=== PATIENT | female | born 1955 | race Caucasian/White ===

== ENCOUNTER 2019-07-05 13:59 | Emergency (ER) | payer MEDICARE, SELFPAY ==
[2019-07-05 14:00] VITALS: BP 140/70; PULSE 70; RESP 18; TEMP 36.6; O2SAT 99; BMI 29.2
[2019-07-05 14:38] VITALS: BMI 29.2
--- NOTE | 2019-07-05 14:46 | EKG12_ITS ---
Test Reason : Blood Pressure : / mmHG Vent. Rate : 057 BPM Atrial Rate : 057 BPM P-R Int : 134 ms QRS Dur : 078 ms QT Int : 444 ms P-R-T Axes : 043 008 035 degrees QTc Int : 432 ms Sinus bradycardia Otherwise normal ECG Confirmed by YUSUF PERALTA ([id number]), associate entertainment editor RODGER MCALLISTER ([id number]) on 07/09/2019 11:17:02 AM Referred By: Confirmed By:YUSUF PERALTA
--- NOTE | 2019-07-05 14:46 | CT_ITS ---
STUDY: CTA HEAD AND NECK WITH CONTRAST REASON FOR EXAM: Female, 63 years old. Blurred vision. RADIATION DOSAGE (If Supplied By Facility): CTDIvol = ( 29.78 ) mGy, DLP = ( 1275.93 ) mGycm TECHNIQUE: CT angiography was performed with a multi-detector CT scanner. Data acquisition was obtained from the skull base through the vertex following intravenous administration of 100 CC ISOVUE 370. MIP images were reconstructed from the axial data set. Post-processing of the angiographic images was performed, with multiplanar reformation and 3D reconstruction. Individualized dose optimization techniques were used for this CT. COMPARISON: No relevant priors. FINDINGS: Normal bilateral petrous carotid arteries. There is calcified plaque formation of the right cavernous carotid artery, without a cross-sectional luminal stenosis. There is calcified plaque formation of the left cavernous carotid artery, without a cross-sectional luminal stenosis. Normal right A1 segments of the anterior cerebral artery. There is hypoplastic development of the left A1 segment of the anterior cerebral arteries with an atretic but intact artery. Normal intact anterior communicating artery (ACOM). Normal bilateral A2 segments of the anterior cerebral arteries. Normal right M1 and M2 segments of the middle cerebral arteries, with a normal M1 bifurcation. Normal left M1 and M2 segments of the middle cerebral arteries, with a normal M1 bifurcation. Normal right posterior communicating artery (PCOM). Normal left posterior communicating artery (PCOM). There is a small atretic left vertebral artery with a dominant right vertebral artery. Normal basilar artery with a normal basilar bifurcation. The visualized bilateral superior cerebellar (SCA) arteries are normal. Normal bilateral P1, P2 and visualized P3 segments of the posterior cerebral arteries. There is no demonstrated aneurysm of the [place]. There is no demonstrated abnormality of the visualized brain. AORTIC ARCH: Normal visualized aortic arch. Normal origins of the brachiocephalic, left common carotid, and left subclavian arteries. RIGHT CAROTID ARTERIES: Normal right common carotid artery (CCA). There is atherosclerotic change of the distal common carotid artery at the bifurcation. There is a less than 50% stenosis. Normal carotid bulb. Small focus of calcification at the origin of the right internal carotid (ICA) artery without a hemodynamically significant stenosis. Tortuosity of the visualized cervical portion of the right internal carotid artery. Normal origin of the right external carotid artery (ECA). LEFT CAROTID ARTERIES: Normal left common carotid artery (CCA). Normal left common carotid bulb. Normal origin of the left internal carotid (ICA) artery without a hemodynamically significant stenosis. Tortuosity visualized cervical portion of the left internal carotid artery. Normal origin of the left external carotid artery (ECA). VERTEBRAL ARTERIES: There is enhancement within the bilateral vertebral arteries with a small left vertebral artery, and a dominant right vertebral artery. CT/CTA Head AND Neck W/ Contrast IMPRESSION: 1. 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 Otherwise normal [place]. 2. Hemodynamically insignificant right carotid plaque right asset criteria. 3. No evidence of acute intracranial or calvarial abnormality. Electronically Signed: Shahriar Stratton DO at 16:32 EDT Tel [phone], Service support ,
[2019-07-05 15:13] LABS: Absolute Lymphocyte Count 3.18 X10^3/uL (0.83-4.51); Absolute Neutrophil Count 3.9 X10^3/uL (2.0-7.7); Basophil# 0.05 X10^3/uL; Basophil% 0.6 % (0-1); Eosinophil# 0.15 X10^3/uL; Eosinophils% 1.9 % (0-5); Hematocrit 40.1 % (37-47); Hemoglobin 13.2 g/dL (12.0-15.0); Lymphocyte # 3.18 X10^3/ul (4.0); Lymphocyte % 40.2 % (19-41); Mean Corp Hgb Conc 32.9 g/dL (32-36); Mean Corpuscular Hgb 30.8 pg (27.0-32.0); Mean Corpuscular Volume 93.5 fL (81-99); Monocyte# 0.62 X10^3/uL; Monocyte% 7.8 % (0-10); NRBC Flagged by Analyzer 0 % (0-5); Neutrophil # 3.89 X10^3/uL (2.7-7.7); Neutrophil % 49.2 % (47-70); Platelet Count 278 K/mm3 (150-450); RBC Distribution Width CV 13.3 % (11.6-14.6); RBC Distribution Width SD 45.6 fl (35.1-43.9); Red Blood Count 4.29 M/mm3 (4.2-5.4); White Blood Count 7.9 K/mm3 (4.4-11.0)
[2019-07-05 15:20] LABS: International Normalized Ratio 0.9; Prothrombin Time (Protime)PT. 12.1 SECONDS (11.7-14.9)
[2019-07-05 15:21] LABS: Partial Thromboplast Time 31.4 Seconds (24.1-36.2)
--- NOTE | 2019-07-05 15:26 | ED.DCSUM_ITS ---
- ER Visit Summary Date of Service: 07/05/19 Chief Complaint: Change in vision History of Present Illness: The patient is a 63 F presenting after changes in her vision. Patient states she was mowing the lawn on Tuesday. She states she had an episode lasting approximately 5 minutes where she had blurry vision and felt her eyes were crossing. She denies other symptoms with this. She was able to continue mowing the lawn. It lasted approximately 5 minutes. She has felt normal since that time. She called her primary care physician today for follow- up and was advised to come to the emergency department. Physical Examination: Vitals are stable. Patient is afebrile. Alert no acute distress. HEENT exam is unremarkable. Neck is supple. Lungs are clear and equal bilaterally. Heart is regular rate and rhythm. Abdomen is soft nontender nondistended. Extremities are unremarkable. Skin is warm and dry. No focal neurologic deficit. NIH 0 Remainder of exam is unremarkable. Emergency Department Course and Treatment: EKG is sinus rhythm rate of 57 with no acute ischemic changes. CBC, chemistries unremarkable. INR 0.9. Troponin is negative. CTA head and neck shows hypoplastic A1 segment of the left anterior cerebral artery. Otherwise normal [place]. Hemodynamically insignificant right carotid plaque right asset criteria. No evidence of acute intracranial or calvarial abnormality. Patient remains asymptomatic in the ED. She is advised to take aspirin 81 mg daily. She is advised to follow-up with her primary care physician. Advised signs and symptoms for which to return to the ED. Impression: Vision changes, resolved This note was generated with [employer] dictation software. It may contain incorrect words, spelling, and punctuation that were not noted in review of the chart prior to signing ED Disposition - Plan for ED Patient: Referrals: Juan Jose Schmidt MD [STAFF PHYSICIAN] -
[2019-07-05 15:49] LABS: Anion Gap 6 (5-15); BUN 16 mg/dL (7-18); Calcium,Total 9.1 mg/dL (8.5-10.1); Chloride 110 mmol/L (98-107); Creatinine, Serum 0.84 mg/dL (0.55-1.02); EST Glomerular Filtration Rate 72 mL/min (>60); Est Glom Filt Rate - Afr Amer 87 mL/min (>60); Estimated Creatinine Clearance 55.23 ml/min; Glucose 90 mg/dL (74-106); Potassium 4.4 mmol/L (3.5-5.1); Sodium Level 142 mmol/L (136-145)
--- NOTE | 2019-07-05 16:58 | ED.DEP ---
ED Disposition - Plan for ED Patient: Instructions: ED TRANSIENT ISCHEMIC ATTACK Prescriptions: Aspirin 81 mg PO DAILY #30 tab.chew Referrals: Mario Roberto DO [Primary Care Provider] -
[2019-07-05 17:31] VITALS: BP 140/78; PULSE 74; RESP 18; O2SAT 98
== END 2019-07-05 17:36 | disposition home or self-care (01) ==
LOC: ED 16:03
PROVIDERS: Emergency Provider Emergency Medicine; PCP Student in an Organized Health Care Education/Training Program
DX: H53.8 Other visual disturbances (principal); Q28.3 Other malformations of cerebral vessels; F32.9 Major depressive disorder, single episode, unspecified; Z72.0 Tobacco use; Z79.899 Other long term (current) drug therapy
CPT/HCPCS: 70496; 70498; 80048; 84484; 85025; 85610; 85730; 93005; 99283; Q9967; A4216

== ENCOUNTER 2019-08-24 09:40 | Emergency (ER) | payer MEDICARE, SELFPAY ==
[2019-08-24 09:42] VITALS: BP 142/79; PULSE 73; RESP 16; TEMP 36.9; O2SAT 96; BMI 30.4
--- NOTE | 2019-08-24 09:50 | ED.VISSUMM ---
- ER Visit Summary Date of Service: 08/24/19 Chief Complaint: Chest pain History of Present Illness: The patient is a [address] Roberto. She reports that yesterday while undergoing light activity she had the onset of left-sided chest pain that she describes a stabbing pain that lasts seconds. It is intermittent pain that is recurring repeatedly. It is 4-10 at worst and she is pain-free currently. Is worsened by pushing on that side. She denies any change with exertion or breathing. Is also unchanged by movement of her arm or torso. This is also relieved by nothing. She denies any associated nausea, vomiting, diaphoresis, shortness of breath. She denies palpitations. Physical Examination: Vitals: Stable. Afebrile. General: Well-nourished and well-developed. Head: Normocephalic atraumatic. Neck: Supple, no lymphadenopathy. No JVD. Nontender. Cardiovascular: Regular rate and rhythm. No murmurs. Respiratory: No respiratory distress. Clear to auscultation bilaterally. Abdominal: Soft, nontender, nondistended, normal bowel sounds. No guarding, rebound, or peritoneal signs. Back: Nontender. Extremities: Nontender, no edema. Skin: Normal color, no rash. Neurologic: Alert and oriented ?3. Cranial nerves II through XII are intact. Normal strength and sensation. Psych: Normal affect. Test Results: EKG is sinus at 62. Is unchanged from July 05, 2019. CBC is normal. Chem-7 shows a chloride of 112 and glucose 110. Troponin is negative. Chest x-ray shows chronic changes. Emergency Department Course and Treatment: Patient had an IV placed. She was given aspirin. She is resting comfortably. Treatment Plan: Patient has very atypical chest pain. I do not think that this is ischemic in etiology. She will be discharged instructions follow-up with her primary care physician in 3 to 5 days for another exam. Return to the emergency department for any worsening symptoms. Disposition: To home in improved and stable condition. Impression: 1. Atypical chest pain. 2. ZURI score of 1. 3. Heart score of 3. This note was generated with [employer] software. It may contain incorrect words, spelling, and punctuation that were not noted in review of the chart prior to signing ED Disposition - Plan for ED Patient: Instructions: ED Chest Pain Atypical Unkn Cause Referrals: Mario Roberto DO [Primary Care Provider] - 3-5 Days
--- NOTE | 2019-08-24 10:01 | EKG12_ITS ---
Test Reason : CP Blood Pressure : / mmHG Vent. Rate : 062 BPM Atrial Rate : 062 BPM P-R Int : 124 ms QRS Dur : 074 ms QT Int : 422 ms P-R-T Axes : 058 020 051 degrees QTc Int : 428 ms Normal sinus rhythm Normal ECG Confirmed by CECILIA AUSTIN, SULTANA ([id number]), television news video editor TAMMY JOSE ([id number]) on 08/28/2019 9:18:37 AM Referred By: NIRAV Confirmed By:SULTANA BROOKS MD
[2019-08-24] MEDS: Aspirin 81 MG TAB.CHEW 324 MG PO (10:09)
[2019-08-24 10:13] VITALS: O2SAT 99
[2019-08-24] MEDS: 0.9% Normal Saline 1,000 ML 150 ML IV (10:14)
--- NOTE | 2019-08-24 10:20 | RAD_ITS ---
STUDY: X-RAY CHEST REASON FOR EXAM: Female, 63 years old. WOKE UP WITH CHEST PRESSURE THIS MORNING, NO LONGER HAVING CHEST PRESSURE TECHNIQUE: Single AP portable view of the chest. COMPARISON: Comparison is made with prior study dated September 03, 2010. FINDINGS: EKG electrodes are seen. Stable mild increased markings in the lingular segment of the left upper lobe suggestive of atelectasis and/or scarring. This has progressed since prior study. There is no demonstrated pleural abnormality. Normal size heart. Normal mediastinum and krystal. Normal visualized pulmonary arteries. There is atherosclerotic calcification of the aortic arch with tortuosity. Normal visualized thoracic spine. Normal visualized ribs, clavicles, and shoulders. There is no demonstrated abnormality of the visualized soft tissue structures of the upper abdomen. RAD/Chest 1 View (Portable) IMPRESSION: Persistent mild increased markings in the lingular segment of the left upper lobe. No other abnormality is seen. Electronically Signed: Yash Franklin, at 10:50 EDT , Service support ,
[2019-08-24 10:22] LABS: Absolute Lymphocyte Count 3.77 X10^3/uL (0.83-4.51); Absolute Neutrophil Count 4.5 X10^3/uL (2.0-7.7); Basophil# 0.06 X10^3/uL; Basophil% 0.6 % (0-1); Eosinophil# 0.26 X10^3/uL; Eosinophils% 2.8 % (0-5); Hematocrit 39.6 % (37-47); Hemoglobin 13.2 g/dL (12.0-15.0); Lymphocyte # 3.77 X10^3/ul (4.0); Mean Corp Hgb Conc 33.3 g/dL (32-36); Mean Corpuscular Hgb 30.9 pg (27.0-32.0); Mean Corpuscular Volume 92.7 fL (81-99); Mean Platelet Vol. 10.6 fl (6.2-12.0); Monocyte# 0.81 X10^3/uL; Monocyte% 8.6 % (0-10); NRBC Flagged by Analyzer 0 % (0-5); Neutrophil # 4.49 X10^3/uL (2.7-7.7); Neutrophil % 47.7 % (47-70); Platelet Count 247 K/mm3 (150-450); RBC Distribution Width CV 13.2 % (11.6-14.6); RBC Distribution Width SD 44.6 fl (35.1-43.9); Red Blood Count 4.27 M/mm3 (4.2-5.4); White Blood Count 9.4 K/mm3 (4.4-11.0)
[2019-08-24 10:37] LABS: Anion Gap 5 (5-15); BUN 17 mg/dL (7-18); BUN/Creat Ratio 18.9 RATIO (10-20); Calcium,Total 8.8 mg/dL (8.5-10.1); Chloride 112 mmol/L (98-107); EST Glomerular Filtration Rate 67 mL/min (>60); Est Glom Filt Rate - Afr Amer 81 mL/min (>60); Estimated Creatinine Clearance 51.55 ml/min; Glucose 110 mg/dL (74-106); Potassium 4.1 mmol/L (3.5-5.1); Sodium Level 143 mmol/L (136-145)
[2019-08-24 11:10] VITALS: BP 123/74; PULSE 68; RESP 15; O2SAT 98
== END 2019-08-24 11:12 | disposition home or self-care (01) ==
PROVIDERS: Emergency Provider Emergency Medicine; PCP Student in an Organized Health Care Education/Training Program
DX: R07.89 Other chest pain (principal); J44.9 Chronic obstructive pulmonary disease, unspecified; Z72.0 Tobacco use; Z79.82 Long term (current) use of aspirin; Z79.899 Other long term (current) drug therapy
CPT/HCPCS: 71045; 80048; 84484; 85025; 93005; 96360; 99285; J7030; A4216

== ENCOUNTER 2023-01-06 17:39 | Emergency (ER) | payer MEDICARE, SELFPAY ==
[2023-01-06] VITALS (9 sets, daily range): BP systolic 141–163; BP diastolic 63–80; PULSE 54–68; RESP 14–18; TEMP 36.3; O2SAT 97–100; BMI 32.8
--- NOTE | 2023-01-06 18:00 | EX.ED.GENINJ ---
HPI History of Present Illness Chief Complaint: Fall Detail of Chief Complaint: Injury and right ankle Informant: patient Onset/Context/Timing Onset: Hours Mechanism/Context: Fall (From ladder 4 or 5 rungs up) Location of pain/injuries: Right ankle (Paramedics there is a deformity.) Current Severity: Mild Maximum Severity: Severe Worsened by: Any attempt to move Relieved by: Nothing Associated Symptoms Associated Symptoms: Positive for Loss of function and Inability to ambulate; Negative for Parasthesias, Weakness, Loss of consciousness or Amnesia Narrative Narrative: It is a 67-year-old woman with history of hypercholesterolemia and hypertension who fell. She states her foot got entangled in one of the rungs. She denies head trauma. She denies being dazed and denies loss of consciousness. She denies neck pain. She denies paresthesia, anesthesia or motor weakness upper or lower extremities. She denies chest pain, back pain. She denies shortness of breath. She is not on an anticoagulant. She states she takes a baby aspirin a day. She is on medicine for anxiety. Tetanus Immunization: 5-10 years Prior similar symptoms: No Recent Illness/Hospitalization: No PFSH PFS Medical History COPD (chronic obstructive pulmonary disease) Depression Hypertension Home Medications aspirin 81 mg chewable tablet 81 mg PO DAILY ##30 07/05/19 [Rx Last Taken 08/24/19] citalopram 40 mg tablet 20 mg PO DAILY 07/05/19 [History Last Taken 08/24/19] rosuvastatin 5 mg tablet 5 mg PO QHS 08/24/19 [History Last Taken 08/23/19] losartan 100 mg tablet 100 mg PO DAILY 01/06/23 [History Last Taken Unknown] Allergy/AdvReac Type Severity Reaction Status Date / Time No Known Allergies Allergy Verified 01/06/23 17:40 Social History (Updated 01/06/23 @ 18:[address] Jamel Mae MD) household members: none Smoking Status: Current every day smoker tobacco type: cigarettes ROS ROS ED Constitutional Constitutional ED: Denies chills or fever(s) Eyes Eyes: Denies blurry vision or change in vision ENT ENT ED: Denies ear pain, rhinorrhea or sore throat Cardiovascular Cardiovascular: Denies chest pain or palpitations Respiratory/Chest Respiratory/Chest: Denies cough, dyspnea or dyspnea on exertion Gastrointestinal Gastrointestinal: Denies abdominal pain, nausea or vomiting Musculoskeletal Musculoskeletal: Reports other Details: Right ankle pain ; Denies arthralgias, back pain, myalgias or neck pain Neurologic Neurologic: Denies headache(s), paresthesias or weakness Psychiatric Psychiatric: Reports anxiety Hematologic/Lymphatic Hematologic/Lymphatic: Denies easy bleeding or easy bruising EXAM Physical Exam Const Vital Signs: 01/06/23 17:39 01/06/23 17:39 01/06/23 17:39 Temperature 97.3 F L Temperature Source Oral Pulse Rate 60 Pulse Rate [2] Pulse Rate [3] Respiratory Rate 18 Respiratory Rate [2] Respiratory Rate [3] Respiratory Effort Normal Non-Labored Respiratory Depth Normal Respiratory Pattern Normal Blood Pressure 147/80 H Blood Pressure [1 (Initial Baseline)] Blood Pressure [3] Blood Pressure Mean 102 Pulse Ox 98 98 Oxygen Delivery Method Room Air Room Air Room Air Oxygen Delivery Method [1 (Initial Baseline)] Oxygen Delivery Method [2] Oxygen Delivery Method [3] Oxygen Flow Rate (L/min) Oxygen Flow Rate (L/min) [1 (Initial Baseline)] Oxygen Flow Rate (L/min) [2] Oxygen Flow Rate (L/min) [3] 01/06/23 19:43 01/06/23 19:59 01/06/23 19:58 Temperature Temperature Source Pulse Rate 54 L Pulse Rate [2] 59 L Pulse Rate [3] 60 Respiratory Rate 16 Respiratory Rate [2] 16 Respiratory Rate [3] 14 Respiratory Effort Respiratory Depth Respiratory Pattern Blood Pressure 159/77 H Blood Pressure [1 (Initial Baseline)] 159/77 H Blood Pressure [3] 155/74 H Blood Pressure Mean Pulse Ox 100 Oxygen Delivery Method Nasal Cannula Nasal Cannula Oxygen Delivery Method [1 (Initial Baseline)] Nasal Cannula Oxygen Delivery Method [2] Nasal Cannula Oxygen Delivery Method [3] Nasal Cannula Oxygen Flow Rate (L/min) 2 2 Oxygen Flow Rate (L/min) [1 (Initial Baseline)] 2 Oxygen Flow Rate (L/min) [2] 2 Oxygen Flow Rate (L/min) [3] 2 01/06/23 20:03 01/06/23 20:08 Temperature Temperature Source Pulse Rate Pulse Rate [2] Pulse Rate [3] Respiratory Rate Respiratory Rate [2] Respiratory Rate [3] Respiratory Effort Respiratory Depth Respiratory Pattern Blood Pressure Blood Pressure [1 (Initial Baseline)] Blood Pressure [3] Blood Pressure Mean Pulse Ox Oxygen Delivery Method Room Air Room Air Oxygen Delivery Method [1 (Initial Baseline)] Oxygen Delivery Method [2] Oxygen Delivery Method [3] Oxygen Flow Rate (L/min) Oxygen Flow Rate (L/min) [1 (Initial Baseline)] Oxygen Flow Rate (L/min) [2] Oxygen Flow Rate (L/min) [3] Positive well nourished, well developed and obese General Appearance ED: well developed and NAD Nutritional Appearance: obese HEENT Reports TM's clear HEENT Narrative: No clinical findings for basilar skull fracture. atraumatic Nose: Negative for septum abnormal Tympanic Membrane ED: Yes TM's clear Eyes PERRL and EOMs intact bilaterally General Eye ED: Yes other Other Details: No subconjunctival hemorrhage. There is no nystagmus. Neck full ROM General: Negative for tenderness Chest Wall inspection of chest normal and palpation of chest normal Resp normal respiratory effort and clear to auscultation bilaterally Cardio regular rhythm, S1 normal heart sound, S2 normal heart sound and no murmurs Rate: regular rate GI normal to inspection, nondistended, normoactive bowel sounds, non-tender, non-distended and no masses Auscultation: normoactive bowel sounds Back/Spine normal to inspection and no thoracic nor lumbar tenderness Extremity Negative for normal to inspection or full ROM Extremity Narrative: There is deformity and swelling of the right ankle. Patient is able to move her toes. Difficult to assess for PT or DP pulse because of pain. Neuro oriented x3, CN's II-XII intact bilaterally, moves all extremities, no focal motor deficits, no sensory deficits noted and No gait normal Sensorium / Orientation: alert Motor Exam: strength 5/5 throughout Plantar Reflex: Downgoing: bilateral Psych Mood & Affect: anxious Skin no rashes or lesions noted, no wounds, skin turgor normal and no jaundice PROC Procedures Lower Extremity Splints Lower Extremity Splint: Plaster, Stirrup and - (Short leg posterior splint as well) Splint Fabrication: Fabricated Location: Right Procedural Sedation 1 (Initial Baseline): Consent Signed: Yes Any Problems With Anesthesia: No You/Your family experience fever (hyperthermia) w/anesthesia: No Sedation medication: Propofol Dose: 110 Total Moderate Sedation Units: 11 Maliampati Score: Class I ASA Classification: II MDM MDM MDM Narrative Medical decision making narrative: Fevers established. Patient was treated with opiate analgesic for her pain. X-rays obtained to evaluate for fracture, fracture dislocation of the right ankle. There is no findings to suggest neurovascular compromise. Since there is no history of head trauma and she denies neck pain imaging of the head and neck was not obtained. Was made NPO. Radiography Chest X-Ray - ED: 2 View (Reveals a comminuted distal fibular and tibia fracture with widening of the mortise.) and Read by ED Physician (Reviewed x-ray was obtained postreduction. Alignment is much better. We are there is significant reduction but there is still displacement. The is evidence of a comminuted distal fibula fracture and comminuted distal tibia fracture. The tibia fracture does not go into the joint. This is interna) Diagnostic Testing: Clinical Impression(s) from Imaging Studies Ankle X-Ray 01/06/23 18:15 IMPRESSION: Unstable distal tib-fib fractures as above Electronically Signed: Kian Alfonso MD at 18:57 EST , Ankle X-Ray 01/06/23 19:53 IMPRESSION: Improved alignment distal tib-fib fractures. Detail obscured by a fiberglass splint. Electronically Signed: Kain Alfonso MD at 22:03 EST , Lower Extremity CT 01/06/23 20:10 IMPRESSION: Comminuted trimalleolar fracture. Electronically Signed: Tommie Triplett DO at 22:15 EST , Management Discussion w/another healthcare provider: [employer] (Chris who is the orthopedic surgeon on-call was paged. Will discuss case.) Treatment and Re-Evaluation Narrative: Informed of her results. She had some [employer] 3 hours prior to presentation and last ate something at 2 PM. Patient was consented for procedural sedation using propofol. She has no allergy to egg products or soy products. After reduction of fracture we will repeat x-rays and contact orthopedics. They may want a CT. To the ER physician [facility] [place]. He stated that he would have to talk to the orthopedic surgeon on-call since this is a complex fracture. Accepted by orthopedics. He would like patient transferred to ER and admitted to trauma service. Discharge Plan Triage Chief Complaint: Fall ED Provider: Jamel Mae Dx/Rx/DC Orders Clinical Impression: Anxiety disorder, Hypercholesterolemia, Closed displaced trimalleolar fracture of right ankle Prescriptions: No Action citalopram 40 mg tablet 20 mg PO DAILY Patient Comments: TAKE 1 2 (ONE HALF) TABLET BY MOUTH ONCE DAILY aspirin 81 MG tablet,chewable 81 mg PO DAILY Qty: 30 0RF rosuvastatin 5 MG tablet 5 mg PO QHS losartan 100 mg tablet 100 mg PO DAILY Primary Care Provider: Mario Roberto Referrals: Mario Roberto, [Primary Care Provider] - Disposition Disposition: Acute Care Hospital Discharge Location: [facility] [place]
[2023-01-06] MEDS: Morphine 4 MG/ML Syringe IV (18:09)
[2023-01-06] MEDS: Ondansetron 4 MG/2 ML Vial IV (18:09)
--- NOTE | 2023-01-06 18:15 | RAD_ITS ---
STUDY: X-RAY - RIGHT ANKLE REASON FOR EXAM: Female, 67 years old. Injury/Pain TECHNIQUE: 2 view(s) of the ankle. COMPARISON: None. FINDINGS: Comminuted displaced intra-articular fractures distal tibia and fibula obscured by posterior splint. There appears to be widening of the lateral ankle mortise. Normal visualized talus and calcaneus. The visualized subtalar, talonavicular, calcaneocuboid and tarsal articulations are normal. The soft tissue structures are unremarkable. RAD/Ankle 2 Views IMPRESSION: Unstable distal tib-fib fractures as above Electronically Signed: Kian Alfonso MD at 18:57 EST ,
[2023-01-06] MEDS: Propofol 200 MG/20 ML Vial IV BOLUS (19:44)
--- NOTE | 2023-01-06 19:53 | RAD_ITS ---
STUDY: X-RAY - RIGHT ANKLE REASON FOR EXAM: Female, 67 years old. POST REDUCTION TECHNIQUE: 2 view(s) of the ankle. COMPARISON: Right ankle January 06, 2023 FINDINGS: Comminuted fractures distal tibia and fibula improved alignment. Detail obscured by plaster splint. Normal medial and lateral malleoli. Normal tibiotalar articulation and ankle mortise. Normal visualized talus and calcaneus. The visualized subtalar, talonavicular, calcaneocuboid and tarsal articulations are normal. The soft tissue structures are unremarkable. RAD/Ankle 2 Views IMPRESSION: Improved alignment distal tib-fib fractures. Detail obscured by a fiberglass splint. Electronically Signed: Kian Alfonso MD at 22:03 EST ,
--- NOTE | 2023-01-06 20:10 | CT_ITS ---
INDICATION: Comminuted displaced right ankle fracture EXAMINATION: CT BONE - CT Lower Extremity W/O Contrast Injection TECHNIQUE: Helically acquired images were obtained of the right ankle with sagittal and coronal reconstructed images. Individualized dose optimization techniques were used for this CT. IV contrast dosage and agent: None. COMPARISON: X-rays from earlier same day. FINDINGS: There is soft tissue swelling and subcutaneous soft tissue stranding throughout the ankle. No significant abnormal fluid collection. There is a comminuted fracture of the distal fibula proximal to the ankle mortise. There is a comminuted fracture of the distal tibial metadiaphysis and tibial plafond also involving the medial malleolus and posterior malleolus. Remainder of the ankle and foot demonstrate no evidence of a fracture. CT/Extremity Lower without Contra IMPRESSION: Comminuted trimalleolar fracture. Electronically Signed: Tommie Triplett DO at 22:15 EST ,
[2023-01-06] MEDS: HYDROmorphone 0.5 MG/0.5 ML SYRINGE IV (21:29)
--- NOTE | 2023-01-06 22:30 | ED.RN ---
Pt attempted to use crutches to get up to bedside commode. Pt unable to transfer very well. Pt assisted x2 stand pivot to bedside. Pt total dependant for adriana care. Pt assisted x2 back to bed. Right ankle elevated, ice applied. Call light in reach.
[2023-01-07] MEDS: HYDROmorphone 0.5 MG/0.5 ML SYRINGE IV (02:37)
[2023-01-07 02:43] VITALS: PULSE 65; RESP 15; O2SAT 93
== END 2023-01-07 03:35 | disposition short-term general hospital (02) ==
PROVIDERS: Emergency Provider Emergency Medicine; PCP Student in an Organized Health Care Education/Training Program; Visit Provider Emergency Medicine
DX: S82.851A Displaced trimalleolar fracture of right lower leg, initial encounter for closed fracture (principal); J44.9 Chronic obstructive pulmonary disease, unspecified; I10 Essential (primary) hypertension; W11.XXXA Fall on and from ladder, initial encounter; E78.00 Pure hypercholesterolemia, unspecified; F41.9 Anxiety disorder, unspecified; F17.210 Nicotine dependence, cigarettes, uncomplicated; Z79.82 Long term (current) use of aspirin; Z79.899 Other long term (current) drug therapy
CPT/HCPCS: 29515; 73600; 73700; 96374; 96375; 96376; 99152; 99285; J7030; A4216; J2405

== ENCOUNTER → 2023-03-21 | Outpatient (CLI) | payer MEDICARE, SELFPAY ==
[2023-03-21 14:47] LABS: ALB/GLOB Ratio 1.1 RATIO (0.9-2.4); AST(SGOT) 23 U/L (15-37); Alanine Aminotransfer ALT/SGPT 23 U/L (13-56); Albumin, Serum 3.3 g/dL (3.2-5.0); Alkaline Phosphatase 102 U/L (45-117); Anion Gap 6 (5-15); BUN 13 mg/dL (7-18); BUN/Creat Ratio 15.5 RATIO (10-20); Calcium,Total 9.4 mg/dL (8.5-10.1); Chloride 108 mmol/L (98-107); Creatinine, Serum 0.84 mg/dL (0.55-1.02); EST Glomerular Filtration Rate 72 mL/min (>60); Est Glom Filt Rate - Afr Amer 87 mL/min (>60); Glucose 105 mg/dL (74-106); Potassium 3.7 mmol/L (3.5-5.1); Protein, Total 6.3 g/dL (6.4-8.2); Sodium Level 143 mmol/L (136-145)
[2023-03-21 15:05] LABS: Erythrocyte Sedimentation Rate 15 mm/hr (0-30)
[2023-03-21 15:07] LABS: Absolute Lymphocyte Count 2.67 X10^3/uL (0.83-4.51); Absolute Neutrophil Count 6.6 X10^3/uL (2.0-7.7); Basophil# 0.06 X10^3/uL; Basophil% 0.6 % (0-1); Eosinophil# 0.15 X10^3/uL; Eosinophils% 1.5 % (0-5); Hematocrit 36.9 % (37-47); Hemoglobin 11.8 g/dL (12.0-15.0); Lymphocyte # 2.67 X10^3/ul (0.83-4.51); Lymphocyte % 26.1 % (19-41); Mean Corpuscular Hgb 29.1 pg (27.0-32.0); Mean Corpuscular Volume 91.1 fL (81-99); Mean Platelet Vol. 11.8 fl (6.2-12.0); Monocyte# 0.73 X10^3/uL; Monocyte% 7.1 % (0-10); NRBC Flagged by Analyzer 0 % (0-5); Neutrophil # 6.59 X10^3/uL (2.7-7.7); Neutrophil % 64.3 % (47-70); Platelet Count 208 K/mm3 (150-450); RBC Distribution Width CV 14.2 % (11.6-14.6); Red Blood Count 4.05 M/mm3 (4.2-5.4); White Blood Count 10.2 K/mm3 (4.4-11.0)
--- OUTSIDE RECORDS SUMMARY | 2023-03-21 18:46 | XMS RPT_ITS | CCD ---
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 Name Role Phone Mario Roberto DO Primary Care Provider Nabeel BARAHONA, Ariela Maldonado Unavailable Unavail able Mario Roberto DO Primary Care Provider [phone] Corinna Vizcarra RN Unavailable Nabeel BARAHONA, Ariela Maldonado Unavailable Galina Liang RN Unavailable Unavailable Elisa BARAHONA, Chayo Unavailable Elisa BARAHONA, Chayo Unavailable Nabeel BARAHONA, Ariela Maldonado Unavailable MARIO ROBERTO DO Primary Care Physician Rebekah Rounding Nurse, Yung Unavailable MARIO Boggs DO Primary Care Unavailable MEMO PERKINS Attending Unavailable DARIANA WILLIAM MD Attending Unavailable MARIO ROBERTO DO Primary Care Unavailable SKIP PEACOCK MD Admitting Unavailable FRANCISCO DELAROSA Consulting Unavailable MICHAEL ELIAS MD Consulting Unavailable JOHN FRAGA MD Consulting Unavailable SARABJIT AUSTIN, DR KRUNAL Mtz Consulting Unavail able DIAN ARRIETA Consulting Unavailable VANE SANCHEZ MD Consulting Unavailable MARIO ROBERTO Attending Unavailable MARIO ROBERTO Primary Care Unavailable MARIO ROBERTO Primary Care Unavailable DARYA PAINTER Attending Unavailable MARIO ROBERTO Attending Unavailable MARIO ROBERTO Primary Care Unavailable JIMY CHAVIS Attending Unavailable MARIO ROBERTO Primary Care Unavailable MARIO ROBERTO Attending Unavailable MARIO ROBERTO Primary Care Unavailable Zoë Mittal Unavailable Unavailable Chaitanya BARAHONA, Moriah Unavailable Unavailable Allergies Allergy Classification Reported Allergen(s) Allergy Type Date of Onset Reaction(s) Facility (5 sources) Salicylic Acid; Translations: [SALICYLATES] Drug Allergy 06-02-2005 [facility] Work Phone: (20 sources) Salicylate product Propensity to adverse reactions 06-02-2005 [facility] Work Phone: Medications Current Medications Medication Drug Class(es) Dates Sig (Normalized) Sig (Original) acetaminophen 325 mg / oxyCODONE hydrochloride 5 mg oral tablet (5 sources) Opioid Agonist Start: 03-09-2023 End: 03-22-2023 take 1 tablet by mouth every six hours as needed for pain Percocet 5 mg-325 mg oral tablet Dose = 1 tab(s), Oral, q6h, PRN Pain, X 7 day(s), # 28 tab(s), 0 Refill(s), Pharmacy: [id number], Acute post-operative pain, 160, cm, 03/11/23 14:08:00 EST, Height, 75, kg, 03/11/23 14:08:00 EST, Dosing Weight Start Date: 03/15/23 Stop Date: 03/22/23 Status: Ordered Completed/Discontinued Medications Medication Drug Class(es) Dates Sig (Normalized) Sig (Original) [id number] 200 actuat albuterol 0.09 mg/actuat metered dose inhaler (20 sources) beta2-Adrenergic Agonist Start: 09-09-2022 take 2 puff(s) by inhalation every four hours as needed for wheezing albuterol HFA (PROVENTIL HFA, VENTOLIN HFA) 90 mcg/actuation inhaler Indications: Stage 1 mild COPD by GOLD classification ([facility]) Inhale 2 Puffs as instructed every 4 hours as needed for wheezing/shortness of breath. 18 g 2 09/09/2022 Active Problems Active Problems Problem Classification Problem Date Documented Da te Episodic/Chronic Chronic obstructive pulmonary disease and bronchiectasis (20 sources) Mild chronic obstructive pulmonary disease; Translations: [Chronic obstructive pulmonary disease, unspecified] Onset: 11-07-2017 Chronic Complications of surgical procedures or medical care (3 sources) Deep incisional surgical site infection; Translations: [Infection following a procedure, deep incisional surgical site, initial encounter] Onset: 03-11-2023 Episodic Disorders of lipid metabolism (20 sources) Hypertriglyceridemia ; Translations: [Pure hyperglyceridemia] Onset: 04-24-2014 Chronic E Codes: Fall (2 sources) Fall from ladder; Translations: [Fall on and from ladder, initial encounter] Onset: 02-11-2023 Episodic Essential hypertension (18 sources) Essential hypertension; Translations: [Essential (primary) hypertension] Onset: 04-21-2022 Chronic Fracture of lower limb (7 sources) Closed fracture of lower leg; Translations: [Other fracture of right lower leg, initial encounter for closed fracture] Onset: 01-07-2023 Episodic Immunizations and screening for infectious disease (1 source) Needs influenza immunization; Translations: [Encounter for immunization] 11-27-2022 Episodic Mood disorders (20 sources) Depressive disorder; Translations: [Other specified depressive episodes] Onset: 03-31-2007 07-16-2008 Chronic Nonmalignant breast conditions (3 sources) Discharge from nipple; Translations: [Nipple discharge] Episodic Nutritional deficiencies (4 sources) Vitamin D deficiency; Translations: [Vitamin D deficiency, unspecified] Onset: 11-27-2022 11-22-2022 Chronic Osteoarthritis (20 sources) Osteoarthritis of left knee joint; Translations: [Unilateral primary osteoarthritis, left knee] Onset: 04-29-2021 Chronic Other connective tissue disease (1 source) Pain of right lower leg; Translations: [Pain in right lower leg] Episodic Other connective tissue disease (1 source) H/O: arthrodesis; Translations: [Arthrodesis status] Onset: 03-11-2023 Episodic Other gastrointestinal disorders (1 source) Diarrhea; Translations: [Diarrhea, unspecified] Onset: 02-11-2023 02-11-2023 Episodic Other hereditary and degenerative nervous system conditions (3 sources) Essential tremor; Translations: [Essential tremor] Onset: 01-08-2023 Chronic Other lower respiratory disease (1 source) Cough; Translations: [Cough, unspecified] Episodic Other lower respiratory disease (1 source) Abnormal findings on diagnostic imaging of lung; Translations: [Other nonspecific abnormal finding of lung field] Episodic Other non-traumatic joint disorders (20 sources) Ankle pain; Translations: [Pain in left ankle and joints of left foot] Onset: 06-13-2017 06-13-2017 Episodic Other nutritional; endocrine; and metabolic disorders (20 sources) Obese class I; Translations: [Obesity, unspecified] Onset: 10-29-2020 Chronic Other skin disorders (1 source) Skin tag; Translations: [Other hypertrophic disorders of the skin] Episodic Pleurisy; pneumothorax; pulmonary collapse (1 source) Atelectasis; Translations: [Atelectasis] Episodic Pulmonary heart disease (3 sources) Other pulmonary embolism without acute cor pulmonale; Translations: [H/O: pulmonary embolus] Onset: 02-11-2023 Episodic Residual codes; unclassified (1 source) Tobacco user; Translations: [Tobacco use] Onset: 03-11-2023 Episodic Residual codes; unclassified (1 source) History of clinical finding in subject; Translations: [Personal history of other medical treatment] Onset: 02-11-2023 02-11-2023 Episodic Respiratory failure; insufficiency; arrest (adult) (1 source) Acute respiratory failure; Translations: [Acute respiratory failure with hypoxia] Episodic Substance-related disorders (20 sources) Tobacco user; Translations: [Nicotine dependence, unspecified, uncomplicated] Onset: 06-02-2005 06-11-2008 Chronic Past or Other Problems Problem Classification Problem Date Documented Da te Episodic/Chronic Diabetes mellitus without complication (20 sources) Impaired fasting glycemia; Translations: [Impaired fasting glucose] Onset: 06-12-2018 Episodic Malaise and fatigue (15 sources) Fatigue; Translations: [Other fatigue] Onset: 04-21-2022 Episodic Other connective tissue disease (20 sources) Pain in right hand; Translations: [Pain in right hand] Onset: 06-13-2017 06-13-2017 Episodic Other injuries and conditions due to external causes (20 sources) Injury of finger of right hand; Translations: [Unspecified injury of right wrist, hand and finger(s), initial encounter] Onset: 06-13-2017 06-13-2017 Episodic Other lower respiratory disease (20 sources) Chronic cough; Translations: [Chronic cough] Onset: 11-02-2017 11-02-2017 Episodic Other lower respiratory disease (20 sources) Dyspnea; Translations: [Shortness of breath] Onset: 11-02-2017 11-02-2017 Episodic Other non-traumatic joint disorders (20 sources) Pain in left knee; Translations: [Pain in joint, lower leg] Onset: 04-29-2021 Episodic Other non-traumatic joint disorders (1 source) Pain in right knee; Translations: [Acute pain of right knee] Onset: 07-02-2022 Episodic Other screening for suspected conditions (not mental disorders or infectious disease) (20 sources) Patient encounter status; Translations: [Encounter for screening for malignant neoplasm of colon] Onset: 06-13-2017 06-13-2017 Episodic Other skin disorders (20 sources) Sebaceous cyst of skin; Translations: [Sebaceous cyst] Onset: 06-02-2005 04-11-2019 Episodic Other skin disorders (20 sources) Multiple actinic keratoses; Translations: [Actinic keratosis] Onset: 06-13-2017 06-13-2017 Episodic Other skin disorders (20 sources) Disorder of sweat gland; Translations: [Eccrine sweat disorder, unspecified] Onset: 06-13-2017 06-13-2017 Episodic Other skin disorders (20 sources) Change in skin lesion; Translations: [Disorder of the skin and subcutaneous tissue, unspecified] Onset: 06-13-2017 06-13-2017 Episodic Other skin disorders (20 sources) Disorder of skin of lower limb; Translations: [Disorder of the skin and subcutaneous tissue, unspecified] Onset: 11-02-2017 11-02-2017 Episodic Residual codes; unclassified (20 sources) Tobacco use and exposure - finding; Translations: [Tobacco use] Onset: 06-12-2018 Episodic Residual codes; unclassified (20 sources) Disturbance in sleep behavior; Translations: [Sleep disorder, unspecified] Onset: 03-14-2008 03-14-2008 Episodic Residual codes; unclassified (20 sources) Flushing; Translations: [Flushing] Onset: 06-13-2017 06-13-2017 Episodic Skin and subcutaneous tissue infections (20 sources) Pilonidal cyst; Translations: [Pilonidal cyst without abscess] Onset: 11-02-2017 11-02-2017 Episodic Results Test Name Value Interpretation Reference Range Facil ity Vital Signs Date Time Vital Sign Value Performing Clinician Shannani dilipy 03-17-2023 07:06-0500 Blood Pressure Cuff Size IGNACIO CHRISTIANNE DO [facility] 03-17-2023 07:06-0500 Blood Pressure Location IGNACIO ED TRANSPORTER DO [address] [place] [address] 03-17-2023 07:06-0500 Blood Pressure Method IGNACIO ED TRANSPORTER DO [address] [place] [address] 03-17-2023 07:06-0500 Body temperature 98.24 [degF] IGNACIO ED TRANSPORTER DO [address] [place] [address] 03-17-2023 07:06-0500 Diastolic Blood Pressure Non-Invasive 74 mm[Hg] IGNACIO ED TRANSPORTER DO [address] [place] [address] 03-17-2023 07:06-0500 Heart rate 57 /min IGNACIO ED TRANSPORTER DO [address] [place] [address] 03-17-2023 07:06-0500 Reason For Taking VItal Signs IGNACIO ED TRANSPORTER DO [address] [place] [address] 03-17-2023 07:06-0500 Respiratory rate 16 /min IGNACIO ED TRANSPORTER DO [address] [place] [address] 03-17-2023 07:06-0500 Systolic Blood Pressure Non-Invasive 168 mm[Hg] IGNACIO ED TRANSPORTER DO [address] [place] [address] 03-16-2023 22:46-0500 Blood Pressure Cuff Size IGNACIO ED TRANSPORTER DO [address] [place] [address] 03-16-2023 22:46-0500 Blood Pressure Location IGNACIO ED TRANSPORTER DO [address] [place] [address] 03-16-2023 22:46-0500 Blood Pressure Method IGNACIO ED TRANSPORTER DO [address] [place] [address] 03-16-2023 22:46-0500 Body temperature 97.52 [degF] IGNACIO ED TRANSPORTER DO [address] [place] [address] 03-16-2023 22:46-0500 Diastolic Blood Pressure Non-Invasive 63 mm[Hg] IGNACIO ED TRANSPORTER DO [address] [place] [address] 03-16-2023 22:46-0500 Heart rate 57 /min IGNACIO ED TRANSPORTER DO [facility] 03-16-2023 22:46-0500 Respiratory rate 16 /min IGNACIO ED TRANSPORTER DO [address] [place] [address] 03-16-2023 22:46-0500 Systolic Blood Pressure Non-Invasive 117 mm[Hg] IGNACIO ED TRANSPORTER DO [address] [place] [address] 03-16-2023 22:20-0500 Heart rate 56 /min IGNACIO ED TRANSPORTER DO [address] [place] [address] 03-16-2023 22:20-0500 Reason For Taking VItal Signs IGNACIO ED TRANSPORTER DO [address] 03-16-2023 14:52-0500 Blood Pressure Cuff Size IGNACIO ED TRANSPORTER DO [address] [place] [address] 03-16-2023 14:52-0500 Blood Pressure Location IGNACIO ED TRANSPORTER DO [address] [place] [address] 03-16-2023 14:52-0500 Blood Pressure Method IGNACIO ED TRANSPORTER DO [address] [place] [address] 03-16-2023 14:52-0500 Body temperature 97.7 [degF] IGNACIO ED TRANSPORTER DO [address] [place] [address] 03-16-2023 14:52-0500 Diastolic Blood Pressure Non-Invasive 67 mm[Hg] IGNACIO ED TRANSPORTER DO [address] [place] [address] 03-16-2023 14:52-0500 Reason For Taking VItal Signs IGNACIO ED TRANSPORTER DO [address] [place] [address] 03-16-2023 14:52-0500 Respiratory rate 16 /min IGNACIO ED TRANSPORTER DO [address] [place] [address] 03-16-2023 14:52-0500 Systolic Blood Pressure Non-Invasive 153 mm[Hg] IGNACIO ED TRANSPORTER DO [address] [place] [address] 03-16-2023 08:26-0500 Heart rate 54 /min IGNACIO ED TRANSPORTER DO [address] [place] [address] 03-16-2023 07:15-0500 Heart rate 53 /min IGNACIO ED TRANSPORTER DO [address] [place] [address] 03-16-2023 04:08-0500 Heart rate 53 /min IGNACIO ED TRANSPORTER DO [address] [place] [address] 03-15-2023 19:00-0500 Heart rate 56 /min IGNACIO ED TRANSPORTER DO [address] [place] [address] 03-11-2023 14:08-0500 Body height 160 cm IGNACIO ED TRANSPORTER DO [address] [place] [address] 03-11-2023 14:08-0500 Body weight 75 kg IGNACIO ED TRANSPORTER DO [address] [place] [address] 03-11-2023 14:08-0500 Body weight 29.3 kg/m2 IGNACIO ED TRANSPORTER DO [address] [place] [address] 03-11-2023 13:59-0500 Heart rate 57 /min IGNACIO ED TRANSPORTER DO [address] [place] [address] 03-11-2023 13:24-0500 Heart rate 57 /min IGNACIO ED TRANSPORTER DO [address] [place] [address] 03-11-2023 13:24-0500 Mean blood pressure 84 mm[Hg] IGNACIO ED TRANSPORTER DO [address] [place] [address] 03-11-2023 13:09-0500 Body temperature 98.06 [degF] IGNACIO ED TRANSPORTER DO [address] [place] [address] 03-11-2023 13:09-0500 Mean blood pressure 84 mm[Hg] IGNACIO ED TRANSPORTER DO [address] [place] [address] 03-11-2023 12:54-0500 Mean blood pressure 70 mm[Hg] IGNACIO ED TRANSPORTER DO [address] [place] [address] 03-11-2023 12:24-0500 Body temperature 97.52 [degF] IGNACIO ED TRANSPORTER DO [address] [place] [address] 03-11-2023 12:20-0500 Respiratory Rate - Anes 7 br/min IGNACIO ED TRANSPORTER DO [address] [place] [address] 03-11-2023 12:15-0500 Respiratory Rate - Anes 12 br/min IGNACIO ED TRANSPORTER DO [address] [place] [address] 03-11-2023 12:10-0500 Respiratory Rate - Anes 11 br/min IGNACIO ED TRANSPORTER DO [address] [place] [address] 03-11-2023 11:40-0500 Body temperature 97.7 [degF] IGNACIO ED TRANSPORTER DO [address] [place] [address] 03-11-2023 08:56-0500 Body height 160 cm IGNACIO ED TRANSPORTER DO [address] [place] [address] 03-11-2023 08:56-0500 Body temperature 97.34 [degF] IGNACIO ED TRANSPORTER DO [address] [place] [address] 03-11-2023 08:56-0500 Body weight 33.95 kg/m2 IGNACIO ED TRANSPORTER DO [address] [place] [address] 03-11-2023 08:56-0500 Body weight 75 kg IGNACIO ED TRANSPORTER DO [address] [place] [address] 03-09-2023 10:32-0500 Body height 160 cm IGNACIO ED TRANSPORTER DO [address] [place] [address] 03-09-2023 10:32-0500 Body weight 86.9 kg IGNACIO ED TRANSPORTER DO [address] [place] [address] 01-15-2023 14:33-0500 Body temperature 98.24 [degF] MEMO GREEN PA [facility] 01-15-2023 14:33-0500 Diastolic Blood Pressure Non-Invasive 70 mm[Hg] MEMO GREEN PA [facility] 01-15-2023 14:33-0500 Heart rate 60 /min MEMO GREEN PA [facility] 01-15-2023 14:33-0500 Respiratory rate 16 /min MEMO GREEN PA [facility] 01-15-2023 14:33-0500 Systolic Blood Pressure Non-Invasive 107 mm[Hg] MEMO AGOSTO [facility] 01-12-2023 11:10-0500 Body temperature 97.88 [degF] SKIP PEACOCK MD [facility] 01-12-2023 11:10-0500 Diastolic Blood Pressure Non-Invasive 51 mm[Hg] SIKP PEACOCK MD [facility] 01-12-2023 11:10-0500 Heart rate 66 /min SKIP PEACOCK MD [facility] 01-12-2023 11:10-0500 Reason For Taking VItal Signs SKIP PEACOCK MD [facility] 01-12-2023 11:10-0500 Respiratory rate 16 /min SKIP PEACOCK MD [facility] 01-12-2023 11:10-0500 Systolic Blood Pressure Non-Invasive 123 mm[Hg] SKIP PEACOCK MD [facility] 01-12-2023 09:09-0500 Blood Pressure Cuff Size SKIP PEACOCK MD [facility] 01-12-2023 09:09-0500 Blood Pressure Location SKIP PEACOCK MD [facility] 01-12-2023 09:09-0500 Blood Pressure Method SKIP PEACOCK MD [facility] 01-12-2023 09:09-0500 Diastolic Blood Pressure Non-Invasive 60 mm[Hg] SKIP PEACOCK MD [facility] 01-12-2023 09:09-0500 Mean blood pressure 80 mm[Hg] SKIP PEACOCK MD [facility] 01-12-2023 09:09-0500 Systolic Blood Pressure Non-Invasive 127 mm[Hg] SKIP PEACOCK MD [facility] 01-12-2023 07:48-0500 Respiratory rate 16 /min SKIP PEACOCK MD [address] 01-12-2023 07:26-0500 Heart rate 64 /min SKIP PEACOCK MD [address] 01-12-2023 07:26-0500 Respiratory rate 16 /min SKIP PEACOCK MD [address] 01-12-2023 07:14-0500 Body temperature 98.42 [degF] SKIP PEACOCK MD [address] 01-12-2023 07:14-0500 Diastolic Blood Pressure Non-Invasive 71 mm[Hg] SKIP PEACOCK MD [address] 01-12-2023 07:14-0500 Heart rate 60 /min SKIP PEACOCK MD [address] 01-12-2023 07:14-0500 Reason For Taking VItal Signs SKIP PEACOCK MD [address] 01-12-2023 07:14-0500 Systolic Blood Pressure Non-Invasive 125 mm[Hg] SKIP PEACOCK MD [address] 01-12-2023 04:11-0500 Blood Pressure Location SKIP PEACOCK MD [facility] 01-12-2023 04:11-0500 Blood Pressure Method SKIP PEACOCK MD [facility] 01-12-2023 04:11-0500 Body temperature 97.88 [degF] SKIP PEACOCK MD [address] 01-12-2023 04:11-0500 Reason For Taking VItal Signs SKIP PEACOCK MD [facility] 01-11-2023 21:20-0500 Blood Pressure Location SKIP PEACOCK MD [facility] 01-11-2023 21:20-0500 Blood Pressure Method SKIP PEACOCK MD [address] [place] [address] 01-11-2023 05:38-0500 Blood Pressure Cuff Size SKIP PEACOCK MD [facility] 01-11-2023 05:38-0500 Heart rate 58 /min SKIP PEACOCK MD [address] [place] [address] 01-10-2023 23:19-0500 Blood Pressure Cuff Size SKIP PEACOCK MD [address] 01-10-2023 23:19-0500 Heart rate 65 /min SKIP PEACOCK MD [address] [place] [address] 01-10-2023 02:48-0500 Heart rate 96 /min SKIP PEACOCK MD [address] 01-09-2023 23:56-0500 Heart rate 54 /min SKIP PEACOCK MD [address] [place] [address] 01-09-2023 16:06-0500 SaO2% (BldA) [Mass fraction] 91.5 % SKIP PEACOCK MD [facility] 01-07-2023 18:35-0500 Body height 160 cm SKIP PEACOCK MD [facility] 01-07-2023 18:35-0500 Body weight 86.9 kg SKIP PEACOCK MD [facility] 01-07-2023 18:35-0500 Body weight 33.95 kg/m2 SKIP PEACOCK MD [address] 01-07-2023 18:00-0500 Body temperature 96.8 [degF] SKIP PEACOCK MD [address] [place] [address] 01-07-2023 18:00-0500 Mean blood pressure 93 mm[Hg] SKIP PEACOCK MD [address] [place] [address] 01-07-2023 17:35-0500 Mean blood pressure 104 mm[Hg] SKIP PEACOCK MD [address] [place] [address] 01-07-2023 16:20-0500 Body temperature 97.7 [degF] SKIP PEACOCK MD [address] 01-07-2023 16:15-0500 Respiratory Rate - Anes 0 br/min SKIP PEACOCK MD [address] 01-07-2023 16:10-0500 Respiratory Rate - Anes 0 br/min SKIP PEACOCK MD [address] 01-07-2023 16:05-0500 Respiratory Rate - Anes 11 br/min KSIP PEACOCK MD [address] [place] [address] 01-07-2023 15:55-0500 Body temperature 97.59 [degF] SKIP PEACOCK MD [address] 01-07-2023 15:50-0500 Body temperature 97.61 [degF] SKIP PEACOCK MD [address] [place] [address] 01-07-2023 05:18-0500 Body weight 86.9 kg SKIP PEACOCK MD [address] 11-22-2022 08:42-0400 Body temperature 97.59 [degF] Mario Roberto DO Work Phone: [facility] 11-22-2022 08:42-0400 Body weight 82.1 kg Mario Roberto DO Work Phone: [facility] 11-22-2022 08:42-0400 Diastolic blood pressure 80 mm[Hg] Mario Roberto DO Work Phone: [facility] 11-22-2022 08:42-0400 Heart rate 56 /min Mario Roberto DO Work Phone: [facility] 11-22-2022 08:42-0400 Respiratory rate 16 /min Mario Roberto DO Work Phone: [facility] 11-22-2022 08:42-0400 Systolic blood pressure 136 mm[Hg] Mario Roberto DO Work Phone: [facility] 09-09-2022 18:40-0400 Body weight 82.1 kg Jimy Chavis PLACEMENT SPECIALIST.[employer] Work Phone: [facility] 09-09-2022 18:40-0400 Diastolic blood pressure 76 mm[Hg] Jimy Chavis PLACEMENT SPECIALIST.[employer] Work Phone: [facility] 09-09-2022 18:40-0400 Heart rate 74 /min Jimy Chavis PLACEMENT SPECIALIST.[employer] Work Phone: [facility] 09-09-2022 18:40-0400 Respiratory rate 14 /min Jimy Chavis PLACEMENT SPECIALIST.[employer] Work Phone: [facility] 09-09-2022 18:40-0400 Systolic blood pressure 130 mm[Hg] Jimy Chavis PLACEMENT SPECIALIST.[employer] Work Phone: [facility] 04-19-2022 16:05-0400 Body temperature 96.3 [degF] Mario Roberto DO Work Phone: [facility] 04-19-2022 16:05-0400 Body weight 79.83 kg Mario Roberto DO Work Phone: [facility] 04-19-2022 16:05-0400 Diastolic blood pressure 81 mm[Hg] Mario Roberto DO Work Phone: [facility] 04-19-2022 16:05-0400 Heart rate 60 /min Mario Roberto DO Work Phone: [facility] 04-19-2022 16:05-0400 Respiratory rate 16 /min Mario Roberto DO Work Phone: [facility] 04-19-2022 16:05-0400 Systolic blood pressure 152 mm[Hg] Mario Roberto DO Work Phone: [facility] 11-11-2021 12:30-0400 Body weight 80.29 kg Tali Rashid PLACEMENT SPECIALIST.[employer] Work Phone: [facility] 11-11-2021 12:30-0400 Diastolic blood pressure 70 mm[Hg] Tali Zurawick PLACEMENT SPECIALIST.[employer] Work Phone: [facility] 11-11-2021 12:30-0400 Heart rate 64 /min Tali Zurawick PLACEMENT SPECIALIST.[employer] Work Phone: [facility] 11-11-2021 12:30-0400 Respiratory rate 16 /min Tali Zurawick PLACEMENT SPECIALIST.[employer] Work Phone: [facility] 11-11-2021 12:30-0400 Systolic blood pressure 120 mm[Hg] Tali Zurawick PLACEMENT SPECIALIST.[employer] Work Phone: [facility] 06-12-2021 15:24-0400 Body temperature 97 [degF] Mario Roberto DO Work Phone: [facility] 06-12-2021 15:24-0400 Body weight 79.38 kg Mario Roberto DO Work Phone: [facility] 06-12-2021 15:24-0400 Diastolic blood pressure 70 mm[Hg] Mario Roberto DO Work Phone: [facility] 06-12-2021 15:24-0400 Heart rate 60 /min Mario Roberto DO Work Phone: [facility] 06-12-2021 15:24-0400 Respiratory rate 20 /min Mario Roberto DO Work Phone: [facility] 06-12-2021 15:24-0400 Systolic blood pressure 112 mm[Hg] Mario Roberto DO Work Phone: [facility] 04-28-2021 13:02-0400 Body temperature 96.8 [degF] Mario Roberto DO Work Phone: [facility] 04-28-2021 13:02-0400 Body weight 78.02 kg Mario Roberto DO Work Phone: [facility] 04-28-2021 13:02-0400 Diastolic blood pressure 68 mm[Hg] Mario Roberto DO Work Phone: [facility] 04-28-2021 13:02-0400 Heart rate 60 /min Mario Roberto DO Work Phone: [facility] 04-28-2021 13:02-0400 Respiratory rate 20 /min Mario Mcguireon DO Work Phone: [facility] 04-28-2021 13:02-0400 Systolic blood pressure 122 mm[Hg] Mario Roberto DO Work Phone: [facility] Encounters Encounter Date Encounter Type Care Provider Facility Start: 03-18-2023 Telephone encounter Mario duke DO Work Phone: [facility] Procedures Date Procedure Procedure Detail Performing Clinician Start: 02-11-2023 Primary open reducti on of fracture and functional bracing IGNACIO SALAS DO Plan of Treatment Date Care Activity Detail Author Start: 03-06-2028 Colonoscopy COLONOSCOPY [facility] Start: 03-06-2028 COLORECTAL CANCER SCREENING COLORECTAL CANCER SCREENING [facility] Start: 03-06-2028 Screening for malignant neoplasm of colon [facility] Start: 02-14-2026 Diabetes Screening Diabetes Screening [facility] Start: 10-22-2025 Lipid 1996 panel - Serum or Plasma Lipid Screening [facility] Start: 10-22-2025 Lipid panel Lipid Screening [facility] Start: 10-22-2025 LIPID SCREEN LIPID SCREEN [facility] Start: 06-19-2025 Urine microalbumin profile [facility] Start: 03-03-2024 Annual PCP Team Chronic Disease Visit Annual PCP Team Chronic Disease Visit [facility] Start: 03-03-2024 BP Controlled (<130/80) BP Controlled (<130/80) [facility] Start: 11-23-2023 Annual PCP Team Chronic Disease Visit Annual PCP Team Chronic Disease Visit [facility] Start: 10-23-2023 DIABETES SCREEN DIABETES SCREEN [facility] Start: 10-23-2023 Diabetes Screening Diabetes Screening [facility] Start: 09-10-2023 ANNUAL PCP TEAM CHRONIC DISEASE VISIT ANNUAL PCP TEAM CHRONIC DISEASE VISIT [facility] Start: 07-03-2023 ANNUAL PCP TEAM CHRONIC DISEASE VISIT ANNUAL PCP TEAM CHRONIC DISEASE VISIT [facility] Start: 04-20-2023 ANNUAL PCP TEAM CHRONIC DISEASE VISIT ANNUAL PCP TEAM CHRONIC DISEASE VISIT [facility] Start: 11-22-2022 End: 01-22-2023 25-hydroxyvitamin D3 [Mass/volume] in Serum or Plasma VITAMIN D 25 HYDROXY Lab Routine Fatigue, unspecified type Vitamin D deficiency Expected: 11/22/2022, Expires: 01/22/[address] [facility] Work Phone: Immunizations Immunization Date Immunization Notes Care Provider Lovely palumbo 11-22-2022 influenza (HD-IIV4) vaccine, age 65+ yr, high dose, quadrivalent, PF (FLUZONE HIGH-DOSE) Mario Roberto DO Work Phone: [facility] Work Phone: 11-22-2022 influenza virus vaccine, unspecified formulation IGNACIO ED TRANSPORTER DO [facility] 11-11-2021 influenza, high-dose , quadrivalent vaccine (FLUZONE HIGH DOSE QUADRIVALENT) Tali Rashid APRN.[facility] Work Phone: [facility] 11-11-2021 influenza virus vaccine, unspecified formulation Mario Roberto DO Work Phone: [facility] 02-05-2021 SARS-CoV-2 mRNA (tozinameran) vaccine IGNACIO ED TRANSPORTER DO [facility] 10-29-2020 influenza virus vaccine, unspecified formulation IGNACIO ED TRANSPORTER DO [facility] 10-29-2020 influenza, high-dose , quadrivalent vaccine (FLUZONE HIGH DOSE QUADRIVALENT) Mario Roberto DO Work Phone: [facility] Work Phone: 05-07-2020 SARS-CoV-2 mRNA (tozinameran) vaccine IGNACIO ED TRANSPORTER DO [facility] 04-16-2020 SARS-CoV-2 mRNA (tozinameran) vaccine IGNACIO ED TRANSPORTER DO [facility] Payers Date Payer Category Payer Medicare [id number] 2018 Unknown [employer] O [id number] 2018-Present [phone] [id number] [place] [address] O [id number] 2018 Unknown [id number] 2018 Unknown [id number] 1955 Unknown [id number] 1955 Unknown [id number] Social History Date Type Detail Facility Start: 03-06-2018 End: 04-19-2022 Tobacco smoking status [facility] Smokes tobacco daily [facility] Work Phone: History of tobacco use Cigarette Smoker C [facility] Start: 04-28-2021 End: 03-03-2023 Alcohol intake Current drinker of alcohol (finding) [facility] Start: 10-27-2020 End: 04-18-2022 History SDOH Alcohol Frequency 2 [facility] Start: 10-27-2020 End: 04-18-2022 History SDOH Alcohol Std Drinks 1 [facility] Start: 10-27-2020 End: 04-18-2022 History SDOH Social Connections Living 5 [facility] Start: 10-27-2020 End: 04-18-2022 History SDOH Physical Activity MPS 3 [facility] Start: 10-27-2020 History SDOH Financial 4 [facility] Start: 04-11-2019 Education 12 [facility] Start: 1955 Sex Assigned At Not on file C [facility] Start: 04-18-2021 End: 11-11-2021 Exposure to SARS-CoV-2 (event) Not sure [facility] Work Phone: Start: 03-06-2018 End: 07-02-2022 Cigarettes smoked current (pack per day) - Reported 1 [facility] Start: 03-06-2018 End: 04-19-2022 Tobacco use and exposure Smokeless tobacco non-user [facility] Start: 04-18-2022 History SDOH Alcohol Std Drinks 0 [facility] Start: 04-19-2022 Tobacco Comment Just under a pack Cl [facility] Start: 04-18-2022 End: 07-02-2022 Social connection and isolation panel [facility] Do you belong to any clubs or organizations such as tenriism groups, unions, fraternal or athletic groups, or school groups? No [facility] Are you now , , , , never or living with a partner? [facility] How often to you hav e a drink containing alcohol? Monthly or less [facility] How many standard dr inks containing alcohol do you have on a typical day? Patient does not drink [facility] How often do you hav e 6 or more drinks on 1 occasion? Never [facility] How hard is it for y ou to pay for the very basics like food, housing, medical care, and heating Somewhat hard [facility] Do you feel stress - tense, restless, nervous, or anxious, or unable to sleep at night because your mind is troubled all the time - these days [OSQ] To some extent [facility] (I/We) worried wheth er (my/our) food would run out before (I/we) got money to buy more. Often true [facility] How many standard dr inks containing alcohol do you have on a typical day? 1 or 2 [facility] How hard is it for y ou to pay for the very basics like food, housing, medical care, and heating Not very hard [facility] (I/We) worried wheth er (my/our) food would run out before (I/we) got money to buy more. Never true [facility] In the past 12 month s, was there a time when you were not able to pay the mortgage or rent on time? Yes [facility] Sex Assigned At Sex [facility] Start: 03-09-2023 Tobacco smoking status Heavy t obacco smoker (finding) [facility] Start: 02-08-2023 Alcohol Comment very rarely [facility] Medical Equipment Procedure Code Equipment Code Equipment Origin al Text Equipment Identifier Dates Graft Bone Cance llo Chips 30cc - [id number] FDA Start: 02-11-2023 Arthrocell Plus [id number] Start: 02-11-2023 Anterolateral Pi kingsley Fusion Plate, 5 Hole [id number] Start: 02-11-2023 Screw 4.5mm Low Profile 30mm Bone Lock Ankle - [id number] Start: 02-11-2023 Screw 4.5mm Low Profile 26mm Bone Lock Ankle - [id number] Start: 02-11-2023 Screw Low Profil e Screws 4.5mm Titanium 20mm Bone Lock Ankle Fusion Plate - [id number] Start: 02-11-2023 Screw Compressio n Ft 3.5mm Mini Full Thread Titanium 26mm Bone Compression - [id number] Start: 02-11-2023 Screw [place] N-Christine Lp Ti 3.5x45m [id number] Start: 02-11-2023 Screw [place] N-Christine Lp Ti 3.5x40m [id number] Start: 02-11-2023 Screws Screw Ti Lp Christine 3.5x40mm [id number] Start: 02-11-2023 Screw Low Profil e Screws 3.5mm T15 Full Thread Titanium 32mm Bone Self Tap - [id number] Start: 02-11-2023 Screw Bn Loprfl 5.5mm 45mm Ankl Canc [id number] Start: 02-11-2023 Low Profile Scre w, Ti, 4.5 X 28mm [id number] Start: 02-11-2023 Goals Date Patient Goal Desired Activity /State Personal health goal Functional Status Date Assessment Result Facility 03-17-2023 Functional Status Room check performed [facility] 03-17-2023 Functional Status Done [facility] 03-16-2023 Functional Status [facility] 03-16-2023 Functional Status 0 [facility] 03-16-2023 Functional Status [facility] 03-16-2023 Functional Status Lunch Percent 75 [facility] 03-16-2023 Functional Status [facility] 03-16-2023 Functional Status [facility] 03-15-2023 Functional Status [facility] 03-15-2023 Functional Status [facility] 03-15-2023 Functional Status [facility] 03-14-2023 Functional Status [facility] 03-14-2023 Functional Status [facility] 03-14-2023 Functional Status [facility] 03-14-2023 Functional Status [facility] 03-14-2023 Functional Status Activity Assistance Ind ependent [facility] 03-13-2023 Functional Status [facility] 03-13-2023 Functional Status Independent [facility] 03-11-2023 Functional Status Sensory Deficits None A [facility] 03-11-2023 Functional Status bilateral knee high sidra lied/on [facility] 03-11-2023 Functional Status Maintained [facility] 03-09-2023 Functional Status [facility] 01-15-2023 Functional Status Minimum assistance [facility] 01-12-2023 Functional Status Door open, Room check performed [facility] 01-12-2023 Functional Status [facility] 01-12-2023 Functional Status [facility] 01-12-2023 Functional Status 7pm-7am [facility] 01-11-2023 Functional Status Valid [place] N/A [facility] 01-11-2023 Functional Status [facility] 01-11-2023 Functional Status [facility] 01-11-2023 [facility] Functional Status Sequential Com pression Device left knee high applied/on [facility] 01-10-2023 Functional Status Bed Bath Setup, Refused [facility] 01-10-2023 Functional Status [facility] 01-08-2023 Functional Status Mod I [facility] 01-07-2023 Functional Status None [facility] 01-07-2023 Functional Status [facility] 12-01-2023 Functional Status Living Situation Home i ndependently [facility] Mental Status Date Assessment Result Facility 03-17-2023 Mental Status Oriented x 4 [facility] 03-16-2023 Mental Status [facility] 03-16-2023 Mental Status [facility] 03-15-2023 Mental Status [facility] 01-15-2023 Mental Status Orientation Oriented x 4 [facility] 01-12-2023 Mental Status Oriented x 4 [facility] 01-12-2023 Mental Status [facility] 01-12-2023 Mental Status [facility] Clinical Notes 06-02-2005 to 03-21-2023 Telephone Encounter - Mario Roberto DO - 03/21/2023 9:32 AM ESTTelephone Encounter - Andree Orta RN - 03/18/2023 4:06 PM EST Note Date & Type Note Facility 03-21-2023 Miscellaneous Notes Noted Mario Roberto DO Breana from [facility] calls and reports that patient was discharged from hospital and they are resuming intermediate. long-term is going to see patient daily x 1 week for PICC line education and IV antibiotics administration and wound vac dressing changes. After that intermediate will visit patient 3 Times a week for wound vac dressing changes. Andree Orta RN documented in this encounter [facility] 03-17-2023 Hospital Discharg e instructions Patient Education 03/17/2023 11:01:03 Health Risks of Smoking Health Risks of Smoking Smoking cigarettes is very bad for your health. Tobacco smoke has over 200 known poisons in it. It contains the poisonous gases nitrogen oxide and carbon monoxide. There are over 60 chemicals in tobacco smoke that cause cancer. Smoking is difficult to quit because a chemical in tobacco, called nicotine, causes addiction or dependence. When you smoke and inhale, nicotine is absorbed rapidly into the bloodstream through your lungs. Both inhaled and non-inhaled nicotine may be addictive. What are the risks of cigarette smoke? Cigarette smokers have an increased risk of many serious medical problems, including: Lung cancer. Lung disease, such as pneumonia, bronchitis, and emphysema. Chest pain (angina) and heart attack because the heart is not getting enough oxygen. Heart disease and peripheral blood vessel disease. High blood pressure (hypertension). Stroke. Oral cancer, including cancer of the lip, mouth, or voice box. Bladder cancer. Pancreatic cancer. Cervical cancer. complications, including premature . Stillbirths and smaller babies, defects, and genetic damage to sperm. Early menopause. Lower estrogen level for women. Infertility. Facial wrinkles. Blindness. Increased risk of broken bones (fractures). Senile dementia. Stomach ulcers and internal bleeding. Delayed wound healing and increased risk of complications during surgery. Even smoking lightly shortens your life expectancy by several years. Because of secondhand smoke exposure, children of smokers have an increased risk of the following: Sudden syndrome (SIDS). Respiratory infections. Lung cancer. Heart disease. Ear infections. What are the benefits of quitting? There are many health benefits of quitting smoking. Here are some of them: Within days of quitting smoking, your risk of having a heart attack decreases, your blood flow improves, and your lung capacity improves. Blood pressure, pulse rate, and breathing patterns start returning to normal soon after quitting. Within months, your lungs may clear up completely. Quitting for 10 years reduces your risk of developing lung cancer and heart disease to almost that of a nonsmoker. People who quit may see an improvement in their overall quality of life. How do I quit smoking? Smoking is an addiction with both physical and psychological effects, and longtime habits can be hard to change. Your health care provider can recommend: Programs and community resources, which may include group support, education, or talk therapy. Prescription medicines to help reduce cravings. Nicotine replacement products, such as patches, gum, and nasal sprays. Use these products only as directed. Do not replace cigarette smoking with electronic cigarettes, which are commonly called e-cigarettes. The safety of e-cigarettes is not known, and some may contain harmful chemicals. A combination of two or more of these methods. Where to find more information [place] [employer]: www.lung.org [place] [employer]: www.cancer.org Summary Smoking cigarettes is very bad for your health. Cigarette smokers have an increased risk of many serious medical problems, including several cancers, heart disease, and stroke. Smoking is an addiction with both physical and psychological effects, and longtime habits can be hard to change. By stopping right away, you can greatly reduce the risk of medical problems for you and your family. To help you quit smoking, your health care provider can recommend programs, community resources, prescription medicines, and nicotine replacement products such as patches, gum, and nasal sprays. This information is not intended to replace advice given to you by your health care provider. Make sure you discuss any questions you have with your health care provider. Document Released: 03/03/2005 Document Revised: 04/27/2018 Document Reviewed: 01/28/2017 [employer] Patient Education 2020 [employer]. 03/17/2023 11:01:02 Coping with Quitting Smoking Coping with Quitting Smoking Quitting smoking is a physical and mental challenge. You will face cravings, withdrawal symptoms, and temptation. Before quitting, work with your health care provider to make a plan that can help you cope. Preparation can help you quit and keep you from giving in. How can I cope with cravings? Cravings usually last for 5 10 minutes. If you get through it, the craving will pass. Consider taking the following actions to help you cope with cravings: Keep your mouth busy: ?Chew sugar-free gum. ?Suck on hard candies or a straw. ?[place] your teeth. Keep your hands and body busy: ?Immediately change to a different activity when you feel a craving. ?Squeeze or play with a ball. ?Do an activity or a hobby, like making bead jewelry, practicing needlepoint, or working with wood. ?Mix up your normal routine. ?Take a short exercise break. Go for a quick walk or run up and down stairs. ?Spend time in public places where smoking is not allowed. Focus on doing something kind or helpful for someone else. Call a friend or family member to talk during a craving. Join a support group. Call a quit line, such as 5-598-AMGINewlight TechnologiesNOW. Talk with your health care provider about medicines that might help you cope with cravings and make quitting easier for you. How can I deal with withdrawal symptoms? Your body may experience negative effects as it tries to get used to not having nicotine in the system. These effects are called withdrawal symptoms. They may include: Feeling hungrier than normal. Trouble concentrating. Irritability. Trouble sleeping. Feeling depressed. Restlessness and agitation. Craving a cigarette. To manage withdrawal symptoms: Avoid places, people, and activities that trigger your cravings. Remember why you want to quit. Get plenty of sleep. Avoid coffee and other caffeinated drinks. These may worsen some of your symptoms. How can I handle social situations? Social situations can be difficult when you are quitting smoking, especially in the first few weeks. To manage this, you can: Avoid parties, bars, and other social situations where people might be smoking. Avoid alcohol. Leave right away if you have the urge to smoke. Explain to your family and friends that you are quitting smoking. Ask for understanding and support. Plan activities with friends or family where smoking is not an option. What are some ways I can cope with stress? Wanting to smoke may cause stress, and stress can make you want to smoke. Find ways to manage your stress. Relaxation techniques can help. For example: Breathe slowly and deeply, in through your nose and out through your mouth. Listen to soothing, relaxing music. Talk with a family member or friend about your stress. Light a candle. Soak in a bath or take a shower. Think about a peaceful place. What are some ways I can prevent weight gain? Be aware that many people gain weight after they quit smoking. However, not everyone does. To keep from gaining weight, have a plan in place before you quit and stick to the plan after you quit. Your plan should include: Having healthy snacks. When you have a craving, it may help to: ?Eat plain popcorn, crunchy carrots, celery, or other cut vegetables. ?Chew sugar-free gum. Changing how you eat: ?Eat small portion sizes at meals. ?Eat 4 6 small meals throughout the day instead of 1 2 large meals a day. ?Be mindful when you eat. Do not watch television or do other things that might distract you as you eat. Exercising regularly: ?Make time to exercise each day. If you do not have time for a long workout, do short bouts of exercise for 5 10 minutes several times a day. ?Do some form of strengthening exercise, like weight lifting, and some form of aerobic exercise, like running or swimming. Drinking plenty of water or other low-calorie or no-calorie drinks. Drink 6 8 glasses of water daily, or as much as instructed by your health care provider. Summary Quitting smoking is a physical and mental challenge. You will face cravings, withdrawal symptoms, and temptation to smoke again. Preparation can help you as you go through these challenges. You can cope with cravings by keeping your mouth busy (such as by chewing gum), keeping your body and hands busy, and making calls to family, friends, or a helpline for people who want to quit smoking. You can cope with withdrawal symptoms by avoiding places where people smoke, avoiding drinks with caffeine, and getting plenty of rest. Ask your health care provider about the different ways to prevent weight gain, avoid stress, and handle social situations. This information is not intended to replace advice given to you by your health care provider. Make sure you discuss any questions you have with your health care provider. Document Released: 01/21/2017 Document Revised: 01/06/2018 Document Reviewed: 01/21/2017 [employer] Patient Education 2020 [employer]. Follow Up Care 03/08/2023 11:01:43 With:IGNACIO SALAS DO Address: [address] [facility]/[place] [address]- When:Within 1 Week(s) Comments:Please call the office to schedule a follow-up appointment. With:MARIO ROBERTO DO Address: [address] [place] [address]- When:1-2 days Comments:Please call the office to schedule a follow-up appointment. With:Sherie C has been set up for you. They should contact you within 24-48hrs if they have not already. Any questions or concerns please call [phone]. Address: When:1-2 days With:[facility] has been set up for you please call if you do not hear from them or if you have any questions at [phone] Address: When:1-2 days [facility] 03-17-2023 Note Discharge Instructions Thank you for allowing [facility] to assist you with your healthcare needs. The following is important discharge information regarding your hospital visit. Your Care Team MARIO ROBERTO DO Your Diagnosis Acute post-operative pain COPD - Chronic obstructive pulmonary disease Deep postoperative wound infection Status post ankle fusion Tobacco use What to do next Instructions From Your Doctor Patient needs to have 3 times weekly wound VAC changes. Strictly NWB. Antibiotics plan per Infectious disease. Absolutely no smoking. This includes all nicotine replacement including lozenges, patches, etc. Maintain well-padded splint between wound VAC changes. Follow-up with Dr. Salas in 1-2 weeks, patient needs to follow-up with Dr. Salas in AM on day before scheduled wound vac change so that Dr. Salas can remove wound vac, eval wound and wound vacuum can be applied at home same day. Follow Up Appointments Follow Up with IGNACIO SALAS DO When In 1 week Why: Please call the office to schedule a follow-up appointment. Where: [address] [facility]/[place] [address]- Follow Up with MARIO ROBERTO DO When Within 1-2 days Why: Please call the office to schedule a follow-up appointment. Where: [address] [place] [address]- Follow Up with [facility] has been set up for you. They should contact you within 24-48hrs if they have not already. Any questions or concerns please call [phone]. When Within 1-2 days Where: Follow Up with [facility] has been set up for you please call if you do not hear from them or if you have any questions at [phone] When Within 1-2 days Where: The Following Activity and Diet Have Been Ordered for You Discharge Activity - Ordered -- Non-Weight Bearing Activity Only, [facility], 03/17/23 10:14:00 EST Discharge Diet - Ordered -- Type of Diet: Regular Diet, No changes were made to your diet during your hospital stay. Please resume your pre hospitalization diet on discharge., 03/17/23 10:14:00 EST The Following Equipment Has Been Ordered for You Discharge Home Equipment Discharge Wound Care - Ordered -- Dressing Type: *Other (specify in special instructions), maintain splint; do not get wet, 03/17/23 10:14:00 EST Discharge Wound Vac Care - Ordered -- Continuous suction, 125 cmH20, Black sponge, 03/17/23 10:14:00 EST Someone Will Contact You Regarding These Home Health Referrals Consult Home Health - RN - Ordered -- 03/17/23 10:14:00 EST, Reason: Wound Care, wound vac changes MWF Allergies NKA Medications Please ask your primary doctor or pharmacist before taking any other medication not listed, including over the counter drugs, herbal medications, vitamins and or supplements as they may interact with your home medications. What How Much When Why Instructions Last Dose Changed acetaminophen-oxyCODONE (acetaminophen-oxyCODONE 325 mg-5 mg oral tablet) 1 tab(s) by mouth Every 6 hours as needed for for pain Changed acetaminophen-oxyCODONE (Percocet 5 mg-325 mg oral tablet) 1 tab(s) by mouth Every 6 hours as needed for Pain Acute post-operative pain Duration: 7 Days Pickup at [facility] [id number] Unchanged apixaban (Eliquis 5 mg oral tablet) 1 tab(s) by mouth Two (2) times a day Unchanged ascorbic acid (Vitamin C 500 mg oral tablet) 1 tab(s) by mouth Daily at bedtime Unchanged cephalexin (cephalexin 500 mg oral capsule) 1 cap by mouth Every 12 hours Unchanged cholecalciferol (Vitamin D3 25 mcg (1000 intl units) oral capsule) 1 cap by mouth Daily at bedtime Unchanged citalopram (citalopram 40 mg oral tablet) 1 tab(s) by mouth Daily at bedtime Unchanged fluconazole Unchanged losartan (losartan 100 mg oral tablet) 1 tab(s) by mouth Daily at bedtime Unchanged propranolol (propranolol 60 mg oral tablet) 1 tab(s) by mouth Daily at bedtime Pharmacy Information [facility] 181: [id number] [place], [place] [id number] [phone] Please take this list to your next doctor s visit. Bring all medications you take, including over the counter medications, herbals and other supplements with you to your doctor s visit. Patients and families are reminded to discard old lists and to update any records with all medication providers or retail pharmacies. Education Materials Health Risks of Smoking Smoking cigarettes is very bad for your health. Tobacco smoke has over 200 known poisons in it. It contains the poisonous gases nitrogen oxide and carbon monoxide. There are over 60 chemicals in tobacco smoke that cause cancer. Smoking is difficult to quit because a chemical in tobacco, called nicotine, causes addiction or dependence. When you smoke and inhale, nicotine is absorbed rapidly into the bloodstream through your lungs. Both inhaled and non-inhaled nicotine may be addictive. What are the risks of cigarette smoke? Cigarette smokers have an increased risk of many serious medical problems, including: Lung cancer. Lung disease, such as pneumonia, bronchitis, and emphysema. Chest pain (angina) and heart attack because the heart is not getting enough oxygen. Heart disease and peripheral blood vessel disease. High blood pressure (hypertension). Stroke. Oral cancer, including cancer of the lip, mouth, or voice box. Bladder cancer. Pancreatic cancer. Cervical cancer. complications, including premature . Stillbirths and smaller babies, defects, and genetic damage to sperm. Early menopause. Lower estrogen level for women. Infertility. Facial wrinkles. Blindness. Increased risk of broken bones (fractures). Senile dementia. Stomach ulcers and internal bleeding. Delayed wound healing and increased risk of complications during surgery. Even smoking lightly shortens your life expectancy by several years. Because of secondhand smoke exposure, children of smokers have an increased risk of the following: Sudden infant syndrome (SIDS). Respiratory infections. Lung cancer. Heart disease. Ear infections. What are the benefits of quitting? There are many health benefits of quitting smoking. Here are some of them: Within days of quitting smoking, your risk of having a heart attack decreases, your blood flow improves, and your lung capacity improves. Blood pressure, pulse rate, and breathing patterns start returning to normal soon after quitting. Within months, your lungs may clear up completely. Quitting for 10 years reduces your risk of developing lung cancer and heart disease to almost that of a nonsmoker. People who quit may see an improvement in their overall quality of life. How do I quit smoking? Smoking is an addiction with both physical and psychological effects, and longtime habits can be hard to change. Your health care provider can recommend: Programs and community resources, which may include group support, education, or talk therapy. Prescription medicines to help reduce cravings. Nicotine replacement products, such as patches, gum, and nasal sprays. Use these products only as directed. Do not replace cigarette smoking with electronic cigarettes, which are commonly called e-cigarettes. The safety of e-cigarettes is not known, and some may contain harmful chemicals. A combination of two or more of these methods. Where to find more information [place] [employer]: www.lung.org [place] [employer]: www.cancer.org Summary Smoking cigarettes is very bad for your health. Cigarette smokers have an increased risk of many serious medical problems, including several cancers, heart disease, and stroke. Smoking is an addiction with both physical and psychological effects, and longtime habits can be hard to change. By stopping right away, you can greatly reduce the risk of medical problems for you and your family. To help you quit smoking, your health care provider can recommend programs, community resources, prescription medicines, and nicotine replacement products such as patches, gum, and nasal sprays. This information is not intended to replace advice given to you by your health care provider. Make sure you discuss any questions you have with your health care provider. Document Released: 03/03/2005 Document Revised: 04/27/2018 Document Reviewed: 01/28/2017 [employer] Patient Education 2020 [employer]. Coping with Quitting Smoking Quitting smoking is a physical and mental challenge. You will face cravings, withdrawal symptoms, and temptation. Before quitting, work with your health care provider to make a plan that can help you cope. Preparation can help you quit and keep you from giving in. How can I cope with cravings? Cravings usually last for 5 10 minutes. If you get through it, the craving will pass. Consider taking the following actions to help you cope with cravings: Keep your mouth busy: ? Chew sugar-free gum. ? Suck on hard candies or a straw. ? [place] your teeth. Keep your hands and body busy: ? Immediately change to a different activity when you feel a craving. ? Squeeze or play with a ball. ? Do an activity or a hobby, like making bead jewelry, practicing needlepoint, or working with wood. ? Mix up your normal routine. ? Take a short exercise break. Go for a quick walk or run up and down stairs. ? Spend time in public places where smoking is not allowed. Focus on doing something kind or helpful for someone else. Call a friend or family member to talk during a craving. Join a support group. Call a quit line, such as 4-149-JOOC-NOW. Talk with your health care provider about medicines that might help you cope with cravings and make quitting easier for you. How can I deal with withdrawal symptoms? Your body may experience negative effects as it tries to get used to not having nicotine in the system. These effects are called withdrawal symptoms. They may include: Feeling hungrier than normal. Trouble concentrating. Irritability. Trouble sleeping. Feeling depressed. Restlessness and agitation. Craving a cigarette. To manage withdrawal symptoms: Avoid places, people, and activities that trigger your cravings. Remember why you want to quit. Get plenty of sleep. Avoid coffee and other caffeinated drinks. These may worsen some of your symptoms. How can I handle social situations? Social situations can be difficult when you are quitting smoking, especially in the first few weeks. To manage this, you can: Avoid parties, bars, and other social situations where people might be smoking. Avoid alcohol. Leave right away if you have the urge to smoke. Explain to your family and friends that you are quitting smoking. Ask for understanding and support. Plan activities with friends or family where smoking is not an option. What are some ways I can cope with stress? Wanting to smoke may cause stress, and stress can make you want to smoke. Find ways to manage your stress. Relaxation techniques can help. For example: Breathe slowly and deeply, in through your nose and out through your mouth. Listen to soothing, relaxing music. Talk with a family member or friend about your stress. Light a candle. Soak in a bath or take a shower. Think about a peaceful place. What are some ways I can prevent weight gain? Be aware that many people gain weight after they quit smoking. However, not everyone does. To keep from gaining weight, have a plan in place before you quit and stick to the plan after you quit. Your plan should include: Having healthy snacks. When you have a craving, it may help to: ? Eat plain popcorn, crunchy carrots, celery, or other cut vegetables. ? Chew sugar-free gum. Changing how you eat: ? Eat small portion sizes at meals. ? Eat 4 6 small meals throughout the day instead of 1 2 large meals a day. ? Be mindful when you eat. Do not watch television or do other things that might distract you as you eat. Exercising regularly: ? Make time to exercise each day. If you do not have time for a long workout, do short bouts of exercise for 5 10 minutes several times a day. ? Do some form of strengthening exercise, like weight lifting, and some form of aerobic exercise, like running or swimming. Drinking plenty of water or other low-calorie or no-calorie drinks. Drink 6 8 glasses of water daily, or as much as instructed by your health care provider. Summary Quitting smoking is a physical and mental challenge. You will face cravings, withdrawal symptoms, and temptation to smoke again. Preparation can help you as you go through these challenges. You can cope with cravings by keeping your mouth busy (such as by chewing gum), keeping your body and hands busy, and making calls to family, friends, or a helpline for people who want to quit smoking. You can cope with withdrawal symptoms by avoiding places where people smoke, avoiding drinks with caffeine, and getting plenty of rest. Ask your health care provider about the different ways to prevent weight gain, avoid stress, and handle social situations. This information is not intended to replace advice given to you by your health care provider. Make sure you discuss any questions you have with your health care provider. Document Released: 01/21/2017 Document Revised: 01/06/2018 Document Reviewed: 01/21/2017 [employer] Patient Education 2020 [employer]. Additional Information VACCINATE! IT SAVES LIVES! Members of the community who have not yet received the COVID-19 vaccine and would like to receive it can visit one of [facility] vaccine clinics. There are many vaccine clinic locations within the [facility]. For locations and available times, please visit https://gettheshot.coronavirus.[place].gov/. It is important to note that some COVID mobile vaccine clinics are held outdoors and may be canceled in rainy or stormy conditions. To learn more about pediatric vaccinations (ages 5-11), we invite you to visit the [facility] webpage. [email or web address].[email or web address].org/pa [email or web address]-Nstkk-Rghmimrifkw-Freque [email or web address]-Mtixhryrb.html To learn more about the COVID-19 vaccine, we invite you to visit the CDC website for a list of frequently asked questions.https://www.cdc.gov/cor onavirus/2019-ncov/vaccines/faq.h tml [facility] Patient Portal Access Instructions: Stay connected with your healthcare team and access your personal medical information anytime with the [facility] Patient Portal. Please follow the directions below to create your [facility] account: 1.Access the email account you provided upon registration to the hospital/physician office.2.Look for an invitation email from [facility].3.Open the email and access the invitation link: Accept Invitation to [facility].4.Fill in the required triana to create your account. To access your account, visit [email or web address]. Click the blue button labeled Access Patient Portal and then log in with the username and password that you created in the steps above. You will be able to view your test results, lab results, a summary of your visits, upcoming appointments and more. There is also a convenient messaging option where you can send secure messages to your provider. In addition, you will have the ability to download any documents or summaries to your computer and/or send the information securely to a physician. Remember that your healthcare information is confidential, so carefully consider who you will allow to register on the [facility] Patient Portal for access to your information. You can also access the [facility] [employer] [facility] Patient Portal on the [place] [facility] sidra. Simply click on Patient Portal and then log into your account. If you would like to receive a full copy of your medical records, please contact the [facility] Medical Records Department by calling [phone], Tuesday through Tuesday between 8 a.m. and 4:30 p.m. HOW TO SAFELY DISPOSE OF PRESCRIPTION MEDICATIONS Please use one of the following methods to safely dispose of your unused medications. 1.Use a drug disposal kit: the drug disposal pouch allows you to safely discard your old and unused drugs. Ask your nurse to give you one when you are discharged.2.Visit a local take-back location: Many local pharmacies and police departments have programs that collect old and unwanted prescription drugs. Call your local pharmacy or go to http://iGo.[employer]/5S6Jd2j to find one close to you.3.Make use of household items: Use cat litter or old coffee grounds to dispose medications if other options are not available. Mix your drugs with these household products, seal them in an airtight container and throw it into the garbage. Call [facility]: [phone] to be sure your drugs can be disposed of in this way. Some medicines may require a different approach.4.Never flush your medications down the toilet. IF YOU HAVE BEEN PRESCRIBED AN OPIOID FOR PAIN If you have been prescribed an opioid (such as hydrocodone, oxycodone or morphine), it is critical to understand the possible side effects and risks of opioid pain medications. Even when taken as directed, opioids can have several side effects including: Tolerance, meaning you might need to take more of a medication for the same pain relief. Nausea, vomiting and/or constipation. Sleepiness, dizziness, dry mouth, confusion, depression or itching. Physical dependence, meaning you have withdrawal symptoms when a medication is stopped, can develop within a few days. KNOW YOUR RESPONSIBILITIES It is important to know exactly how much and how often to take the opioid pain medications you are prescribed. Never take opioids in higher amounts or more often than prescribed. Do not combine opioids with alcohol or other drugs that cause drowsiness, such as benzodiazepines, also known as benzos, including diazepam and alprazolam, muscle relaxants or sleep aids. Never sell or share prescription opioids. This is illegal. Store opioids in a secure place and out of reach of others (including children, family, friends and visitors). The last page of this document has been signed and retained as a CHART COPY. Signatures Patient Education Materials Health Risks of Smoking Coping with Quitting Smoking Medication Leaflets My discharge plan and instructions have been reviewed and explained to me and IROLO PATRICIA L understand my current condition and have read and understand these discharge instructions. I have received a written copy of the plan/instructions. If I have questions, I am aware that I should contact my doctor. Patient/Polisher Numeral Signature: Date/Time: Relationship to Patient: ____ Witness Name/Signature: Date/Time: [facility] 03-17-2023 Orthopaedic surgery Progress note Date of Service 03/17 Chief Complaint Postop ankle I&D with wound VAC Subjective Patient seen and examined at bedside this morning. There were no acute overnight events. Reports pain is under control at this time. Reports no needs. Objective Vitals and Measurements T: 36.4 C (Oral) TMIN: 36.4 C (Oral) TMAX: 36.6 C (Oral) HR: 57 RR: 16 BP: 117/63 SpO2: 91% Intake and Output 7AM Yesterday to 7AM Today Intake and Output (Last 24 hours) Intake Administration Information 800.00 Oral Intake 1120.00 Output Urinary Catheter Output: 3225.00 Stool Count 0.00 Total Summary Total Intake 1920.00 Total Output 3225.00 Fluid Balance -1305.00 Physical Exam General: NAD, A&Ox3 HEENT: normocephalic, atraumatic, EOMI intact CV: pulses regular throughout, brisk cap refill throughout, Pulm: normal work of breathing, equal chest rise bilaterally, no intercostal retractions or conversational dyspnea GI: abdomen is soft, nontender, nondistended, no rigidity or guarding Psych: calm and cooperative Right lower extremity: -Dressing is clean dry and intact without signs of infection -Skin pink and well perfused -Sensation intact to light touch L3-S1 -Gross motor function intact to dorsi/plantarflexion of ankle and toes -DP, TP pulses palpable -Compartments are soft and compressible -No calf tenderness Weight Dosing Weight: 75 kg (03/11/23) Dosing Weight: 75 kg (03/11/23) Medications Medications (22) Active Scheduled: (8) apixaban 5 mg tablet 5 mg 1 tab(s), Oral, BID ascorbic acid 500 mg tablet 500 mg 1 tab(s), Oral, qHS cholecalciferol 25 mcg tablet (Vit D3 1000 units) 25 mcg 1 tab(s), Oral, qHS citalopram 40 mg tablet 40 mg 1 tab(s), Oral, qHS ertapenem 1 gram(s), IV Piggyback, qDay lidocaine 1% (MPF) 2 mL vial pf 30 mg 3 mL, Intradermal, prep pharm losartan 100 mg tablet 100 mg 1 tab(s), Oral, qHS propranolol 60 mg ER capsule 60 mg 1 cap(s), Oral, qHS Continuous: (1) Lactated Ringers 1,000 mL 1,000 mL, Intravenous, 100 mL/hr PRN: (13) acetaminophen 325 mg Tablet 650 mg 2 tab(s), Oral, q4h acetaminophen-OXYcodone 325 mg-5 mg Tablet 1 tab(s), Oral, q4h acetaminophen-OXYcodone 325 mg-5 mg Tablet 2 tab(s), Oral, q4h Al hydrox/Mg hydrox/simethicone 200-200-20 mg/5 mL Susp UD 30 mL, Oral, q2h dextrose 50% Solution Disp syringe 50 mL 12.5 gram(s) 25 mL, IV Push, AsDirected docusate sodium 100 mg Capsule 100 mg 1 cap(s), Oral, BID hydromorphone 1 mg/mL (1mL) INJ 1 mg 1 mL, IV Push, q2h LORAZEPam 2 mg/mL 1 mL vial 0.5 mg 0.25 mL, IV Push, q12h melatonin 3 mg tablet 3 mg 1 tab(s), Oral, qHS ondansetron 2 mg/ 1 mL 2 mL INJ 4 mg 2 mL, IV Push, q4h polyethylene glycol 3350 - UD packet 17 gram(s) 15 mL, Oral, qDay prochlorperazine 10 mg/2 mL vial 5 mg 1 mL, IV Push, q6h tramadol 50 mg Tablet 50 mg 1 tab(s), Oral, q4h Lab Results No 36 Hour Lab Data EKG No qualifying data available. Assessment/Plan Acute post-operative pain -Postop day 6 left ankle I&D with VAC -PT/OT: Nonweightbearing right lower extremity -eliquis for DVT prophylaxis -Hgb is stable -Maintain woundvac, output minimal. Vac changes to occur MWF -Intraop cultures show Enterobacter species. -PICC line placed -Once patient has everything she needs for home-going treatment, patient may discharge. Anticipate this to be this morning. -abx coverage per ID -Medical management per hospitalist service -We will discuss with attending COPD - Chronic obstructive pulmonary disease Deep postoperative wound infection Status post ankle fusion Tobacco use Digitally Signed by KENZIE LOZA DO on 03/17/2023 05:48 AM [facility] 03-17-2023 Orthopaedic surgery Progress note Date of Service 03/17 Chief Complaint Postop ankle I&D with wound VAC Subjective Patient seen and examined at bedside this morning. There were no acute overnight events. Reports pain is under control at this time. Reports no needs. Objective Vitals and Measurements T: 36.4 C (Oral) TMIN: 36.4 C (Oral) TMAX: 36.6 C (Oral) HR: 57 RR: 16 BP: 117/63 SpO2: 91% Intake and Output 7AM Yesterday to 7AM Today Intake and Output (Last 24 hours) Intake Administration Information 800.00 Oral Intake 1120.00 Output Urinary Catheter Output: 3225.00 Stool Count 0.00 Total Summary Total Intake 1920.00 Total Output 3225.00 Fluid Balance -1305.00 Physical Exam General: NAD, A&Ox3 HEENT: normocephalic, atraumatic, EOMI intact CV: pulses regular throughout, brisk cap refill throughout, Pulm: normal work of breathing, equal chest rise bilaterally, no intercostal retractions or conversational dyspnea GI: abdomen is soft, nontender, nondistended, no rigidity or guarding Psych: calm and cooperative Right lower extremity: -Dressing is clean dry and intact without signs of infection -Skin pink and well perfused -Sensation intact to light touch L3-S1 -Gross motor function intact to dorsi/plantarflexion of ankle and toes -DP, TP pulses palpable -Compartments are soft and compressible -No calf tenderness Weight Dosing Weight: 75 kg (03/11/23) Dosing Weight: 75 kg (03/11/23) Medications Medications (22) Active Scheduled: (8) apixaban 5 mg tablet 5 mg 1 tab(s), Oral, BID ascorbic acid 500 mg tablet 500 mg 1 tab(s), Oral, qHS cholecalciferol 25 mcg tablet (Vit D3 1000 units) 25 mcg 1 tab(s), Oral, qHS citalopram 40 mg tablet 40 mg 1 tab(s), Oral, qHS ertapenem 1 gram(s), IV Piggyback, qDay lidocaine 1% (MPF) 2 mL vial pf 30 mg 3 mL, Intradermal, prep pharm losartan 100 mg tablet 100 mg 1 tab(s), Oral, qHS propranolol 60 mg ER capsule 60 mg 1 cap(s), Oral, qHS Continuous: (1) Lactated Ringers 1,000 mL 1,000 mL, Intravenous, 100 mL/hr PRN: (13) acetaminophen 325 mg Tablet 650 mg 2 tab(s), Oral, q4h acetaminophen-OXYcodone 325 mg-5 mg Tablet 1 tab(s), Oral, q4h acetaminophen-OXYcodone 325 mg-5 mg Tablet 2 tab(s), Oral, q4h Al hydrox/Mg hydrox/simethicone 200-200-20 mg/5 mL Susp UD 30 mL, Oral, q2h dextrose 50% Solution Disp syringe 50 mL 12.5 gram(s) 25 mL, IV Push, AsDirected docusate sodium 100 mg Capsule 100 mg 1 cap(s), Oral, BID hydromorphone 1 mg/mL (1mL) INJ 1 mg 1 mL, IV Push, q2h LORAZEPam 2 mg/mL 1 mL vial 0.5 mg 0.25 mL, IV Push, q12h melatonin 3 mg tablet 3 mg 1 tab(s), Oral, qHS ondansetron 2 mg/ 1 mL 2 mL INJ 4 mg 2 mL, IV Push, q4h polyethylene glycol 3350 - UD packet 17 gram(s) 15 mL, Oral, qDay prochlorperazine 10 mg/2 mL vial 5 mg 1 mL, IV Push, q6h tramadol 50 mg Tablet 50 mg 1 tab(s), Oral, q4h Lab Results No 36 Hour Lab Data EKG No qualifying data available. Assessment/Plan Acute post-operative pain -Postop day 6 left ankle I&D with VAC -PT/OT: Nonweightbearing right lower extremity -eliquis for DVT prophylaxis -Hgb is stable -Maintain woundvac, output minimal. Vac changes to occur MWF -Intraop cultures show Enterobacter species. -PICC line placed -Once patient has everything she needs for home-going treatment, patient may discharge. Anticipate this to be this morning. -abx coverage per ID -Medical management per hospitalist service -We will discuss with attending COPD - Chronic obstructive pulmonary disease Deep postoperative wound infection Status post ankle fusion Tobacco use Digitally Signed by KENZIE LOZA DO on 03/17/2023 05:48 AM [facility] 03-17-2023 Orthopaedic surgery Progress note Date of Service 03/17 Chief Complaint Postop ankle I&D with wound VAC Subjective Patient seen and examined at bedside this morning. There were no acute overnight events. Reports pain is under control at this time. Reports no needs. Objective Vitals and Measurements T: 36.4 C (Oral) TMIN: 36.4 C (Oral) TMAX: 36.6 C (Oral) HR: 57 RR: 16 BP: 117/63 SpO2: 91% Intake and Output 7AM Yesterday to 7AM Today Intake and Output (Last 24 hours) Intake Administration Information 800.00 Oral Intake 1120.00 Output Urinary Catheter Output: 3225.00 Stool Count 0.00 Total Summary Total Intake 1920.00 Total Output 3225.00 Fluid Balance -1305.00 Physical Exam General: NAD, A&Ox3 HEENT: normocephalic, atraumatic, EOMI intact CV: pulses regular throughout, brisk cap refill throughout, Pulm: normal work of breathing, equal chest rise bilaterally, no intercostal retractions or conversational dyspnea GI: abdomen is soft, nontender, nondistended, no rigidity or guarding Psych: calm and cooperative Right lower extremity: -Dressing is clean dry and intact without signs of infection -Skin pink and well perfused -Sensation intact to light touch L3-S1 -Gross motor function intact to dorsi/plantarflexion of ankle and toes -DP, TP pulses palpable -Compartments are soft and compressible -No calf tenderness Weight Dosing Weight: 75 kg (03/11/23) Dosing Weight: 75 kg (03/11/23) Medications Medications (22) Active Scheduled: (8) apixaban 5 mg tablet 5 mg 1 tab(s), Oral, BID ascorbic acid 500 mg tablet 500 mg 1 tab(s), Oral, qHS cholecalciferol 25 mcg tablet (Vit D3 1000 units) 25 mcg 1 tab(s), Oral, qHS citalopram 40 mg tablet 40 mg 1 tab(s), Oral, qHS ertapenem 1 gram(s), IV Piggyback, qDay lidocaine 1% (MPF) 2 mL vial pf 30 mg 3 mL, Intradermal, prep pharm losartan 100 mg tablet 100 mg 1 tab(s), Oral, qHS propranolol 60 mg ER capsule 60 mg 1 cap(s), Oral, qHS Continuous: (1) Lactated Ringers 1,000 mL 1,000 mL, Intravenous, 100 mL/hr PRN: (13) acetaminophen 325 mg Tablet 650 mg 2 tab(s), Oral, q4h acetaminophen-OXYcodone 325 mg-5 mg Tablet 1 tab(s), Oral, q4h acetaminophen-OXYcodone 325 mg-5 mg Tablet 2 tab(s), Oral, q4h Al hydrox/Mg hydrox/simethicone 200-200-20 mg/5 mL Susp UD 30 mL, Oral, q2h dextrose 50% Solution Disp syringe 50 mL 12.5 gram(s) 25 mL, IV Push, AsDirected docusate sodium 100 mg Capsule 100 mg 1 cap(s), Oral, BID hydromorphone 1 mg/mL (1mL) INJ 1 mg 1 mL, IV Push, q2h LORAZEPam 2 mg/mL 1 mL vial 0.5 mg 0.25 mL, IV Push, q12h melatonin 3 mg tablet 3 mg 1 tab(s), Oral, qHS ondansetron 2 mg/ 1 mL 2 mL INJ 4 mg 2 mL, IV Push, q4h polyethylene glycol 3350 - UD packet 17 gram(s) 15 mL, Oral, qDay prochlorperazine 10 mg/2 mL vial 5 mg 1 mL, IV Push, q6h tramadol 50 mg Tablet 50 mg 1 tab(s), Oral, q4h Lab Results No 36 Hour Lab Data EKG No qualifying data available. Assessment/Plan Acute post-operative pain -Postop day 6 left ankle I&D with VAC -PT/OT: Nonweightbearing right lower extremity -eliquis for DVT prophylaxis -Hgb is stable -Maintain woundvac, output minimal. Vac changes to occur MWF -Intraop cultures show Enterobacter species. -PICC line placed -Once patient has everything she needs for home-going treatment, patient may discharge. Anticipate this to be this morning. -abx coverage per ID -Medical management per hospitalist service -We will discuss with attending COPD - Chronic obstructive pulmonary disease Deep postoperative wound infection Status post ankle fusion Tobacco use Digitally Signed by KENZIE LOZA DO on 03/17/2023 05:48 AM [facility] 03-16-2023 Nurse Progress note Documentation reviewed and this instructor agrees with the assessment and documentation. Digitally Signed by Radha Brown [employer] Manager on 03/16/2023 11:41 AM [facility] 03-16-2023 Orthopaedic surgery Progress note Date of Service 03/16 Chief Complaint post op with ankle I&D with wound VAC Subjective Patient seen and examined at bedside this morning. There were no acute overnight events. Reports pain is under control at this time. Reports no needs. Reports pain with wound VAC changes. Objective Vitals and Measurements T: 36.8 C (Oral) TMIN: 36.6 C (Oral) TMAX: 36.8 C (Oral) HR: 53(Apical) RR: 16 BP: 160/66 SpO2: 90% Intake and Output 7AM Yesterday to 7AM Today Intake and Output (Last 24 hours) Intake Oral Intake 950.00 Administration Information 1601.67 Output Surgical Drain, Tube Output: 0.00 Urinary Catheter Output: 2850.00 Stool Count 0.00 Urine Count 0.00 Total Summary Total Intake 2551.67 Total Output 2850.00 Fluid Balance -298.33 Physical Exam General: NAD, A&Ox3 HEENT: normocephalic, atraumatic, EOMI intact CV: pulses regular throughout, brisk cap refill throughout, Pulm: normal work of breathing, equal chest rise bilaterally, no intercostal retractions or conversational dyspnea GI: abdomen is soft, nontender, nondistended, no rigidity or guarding Psych: calm and cooperative Right lower extremity: -Dressing is clean dry and intact without signs of infection -Skin pink and well perfused -Sensation intact to light touch L3-S1 -Gross motor function intact to dorsi/plantarflexion of ankle and toes -DP, TP pulses palpable -Compartments are soft and compressible -No calf tenderness Weight Dosing Weight: 75 kg (03/11/23) Dosing Weight: 75 kg (03/11/23) Medications Medications (22) Active Scheduled: (8) apixaban 5 mg tablet 5 mg 1 tab(s), Oral, BID ascorbic acid 500 mg tablet 500 mg 1 tab(s), Oral, qHS cholecalciferol 25 mcg tablet (Vit D3 1000 units) 25 mcg 1 tab(s), Oral, qHS citalopram 40 mg tablet 40 mg 1 tab(s), Oral, qHS ertapenem 1 gram(s), IV Piggyback, qDay lidocaine 1% (MPF) 2 mL vial pf 30 mg 3 mL, Intradermal, prep pharm losartan 100 mg tablet 100 mg 1 tab(s), Oral, qHS propranolol 60 mg ER capsule 60 mg 1 cap(s), Oral, qHS Continuous: (1) Lactated Ringers 1,000 mL 1,000 mL, Intravenous, 100 mL/hr PRN: (13) acetaminophen 325 mg Tablet 650 mg 2 tab(s), Oral, q4h acetaminophen-OXYcodone 325 mg-5 mg Tablet 1 tab(s), Oral, q4h acetaminophen-OXYcodone 325 mg-5 mg Tablet 2 tab(s), Oral, q4h Al hydrox/Mg hydrox/simethicone 200-200-20 mg/5 mL Susp UD 30 mL, Oral, q2h dextrose 50% Solution Disp syringe 50 mL 12.5 gram(s) 25 mL, IV Push, AsDirected docusate sodium 100 mg Capsule 100 mg 1 cap(s), Oral, BID hydromorphone 1 mg/mL (1mL) INJ 1 mg 1 mL, IV Push, q2h LORAZEPam 2 mg/mL 1 mL vial 0.5 mg 0.25 mL, IV Push, q12h melatonin 3 mg tablet 3 mg 1 tab(s), Oral, qHS ondansetron 2 mg/ 1 mL 2 mL INJ 4 mg 2 mL, IV Push, q4h polyethylene glycol 3350 - UD packet 17 gram(s) 15 mL, Oral, qDay prochlorperazine 10 mg/2 mL vial 5 mg 1 mL, IV Push, q6h tramadol 50 mg Tablet 50 mg 1 tab(s), Oral, q4h Lab Results No 36 Hour Lab Data EKG No qualifying data available. Assessment/Plan Acute post-operative pain -Postop day 5 left ankle I&D with VAC -PT/OT: Nonweightbearing right lower extremity -eliquis for DVT prophylaxis -Hgb is stable -Maintain dressing, reinforce as needed. May change if oversaturated -Maintain woundvac, output minimal. Vac changes to occur [facility] for the time being--Will have it change today. -Intraop cultures show Enterobacter species. -PICC line placed -Wound vac change today -Home wound vac form to be completed this AM for DC today -abx coverage per ID -Medical management per hospitalist service -We will discuss with attending Ordered: acetaminophen-oxyCODONE, Dose = 1 tab(s), Oral, q6h, PRN Pain, X 7 day(s), # 28 tab(s), 0 Refill(s), Pharmacy: [id number], Acute post-operative pain, 160, cm, 03/11/23 14:08:00 EST, Height, 75, kg, 03/11/23 14:08:00 EST, Dosing Weight COPD - Chronic obstructive pulmonary disease Deep postoperative wound infection Status post ankle fusion Tobacco use Orders: LORazepam, Start: 03/15/23 7:05:00 EST, Dose = 0.5 mg, = 0.25 mL, IV Push, q12h, PRN, Sleep, 03/15/23 7:05:00 EST Communication Order (continuous) Digitally Signed by KENZIE LOZA DO on 03/16/2023 05:53 AM [facility] 03-16-2023 Orthopaedic surgery Progress note Date of Service 03/16 Chief Complaint post op with ankle I&D with wound VAC Subjective Patient seen and examined at bedside this morning. There were no acute overnight events. Reports pain is under control at this time. Reports no needs. Reports pain with wound VAC changes. Objective Vitals and Measurements T: 36.8 C (Oral) TMIN: 36.6 C (Oral) TMAX: 36.8 C (Oral) HR: 53(Apical) RR: 16 BP: 160/66 SpO2: 90% Intake and Output 7AM Yesterday to 7AM Today Intake and Output (Last 24 hours) Intake Oral Intake 950.00 Administration Information 1601.67 Output Surgical Drain, Tube Output: 0.00 Urinary Catheter Output: 2850.00 Stool Count 0.00 Urine Count 0.00 Total Summary Total Intake 2551.67 Total Output 2850.00 Fluid Balance -298.33 Physical Exam General: NAD, A&Ox3 HEENT: normocephalic, atraumatic, EOMI intact CV: pulses regular throughout, brisk cap refill throughout, Pulm: normal work of breathing, equal chest rise bilaterally, no intercostal retractions or conversational dyspnea GI: abdomen is soft, nontender, nondistended, no rigidity or guarding Psych: calm and cooperative Right lower extremity: -Dressing is clean dry and intact without signs of infection -Skin pink and well perfused -Sensation intact to light touch L3-S1 -Gross motor function intact to dorsi/plantarflexion of ankle and toes -DP, TP pulses palpable -Compartments are soft and compressible -No calf tenderness Weight Dosing Weight: 75 kg (03/11/23) Dosing Weight: 75 kg (03/11/23) Medications Medications (22) Active Scheduled: (8) apixaban 5 mg tablet 5 mg 1 tab(s), Oral, BID ascorbic acid 500 mg tablet 500 mg 1 tab(s), Oral, qHS cholecalciferol 25 mcg tablet (Vit D3 1000 units) 25 mcg 1 tab(s), Oral, qHS citalopram 40 mg tablet 40 mg 1 tab(s), Oral, qHS ertapenem 1 gram(s), IV Piggyback, qDay lidocaine 1% (MPF) 2 mL vial pf 30 mg 3 mL, Intradermal, prep pharm losartan 100 mg tablet 100 mg 1 tab(s), Oral, qHS propranolol 60 mg ER capsule 60 mg 1 cap(s), Oral, qHS Continuous: (1) Lactated Ringers 1,000 mL 1,000 mL, Intravenous, 100 mL/hr PRN: (13) acetaminophen 325 mg Tablet 650 mg 2 tab(s), Oral, q4h acetaminophen-OXYcodone 325 mg-5 mg Tablet 1 tab(s), Oral, q4h acetaminophen-OXYcodone 325 mg-5 mg Tablet 2 tab(s), Oral, q4h Al hydrox/Mg hydrox/simethicone 200-200-20 mg/5 mL Susp UD 30 mL, Oral, q2h dextrose 50% Solution Disp syringe 50 mL 12.5 gram(s) 25 mL, IV Push, AsDirected docusate sodium 100 mg Capsule 100 mg 1 cap(s), Oral, BID hydromorphone 1 mg/mL (1mL) INJ 1 mg 1 mL, IV Push, q2h LORAZEPam 2 mg/mL 1 mL vial 0.5 mg 0.25 mL, IV Push, q12h melatonin 3 mg tablet 3 mg 1 tab(s), Oral, qHS ondansetron 2 mg/ 1 mL 2 mL INJ 4 mg 2 mL, IV Push, q4h polyethylene glycol 3350 - UD packet 17 gram(s) 15 mL, Oral, qDay prochlorperazine 10 mg/2 mL vial 5 mg 1 mL, IV Push, q6h tramadol 50 mg Tablet 50 mg 1 tab(s), Oral, q4h Lab Results No 36 Hour Lab Data EKG No qualifying data available. Assessment/Plan Acute post-operative pain -Postop day 5 left ankle I&D with VAC -PT/OT: Nonweightbearing right lower extremity -eliquis for DVT prophylaxis -Hgb is stable -Maintain dressing, reinforce as needed. May change if oversaturated -Maintain woundvac, output minimal. Vac changes to occur [facility] for the time being--Will have it change today. -Intraop cultures show Enterobacter species. -PICC line placed -Wound vac change today -Home wound vac form to be completed this AM for DC today -abx coverage per ID -Medical management per hospitalist service -We will discuss with attending Ordered: acetaminophen-oxyCODONE, Dose = 1 tab(s), Oral, q6h, PRN Pain, X 7 day(s), # 28 tab(s), 0 Refill(s), Pharmacy: [id number], Acute post-operative pain, 160, cm, 03/11/23 14:08:00 EST, Height, 75, kg, 03/11/23 14:08:00 EST, Dosing Weight COPD - Chronic obstructive pulmonary disease Deep postoperative wound infection Status post ankle fusion Tobacco use Orders: LORazepam, Start: 03/15/23 7:05:00 EST, Dose = 0.5 mg, = 0.25 mL, IV Push, q12h, PRN, Sleep, 03/15/23 7:05:00 EST Communication Order (continuous) Digitally Signed by KENZIE LOZA DO on 03/16/2023 05:53 AM [facility] 03-15-2023 Nurse Progress note Wound Vac dressing ordered to be changed. Patients assigned nurse started procedure by unwrapping dressing and starting to removed wound vac dressing. Patient refused to allow that nurse to complete the procedure. I was asked to assist patient with wound vac removal. Patient continued to state that we did not know the process. Informed patient that we were both following the correct policy and process. She then refused to allow the procedure to continue. She also refused to put her foot back into the splint. was called and informed of above. stated to give patient additional pain medication. and continue to change dressing as oredered. Digitally Signed by JUN Bernstein on 03/15/2023 10:42 AM [facility] 03-15-2023 Orthopaedic surgery Progress note Date of Service 03/15 Chief Complaint Postop day 4 left ankle I&D with VAC Subjective Patient seen and examined at bedside this morning. There were no acute overnight events. Reports pain is under control at this time. Reports no needs. Patient received PICC line yesterday. Objective Vitals and Measurements T: 36.6 C (Oral) TMIN: 36.6 C (Oral) TMAX: 36.8 C (Oral) HR: 57 RR: 16 BP: 130/67 SpO2: 94% Intake and Output 7AM Yesterday to 7AM Today Intake and Output (Last 24 hours) Intake Oral Intake 720.00 Administration Information 800.00 Output Urinary Catheter Output: 1800.00 Stool Count 0.00 Urine Count 1.00 Diaper Count 1.00 Total Summary Total Intake 1520.00 Total Output 1800.00 Fluid Balance -280.00 Physical Exam General: NAD, A&Ox3 HEENT: normocephalic, atraumatic, EOMI intact CV: pulses regular throughout, brisk cap refill throughout, Pulm: normal work of breathing, equal chest rise bilaterally, no intercostal retractions or conversational dyspnea GI: abdomen is soft, nontender, nondistended, no rigidity or guarding Psych: calm and cooperative right lower extremity: -Dressing is clean dry and intact without signs of infection -Skin pink and well perfused -Sensation intact to light touch L3-S1 -Gross motor function intact to dorsi/plantarflexion of ankle and toes -DP, TP pulses palpable -Compartments are soft and compressible -No calf tenderness Weight Dosing Weight: 75 kg (03/11/23) Dosing Weight: 75 kg (03/11/23) Medications Medications (21) Active Scheduled: (8) apixaban 5 mg tablet 5 mg 1 tab(s), Oral, BID ascorbic acid 500 mg tablet 500 mg 1 tab(s), Oral, qHS cholecalciferol 25 mcg tablet (Vit D3 1000 units) 25 mcg 1 tab(s), Oral, qHS citalopram 40 mg tablet 40 mg 1 tab(s), Oral, qHS ertapenem 1 gram(s), IV Piggyback, qDay lidocaine 1% (MPF) 2 mL vial pf 30 mg 3 mL, Intradermal, prep pharm losartan 100 mg tablet 100 mg 1 tab(s), Oral, qHS propranolol 60 mg ER capsule 60 mg 1 cap(s), Oral, qHS Continuous: (1) Lactated Ringers 1,000 mL 1,000 mL, Intravenous, 100 mL/hr PRN: (12) acetaminophen 325 mg Tablet 650 mg 2 tab(s), Oral, q4h acetaminophen-OXYcodone 325 mg-5 mg Tablet 1 tab(s), Oral, q4h acetaminophen-OXYcodone 325 mg-5 mg Tablet 2 tab(s), Oral, q4h Al hydrox/Mg hydrox/simethicone 200-200-20 mg/5 mL Susp UD 30 mL, Oral, q2h dextrose 50% Solution Disp syringe 50 mL 12.5 gram(s) 25 mL, IV Push, AsDirected docusate sodium 100 mg Capsule 100 mg 1 cap(s), Oral, BID hydromorphone 1 mg/mL (1mL) INJ 1 mg 1 mL, IV Push, q2h melatonin 3 mg tablet 3 mg 1 tab(s), Oral, qHS ondansetron 2 mg/ 1 mL 2 mL INJ 4 mg 2 mL, IV Push, q4h polyethylene glycol 3350 - UD packet 17 gram(s) 15 mL, Oral, qDay prochlorperazine 10 mg/2 mL vial 5 mg 1 mL, IV Push, q6h tramadol 50 mg Tablet 50 mg 1 tab(s), Oral, q4h Lab Results 03/14 02:51 BUN: 13.0 Creatinine Lvl (s): 0.72 EKG No qualifying data available. Assessment/Plan COPD - Chronic obstructive pulmonary disease -Postop day 4 left ankle I&D with VAC -PT/OT: Nonweightbearing right lower extremity -eliquis for DVT prophylaxis -Hgb is stable -Maintain dressing, reinforce as needed. May change if oversaturated -Maintain woundvac, output minimal. Vac changes to occur [facility] for the time being--Will have it change today. -Intraop cultures show Enterobacter species. -PICC line placed yesterday, once patient has an adequate plan for home-going antibiotics by infectious disease and cleared by infectious disease to go home, cleared by physical therapy, patient to discharge later this afternoon. Vac also needs to be changed before DC. -Home wound vac form to be completed this afternoon, needs to be done before dc -abx coverage per ID -Medical management per hospitalist service -We will discuss with attending Deep postoperative wound infection Status post ankle fusion Tobacco use Digitally Signed by KENZIE LOZA DO on 03/15/2023 05:56 AM Digitally Signed by KENZIE LOZA DO on 03/15/2023 07:05 AM Digitally Signed by IGNACIO SALAS DO on 03/15/2023 07:37 AM [facility] 03-15-2023 Orthopaedic surgery Progress note Date of Service 03/15 Chief Complaint Postop day 4 left ankle I&D with VAC Subjective Patient seen and examined at bedside this morning. There were no acute overnight events. Reports pain is under control at this time. Reports no needs. Patient received PICC line yesterday. Objective Vitals and Measurements T: 36.6 C (Oral) TMIN: 36.6 C (Oral) TMAX: 36.8 C (Oral) HR: 57 RR: 16 BP: 130/67 SpO2: 94% Intake and Output 7AM Yesterday to 7AM Today Intake and Output (Last 24 hours) Intake Oral Intake 720.00 Administration Information 800.00 Output Urinary Catheter Output: 1800.00 Stool Count 0.00 Urine Count 1.00 Diaper Count 1.00 Total Summary Total Intake 1520.00 Total Output 1800.00 Fluid Balance -280.00 Physical Exam General: NAD, A&Ox3 HEENT: normocephalic, atraumatic, EOMI intact CV: pulses regular throughout, brisk cap refill throughout, Pulm: normal work of breathing, equal chest rise bilaterally, no intercostal retractions or conversational dyspnea GI: abdomen is soft, nontender, nondistended, no rigidity or guarding Psych: calm and cooperative right lower extremity: -Dressing is clean dry and intact without signs of infection -Skin pink and well perfused -Sensation intact to light touch L3-S1 -Gross motor function intact to dorsi/plantarflexion of ankle and toes -DP, TP pulses palpable -Compartments are soft and compressible -No calf tenderness Weight Dosing Weight: 75 kg (03/11/23) Dosing Weight: 75 kg (03/11/23) Medications Medications (21) Active Scheduled: (8) apixaban 5 mg tablet 5 mg 1 tab(s), Oral, BID ascorbic acid 500 mg tablet 500 mg 1 tab(s), Oral, qHS cholecalciferol 25 mcg tablet (Vit D3 1000 units) 25 mcg 1 tab(s), Oral, qHS citalopram 40 mg tablet 40 mg 1 tab(s), Oral, qHS ertapenem 1 gram(s), IV Piggyback, qDay lidocaine 1% (MPF) 2 mL vial pf 30 mg 3 mL, Intradermal, prep pharm losartan 100 mg tablet 100 mg 1 tab(s), Oral, qHS propranolol 60 mg ER capsule 60 mg 1 cap(s), Oral, qHS Continuous: (1) Lactated Ringers 1,000 mL 1,000 mL, Intravenous, 100 mL/hr PRN: (12) acetaminophen 325 mg Tablet 650 mg 2 tab(s), Oral, q4h acetaminophen-OXYcodone 325 mg-5 mg Tablet 1 tab(s), Oral, q4h acetaminophen-OXYcodone 325 mg-5 mg Tablet 2 tab(s), Oral, q4h Al hydrox/Mg hydrox/simethicone 200-200-20 mg/5 mL Susp UD 30 mL, Oral, q2h dextrose 50% Solution Disp syringe 50 mL 12.5 gram(s) 25 mL, IV Push, AsDirected docusate sodium 100 mg Capsule 100 mg 1 cap(s), Oral, BID hydromorphone 1 mg/mL (1mL) INJ 1 mg 1 mL, IV Push, q2h melatonin 3 mg tablet 3 mg 1 tab(s), Oral, qHS ondansetron 2 mg/ 1 mL 2 mL INJ 4 mg 2 mL, IV Push, q4h polyethylene glycol 3350 - UD packet 17 gram(s) 15 mL, Oral, qDay prochlorperazine 10 mg/2 mL vial 5 mg 1 mL, IV Push, q6h tramadol 50 mg Tablet 50 mg 1 tab(s), Oral, q4h Lab Results 03/14 02:51 BUN: 13.0 Creatinine Lvl (s): 0.72 EKG No qualifying data available. Assessment/Plan COPD - Chronic obstructive pulmonary disease -Postop day 4 left ankle I&D with VAC -PT/OT: Nonweightbearing right lower extremity -eliquis for DVT prophylaxis -Hgb is stable -Maintain dressing, reinforce as needed. May change if oversaturated -Maintain woundvac, output minimal. Vac changes to occur [facility] for the time being--Will have it change today. -Intraop cultures show Enterobacter species. -PICC line placed yesterday, once patient has an adequate plan for home-going antibiotics by infectious disease and cleared by infectious disease to go home, cleared by physical therapy, patient to discharge later this afternoon. Vac also needs to be changed before DC. -Home wound vac form to be completed this afternoon, needs to be done before dc -abx coverage per ID -Medical management per hospitalist service -We will discuss with attending Deep postoperative wound infection Status post ankle fusion Tobacco use Digitally Signed by KENZIE LOZA DO on 03/15/2023 05:56 AM Digitally Signed by KENZIE LOZA DO on 03/15/2023 07:05 AM Digitally Signed by IGNACIO SALAS DO on 03/15/2023 07:37 AM [facility] 03-14-2023 Procedure note VASCULAR ACCESS TEAM POST PROCEDURE NOTE PROCEDURE: Peripherally Inserted Central Catheter (PICC) INDICATION: _Long Term Antibiotics DETAILS: Consult for PICC placement received. Chart reviewed. Informed consent was obtained and verified prior to the procedure. A pre-procedure Time Out was performed confirming correct patient and procedure. A 5 Fr. Double Lumen PICC was inserted at bedside under sterile technique. Vascular access was obtained with ultrasound guidance. PICC flushes easily with good blood return. Patient tolerated placement of PICC well. PICC education provided. ANESTHESIA: Local subcutaneous injection using _3 mL 1% Lidocaine ACCESS VESSEL: _Left _Brachial CATHETER LENGTH: _37cm INTERNAL LENGTH: _37cm EXTERNAL LENGTH: _0cm ARM CIRC: _30cm LOT #: _[id number] COMPLICATIONS: None INSERTED BY: Augustin Thomason PLAN: _Picc line inserted using ECG technology with MAX- P wave achieved. _Picc line okay for use. Digitally Signed by Augustin Thomason RN on 03/14/2023 04:33 PM [facility] 03-14-2023 Infectious diseas e Progress note Date of Service 03/14/2023 Objective Vitals and Measurements T: 36.7 C (Oral) TMIN: 36.6 C (Oral) TMAX: 36.7 C (Oral) HR: 51 RR: 16 BP: 147/67 SpO2: 97% Physical Exam Chart reviewed, patient examined. Patient is alert and oriented x3, rather flat in affect but FSC, resting in bed eating breakfast and watching TV. No c/o NVD, denies constipation. Reports intermittent SOB, reports occasional nonproductive cough. Denies chills or sweats. Reports improved pain to RLE/ankle at this time due to taking pain medications this morning, denies changes in sensations to RLE. No other new complaints this AM, patient reports she is hopeful to discharge today. Respirations easy and nonlabored at rest, 97% on RA. Patient has remained afebrile for the last 24 hours. Vanco Trough 20.3 FOCUSED ASSESSMENT: CVS: Regular S1S2, decreased rate LUNGS: Clear bilaterally, intermittent SOB, occasional nonproductive cough, on RA ABDOMEN: Nondistended, rounded, soft, nontender, + bowel sounds, passing gas, denies diarrhea/constipation SKIN: No rashes noted, generalize dry skin INCISIONS/DRESSINGS: RLE ISABELA wrap dressing clean and intact over wound vac EXTREMITIES: RLE ISABELA wrap/wound vac in place, +1 BLE edema (>RLE), denies changes in sensation to RLE, improving RLE pain at this time, RLE weakness LINES/TUBES/DRAINS: RAC IV dressing dry & intact, no drainage or erythema at site. External Edwards with clear dairy nutrition consultant yellow urine noted to canister. Right ankle wound vac with scant darker sanguinous drainage noted to canister/tubing. CURRENT ANTIBIOTICS: Cefazolin 2g IV Q8h 2/2 - 2/3 Vanco 1g IV Q12h 2/3 - present Cefepime 2g IV Q12h 2/3 - present CULTURE RESULTS/EMILIANA: 2/2 Wound Deep Culture (right ankle) -P Few Enterobacter cloacae complex No anaerobes isolated to date. 2/3 Blood Cultures 2/2 no growth to date -P Weight Dosing Weight: 75 kg (03/11/23) Dosing Weight: 75 kg (03/11/23) Medications Medications (21) Active Scheduled: (8) apixaban 5 mg tablet 5 mg 1 tab(s), Oral, BID ascorbic acid 500 mg tablet 500 mg 1 tab(s), Oral, qHS cefepime 2 gram(s), IV Piggyback, q12h cholecalciferol 25 mcg tablet (Vit D3 1000 units) 25 mcg 1 tab(s), Oral, qHS citalopram 40 mg tablet 40 mg 1 tab(s), Oral, qHS losartan 100 mg tablet 100 mg 1 tab(s), Oral, qHS propranolol 60 mg ER capsule 60 mg 1 cap(s), Oral, qHS vancomycin PMX 1,000 mg 200 mL, IV Piggyback, q12hr Continuous: (1) Lactated Ringers 1,000 mL 1,000 mL, Intravenous, 100 mL/hr PRN: (12) acetaminophen 325 mg Tablet 650 mg 2 tab(s), Oral, q4h acetaminophen-OXYcodone 325 mg-5 mg Tablet 1 tab(s), Oral, q4h acetaminophen-OXYcodone 325 mg-5 mg Tablet 2 tab(s), Oral, q4h Al hydrox/Mg hydrox/simethicone 200-200-20 mg/5 mL Susp UD 30 mL, Oral, q2h dextrose 50% Solution Disp syringe 50 mL 12.5 gram(s) 25 mL, IV Push, AsDirected docusate sodium 100 mg Capsule 100 mg 1 cap(s), Oral, BID hydromorphone 1 mg/mL (1mL) INJ 1 mg 1 mL, IV Push, q2h melatonin 3 mg tablet 3 mg 1 tab(s), Oral, qHS ondansetron 2 mg/ 1 mL 2 mL INJ 4 mg 2 mL, IV Push, q4h polyethylene glycol 3350 - UD packet 17 gram(s) 15 mL, Oral, qDay prochlorperazine 10 mg/2 mL vial 5 mg 1 mL, IV Push, q6h tramadol 50 mg Tablet 50 mg 1 tab(s), Oral, q4h Lab Results 03/14 02:51 BUN: 13.0 Creatinine Lvl (s): 0.72 03/13 03:50 BUN: 13.0 Creatinine Lvl (s): 0.74 Imaging Results and Diagnostics No new results at this time Problem List 1. Hardware infection of the right ankle 2. COPD 3. Subacute PE Digitally Signed by Laurie Griffin RN on 03/14/2023 08:21 AM [facility] 03-14-2023 Infectious diseas e Progress note Date of Service 03/14/2023 Objective Vitals and Measurements T: 36.7 C (Oral) TMIN: 36.6 C (Oral) TMAX: 36.7 C (Oral) HR: 51 RR: 16 BP: 147/67 SpO2: 97% Physical Exam Chart reviewed, patient examined. Patient is alert and oriented x3, rather flat in affect but FSC, resting in bed eating breakfast and watching TV. No c/o NVD, denies constipation. Reports intermittent SOB, reports occasional nonproductive cough. Denies chills or sweats. Reports improved pain to RLE/ankle at this time due to taking pain medications this morning, denies changes in sensations to RLE. No other new complaints this AM, patient reports she is hopeful to discharge today. Respirations easy and nonlabored at rest, 97% on RA. Patient has remained afebrile for the last 24 hours. Vanco Trough 20.3 FOCUSED ASSESSMENT: CVS: Regular S1S2, decreased rate LUNGS: Clear bilaterally, intermittent SOB, occasional nonproductive cough, on RA ABDOMEN: Nondistended, rounded, soft, nontender, + bowel sounds, passing gas, denies diarrhea/constipation SKIN: No rashes noted, generalize dry skin INCISIONS/DRESSINGS: RLE ISABELA wrap dressing clean and intact over wound vac EXTREMITIES: RLE ISABELA wrap/wound vac in place, +1 BLE edema (>RLE), denies changes in sensation to RLE, improving RLE pain at this time, RLE weakness LINES/TUBES/DRAINS: RAC IV dressing dry & intact, no drainage or erythema at site. External Edwards with clear dairy nutrition consultant yellow urine noted to canister. Right ankle wound vac with scant darker sanguinous drainage noted to canister/tubing. CURRENT ANTIBIOTICS: Cefazolin 2g IV Q8h 2/2 - 2/3 Vanco 1g IV Q12h 2/3 - present Cefepime 2g IV Q12h 2/3 - present CULTURE RESULTS/EMILIANA: 2/2 Wound Deep Culture (right ankle) -P Few Enterobacter cloacae complex No anaerobes isolated to date. 2/3 Blood Cultures 2/2 no growth to date -P Weight Dosing Weight: 75 kg (03/11/23) Dosing Weight: 75 kg (03/11/23) Medications Medications (21) Active Scheduled: (8) apixaban 5 mg tablet 5 mg 1 tab(s), Oral, BID ascorbic acid 500 mg tablet 500 mg 1 tab(s), Oral, qHS cefepime 2 gram(s), IV Piggyback, q12h cholecalciferol 25 mcg tablet (Vit D3 1000 units) 25 mcg 1 tab(s), Oral, qHS citalopram 40 mg tablet 40 mg 1 tab(s), Oral, qHS losartan 100 mg tablet 100 mg 1 tab(s), Oral, qHS propranolol 60 mg ER capsule 60 mg 1 cap(s), Oral, qHS vancomycin PMX 1,000 mg 200 mL, IV Piggyback, q12hr Continuous: (1) Lactated Ringers 1,000 mL 1,000 mL, Intravenous, 100 mL/hr PRN: (12) acetaminophen 325 mg Tablet 650 mg 2 tab(s), Oral, q4h acetaminophen-OXYcodone 325 mg-5 mg Tablet 1 tab(s), Oral, q4h acetaminophen-OXYcodone 325 mg-5 mg Tablet 2 tab(s), Oral, q4h Al hydrox/Mg hydrox/simethicone 200-200-20 mg/5 mL Susp UD 30 mL, Oral, q2h dextrose 50% Solution Disp syringe 50 mL 12.5 gram(s) 25 mL, IV Push, AsDirected docusate sodium 100 mg Capsule 100 mg 1 cap(s), Oral, BID hydromorphone 1 mg/mL (1mL) INJ 1 mg 1 mL, IV Push, q2h melatonin 3 mg tablet 3 mg 1 tab(s), Oral, qHS ondansetron 2 mg/ 1 mL 2 mL INJ 4 mg 2 mL, IV Push, q4h polyethylene glycol 3350 - UD packet 17 gram(s) 15 mL, Oral, qDay prochlorperazine 10 mg/2 mL vial 5 mg 1 mL, IV Push, q6h tramadol 50 mg Tablet 50 mg 1 tab(s), Oral, q4h Lab Results 03/14 02:51 BUN: 13.0 Creatinine Lvl (s): 0.72 03/13 03:50 BUN: 13.0 Creatinine Lvl (s): 0.74 Imaging Results and Diagnostics No new results at this time Problem List 1. Hardware infection of the right ankle 2. COPD 3. Subacute PE Digitally Signed by Laurie Griffin RN on 03/14/2023 08:21 AM [facility] 03-13-2023 Nurse Progress note Patient A&O x 4, up to bsc. Patient instructed to call for help with mobility when done. Patient states she nearly fell when returning herself to the bed without assistance or putting call light on. Patient states she placed weight on her right leg. Patient re-educated to fall risk, score updated. Digitally Signed by JUN Jeronimo on 03/13/2023 04:22 PM [facility] 03-13-2023 Infectious diseas e Progress note Date of Service 03/13/2023 Chief Complaint Hardware infection of the right ankle Subjective Patient evaluated at the bedside. She is resting in bed comfortably in no acute distress. Feels better today. Complains of mild pain to her right foot. Attempting to keep her foot elevated. No fever, chills or night sweats. No nausea, vomiting or diarrhea. No abdominal pain. No shortness of breath or cough. No urinary complaints. Objective Vitals and Measurements T: 36.7 C (Oral) TMIN: 36.4 C (Oral) TMAX: 36.7 C (Oral) HR: 51(Apical) RR: 16 BP: 138/66 SpO2: 92% Intake and Output 7AM Yesterday to 7AM Today Intake and Output (Last 24 hours) Intake Oral Intake 120.00 Output Wound Vac 1 0.00 Urinary Catheter Output: 1600.00 Stool Count 0.00 Urine Count 1.00 Diaper Count 1.00 Total Summary Total Intake 120.00 Total Output 1600.00 Fluid Balance -1480.00 Physical Exam General: No acute distress. Alert and Appropriate Skin: Right foot with Isabela bandage and wound VAC in place Lungs: Respirations are unlabored, bilaterally clear breath sounds with no crepitation or wheeze. Cardiovascular: Heart is regular rhythm, S1S2, no murmur Abdomen: Abdomen is soft, nontender, nondistended. Bowel sounds positive all four quadrants. Extremities: Right lower extremity edema +2. Peripheral pulses palpable. Adequate peripheral circulation. Neurological: The patient is awake, oriented to person, place and time. Following simple commands, moving all extremities. Weight Dosing Weight: 75 kg (03/11/23) Dosing Weight: 75 kg (03/11/23) Medications Medications (21) Active Scheduled: (8) apixaban 5 mg tablet 5 mg 1 tab(s), Oral, BID ascorbic acid 500 mg tablet 500 mg 1 tab(s), Oral, qHS cefepime 2 gram(s), IV Piggyback, q12h cholecalciferol 25 mcg tablet (Vit D3 1000 units) 25 mcg 1 tab(s), Oral, qHS citalopram 40 mg tablet 40 mg 1 tab(s), Oral, qHS losartan 100 mg tablet 100 mg 1 tab(s), Oral, qHS propranolol 60 mg ER capsule 60 mg 1 cap(s), Oral, qHS vancomycin PMX 1,250 mg 250 mL, IV Piggyback, q12h Continuous: (1) Lactated Ringers 1,000 mL 1,000 mL, Intravenous, 100 mL/hr PRN: (12) acetaminophen 325 mg Tablet 650 mg 2 tab(s), Oral, q4h acetaminophen-OXYcodone 325 mg-5 mg Tablet 1 tab(s), Oral, q4h acetaminophen-OXYcodone 325 mg-5 mg Tablet 2 tab(s), Oral, q4h Al hydrox/Mg hydrox/simethicone 200-200-20 mg/5 mL Susp UD 30 mL, Oral, q2h dextrose 50% Solution Disp syringe 50 mL 12.5 gram(s) 25 mL, IV Push, AsDirected docusate sodium 100 mg Capsule 100 mg 1 cap(s), Oral, BID hydromorphone 1 mg/mL (1mL) INJ 1 mg 1 mL, IV Push, q2h melatonin 3 mg tablet 3 mg 1 tab(s), Oral, qHS ondansetron 2 mg/ 1 mL 2 mL INJ 4 mg 2 mL, IV Push, q4h polyethylene glycol 3350 - UD packet 17 gram(s) 15 mL, Oral, qDay prochlorperazine 10 mg/2 mL vial 5 mg 1 mL, IV Push, q6h tramadol 50 mg Tablet 50 mg 1 tab(s), Oral, q4h Lab Results 03/13 03:50 BUN: 13.0 Creatinine Lvl (s): 0.74 03/12 06:38 WBC: 9.4 Hgb: 11.5 L Hct: 35.4 Platelet: 241 Neutrophil %: 78.4 H Glucose Level: 125 H Sodium Level: 139 Potassium Level: 5.0 BUN: 13.0 Creatinine Lvl (s): 0.76 Imaging Results and Diagnostics NA EKG No qualifying data available. Assessment/Plan 1. Hardware infection of the right ankle 2. COPD 3. Subacute PE 67-year-old female with history of severe lower extremity fracture status post external fixator then primary pilon fusion presents through same-day surgery for planned orthopedic surgery. She developed subsequent infection after ORIF of her right ankle, attempted oral antibiotics with no improvement with increased drainage and wound breakdown. ID has been following for surgical wound infection. Hardware infection of the right ankle status post I&D of granulation tissue and skin of the right ankle with wound VAC, postoperative day #2. Wound cultures growing Enterobacter cloacae complex. No fever or leukocytosis. Blood cultures with no growth to date. Plan Anticipate tomorrow PICC line can be placed for 6 weeks of IV antibiotics. Await sensitivities for culture. Continue cefepime and vancomycin. Dr. Wade will resume service in the AM. Plan of care discussed in depth with patient. All questions answered. Patient verbalized understanding and is agreeable to plan of care. Discussed with my collaborating physician Dr. Nazario Dorado. Any changes to the plan will be added to end as an addendum. Time Spent I spent a total of 41 minutes reviewing the patient s diagnostic labs/tests, seeing and examining the patient and documenting in the medical record, see assessment for further detail. Digitally Signed by ABENA JACOME on 03/13/2023 11:46 AM [facility] 03-12-2023 Note Date of Service 2.324 Chief Complaint COPD Subjective This is a 67-year-old female with a history of tobacco use, COPD, PE, hypertension and anxiety. Patient had a previous right lower extremity injury and surgery on February 11. Had drainage from her wound, had irrigation and debridement on March 11, application of a wound VAC. Hospitalist was consulted for medical management. Patient is typically on Eliquis for history of PE. PE was found during her previous admission. Patient is on 3 L nasal cannula and does not typically wear oxygen at home. She states she was told today that she may be going home with IV antibiotics. She has no complaints of chest pain or shortness of breath. Objective Vitals and Measurements T: 36.4 C (Oral) TMIN: 36.4 C (Oral) TMAX: 36.7 C (Oral) HR: 63 RR: 16 BP: 109/49 SpO2: 95% Intake and Output 7AM Yesterday to 7AM Today Intake and Output (Last 24 hours) Intake Oral Intake 600.00 Output Urinary Catheter Output: 2500.00 Stool Count 0.00 Urine Count 1.00 Diaper Count 1.00 Total Summary Total Intake 600.00 Total Output 2500.00 Fluid Balance -1900.00 Physical Exam Weight Dosing Weight: 75 kg (03/11/23) Dosing Weight: 75 kg (03/11/23) Vitals Signs(Last 24 hrs)__ Last Charted Minimum Maximum Temp 36.4(MAR 12 14:49) 36.4(MAR 12 14:49) 36.7(MAR 11 22:42) Heart Rate 61(MAR 12 08:06) 61(MAR 12 08:06) 61(MAR 12 08:06) SBP 109(MAR 12 14:49) 108(MAR 12 10:51) 119(MAR 12 06:57) DBP C 49(MAR 12 14:49) C 49(MAR 12 14:49) 65(MAR 11 22:42) Physical Exam General: No acute distress. Alert and Appropriate Skin: No rash. Warm, Dry, RLE dressing Lungs: Bilaterally clear breath sounds with no crepitation or wheeze. Cardiovascular: Heart is regular rhythm, S1S2, No extra-audible heart tones Abdomen: Abdomen is soft, nontender. Bowel sounds positive all four quadrants. No hepatosplenomegaly noted. Extremities: No clubbing, cyanosis or edema. Neurological: The patient is awake, oriented to person, place and time. Following simple commands, moving all extremities. DVT PROPHYLAXIS- Medications Medications (21) Active Scheduled: (8) apixaban 5 mg tablet 5 mg 1 tab(s), Oral, BID ascorbic acid 500 mg tablet 500 mg 1 tab(s), Oral, qHS cefepime 2 gram(s), IV Piggyback, q12h cholecalciferol 25 mcg tablet (Vit D3 1000 units) 25 mcg 1 tab(s), Oral, qHS citalopram 40 mg tablet 40 mg 1 tab(s), Oral, qHS losartan 100 mg tablet 100 mg 1 tab(s), Oral, qHS propranolol 60 mg ER capsule 60 mg 1 cap(s), Oral, qHS vancomycin PMX 1,250 mg 250 mL, IV Piggyback, q12h Continuous: (1) Lactated Ringers 1,000 mL 1,000 mL, Intravenous, 100 mL/hr PRN: (12) acetaminophen 325 mg Tablet 650 mg 2 tab(s), Oral, q4h acetaminophen-OXYcodone 325 mg-5 mg Tablet 1 tab(s), Oral, q4h acetaminophen-OXYcodone 325 mg-5 mg Tablet 2 tab(s), Oral, q4h Al hydrox/Mg hydrox/simethicone 200-200-20 mg/5 mL Susp UD 30 mL, Oral, q2h dextrose 50% Solution Disp syringe 50 mL 12.5 gram(s) 25 mL, IV Push, AsDirected docusate sodium 100 mg Capsule 100 mg 1 cap(s), Oral, BID hydromorphone 1 mg/mL (1mL) INJ 1 mg 1 mL, IV Push, q2h melatonin 3 mg tablet 3 mg 1 tab(s), Oral, qHS ondansetron 2 mg/ 1 mL 2 mL INJ 4 mg 2 mL, IV Push, q4h polyethylene glycol 3350 - UD packet 17 gram(s) 15 mL, Oral, qDay prochlorperazine 10 mg/2 mL vial 5 mg 1 mL, IV Push, q6h tramadol 50 mg Tablet 50 mg 1 tab(s), Oral, q4h Lab Results 03/12 06:38 WBC: 9.4 Hgb: 11.5 L Hct: 35.4 Platelet: 241 Neutrophil %: 78.4 H Glucose Level: 125 H Sodium Level: 139 Potassium Level: 5.0 BUN: 13.0 Creatinine Lvl (s): 0.76 03/11 14:33 WBC: 8.7 Hgb: 11.8 L Hct: 36.1 Platelet: 286 Neutrophil %: 76.7 H Glucose Level: 115 Sodium Level: 138 Potassium Level: 4.3 BUN: 17.0 Creatinine Lvl (s): 0.78 EKG No qualifying data available. Assessment/Plan COPD - Chronic obstructive pulmonary disease Deep postoperative wound infection Status post ankle fusion Tobacco use Patient was able to wean to room air today, she was provided with an IS and instructed on use. No COPD exacerbation. ID consulted for antibiotic management. COntinue eliquis for hx of PE. Hospitalist will sign off Discussed with Dr. Littlejohn Digitally Signed by ANDREE MIN on 03/12/2023 03:31 PM [facility] 03-12-2023 Infectious diseas e Consult note Date of Service 03/12/2023 Reason for Consultation Infected ORIF of the right pilon fracture Referring Physician Dr. Salas History of Present Illness 67-year-old female with past medical history of sustained severe lower extremity with prolonged fracture status post external fixator then primary pilon fusion, tobacco abuse, COPD, hypertension, anxiety and PE presents through same-day surgery for planned orthopedic surgery. She was following with her orthopedic surgeon for severe right lower extremity injury with pilon fracture, underwent external fixator for an primary Pihl on fusion on 02/11/2023. Noted to have wound healing issues, she was placed on oral antibiotics with no improvement with worsening drainage and increased wound breakdown. Status post I&D of granulation tissue and skin of the right ankle with application of wound VAC, postoperative day #1. Wound culture results are pending. Labs on admission are unremarkable. Patient was found to be slightly bradycardic. Empirically on cefazolin postoperatively. ID consulted for infected ORIF of the right pilon. Patient evaluated at the bedside. She is resting in bed comfortably in no acute distress. Complains of mild pain to her right foot/ankle. No fever, chills or night sweats. No nausea, vomiting or diarrhea. No urinary frequency, urgency or dysuria. No shortness of breath or cough. No back or joint pain. No new complaints. Review of Systems Pertinent positives included within the HPI. Physical Exam Vitals and Measurements T: 36.6 C (Oral) TMIN: 36.5 C (Oral) TMAX: 36.7 C (Oral) HR: 59 RR: 16 BP: 108/55 SpO2: 92% HT: 160 cm WT: 75 kg BMI: 29.3 Weight Dosing Weight: 75 kg (03/11/23) Dosing Weight: 75 kg (03/11/23) General: No acute distress. Alert and Appropriate Skin: Right foot with Isabela bandage and wound VAC in place HEENT: Head is normocephalic and atraumatic. No lesions. Pupils equal in size. Extraocular movements within normal limits. Nose: No septal deviation. Mouth: Oropharynx mucosa is without lesion. Neck: Supple. No lymphadenopathy, thyromegaly noted. No carotid bruit heard. Lungs: Respirations are unlabored, bilaterally clear breath sounds with no crepitation or wheeze. Cardiovascular: Heart is regular rhythm, S1S2, no murmur Abdomen: Abdomen is soft, nontender, nondistended. Bowel sounds positive all four quadrants. Extremities: Right lower extremity edema +2. Peripheral pulses palpable. Adequate peripheral circulation. Neurological: The patient is awake, oriented to person, place and time. Following simple commands, moving all extremities. Lab Results 03/12 06:38 WBC: 9.4 Hgb: 11.5 L Hct: 35.4 Platelet: 241 Neutrophil %: 78.4 H Glucose Level: 125 H Sodium Level: 139 Potassium Level: 5.0 BUN: 13.0 Creatinine Lvl (s): 0.76 03/11 14:33 WBC: 8.7 Hgb: 11.8 L Hct: 36.1 Platelet: 286 Neutrophil %: 76.7 H Glucose Level: 115 Sodium Level: 138 Potassium Level: 4.3 BUN: 17.0 Creatinine Lvl (s): 0.78 Imaging Results and Diagnostics NA Assessment/Plan 1. Hardware infection of the right leg 2. COPD 3. Subacute PE 67-year-old female with history of severe lower extremity fracture status post external fixator then primary pill on fusion presents through same-day surgery for planned orthopedic surgery. She developed subsequent infection after ORIF of her right ankle with trial of oral antibiotics with no improvement, noticed increased drainage and wound breakdown. ID has been consulted for surgical wound infection. Patient with surgical wound infection with hardware status post I&D of granulation tissue and skin of the right ankle with application of wound VAC, postoperative day #1. Wound cultures so far pending. No fever or leukocytosis. Plan Will obtain 2 sets of blood cultures. Start on cefepime and vancomycin. Will likely need 6 weeks of IV antibiotics through PICC line once blood cultures remain negative for 48 hours. Plan of care discussed in depth with patient. All questions answered. Patient verbalized understanding and is agreeable to plan of care. This is a shared/split visit with my collaborating physician Dr. Nazario Dorado. Any changes to the plan will be added to end as an addendum. Problem List/Past Medical History Ongoing Depression Historical No qualifying data Procedure/Surgical History Primary open reduction of fracture and functional bracin02/11/23 Primary fusion of joint and external fixation: 01/07/23 Cyst of breast Medications Inpatient ceFAZolin, 1 gram(s)= 10 mL, IV Push (INT), q8hr citalopram, 40 mg= 1 tab(s), Oral, qHS Colace, 100 mg= 1 cap(s), Oral, BID, PRN Dextrose 50% IV Push, 12.5 gram(s)= 25 mL, IV Push, AsDirected, PRN Dilaudid, 1 mg= 1 mL, IV Push, q2h, PRN Eliquis, 5 mg= 1 tab(s), Oral, BID losartan, 100 mg= 1 tab(s), Oral, qHS LR 1,000 mL, 1000 mL, Intravenous Maalox, 30 mL, Oral, q2h, PRN melatonin, 3 mg= 1 tab(s), Oral, qHS, PRN Miralax Powder Packet, 17 gram(s)= 15 mL, Oral, qDay, PRN Percocet 325/5, 1 tab(s), Oral, q4h, PRN Percocet 325/5, 2 tab(s), Oral, q4h, PRN prochlorperazine, 5 mg= 1 mL, IV Push, q6h, PRN propranolol, 60 mg= 1 cap(s), Oral, qHS Tylenol, 650 mg= 2 tab(s), Oral, q4h, PRN Ultram, 50 mg= 1 tab(s), Oral, q4h, PRN Vitamin C, 500 mg= 1 tab(s), Oral, qHS Vitamin D3 25 mcg (1000 intl units) oral tablet, 25 mcg= 1 tab(s), Oral, qHS Zofran, 4 mg= 2 mL, IV Push, q4h, PRN Home acetaminophen-oxyCODONE 325 mg-5 mg oral tablet, 1 tab(s), Oral, q6h, PRN cephalexin 500 mg oral capsule, 500 mg= 1 cap(s), Oral, q12h citalopram 40 mg oral tablet, 40 mg= 1 tab(s), Oral, qHS Eliquis 5 mg oral tablet, 5 mg= 1 tab(s), Oral, BID, On hold for Surgery fluconazole losartan 100 mg oral tablet, 100 mg= 1 tab(s), Oral, qHS propranolol 60 mg oral tablet, 60 mg= 1 tab(s), Oral, qHS Vitamin C 500 mg oral tablet, 500 mg= 1 tab(s), Oral, qHS, On hold for Surgery Vitamin D3 25 mcg (1000 intl units) oral capsule, 25 mcg= 1 cap(s), Oral, qHS, On hold for Surgery Allergies NKA Social History Smoking Status - 04/24/2015 Current every day smoker Alcohol Use: DENIES., 03/09/2023 Home/Environment Living situation: Home with assistance. Domestic Concerns: Denies. Current Home Treatments None. 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 Appetite Poor. Eating Difficulties None., 03/09/2023 Substance Abuse Use: DENIES., 03/09/2023 Tobacco Nicotine Use: 10 or more cigarettes (1/2 pack or more)/day in last 30 days. Type: Cigarettes. Smoking Cessation Information Instructed to not smoke day of surgery., 03/09/2023 Family History Family history is negative Immunizations pneumococcal 13-valent conjugate vaccine: 0.5 unknown unit (10/26/19) SARS-CoV-2 mRNA (tozinameran) vaccine: 0.3 unknown unit (02/05/21) SARS-CoV-2 mRNA (tozinameran) vaccine: 0.5 unknown unit (05/07/20) SARS-CoV-2 mRNA (tozinameran) vaccine: 0.5 unknown unit (04/16/20) Digitally Signed by ABENA JACOME on 03/12/2023 02:43 PM [facility] 03-12-2023 Infectious diseas e Consult note Date of Service 03/12/2023 Reason for Consultation Infected ORIF of the right pilon fracture Referring Physician Dr. Salas History of Present Illness 67-year-old female with past medical history of sustained severe lower extremity with prolonged fracture status post external fixator then primary pilon fusion, tobacco abuse, COPD, hypertension, anxiety and PE presents through same-day surgery for planned orthopedic surgery. She was following with her orthopedic surgeon for severe right lower extremity injury with pilon fracture, underwent external fixator for an primary Pihl on fusion on 02/11/2023. Noted to have wound healing issues, she was placed on oral antibiotics with no improvement with worsening drainage and increased wound breakdown. Status post I&D of granulation tissue and skin of the right ankle with application of wound VAC, postoperative day #1. Wound culture results are pending. Labs on admission are unremarkable. Patient was found to be slightly bradycardic. Empirically on cefazolin postoperatively. ID consulted for infected ORIF of the right pilon. Patient evaluated at the bedside. She is resting in bed comfortably in no acute distress. Complains of mild pain to her right foot/ankle. No fever, chills or night sweats. No nausea, vomiting or diarrhea. No urinary frequency, urgency or dysuria. No shortness of breath or cough. No back or joint pain. No new complaints. Review of Systems Pertinent positives included within the HPI. Physical Exam Vitals and Measurements T: 36.6 C (Oral) TMIN: 36.5 C (Oral) TMAX: 36.7 C (Oral) HR: 59 RR: 16 BP: 108/55 SpO2: 92% HT: 160 cm WT: 75 kg BMI: 29.3 Weight Dosing Weight: 75 kg (03/11/23) Dosing Weight: 75 kg (03/11/23) General: No acute distress. Alert and Appropriate Skin: Right foot with Isabela bandage and wound VAC in place HEENT: Head is normocephalic and atraumatic. No lesions. Pupils equal in size. Extraocular movements within normal limits. Nose: No septal deviation. Mouth: Oropharynx mucosa is without lesion. Neck: Supple. No lymphadenopathy, thyromegaly noted. No carotid bruit heard. Lungs: Respirations are unlabored, bilaterally clear breath sounds with no crepitation or wheeze. Cardiovascular: Heart is regular rhythm, S1S2, no murmur Abdomen: Abdomen is soft, nontender, nondistended. Bowel sounds positive all four quadrants. Extremities: Right lower extremity edema +2. Peripheral pulses palpable. Adequate peripheral circulation. Neurological: The patient is awake, oriented to person, place and time. Following simple commands, moving all extremities. Lab Results 03/12 06:38 WBC: 9.4 Hgb: 11.5 L Hct: 35.4 Platelet: 241 Neutrophil %: 78.4 H Glucose Level: 125 H Sodium Level: 139 Potassium Level: 5.0 BUN: 13.0 Creatinine Lvl (s): 0.76 03/11 14:33 WBC: 8.7 Hgb: 11.8 L Hct: 36.1 Platelet: 286 Neutrophil %: 76.7 H Glucose Level: 115 Sodium Level: 138 Potassium Level: 4.3 BUN: 17.0 Creatinine Lvl (s): 0.78 Imaging Results and Diagnostics NA Assessment/Plan 1. Hardware infection of the right leg 2. COPD 3. Subacute PE 67-year-old female with history of severe lower extremity fracture status post external fixator then primary pill on fusion presents through same-day surgery for planned orthopedic surgery. She developed subsequent infection after ORIF of her right ankle with trial of oral antibiotics with no improvement, noticed increased drainage and wound breakdown. ID has been consulted for surgical wound infection. Patient with surgical wound infection with hardware status post I&D of granulation tissue and skin of the right ankle with application of wound VAC, postoperative day #1. Wound cultures so far pending. No fever or leukocytosis. Plan Will obtain 2 sets of blood cultures. Start on cefepime and vancomycin. Will likely need 6 weeks of IV antibiotics through PICC line once blood cultures remain negative for 48 hours. Plan of care discussed in depth with patient. All questions answered. Patient verbalized understanding and is agreeable to plan of care. This is a shared/split visit with my collaborating physician Dr. Nazario Dorado. Any changes to the plan will be added to end as an addendum. Problem List/Past Medical History Ongoing Depression Historical No qualifying data Procedure/Surgical History Primary open reduction of fracture and functional bracin02/11/23 Primary fusion of joint and external fixation: 01/07/23 Cyst of breast Medications Inpatient ceFAZolin, 1 gram(s)= 10 mL, IV Push (INT), q8hr citalopram, 40 mg= 1 tab(s), Oral, qHS Colace, 100 mg= 1 cap(s), Oral, BID, PRN Dextrose 50% IV Push, 12.5 gram(s)= 25 mL, IV Push, AsDirected, PRN Dilaudid, 1 mg= 1 mL, IV Push, q2h, PRN Eliquis, 5 mg= 1 tab(s), Oral, BID losartan, 100 mg= 1 tab(s), Oral, qHS LR 1,000 mL, 1000 mL, Intravenous Maalox, 30 mL, Oral, q2h, PRN melatonin, 3 mg= 1 tab(s), Oral, qHS, PRN Miralax Powder Packet, 17 gram(s)= 15 mL, Oral, qDay, PRN Percocet 325/5, 1 tab(s), Oral, q4h, PRN Percocet 325/5, 2 tab(s), Oral, q4h, PRN prochlorperazine, 5 mg= 1 mL, IV Push, q6h, PRN propranolol, 60 mg= 1 cap(s), Oral, qHS Tylenol, 650 mg= 2 tab(s), Oral, q4h, PRN Ultram, 50 mg= 1 tab(s), Oral, q4h, PRN Vitamin C, 500 mg= 1 tab(s), Oral, qHS Vitamin D3 25 mcg (1000 intl units) oral tablet, 25 mcg= 1 tab(s), Oral, qHS Zofran, 4 mg= 2 mL, IV Push, q4h, PRN Home acetaminophen-oxyCODONE 325 mg-5 mg oral tablet, 1 tab(s), Oral, q6h, PRN cephalexin 500 mg oral capsule, 500 mg= 1 cap(s), Oral, q12h citalopram 40 mg oral tablet, 40 mg= 1 tab(s), Oral, qHS Eliquis 5 mg oral tablet, 5 mg= 1 tab(s), Oral, BID, On hold for Surgery fluconazole losartan 100 mg oral tablet, 100 mg= 1 tab(s), Oral, qHS propranolol 60 mg oral tablet, 60 mg= 1 tab(s), Oral, qHS Vitamin C 500 mg oral tablet, 500 mg= 1 tab(s), Oral, qHS, On hold for Surgery Vitamin D3 25 mcg (1000 intl units) oral capsule, 25 mcg= 1 cap(s), Oral, qHS, On hold for Surgery Allergies NKA Social History Smoking Status - 04/24/2015 Current every day smoker Alcohol Use: DENIES., 03/09/2023 Home/Environment Living situation: Home with assistance. Domestic Concerns: Denies. Current Home Treatments None. 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 Appetite Poor. Eating Difficulties None., 03/09/2023 Substance Abuse Use: DENIES., 03/09/2023 Tobacco Nicotine Use: 10 or more cigarettes (1/2 pack or more)/day in last 30 days. Type: Cigarettes. Smoking Cessation Information Instructed to not smoke day of surgery., 03/09/2023 Family History Family history is negative Immunizations pneumococcal 13-valent conjugate vaccine: 0.5 unknown unit (10/26/19) SARS-CoV-2 mRNA (tozinameran) vaccine: 0.3 unknown unit (02/05/21) SARS-CoV-2 mRNA (tozinameran) vaccine: 0.5 unknown unit (05/07/20) SARS-CoV-2 mRNA (tozinameran) vaccine: 0.5 unknown unit (04/16/20) Digitally Signed by ABENA JACOME on 03/12/2023 02:43 PM [facility] 03-11-2023 Note Date of Service 03/11/2023 Reason for Consultation Medical management Referring Physician Dr. Salas History of Present Illness 67-year-old female with a past medical history of tobacco abuse, COPD, PE, hypertension, and anxiety. Was admitted in January 2023 for a severe right lower extremity injury with a pilon fracture. She is status post primary pilon fusion on 02/11/2023. Was following in the postoperative setting and found to have wound breakdown. Was started initially on oral antibiotics and Betadine wet-to-dry dressing changes. There was worsening drainage noted, she was taken to the OR on 03/11/2023 for debridement of granulation tissue and skin, irrigation and debridement of the ankle space, application of wound VAC. Hospitalist team consulted for medical management. On exam, patient is laying in bed. No nausea, vomiting, diarrhea. She is tolerating oral intake. No chest pain, shortness of breath. Currently has no right lower extremity discomfort. Review of Systems Review of Systems: Reviewed in detail, including general health, HEENT, cardiovascular, respiratory, gastrointestinal, genitourinary, endocrine, musculoskeletal, neurologic, vascular, skin, and psychiatric. All are negative except for those listed in the History of Present Illness Physical Exam Vitals and Measurements T: 36.5 C (Oral) TMIN: 36.3 C (Temporal Artery) TMAX: 36.7 C (Temporal Artery) HR: 57(Monitored) RR: 16 BP: 135/61 SpO2: 95% HT: 160 cm WT: 75 kg BMI: 29.3 Weight Dosing Weight: 75 kg (03/11/23) Dosing Weight: 75 kg (03/11/23) Physical Exam General: Alert, appropriate and awake, oriented to time, people and place Skin: No rash. Warm, Dry, Intact HEENT: Head is normocephalic and atraumatic. No lesions. Pupils equal in size. Extraocular movements within normal limits. Nose: No septal deviation. Mouth: Oropharynx mucosa is without lesion. Neck: Supple. No lymphadenopathy, thyromegaly noted. Lungs: Bilaterally clear/diminished breath sounds with no crepitation or wheeze. Unlabored Cardiovascular: Heart is regular rhythm, S1S2, No extra-audible heart tones Abdomen: Abdomen is soft, nontender. Bowel sounds positive all four quadrants. Extremities: Right lower extremity dressing clean, dry, intact Neurological: Following simple commands, moving all extremities. Lab Results No 36 Hour Lab Data Assessment/Plan 1. Right lower extremity wound infection 2. COPD 3. Subacute PE 4. Hypertension 5. Anxiety Right lower extremity wound infection status post primary pilon fusion on 02/11/2023. She is now status post debridement by Dr. Salas. Currently on cefazolin, cultures pending. COPD, not in acute exacerbation. Subacute PE, this was found during her previous admission. Eliquis continued per primary team. Hypertension, continue home medications. Anxiety, continue home medications. Hospitalist team will follow on consult for medical management. Discussed with patient at the bedside, discussed with Dr. Littlejohn. Problem List/Past Medical History Ongoing Depression Historical No qualifying data Procedure/Surgical History Primary open reduction of fracture and functional bracin02/11/23 Primary fusion of joint and external fixation: 01/07/23 Cyst of breast Medications Inpatient ceFAZolin, 1 gram(s)= 10 mL, IV Push (INT), q8hr citalopram, 40 mg= 1 tab(s), Oral, qHS Colace, 100 mg= 1 cap(s), Oral, BID, PRN Dextrose 50% IV Push, 12.5 gram(s)= 25 mL, IV Push, AsDirected, PRN Dilaudid, 1 mg= 1 mL, IV Push, q2h, PRN Eliquis, 5 mg= 1 tab(s), Oral, BID losartan, 100 mg= 1 tab(s), Oral, qHS LR 1,000 mL, 1000 mL, Intravenous Maalox, 30 mL, Oral, q2h, PRN melatonin, 3 mg= 1 tab(s), Oral, qHS, PRN Miralax Powder Packet, 17 gram(s)= 15 mL, Oral, qDay, PRN Percocet 325/5, 1 tab(s), Oral, q4h, PRN Percocet 325/5, 2 tab(s), Oral, q4h, PRN prochlorperazine, 5 mg= 1 mL, IV Push, q6h, PRN propranolol, 60 mg= 1 cap(s), Oral, qHS Tylenol, 650 mg= 2 tab(s), Oral, q4h, PRN Ultram, 50 mg= 1 tab(s), Oral, q4h, PRN Vitamin C, 500 mg= 1 tab(s), Oral, qHS Vitamin D3 25 mcg (1000 intl units) oral tablet, 25 mcg= 1 tab(s), Oral, qHS Zofran, 4 mg= 2 mL, IV Push, q4h, PRN Home acetaminophen-oxyCODONE 325 mg-5 mg oral tablet, 1 tab(s), Oral, q6h, PRN cephalexin 500 mg oral capsule, 500 mg= 1 cap(s), Oral, q12h citalopram 40 mg oral tablet, 40 mg= 1 tab(s), Oral, qHS Eliquis 5 mg oral tablet, 5 mg= 1 tab(s), Oral, BID, On hold for Surgery fluconazole losartan 100 mg oral tablet, 100 mg= 1 tab(s), Oral, qHS propranolol 60 mg oral tablet, 60 mg= 1 tab(s), Oral, qHS Vitamin C 500 mg oral tablet, 500 mg= 1 tab(s), Oral, qHS, On hold for Surgery Vitamin D3 25 mcg (1000 intl units) oral capsule, 25 mcg= 1 cap(s), Oral, qHS, On hold for Surgery Allergies NKA Social History Smoking Status - 04/24/2015 Current every day smoker Alcohol Use: DENIES., 03/09/2023 Home/Environment Living situation: Home with assistance. Domestic Concerns: Denies. Current Home Treatments None. 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 Appetite Poor. Eating Difficulties None., 03/09/2023 Substance Abuse Use: DENIES., 03/09/2023 Tobacco Nicotine Use: 10 or more cigarettes (1/2 pack or more)/day in last 30 days. Type: Cigarettes. Smoking Cessation Information Instructed to not smoke day of surgery., 03/09/2023 Family History Family history is negative Immunizations pneumococcal 13-valent conjugate vaccine: 0.5 unknown unit (10/26/19) SARS-CoV-2 mRNA (tozinameran) vaccine: 0.3 unknown unit (02/05/21) SARS-CoV-2 mRNA (tozinameran) vaccine: 0.5 unknown unit (05/07/20) SARS-CoV-2 mRNA (tozinameran) vaccine: 0.5 unknown unit (04/16/20) Digitally Signed by MINGO PIEDRA on 03/11/2023 02:54 PM [facility] 03-11-2023 Anesthesiology Consult note Patient: PAULY SETH Age: 67 years Sex: Female : 1955 Associated Diagnoses: None Author: JOHN FRAGA MD Postoperative Information Post Operative Info: Post op day: Post Anesthesia Care Unit. Patient location: PACU. Assessment Postanesthesia assessment Vitals: Vital signs from flowsheet : Vital Signs 03/11/2023 12:54 EST Heart Rate Monitored 62 bpm Respiratory Rate 16 br/min Systolic Blood Pressure Non-Invasive 122 mmHg Diastolic Blood Pressure Non-Invasive 54 mmHg LOW Mean Arterial Pressure (NBP) 70 mmHg 03/11/2023 12:39 EST Heart Rate Monitored 62 bpm Respiratory Rate 16 br/min Systolic Blood Pressure Non-Invasive 105 mmHg Diastolic Blood Pressure Non-Invasive 47 mmHg Mean Arterial Pressure (NBP) 62 mmHg 03/11/2023 12:24 EST Temperature Temporal Artery 36.4 DegC Heart Rate Monitored 64 bpm Respiratory Rate 16 br/min Systolic Blood Pressure Non-Invasive 128 mmHg Diastolic Blood Pressure Non-Invasive 68 mmHg Mean Arterial Pressure (NBP) 84 mmHg 03/11/2023 12:20 EST Respiratory Rate - Anes 7 br/min br/min 03/11/2023 12:19 EST Systolic Blood Pressure Non-Invasive 138 mmHg mmHg Diastolic Blood Pressure Non-Invasive 80 mmHg mmHg 03/11/2023 12:17 EST Systolic Blood Pressure Non-Invasive 127 mmHg mmHg Diastolic Blood Pressure Non-Invasive 64 mmHg mmHg 03/11/2023 12:15 EST Heart Rate Monitored 50 bpm bpm Respiratory Rate - Anes 12 br/min br/min 03/11/2023 12:14 EST Systolic Blood Pressure Non-Invasive 110 mmHg mmHg Diastolic Blood Pressure Non-Invasive 61 mmHg mmHg 03/11/2023 12:10 EST Heart Rate Monitored 49 bpm bpm Respiratory Rate - Anes 11 br/min br/min Systolic Blood Pressure Non-Invasive 103 mmHg mmHg Diastolic Blood Pressure Non-Invasive 66 mmHg mmHg 03/11/2023 12:08 EST Systolic Blood Pressure Non-Invasive 106 mmHg mmHg Diastolic Blood Pressure Non-Invasive 65 mmHg mmHg 03/11/2023 12:05 EST Heart Rate Monitored 49 bpm bpm Respiratory Rate - Anes 12 br/min br/min Systolic Blood Pressure Non-Invasive 126 mmHg mmHg Diastolic Blood Pressure Non-Invasive 67 mmHg mmHg 03/11/2023 12:01 EST Systolic Blood Pressure Non-Invasive 94 mmHg mmHg Diastolic Blood Pressure Non-Invasive 64 mmHg mmHg 03/11/2023 12:00 EST Heart Rate Monitored 48 bpm bpm Respiratory Rate - Anes 10 br/min br/min 03/11/2023 11:58 EST Systolic Blood Pressure Non-Invasive 111 mmHg mmHg Diastolic Blood Pressure Non-Invasive 68 mmHg mmHg 03/11/2023 11:55 EST Heart Rate Monitored 48 bpm bpm Respiratory Rate - Anes 10 br/min br/min Systolic Blood Pressure Non-Invasive 125 mmHg mmHg Diastolic Blood Pressure Non-Invasive 73 mmHg mmHg 03/11/2023 11:52 EST Systolic Blood Pressure Non-Invasive 103 mmHg mmHg Diastolic Blood Pressure Non-Invasive 61 mmHg mmHg 03/11/2023 11:50 EST Heart Rate Monitored 46 bpm bpm Respiratory Rate - Anes 11 br/min br/min 03/11/2023 11:49 EST Systolic Blood Pressure Non-Invasive 114 mmHg mmHg Diastolic Blood Pressure Non-Invasive 67 mmHg mmHg 03/11/2023 11:46 EST Systolic Blood Pressure Non-Invasive 87 mmHg mmHg Diastolic Blood Pressure Non-Invasive 51 mmHg mmHg 03/11/2023 11:45 EST Heart Rate Monitored 46 bpm bpm Respiratory Rate - Anes 10 br/min br/min 03/11/2023 11:43 EST Systolic Blood Pressure Non-Invasive 103 mmHg mmHg Diastolic Blood Pressure Non-Invasive 63 mmHg mmHg 03/11/2023 11:40 EST Temperature (Route Not Specified) 36.5 DegC DegC Heart Rate Monitored 46 bpm bpm Respiratory Rate - Anes 10 br/min br/min Systolic Blood Pressure Non-Invasive 85 mmHg mmHg Diastolic Blood Pressure Non-Invasive 52 mmHg mmHg 03/11/2023 11:37 EST Systolic Blood Pressure Non-Invasive 101 mmHg mmHg Diastolic Blood Pressure Non-Invasive 60 mmHg mmHg 03/11/2023 11:35 EST Respiratory Rate - Anes 51 br/min br/min 03/11/2023 11:34 EST Systolic Blood Pressure Non-Invasive 74 mmHg mmHg Diastolic Blood Pressure Non-Invasive 47 mmHg mmHg 03/11/2023 11:31 EST Systolic Blood Pressure Non-Invasive 119 mmHg mmHg Diastolic Blood Pressure Non-Invasive 63 mmHg mmHg 03/11/2023 11:30 EST Respiratory Rate - Anes 0 br/min br/min 03/11/2023 11:20 EST Systolic Blood Pressure Non-Invasive 136 mmHg mmHg Diastolic Blood Pressure Non-Invasive 79 mmHg mmHg 03/11/2023 11:18 EST Heart Rate Monitored 63 bpm bpm Systolic Blood Pressure Non-Invasive 127 mmHg mmHg Diastolic Blood Pressure Non-Invasive 71 mmHg mmHg 03/11/2023 11:12 EST Heart Rate Monitored 58 bpm bpm 03/11/2023 11:11 EST Systolic Blood Pressure Non-Invasive 129 mmHg mmHg Diastolic Blood Pressure Non-Invasive 67 mmHg mmHg 03/11/2023 11:06 EST Heart Rate Monitored 64 bpm bpm Systolic Blood Pressure Non-Invasive 140 mmHg mmHg Diastolic Blood Pressure Non-Invasive 82 mmHg mmHg 03/11/2023 8:56 EST Temperature Temporal Artery 36.3 DegC Peripheral Pulse Rate 53 bpm LOW Respiratory Rate 18 br/min Systolic Blood Pressure Non-Invasive 104 mmHg Diastolic Blood Pressure Non-Invasive 53 mmHg LOW . Mental status: at preoperative baseline. Respiratory function: respirations are non-labored, stable. Respiratory support: none. CV function: stable. Cardiovascular support: none. Pain: satisfactory. Nausea status: satisfactory. Postoperative hydration status: within normal limits. Notes: Patient is sufficiently recovered from anesthesia to participate in the evaluation. No follow-up care needed. No complications post-anesthesia.. Digitally Signed by JOHN FRAGA MD on 03/11/2023 12:57 PM [facility] 03-11-2023 Anesthesiology Consult note Patient: PAULY SETH Age: 67 years Sex: Female : 1955 Associated Diagnoses: None Author: MONICA HENAO MD Preoperative Information > 8 hours Anesthesia history Patient's history: negative. Family's history: negative. Health Status Allergies: Allergic Reactions (Selected) NKA, Allergies (1) ActiveReaction NKANone Documented Current medications: (Selected) Inpatient Medications Ordered Lactated Ringers Infusion 1,000 mL: 20 mL/hr, Intravenous Documented Medications Documented Eliquis 5 mg oral tablet: 5 mg, 1 tab(s), Oral, BID, 0 Refill(s) Vitamin C 500 mg oral tablet: 500 mg, 1 tab(s), Oral, qHS, 30 tab(s), 0 Refill(s) Vitamin D3 25 mcg (1000 intl units) oral capsule: 25 mcg, 1 cap(s), Oral, qHS, 0 Refill(s) acetaminophen-oxyCODONE 325 mg-5 mg oral tablet: 1 tab(s), Oral, q6h, PRN: for pain, 0 Refill(s) cephalexin 500 mg oral capsule: 500 mg, 1 cap(s), Oral, q12h, 20 cap(s), 0 Refill(s) citalopram 40 mg oral tablet: 40 mg, 1 tab(s), Oral, qHS losartan 100 mg oral tablet: 100 mg, 1 tab(s), Oral, qHS propranolol 60 mg oral tablet: 60 mg, 1 tab(s), Oral, qHS, Medications (1) Active Scheduled: (0) Continuous: (1) Lactated Ringers 1,000 mL 1,000 mL, Intravenous, 20 mL/hr PRN: (0) Problem list: Medical Depression / SNOMED CT [id number] / Confirmed, Active Problems (9) Anxiety COPD - Chronic obstructive pulmonary disease Deep postoperative wound infection Depression High blood pressure On anticoagulant therapy Status post ankle fusion Tobacco use Trimalleolar fracture of right ankle Histories Past Medical History: No active or resolved past medical history items have been selected or recorded. Procedure history: Primary fusion of joint and external fixation ([id number]) on 01/07/2023 at 67 Years. Comments: 03/09/2023 10:15 Monique Portillo RN RIGHT ANKLE Cyst of breast ([id number]). Social History Social & Psychosocial Habits Alcohol 03/09/2023 Use: DENIES Substance Abuse 03/09/2023 Use: DENIES Tobacco 03/09/2023 Tobacco Use: 10 or more cigarettes (1/ Type: Cigarettes Smoking Cessation Information Instructed to not smoke d Home/Environment 03/09/2023 Living situation: Home with assistance Domestic Concerns Denies Current Home Treatments None Special Services and Community Resources HOMECARE NURSE 1X/WEEK Nutrition/Health 03/09/2023 Type of diet: Regular Appetite Poor Eating Difficulties None . Physical Examination General: Alert and oriented. Airway: Mallampati classification: II (soft palate, fauces, uvula visible). Head: Normocephalic. Dentition Evaluation: Intact, Own teeth. Neck: Supple. Respiratory: Respirations are non-labored. Cardiovascular: Normal rate. Musculoskeletal RLE is in splint. Neurologic: Alert, Oriented. Review / Management Documentation reviewed: Current records, Reviewed prior records. Assessment and Plan [place] [employer] (ASA) physical status classification: Class III. ongoing tobacco use, COPD, anxiety, htn, previously on anticoagulation therapy Anesthetic Preoperative Plan Anesthetic technique: General, Regional. Induction: intravenously. Maintenance airway: Laryngeal mask airway. Regional: Adductor Canal Block, popliteal block. Postoperative pain management: Per surgeon. Risks discussed: nausea, vomiting, headache, sore throat, dental injury, hypotension, allergic reaction, serious complications. Informed consent: signed by patient. Digitally Signed by MONICA HENAO MD on 03/11/2023 11:52 AM [facility] 03-03-2023 Note HNO ID: [id number] Author: DARYA PAINTER APRN.[facility] Service: ? Author Type: Nurse Practitioner Type: Progress Notes Filed: 03/03/2023 16:03 Note Text: Chief Complaint Patient presents with: Depression: Worsening after surgery beginning of Feb, family stress and anxiety, wants consult to ortho. HPI Pauly Seth is a 67 year old female who presents here today for Above Complaints. Currently: Seeing Dr. Salas at [facility] for her right foot. Is hard to get there. Ankle was shattered in accident on January 06. Had fusion surgery on 02/11. Had follow up this week and is healing well. But he doesn't like how the skin looks-is on antibiotics, he says she'll lose her foot/leg because she won't stop smoking. Is asking for an orthopedic referral for second opinion on her ankle. Wondering if she may qualify for a rehab unit and to help monitor her right lower leg. Also questioning if she would be a candidate for a wound care referral. Mother on 02/11. Was unexpected. Having a hard time stopping smoking because of these stressors. Has depression as well as anxiety-to the point that it scares her. Anxiety-like she is unable to breathe. Feels like she's going in circles. First time of anxiety started just a few weeks ago. Denies SI/HI. Past medical history, appointments, medications, allergies reviewed. Previous Medical History PAST MEDICAL HISTORY Diagnosis Date COPD (chronic obstructive pulmonary disease) (HCC) Depression Essential tremor HLD (hyperlipidemia) HTN (hypertension) Hypercholesteremia Mental disorder Pulmonary embolism (HCC) after accident on 01/06/23 Sebaceous cyst 06/02/2005 cyst R middle toe 06/11 Stage 1 mild COPD by GOLD classification ([facility]) 11/2017 Syncope and collapse 06/02/2005 near syncope 07/10 Tobacco use disorder 06/02/2005 Previous Surgical History PAST SURGICAL HISTORY Procedure Laterality Date CAUTERY CERVIX CRYOCAUTERY INITIAL/REPEAT 1991 COLONOSCOPY FLX DX W/COLLJ SPEC WHEN PFRMD 03/06/2018 Colonoscopy EXCISION GANGLION WRIST DORSAL/VOLAR PRIMARY right PAST SURGICAL HISTORY OF benign tumor Right breast removed PILONIDAL CYST/SINUS EXCISION Family History FAMILY HISTORY Problem Relation Age of Onset Heart Father ? other (lung cancer) Father Heart Brother Patient Allergies ALLERGIES No Known Allergies Current Medications Current Outpatient Medications on File Prior to Visit Medication Sig cephALEXin (KEFLEX) 500 mg capsule oxyCODONE-acetaminophen (PERCOCET) 5-325 mg tablet calcium-cholecalciferol, D3, (OSCAL+D 250) 250 mg-3.125 mcg (125 unit) per tablet Take 1 tablet by mouth two times a day. ascorbic acid, vitamin C, (VITAMIN C) 500 mg tablet Take 1 tablet by mouth two times a day. ELIQUIS 5 mg tab(s) Take 5 mg by mouth two times a day. citalopram (CELEXA) 40 mg tablet Take 0.5 tablets by mouth once daily. (Patient taking differently: Take 20 mg by mouth every evening.) propranolol (INDERAL) 60 mg tablet Take 1 tablet by mouth once daily. For tremor losartan (COZAAR) 100 mg tablet Take 1 tablet by mouth once daily. For high blood pressure (Patient taking differently: Take 100 mg by mouth every evening. For high blood pressure) oxyCODONE ER (OXYCONTIN) 10 mg 12 hr tablet Take 1 tablet by mouth every 12 hours for 5 days. No current facility-administered medications on file prior to visit. Social History Social History Tobacco Use Smoking status: Every Day Packs/day: 1.00 Years: 33.00 Additional pack years: 0.00 Total pack years: 33.00 Types: Cigarettes Smokeless tobacco: Never Tobacco comments: Just under a pack Vaping Use Vaping Use: Never used Substance Use Topics Alcohol use: Yes Comment: very rarely Drug use: No Review of Symptoms REVIEW OF SYSTEMS See HPI, otherwise negative EXAM: BP 118/64 (BP Site: Left Arm, BP Position: Sitting, BP Cuff Size: Regular Adult) Pulse 69 LMP 09/27/2012 SpO2 95% General Appearance: Well appearing, alert, in no acute distress, well-hydrated, well nourished. and Wheelchair. Lungs: Lungs clear to auscultation. No wheezing, rhonchi, rales.. Heart: RRR without murmur, gallop, or rubs. No ectopy. Extremities: large splint/cast/dressing to RLE, edema to visible toes, toes are warm with good cap refill. Psychiatric: cooperative, anxious, depressed. Health Maintenance List BP Controlled (<130/80) Never done Alpha-1 Antitrypsin Deficiency Screening Never done Shingrix Vaccine(1 of 2) Never done RSV Vaccine(1 - 1-dose 60+ series) Never done Bone Density Screening due on 2018 Lung Cancer Screening due on 11/10/2018 Pneumococcal Vaccine: 65+(2 of 2 - PPSV23 or PCV20) due on 12/21/2019 Mammogram Screening due on 04/14/2022 Covid-19 Vaccine( - season) due on 10/08/2022 Annual PCP Team Chronic Disease Visit due on 11/23/2023 DTaP,Tdap,Td Vaccine(4 - Td or Tdap) due on 0 (more content not included)... [facility] 03-01-2023 Note HNO ID: [id number] Author: ?, ?, ? Service: ? Author Type: ? Type: Progress Notes Filed: 03/01/2023 16:43 Note Text: Pt. called and was told to increase Celexa to [address] Roberto's order. Appointment made with Darya Painter NP on 03/03/23 at 1 pm. She cannot come on the . She states she has suicidal thoughts at times. [facility] 24 hr number given to Pt. Also told she can call 911 if needed. Galina Segal LPN [facility] 03-01-2023 Note HNO ID: [id number] Author: NIYAH KING RN Service: ? Author Type: Registered Nurse Type: Progress Notes Filed: 03/01/2023 16:01 Note Text: CDM ESCALATION Provider Action / FYI: Has a broken ankle (01/06) with a Potter device applied. Had surgery on 02/11 for internal fixation. Outside skin looks bad . per Ortho appt yesterday in [place]. He told her since she smokes she may wind up with an amputation. She was put on Doxy 100mg BID which did not agree with her. 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 Daughter is going back to [facility] Hospital tomorrow to her family-has been with her for 3 wks. She is fearful of being alone, etc. VERY tearful. Wants to see Dr Roberto and 2nd opinion Ortho at Clinic. Can she increase her Celexa to a whole tab rather than 1/2? How soon can we get her in to see you? Pls route back to me. Alfredo Villeda RN Message received via: social organization professor Pool Contact made with patient: Yes The patient was identified by name and date of . Discussed Care with patient Based on manager of finance, the following disposition is advised: No symptoms or symptoms present, not severe. Routed to: No Action Needed NAVEED Education Provided this Outreach: No Niyah Viera RN March 01, 2023 3:58 PM [facility] 03-01-2023 Note Patient Outreach (AM [facility]) PAULY SETH ([id number]) 1955 F Date Time Provider Department 03/01/23 NIYAH KING [facility] [place] During your visit today, we recorded the following information about you: Niyah King RN 03/01/2023 4:01 PM Signed CDM ESCALATION Provider Action / FYI: Has a broken ankle (01/06) with a Potter device applied. Had surgery on 02/11 for internal fixation. Outside skin looks bad . per Ortho appt yesterday in [place]. He told her since she smokes she may wind up with an amputation. She was put on Doxy 100mg BID which did not agree with her. 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 Daughter is going back to [facility] tomorrow to her family-has been with her for 3 wks. She is fearful of being alone, etc. VERY tearful. Wants to see Dr Roberto and 2nd opinion Ortho at Clinic. Can she increase her Celexa to a whole tab rather than 1/2? How soon can we get her in to see you? Pls route back to me. Thx- Niyah Villeda RN Message received via: social organization professor Pool Contact made with patient: Yes The patient was identified by name and date of . Discussed Care with patient Based on manager of finance, the following disposition is advised: No symptoms or symptoms present, not severe. Routed to: No Action Needed NAVEED Education Provided this Outreach: No Niyah Villeda Maximiliano, RN March 01, 2023 3:58 PM Galina Segal LPN 03/01/2023 4:43 PM Signed Pt. called and was told to increase Celexa to [address] Roberto's order. Appointment made with Darya Painter WEATHERIZATION ADMINISTRATOR on 03/03/23 at 1 pm. She cannot come on the . She states she has suicidal thoughts at times. [facility] 24 hr number given to Pt. Also told she can call 911 if needed. Galina Segal LPN Allergies As of Date: 03/01/2023 (No Known Allergies) Date Reviewed: 02/11/2023 Reviewed by: Arti Boles APRN.FRONT OFFICE HELP - Fully Assessed Reason for Visit: Community monitoring outreach [Other] Cmt: CDM [facility] TRIGGERED ESCALATION Prescriptions as of 03/01/2023 - calcium-cholecalciferol, D3, (OSCAL+D 250) 250 mg-3.125 mcg (125 unit) per tablet Take 1 tablet by mouth two times a day. - ascorbic acid, vitamin C, (VITAMIN C) 500 mg tablet Take 1 tablet by mouth two times a day. - oxyCODONE ER (OXYCONTIN) 10 mg 12 hr tablet Take 1 tablet by mouth every 12 hours for 5 days. - ELIQUIS 5 mg tab(s) Take 5 mg by mouth two times a day. - citalopram (CELEXA) 40 mg tablet Take 0.5 tablets by mouth once daily. - propranolol (INDERAL) 60 mg tablet Take 1 tablet by mouth once daily. For tremor - losartan (COZAAR) 100 mg tablet Take 1 tablet by mouth once daily. For high blood pressure Problem List As Of Date 03/01/2023 Noted Resolved Syncope and collapse [R55] 06/02/2005 11/11/2015 Tobacco use disorder [F17.200] 06/02/2005 Sebaceous cyst [L72.3] 06/02/2005 DEPRESSIVE DISORDER NEC [F32.89] 03/31/2007 SLEEP DISTURBANCE NOS [G47.9] 03/14/2008 HLD (hyperlipidemia) [E78.5] 04/24/2014 Actinic keratoses [L57.0] 06/13/2017 Special screening for malignant neoplasms, colo*06/13/2017 Sweating abnormality [L74.9] 06/13/2017 Hot flashes [R23.2] 06/13/2017 Left lateral ankle pain [M25.572] 06/13/2017 Changing skin lesion [L98.9] 06/13/2017 Finger injury, right, initial encounter [S69.91*06/13/2017 Right hand pain [M79.641] 06/13/2017 Skin lesion of left leg [L98.9] 11/02/2017 Pilonidal cyst without abscess [L05.91] 11/02/2017 Tobacco dependence [F17.200] 11/02/2017 Chronic cough [R05.3] 11/02/2017 Shortness of breath [R06.02] 11/02/2017 COPD (chronic obstructive pulmonary disease) (H*11/07/2017 IFG (impaired fasting glucose) [R73.01] 06/12/2018 Tobacco use [Z72.0] 06/12/2018 Dysthymia [F34.1] 08/16/2018 Hypertriglyceridemia [E78.1] 08/16/2018 Obesity, Class I, BMI 30-34.9 [E66.9] 10/29/2020 Primary osteoarthritis of left knee [M17.12] 04/29/2021 Acute pain of right knee [M25.561] 04/29/2021 Fatigue [R53.83] 04/21/2022 HTN (hypertension) [I10] 04/21/2022 Primary osteoarthritis of right knee [M17.11] 07/02/2022 Chronic pain of right knee [M25.561, G89.29] 11/27/2022 Vitamin D deficiency [E55.9] 11/27/2022 Preop testing [Z01.818] 02/09/2023 History of psychiatric care [Z92.89] 02/11/2023 Right ankle pain [M25.571] 02/11/2023 Accidental fall from ladder [W11.XXXA] 02/11/2023 Closed displaced pilon fracture of right tibia *02/11/2023 Closed right pilon fracture, initial encounter *02/11/2023 Diarrhea [R19.7] 02/11/2023 Pulmonary embolism (HCC) [I26.99] 02/11/2023 Essential tremor [G25.0] 02/11/2023 Encounter Status:Closed by NIYAH VILLEDA on 03/01/23 [facility] 02-14-2023 Note HNO ID: [id number] Author: MINGO CODY MD Service: Hospital Medicine Author Type: Physician Type: Progress Notes Filed: 02/14/2023 16:46 Note Text: INPATIENT PROGRESS NOTE SERVICE DATE: 02/14/2023 SERVICE TIME: 4:29 PM PRIMARY SERVICE: Internal medicine Subjective CHIEF COMPLAINT: medical consult, hypertension INTERVAL HPI: Patient complains of pain 4 out of 10 in intensity today in the right lower leg. Not complaining of much shortness of breath. Denies fever and chills Current Facility-Administered Medications Medication Dose Route Frequency losartan 100 mg tab(s) (COZAAR) 100 mg ORAL DAILY propranolol (INDERAL) tab(s) 60 mg 60 mg ORAL DAILY apixaban 5 mg tab(s) (ELIQUIS) 5 mg ORAL BID citalopram 20 mg tab(s) (CeleXA) 20 mg ORAL DAILY ofwmldj-jxughmumm-xfqrprh D3 500 mg-5 mcg (200 unit) 2 tablet 2 tablet ORAL BID senna 17.2 mg tab(s) (SENOKOT) 17.2 mg ORAL AT BEDTIME acetaminophen 1,000 mg tab(s) (TYLENOL) 1,000 mg ORAL q 8 HR traMADol 50 mg tab(s) (ULTRAM) 50 mg ORAL q 6 H PRN HYDROmorphone 0.2 mg injection (DILAUDID) 0.2 mg INTRAVENOUS q 2 H PRN melatonin 1 mg tab(s) 1 mg ORAL DAILY (8 PM) diphenhydrAMINE 25 mg injection (BENADRYL) 25 mg INTRAVENOUS q 6 H PRN ascorbic acid (vitamin C) 500 mg tab(s) (VITAMIN C) 500 mg ORAL BID polyethylene glycol 3350 17 g packet 17 g ORAL DAILY PRN promethazine 12.5-25 mg tab(s) (PHENERGAN) 12.5-25 mg ORAL q 6 H PRN oxyCODONE ER 10 mg tab(s) (OxyCONTIN) 10 mg ORAL q 12 HR albuterol 2.5 mg /3 mL (0.083 %) 2.5 mg (PROVENTIL) 2.5 mg INHALATION q 6 H PRN oxyCODONE IR 5 mg tab(s) (ROXICODONE) 5 mg ORAL q 4 H PRN Objective PHYSICAL EXAM: BP 92/42[discussed with Rn[ Pulse 57 Temp (Src) 98.1 (Oral) Resp 18 Ht 5' 3 (1.60m) Wt 173 lb 4.5 oz (78.6kg) SpO2 95% LMP 09/27/2012 BMI 30.70 kg/(m2). O2 Therapy: Nasal Cannula, Liters: 2 Physical Exam Performed General: Obese female, pleasant, patient is alert and oriented x3 and is in no acute respiratory distress HEENT: Normal cephalic, atraumatic, PERRLA Lungs: Clear to auscultation, no wheezing, rales, or rhonchi. Cardiac: Regular rhythm and rate, no murmurs, no rubs. Abdomen: Soft, nontender, nondistended, bowel sounds are active. Extremities: No edema, cyanosis, or clubbing. Skin: No rashes or breakdown. Musculoskeletal: Normal MS exam, moves all extremities Lymphatic: Negative cervical, supra-clavicular, groin lymphadenopathy. Neurologic: Cranial nerves from II-XII intact grossly, no focal deficits. Psychiatry: Normal affect. DATA: Diagnostic tests reviewed for today's visit: Most recent labs Assessment/Plan Closed displaced pilon fracture of right tibia-orthopedic surgery is primary service, patient underwent patient underwent ankle fusion and removal of external fixator close manipulation of fibula fracture on 02/11/2023 patient has had pain medication available. Therapy was following and recommended home PT OT Tobacco abuse-encourage smoking cessation, nicotine patch could be provided if patient were agreeable COPD-encourage smoking cessation, defer treatment to outpatient physician HTN (hypertension)-blood pressure last check was 92/42 patient to continue on losartan and propranolol Pulmonary embolism-patient continues on Eliquis Medication and Non-Pharmacologic VTE Prophylaxis/Anticoagulants Anticoagulant AND Antiplatelet Medications (From admission, onward) Start Dose Route Frequency Last Action Ordered Stop 02/12/23 0900 apixaban 5 mg tab(s) (ELIQUIS) 5 mg ORAL 2 TIMES DAILY Given, 02/14 0750 02/11/23 1820 -- 02/11/23 183 vte current anticoag therapy ([place]) 02/11/23 183 pneumatic compression stockings ([place]) 02/11/23 183 activity - mobilize [place] VTE Prophylaxis: VTE prophylaxis appropriate SIGNATURE: Mingo Cody MD PATIENT NAME: Pauly Seth DATE: February 14, 2023 TIME: 4:29 PM [facility] 02-14-2023 Note HNO ID: [id number] Author: IGNACIO SALAS DO Service: Orthopaedic Surgery Author Type: Physician Type: Progress Notes Filed: 02/14/2023 12:25 Note Text: ORTHOPAEDIC SURGERY POSTOP PROGRESS NOTE Surgery Date: 02/11/2023 Surgeon(s) and Incident Response Manager(s): Surgeon(s) and Role: * Ignacio Salas DO - Primary Procedure(s): Procedure(s) (LRB): REMOVAL EXTERNAL FIXATION SYSTEM UNDER ANESTHESIA (Right) FUSION ANKLE (Right) Subjective: Patient personally seen and examined today. Overall doing much better than she was. Had fairly significant pain during the first few days after surgery. Improving significantly with combination of the long-acting pain medicine and short acting pain medicine. Vitals: BP 125/53 Pulse 69 Temp 36.5 ?C (97.7 ?F) (Temporal) Resp 18 Ht 160 cm (5' 3 ) Wt 78.6 kg (173 lb 4.5 oz) LMP 09/27/2012 SpO2 91% BMI 30.70 kg/m? BMI: Estimated body mass index is 30.7 kg/m? as calculated from the following: Height as of this encounter: 160 cm (5' 3 ). Weight as of this encounter: 78.6 kg (173 lb 4.5 oz). I/O: Intake/Output Summary (Last 24 hours) at 02/14/2023 1223 Last data filed at 02/14/2023 0528 Gross per 24 hour Intake 700 ml Output 1500 ml Net -800 ml Problem List: ACTIVE PROBLEM LIST Tobacco Use Disorder Sebaceous Cyst Depressive Disorder, Not Elsewhere Classified Sleep Disturbance, Unspecified Hld (Hyperlipidemia) Actinic Keratoses Special Screening for Malignant Neoplasms, Colon Sweating Abnormality Hot Flashes Left Lateral Ankle Pain Changing Skin Lesion Finger Injury, Right, Initial Encounter Right Hand Pain Skin Lesion of Left Leg Pilonidal Cyst Without Abscess Tobacco Dependence Chronic Cough Shortness of Breath Copd (Chronic Obstructive Pulmonary Disease) (Hcc) Ifg (Impaired Fasting Glucose) Tobacco Use Dysthymia Hypertriglyceridemia Obesity, Class I, Bmi 30-34.9 Primary Osteoarthritis of Left Knee Acute Pain of Right Knee Fatigue Htn (Hypertension) Primary Osteoarthritis of Right Knee Chronic Pain of Right Knee Vitamin D Deficiency Preop Testing History of Psychiatric Care Right Ankle Pain Accidental Fall From Ladder Closed Displaced Pilon Fracture of Right Tibia Closed Right Pilon Fracture, Initial Encounter Diarrhea Pulmonary Embolism (Hcc) Essential Tremor Physical Exam: Right Lower Extremity: Dorsalis pedis and Posterior tibial pulses palpable, Toe flexion extension is present. Bulky Orta dressing, clean, dry, intact. SILT L4-S1 Dressing clean, dry and intact Thigh and leg soft/non-tender Labs: CBC, Coags, BMP, Mg, Phos Recent Labs 02/14/23 0523 02/13/23 0556 02/12/23 0413 WBC 13.00* 14.95* 14.45* HB 11.5 11.8 11.8 HCT 34.6* 35.9* 36.0 PLT 222 207 196 NA 137 136 138 K 4.4 4.5 4.8 CHLOR 103 105 107 CO2 29 28 26 BUN 19 17 20 CREAT 0.87 0.87 0.96* GLUC 101* 115* 134* CA 10.0 9.6 9.5 MG -- -- 1.7 Problem Review and Assessment: Skin and Abdominal Wall: Patient monitored, no new events overnight Cardiovascular and Vascular: Patient monitored, no new events overnight Respiratory: Patient monitored, no new events overnight Endocrine and Metabolic: Patient monitored, no new events overnight Gastrointestinal: Patient monitored, no new events overnight Genitourinary and Nephrology: Patient monitored, no new events overnight Behavioral, Cerebrovascular and Nervous: Patient monitored, no new events overnight Infectious: Patient monitored, no new events overnight Impression/Plan: S/P Procedure(s) (LRB): REMOVAL EXTERNAL FIXATION SYSTEM UNDER ANESTHESIA (Right) FUSION ANKLE (Right) on 02/11/2023 - Physical Therapy Evaluation - DVT prophylaxis: Intermittent pneumatic compression device (IPCD) and Eliquis - Pain control - Antibiotics: Discontinuing Antibiotics after 24 hours -Patient had fairly severe pain over the first few days after surgery. Her pain is much better controlled at this point. -I advised patient that I sent in pain medications to her pharmacy on Tuesday afternoon. I advised her that she needs to absolutely verify that they have them in hand prior to discharge from the hospital. -Plan for discharge to home later today once physical therapy has had another chance to work with patient. -Home health care orders have been signed. 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 [facility] 02-14-2023 Note HNO ID: [id number] Author: JOJO JACOME, JUN Service: Nursing Author Type: Registered Nurse Type: Progress Notes Filed: 02/14/2023 10:24 Note Text: Called and asked sound about giving pain meds [facility] 02-13-2023 Note HNO ID: [id number] Author: SOUMYA IRAHETA DO Service: Hospital Medicine Author Type: Physician Type: Progress Notes Filed: 02/13/2023 14:07 Note Text: INPATIENT PROGRESS NOTE SERVICE DATE: 02/13/2023 SERVICE TIME: 2:03 PM PRIMARY SERVICE: Hospital Medicine CHIEF COMPLAINT: Right leg pain Subjective Patient seen and examined at bedside, she is very sleepy, wakes up and answers my questions appropriately but falls back to sleep, upon my entry to the room her oxygen saturation was 88% on 2 L, this does quickly improve while she is awake and talking to me, she is still complaining of significant pain in the right leg, no bowel movement since Tuesday, did discuss with nursing and did inform the patient that we would be holding additional narcotics at this time given her somnolence. Again encouraged I-S, patient has not worked with therapy yet and so has yet to be discharged from Ortho standpoint Current Facility-Administered Medications Medication Dose Route Frequency losartan 100 mg tab(s) (COZAAR) 100 mg ORAL DAILY propranolol (INDERAL) tab(s) 60 mg 60 mg ORAL DAILY apixaban 5 mg tab(s) (ELIQUIS) 5 mg ORAL BID citalopram 20 mg tab(s) (CeleXA) 20 mg ORAL DAILY ilgpmbd-eopxsfbzs-calxkjo D3 500 mg-5 mcg (200 unit) 2 tablet 2 tablet ORAL BID senna 17.2 mg tab(s) (SENOKOT) 17.2 mg ORAL AT BEDTIME acetaminophen 1,000 mg tab(s) (TYLENOL) 1,000 mg ORAL q 8 HR traMADol 50 mg tab(s) (ULTRAM) 50 mg ORAL q 6 H PRN oxyCODONE IR 5-10 mg tab(s) (ROXICODONE) 5-10 mg ORAL q 4 H PRN HYDROmorphone 0.2 mg injection (DILAUDID) 0.2 mg INTRAVENOUS q 2 H PRN melatonin 1 mg tab(s) 1 mg ORAL DAILY (8 PM) diphenhydrAMINE 25 mg injection (BENADRYL) 25 mg INTRAVENOUS q 6 H PRN ascorbic acid (vitamin C) 500 mg tab(s) (VITAMIN C) 500 mg ORAL BID polyethylene glycol 3350 17 g packet 17 g ORAL DAILY PRN promethazine 12.5-25 mg tab(s) (PHENERGAN) 12.5-25 mg ORAL q 6 H PRN oxyCODONE ER 10 mg tab(s) (OxyCONTIN) 10 mg ORAL q 12 HR albuterol 2.5 mg /3 mL (0.083 %) 2.5 mg (PROVENTIL) 2.5 mg INHALATION q 6 H PRN Objective PHYSICAL EXAM: BP 132/55 Pulse 71 Temp (Src) 98.4 (Oral) Resp 16 Ht 5' 3 (1.60m) Wt 173 lb 4.5 oz (78.6kg) SpO2 90% LMP 09/27/2012 BMI 30.70 kg/(m2). O2 Therapy: Nasal Cannula, Liters: 3 Gen: somnolent, appears comfortable CV: RRR Resp: diminished in the bases Abd: soft, NT, ND Ext: no c/c/e DATA: LABORATORY TESTS: CBC: Recent Labs 02/13/23 0556 02/12/23 0413 WBC 14.95* 14.45* HB 11.8 11.8 PLT 207 196 MCV 92.5 93.5 NEUTP -- 81.9 ABSNEUT -- 11.83* LYMPHP -- 8.7 CHEM: Recent Labs 02/13/23 0556 02/12/23 0413 NA 136 138 K 4.5 4.8 CA 9.6 9.5 MG -- 1.7 ANION 3* 5 CHLOR 105 107 CO2 28 26 GLUC 115* 134* BUN 17 20 CREAT 0.87 0.96* HEPATIC: No results for input(s): ALT , AST , TBILI , ALKPHOS , ALB , TPROT , LIPASE in the last 168 hours. URINALYSIS:No results for input(s): SPGR , UBACTERIA , LEUKEST , SSA , UWBC , URBC , UHB , UPROT , UGLUC , UKET in the last 168 hours. Invalid input(s): NITR COAG: No results for input(s): APTT , INR in the last 168 hours. CARDIAC: No results for input(s): CKMB , CKMBP , TROPT , PBNP in the last 168 hours. DATA: Diagnostic tests reviewed for today's visit: Most recent labs and imaging results. Most recent EKG Urine Culture: Positive Micro-30 Days No results found for the last 720 hours. Blood Culture: Positive Micro-30 Days No results found for the last 720 hours. Medication and Non-Pharmacologic VTE Prophylaxis/Anticoagulants Anticoagulant AND Antiplatelet Medications (From admission, onward) Start Dose Route Frequency Last Action Ordered Stop 02/12/23 0900 apixaban 5 mg tab(s) (ELIQUIS) 5 mg ORAL 2 TIMES DAILY Given, 02/13 0802/11/23 1820 -- 02/11/23 1830 vte current anticoag therapy ([place] 02/11/23 1830 pneumatic compression stockings ([place]) 02/11/23 1830 activity - mobilize [place] VTE Prophylaxis: VTE prophylaxis appropriate Assesment: Closed displaced pilon fracture of the right tibia s/p fusion, POD#1 -- Pain control, bowel regimen -- PT/OT evaluation -- Patient to be nonweightbearing of the right lower extremity -- Dispo per Ortho -- Did discuss with nursing and with patient, informed patient we would be holding additional narcotics until she is more awake, formal nursing communication also placed in [facility] regarding holding narcotics on 02/13/2023 COPD; recent PE -- DuoNebs as needed -- Does nebulizer when needed at home -- Has O2 at home from recent PE states she has not been using it -- Currently oxygenating adequately on 2 L -- Encourage IS -- Continue home Eliquis 5 mg twice daily --Patient not using IS, still hypoxic, will check portable chest HTN; essential tremor -- Continue home losartan 100 mg daily -- Continue home propranolol 60 mg daily Nicotine dependence -- Encourage (more content not included)... [facility] 02-13-2023 Note HNO ID: [id number] Author: SHELL HA PA-C Service: Orthopaedic Surgery Author Type: Physician Incident Response Manager Type: Progress Notes Filed: 02/13/2023 09:24 Note Text: ORTHOPAEDIC POSTOP PROGRESS NOTE SERVICE DATE: 02/13/2023 SERVICE TIME: 07:15 PRIMARY SERVICE: Orthopaedics Hospital Day # 2 Principal Diagnosis: right LE - Orthopedically stable Subjective INTERVAL HPI: Mrs. Seth was seen this morning. She report worsening of her pain overnight as her nerve block wore off but states that it has calmed down this morning. She denies any complaints. Current Facility-Administered Medications Medication Dose Route Frequency losartan 100 mg tab(s) (COZAAR) 100 mg ORAL DAILY propranolol (INDERAL) tab(s) 60 mg 60 mg ORAL DAILY apixaban 5 mg tab(s) (ELIQUIS) 5 mg ORAL BID citalopram 20 mg tab(s) (CeleXA) 20 mg ORAL DAILY onjorun-obthxbuoa-ugwzxle D3 500 mg-5 mcg (200 unit) 2 tablet 2 tablet ORAL BID senna 17.2 mg tab(s) (SENOKOT) 17.2 mg ORAL AT BEDTIME acetaminophen 1,000 mg tab(s) (TYLENOL) 1,000 mg ORAL q 8 HR traMADol 50 mg tab(s) (ULTRAM) 50 mg ORAL q 6 H PRN oxyCODONE IR 5-10 mg tab(s) (ROXICODONE) 5-10 mg ORAL q 4 H PRN HYDROmorphone 0.2 mg injection (DILAUDID) 0.2 mg INTRAVENOUS q 2 H PRN melatonin 1 mg tab(s) 1 mg ORAL DAILY (8 PM) diphenhydrAMINE 25 mg injection (BENADRYL) 25 mg INTRAVENOUS q 6 H PRN ascorbic acid (vitamin C) 500 mg tab(s) (VITAMIN C) 500 mg ORAL BID polyethylene glycol 3350 17 g packet 17 g ORAL DAILY PRN promethazine 12.5-25 mg tab(s) (PHENERGAN) 12.5-25 mg ORAL q 6 H PRN oxyCODONE ER 10 mg tab(s) (OxyCONTIN) 10 mg ORAL q 12 HR albuterol 2.5 mg /3 mL (0.083 %) 2.5 mg (PROVENTIL) 2.5 mg INHALATION q 6 H PRN Objective PHYSICAL EXAM: BP 132/55 Pulse 71 Temp (Src) 98.4 (Oral) Resp 16 Ht 5' 3 (1.60m) Wt 173 lb 4.5 oz (78.6kg) SpO2 90% LMP 09/27/2012 BMI 30.70 kg/(m2). O2 Therapy: Nasal Cannula, Liters: 3 Physical Exam Performed Right Foot Exam: Short leg Splint is clean dry and intact. Toes are pink and well-perfused. ROM of toes intact. Sensation intact to L4-S1 DATA: Diagnostic tests reviewed for today's visit: Not applicable. Assessment/Plan Principal Problem: Closed displaced pilon fracture of right tibia (POA: Yes) Assessment AND Plan: Patient is postop day 2 status post a primary pilon fusion. Overall she is doing well. Pain is well-controlled. Patient is safe from an orthopaedic standpoint for discharge. - Nonweightbearing right lower extremity - Continue to work with PT and OT Resolved Problems: * No resolved hospital problems. * Medication and Non-Pharmacologic VTE Prophylaxis/Anticoagulants Anticoagulant AND Antiplatelet Medications (From admission, onward) Start Dose Route Frequency Last Action Ordered Stop 02/12/23 0900 apixaban 5 mg tab(s) (ELIQUIS) 5 mg ORAL 2 TIMES DAILY Given, 02/13 85102/11/23 1820 -- 02/11/23 1830 vte current anticoag therapy ([place]) 02/11/23 183 pneumatic compression stockings ([place]) 02/11/23 1830 activity - mobilize [place] ([place] VTE Prophylaxis: VTE prophylaxis appropriate SIGNATURE: Shell Ha PA-C PATIENT NAME: Pauly Seth DATE: February 13, 2023 TIME: 9:18 AM [facility] 02-12-2023 Note HNO ID: [id number] Author: SOUMYA IRAHETA DO Service: Hospital Medicine Author Type: Physician Type: Progress Notes Filed: 02/12/2023 16:17 Note Text: INPATIENT PROGRESS NOTE SERVICE DATE: 02/12/2023 SERVICE TIME: 4:10 PM PRIMARY SERVICE: Hospital Medicine CHIEF COMPLAINT: Right leg pain Subjective Patient seen and examined at bedside, states pain currently under control, right leg is still numb from her nerve block, she is worried about what her pains can be like when the block wears off, diarrhea has resolved, she is using supplemental O2 at bedside, is 94% on 2 L when I enter, lungs are clear, with deep inspirations O2 sats do improve, did encourage her to use incentive spirometer, does have O2 at home as she was discharged previously with O2 secondary to PE but states she hasn't been using it. Current Facility-Administered Medications Medication Dose Route Frequency losartan 100 mg tab(s) (COZAAR) 100 mg ORAL DAILY propranolol (INDERAL) tab(s) 60 mg 60 mg ORAL DAILY apixaban 5 mg tab(s) (ELIQUIS) 5 mg ORAL BID citalopram 20 mg tab(s) (CeleXA) 20 mg ORAL DAILY wbjpvlb-encbexgmw-dynyped D3 500 mg-5 mcg (200 unit) 2 tablet 2 tablet ORAL BID senna 17.2 mg tab(s) (SENOKOT) 17.2 mg ORAL AT BEDTIME lactated ringers iv infusion 75 mL/hr INTRAVENOUS CONTINUOUS acetaminophen 1,000 mg tab(s) (TYLENOL) 1,000 mg ORAL q 8 HR traMADol 50 mg tab(s) (ULTRAM) 50 mg ORAL q 6 H PRN oxyCODONE IR 5-10 mg tab(s) (ROXICODONE) 5-10 mg ORAL q 4 H PRN HYDROmorphone 0.2 mg injection (DILAUDID) 0.2 mg INTRAVENOUS q 2 H PRN melatonin 1 mg tab(s) 1 mg ORAL DAILY (8 PM) diphenhydrAMINE 25 mg injection (BENADRYL) 25 mg INTRAVENOUS q 6 H PRN ascorbic acid (vitamin C) 500 mg tab(s) (VITAMIN C) 500 mg ORAL BID polyethylene glycol 3350 17 g packet 17 g ORAL DAILY PRN promethazine 12.5-25 mg tab(s) (PHENERGAN) 12.5-25 mg ORAL q 6 H PRN oxyCODONE ER 10 mg tab(s) (OxyCONTIN) 10 mg ORAL q 12 HR albuterol 2.5 mg /3 mL (0.083 %) 2.5 mg (PROVENTIL) 2.5 mg INHALATION q 6 H PRN Objective PHYSICAL EXAM: BP 111/45 Pulse 59 Temp (Src) 98.2 (Oral) Resp 16 Ht 5' 3 (1.60m) Wt 173 lb 4.5 oz (78.6kg) SpO2 93% LMP 09/27/2012 BMI 30.70 kg/(m2). O2 Therapy: Nasal Cannula, Liters: 2 Gen: wdwn, nad CV: RRR Resp: CTAB Abd: soft, NT, ND Ext: no c/c/e DATA: LABORATORY TESTS: CBC: Recent Labs 02/12/23 0413 WBC 14.45* HB 11.8 PLT 196 MCV 93.5 NEUTP 81.9 ABSNEUT 11.83* LYMPHP 8.7 CHEM: Recent Labs 02/12/23 0413 NA 138 K 4.8 CA 9.5 MG 1.7 ANION 5 CHLOR 107 CO2 26 GLUC 134* BUN 20 CREAT 0.96* HEPATIC: No results for input(s): ALT , AST , TBILI , ALKPHOS , ALB , TPROT , LIPASE in the last 168 hours. URINALYSIS:No results for input(s): SPGR , UBACTERIA , LEUKEST , SSA , UWBC , URBC , UHB , UPROT , UGLUC , UKET in the last 168 hours. Invalid input(s): NITR COAG: No results for input(s): APTT , INR in the last 168 hours. CARDIAC: No results for input(s): CKMB , CKMBP , TROPT , PBNP in the last 168 hours. DATA: Diagnostic tests reviewed for today's visit: Most recent labs and imaging results. Most recent EKG Urine Culture: Positive Micro-30 Days No results found for the last 720 hours. Blood Culture: Positive Micro-30 Days No results found for the last 720 hours. Medication and Non-Pharmacologic VTE Prophylaxis/Anticoagulants Anticoagulant AND Antiplatelet Medications (From admission, onward) Start Dose Route Frequency Last Action Ordered Stop 02/12/23 0900 apixaban 5 mg tab(s) (ELIQUIS) 5 mg ORAL 2 TIMES DAILY Given, 02/12 82102/11/23 1820 -- 02/11/23 183 vte [place]ag [place] 02/11/23 183 pneumatic compression stockings [place] 02/11/23 1830 activity - mobilize [place]) VTE Prophylaxis: VTE prophylaxis appropriate Assesment: Closed displaced pilon fracture of the right tibia s/p fusion, POD#1 -- Pain control, bowel regimen -- PT/OT evaluation -- Patient to be nonweightbearing of the right lower extremity -- Dispo per Ortho COPD; recent PE -- DuoNebs as needed -- Does nebulizer when needed at home -- Has O2 at home from recent PE states she has not been using it -- Currently oxygenating adequately on 2 L -- Encourage IS -- Continue home Eliquis 5 mg twice daily HTN; essential tremor -- Continue home losartan 100 mg daily -- Continue home propranolol 60 mg daily Nicotine dependence -- Encourage cessation -- Patient declines nicotine replacement at this time Plan of care discussed with: Provider, RN, Patient. Disclaimer This dictation was created using voice recognition software. Phonetic and/or minor grammatical errors may exist. SIGNATURE: Soumya Iraheta DO PATIENT NAME: Pauly Seth DATE: February 12, 2023 TIME: 4:10 PM [facility] 02-12-2023 Note HNO ID: [id number] Author: FREDY BRAGG MD Service: Orthopaedic Surgery Author Type: Physician Type: Progress Notes Filed: 02/12/2023 12:20 Note Text: ORTHOPAEDIC POSTOP PROGRESS NOTE SERVICE DATE: 02/12/2023 SERVICE TIME: 12:16 PM Hospital Day # 1 Principal Diagnosis: right - Orthopedically stable Subjective INTERVAL HPI: Ms. Seth was seen this morning. She denies any significant pain overnight but reports that her nerve block is still intact and she is still very nervous about being able to handle the pain once this wears off. She states she does not feel ready to be discharged home until the block wears off and she has her pain adequately under control. Objective Patient Vitals for the past 24 hrs: BP Temp Temp src Pulse Resp SpO2 02/12/23 1051 -- -- -- 70 -- 97 % 02/12/23 1014 107/52 -- -- (!) 58 -- 94 % 02/12/23 1005 115/80 -- -- -- -- -- 02/12/23 0947 (!) 104/48 -- -- (!) 58 -- 94 % 02/12/23 0816 90/50 36.7 ?C (98 ?F) Oral 62 16 92 % 02/12/23 0304 (!) 106/49 36.7 ?C (98.1 ?F) Oral 63 18 93 % 02/11/23 2320 (!) 104/46 37.1 ?C (98.7 ?F) Oral 69 16 92 % 02/11/23 2110 -- -- -- 75 -- -- 02/11/23 1930 127/53 36.8 ?C (98.3 ?F) Oral 64 18 94 % 02/11/23 1817 117/56 37 ?C (98.6 ?F) -- 67 16 94 % 02/11/23 1715 110/54 37 ?C (98.6 ?F) Temporal 68 16 93 % 02/11/23 1700 119/55 -- -- 69 16 92 % 02/11/23 1645 117/56 -- -- 69 16 95 % 02/11/23 1630 131/60 -- -- 75 16 93 % 02/11/23 1620 148/66 36.9 ?C (98.5 ?F) Temporal 75 16 96 % 02/11/23 1320 102/52 -- -- (!) 59 16 93 % 02/11/23 1315 119/58 -- -- 60 16 93 % 02/11/23 1310 110/54 -- -- 62 16 95 % 02/11/23 1305 113/58 -- -- 61 16 93 % 02/11/23 1300 117/57 -- -- 61 16 94 % 02/11/23 1255 125/59 -- -- 62 16 93 % 02/11/23 1250 134/62 -- -- (!) 58 -- 95 % Intake/Output Summary (Last 24 hours) at 02/12/2023 1216 Last data filed at 02/12/2023 0642 Gross per 24 hour Intake 3060 ml Output 450 ml Net 2610 ml right foot EXAM: Splint is clean dry and intact. Toes are pink and well-perfused. There is still some numbness in the toes due to the nerve block. Imaging: Not applicable. Assessment/Plan Principal Problem: Closed displaced pilon fracture of right tibia (POA: Yes) Assessment AND Plan: Patient is postop day 1 status post a primary pilon fusion. Overall she is doing well. Pain is well-controlled. Patient is awaiting her nerve blocks to wear off to get her pain under control prior to safe discharge home. Nonweightbearing right lower extremity Continue to work with PT and OT Will anticipate discharge home tomorrow Active Problems: Tobacco use disorder (POA: Yes) Assessment AND Plan: . HLD (hyperlipidemia) (POA: Unknown) Assessment AND Plan: . COPD (chronic obstructive pulmonary disease) (HCC) (POA: Unknown) Assessment AND Plan: . HTN (hypertension) (POA: Unknown) Assessment AND Plan: . Preop testing (POA: Yes) Assessment AND Plan: . History of psychiatric care (POA: Yes) Assessment AND Plan: . Right ankle pain (POA: Yes) Assessment AND Plan: . Accidental fall from ladder (POA: Yes) Assessment AND Plan: . Closed right pilon fracture, initial encounter (POA: Yes) Assessment AND Plan: . Diarrhea (POA: Yes) Assessment AND Plan: . Pulmonary embolism (HCC) (POA: Yes) Assessment AND Plan: . Essential tremor (POA: Yes) Assessment AND Plan: . Resolved Problems: * No resolved hospital problems. * Medication and Non-Pharmacologic VTE Prophylaxis/Anticoagulants Anticoagulant AND Antiplatelet Medications (From admission, onward) Start Dose Route Frequency Last Action Ordered Stop 02/12/23 0900 apixaban 5 mg tab(s) (ELIQUIS) 5 mg ORAL 2 TIMES DAILY Given, 02/12 82102/11/23 1820 -- 02/11/23 1830 vte [place]ag [place] 02/11/23 1830 pneumatic compression stockings [place] 02/11/23 1830 activity - [place]ize [place] VTE Prophylaxis: VTE prophylaxis appropriate SIGNATURE: Fredy Bragg MD PATIENT NAME: Pauly Seth DATE: February 12, 2023 TIME: 12:16 PM ETX#[id number] [facility] 02-11-2023 Note HNO ID: [id number] Author: IGNACIO SALAS DO Service: Orthopaedic Surgery Author Type: Physician Type: Progress Notes Filed: 02/11/2023 17:09 Note Text: I previously discussed pain mgmt plan post-op with patient and she voiced a verbal consent to proceed with both long acting opiates and short acting pain medication for a few days after surgery both in my office and in preop. She understands risks associated with this and agrees to proceed. Notes that she has a poor pain tolerance. I did advise her that we aim for pain control but not zero pain after major orthopaedic surgery. She voice an understanding of this as well. Pain rx that exceeds 50mmE/day sent to patient's pharmacy. --TJS February 11, 2023 5:06 PM [facility] 02-11-2023 Note HNO ID: [id number] Author: GITA FRAIRE DO Service: ? Author Type: Anesthesiologist Type: Anesthesia Procedure Notes Filed: 02/11/2023 17:10 Note Text: ANESTHESIOLOGY PROCEDURE NOTE Airway General Information Procedure Start Time/Medication Administration: 02/11/2023 1:28 PM Patient location during procedure: OR Timeout Performed Pre-procedure: timeout performed Consent Obtained: Yes Patient identity confirmed: arm band Staffing GEOLOGY PROFESSOR: Rober Sparrow APRN.GEOLOGY PROFESSOR Performed by: JESSICA Indications and Patient Condition Indications for airway management: anesthesia and respiratory distress Preoxygenated: yes anesthesia circuit Patient position: sniffing Method: asleep Cricoid Pressure: No Difficult Mask: No Airway Accessory: LMA Final Airway Details Final airway type: supraglottic airway Number of attempts at approach: 1 Ventilation between attempts: BVM Final Supraglottic Airway: LMA Unique Size 4 Failed airway: no Unrecognized esophageal intubation: no Airway not difficult SIGNATURE: Rober Sparrow CRNA, PLACEMENT SPECIALIST.GEOLOGY PROFESSOR PATIENT NAME: Pauly Seth DATE: February 11, 2023 TIME: 1:37 PM CSN: [id number] [facility] 02-11-2023 Note HNO ID: [id number] Author: GITA FRAIRE, Service: ? Author Type: Anesthesiologist Type: Anesthesia Procedure Notes Filed: 02/11/2023 13:13 Note Text: ANESTHESIOLOGY PROCEDURE NOTE Peripheral Nerve Block General Information Procedure Start Time/Medication Administration: 02/11/2023 12:53 PM Procedure End time: 02/11/2023 1:08 PM Patient location during procedure: pre-op Timeout Performed Pre-procedure: timeout performed Consent Obtained: Yes Patient identity confirmed: arm band Reason for block: post-op pain management/at surgeon's request Staffing Anesthesiologist: Gita Fraire DO Performed by: anesthesiologist Preparation Sterility Preparation: hand hygiene performed prior to procedure, sterile gloves, drapes, and procedure tray, surgical cap used, mask used, sterile drape used during line insertion, skin prep agent completely dried prior to procedure Sterility Technique Not Completely Performed Due to Extreme Emergency: No Site Prep: Chloraprep Pre-Procedure Neuro Exam Location: RLE Sensory: intact Motor: intact Procedure Details Patient Position: supine Monitoring: Pulse OX, EKG and NIBP Block Type Lower Extremity: popliteal and distal femoral (adductor canal) Approach: popliteal fossa and lateral Laterality: right Injection Technique: single-shot Ultrasound Guided: Yes Image in Chart: yes Needle Needle Type: blunt Needle Gauge: 21 G Needle Length: 100 mm Needle Localization: anatomical landmarks and ultrasound Assessment Injection assessment: negative aspiration, no paresthesia on injection, incremental injection and local visualized surrounding nerve on ultrasound Paresthesia: none Post-Procedure Neuro Exam Expected Regional Anesthesia: Yes Medications Administered ropivacaine (PF) 5 mg/mL (0.5 %) injection (NAROPIN) - peripheral nerve block 20 mL - 02/11/2023 12:53:00 PM Comments Adductor: 20cc Popliteal: 25cc SIGNATURE: Gita Fraire DO PATIENT NAME: Pauly Seth DATE: February 11, 2023 TIME: 1:11 PM CSN: [id number] [facility] 02-10-2023 Note HNO ID: [id number] Author: MANDI JOE RN Service: Nursing Author Type: Registered Nurse Type: Progress Notes Filed: 02/10/2023 14:27 Note Text: PRE-PROCEDURE INSTRUCTIONS TO PREPARE FOR YOUR PROCEDURE: Your arrival time for your procedure is 1030. Do NOT eat any solid foods after MIDNIGHT the night prior to your procedure - this includes gum or mints. You can drink clear liquids* up until 0830, which is 2 hours before your arrival time. *Clear liquids = water, carbohydrate drink (sports drink that is clear or yellow in color), Ensure Pre-Surgery (given by PEÑA or your Dr.), fruit juice without pulp (apple/cranberry), clear tea, black coffee (no cream). NO CARBONATED BEVERAGES AND NO ALCOHOL. Shower the morning of the procedure, put on clean clothes, and have clean sheets for your bed to help prevent infection after your procedure. Leave all valuables such as jewelry including rings, piercings, wallets, and purses at home. Wear comfortable, loose-fitting clothing. If you wear glasses or contacts, please bring a case. SPECIAL INSTRUCTIONS: If instructed, bring your first voided urine specimen with you. If you were provided skin preparation to use prior to your procedure, complete this as directed. If you were provided Ensure Pre-Surgery drink, you need to drink this at . This should be consumed quickly (in less than 5 minutes, rather than sipped over time) If a bowel preparation has been ordered by your physician, it is very important to follow the bowel prep instructions or your procedure may need to be rescheduled. If you use crutches or a walker, bring them with you. If you have a home CPAP/BIPAP machine, bring it with you. If you were instructed to complete a fleets enema or bowel prep, complete as directed. Bring copy of Living Will/Power of Oil Heat Technician. Do not smoke or chew. If you use tobacco, quit or at least cut down before surgery. Do not smoke or chew after midnight the day before your surgery. This effects bleeding, infection, healing, and so much more. Do not take any Diet or Herbal Supplements 2 weeks prior to your surgery date. Please notify your physician if there is any change in your physical condition such as a cold, cough, fever, sore throat, or skin irritation near the surgical site. Visitors under the age of 14 are restricted in the Surgery Center. UPON ARRIVAL: Access to [facility]the [facility]) is located on [address] Acute Care Occupational Therapist parking is available for your convenience from 5am-5pm- there is a $5.00 charge for this service. Take the elevators directly inside the entrance to the 1st Floor Surgery Lobby. Sign in at the podium located to the left when you get off the elevators. A payment may be expected at the time of service. One visitor may come back to the preoperative area with you. The preoperative staff will be reviewing your medical history, please let them know if you prefer not to have a visitor with you during this time. Once you are ready for your procedure, two visitors at a time are permitted in your preprocedure room. PATIENT MEDICATION INSTRUCTIONS Please read below carefully for your personalized instructions. Medications: If you are on blood thinner or anticoagulants including aspirin, please confirm with your surgical team on when to stop these medications. Unless instructed differently by your surgical team, stay on all of your medications until your surgery. Pre-Surgery Med Instructions Medication Instructions ELIQUIS 5 mg tab(s) Follow Prescribers Instructions citalopram (CELEXA) 40 mg tablet DO NOT TAKE MORNING OF SURGERY propranolol (INDERAL) 60 mg tablet DO NOT TAKE MORNING OF SURGERY losartan (COZAAR) 100 mg tablet DO NOT TAKE MORNING OF SURGERY If you have any medication changes between receiving these instructions and your surgery date, please provide this updated information with the nurse who calls you the week day prior to your surgical procedure so we can update your list and provide you with updated instructions for the morning of your procedure. [facility] 02-09-2023 Note HNO ID: [id number] Author: Radha Brown APRN.FRONT OFFICE HELP Service: Anesthesiology Author Type: Nurse Practitioner Type: Progress Notes Filed: 02/09/2023 4:26 PM Note Text: Summary: dos meds PATIENT MEDICATION INSTRUCTIONS Please read below carefully for your personalized instructions. Medications: If you are on blood thinner or anticoagulants including aspirin, please confirm with your surgical team on when to stop these medications. Unless instructed differently by your surgical team, stay on all of your medications until your surgery. Pre-Surgery Med Instructions Medication Instructions ELIQUIS 5 mg tab(s) Follow Prescribers Instructions citalopram (CELEXA) 40 mg tablet DO NOT TAKE MORNING OF SURGERY propranolol (INDERAL) 60 mg tablet DO NOT TAKE MORNING OF SURGERY losartan (COZAAR) 100 mg tablet DO NOT TAKE MORNING OF SURGERY If you have any medication changes between receiving these instructions and your surgery date, please provide this updated information with the nurse who calls you the week day prior to your surgical procedure so we can update your list and provide you with updated instructions for the morning of your procedure. [facility] 01-15-2023 Hospital Discharg e instructions Patient Education 01/15/2023 17:31:06 Cellulitis Skin Infection Cellulitis Cellulitis is an infection of the deep layers of skin. A break in the skin, such as a cut or scratch, can let bacteria under the skin. If the bacteria get to deep layers of the skin, it can be serious. If not treated, cellulitis can get into the bloodstream and lymph nodes. The infection can then spread throughout the body. This causes serious illness. Cellulitis causes the affected skin to become red, swollen, warm, and sore. The reddened areas have a visible border. An open sore may leak fluid (pus). You may have a fever, chills, and pain. Cellulitis is treated with antibiotics taken for 7 to 10 days. An open sore may be cleaned and covered with cool wet gauze. Symptoms should get better 1 to 2 days after treatment is started. Make sure to take all the antibiotics for the full number of days until they are gone. Keep taking the medicine even if your symptoms go away. Home care Follow these tips: Limit the use of the part of your body with cellulitis. If the infection is on your leg, keep your leg raised while sitting. This will help to reduce swelling. Take all of the antibiotic medicine exactly as directed until it is gone. Do not miss any doses, especially during the first 7 days. Don t stop taking the medicine when your symptoms get better. Keep the affected area clean and dry. Wash your hands with soap and warm water before and after touching your skin. Anyone else who touches your skin should also wash his or her hands. Don't share towels. Follow-up care Follow up with your healthcare provider, or as advised. If your infection does not go away on the first antibiotic, your healthcare provider will prescribe a different one. When to seek medical advice Call your healthcare provider right away if any of these occur: Red areas that spread Swelling or pain that gets worse Fluid leaking from the skin (pus) Fever higher of 100.4 F (38.0 C) or higher after 2 days on antibiotics [id number] [employer]. [address] [place] [address]. All rights reserved. This information is not intended as a substitute for professional medical care. Always follow your healthcare professional's instructions. Follow Up Care 01/15/2023 14:19:49 With:ELMER CARPIO DO, Orthopedic Address: [facility] [place] [address]- [phone] When:Within 4 Day(s) [facility] 01-15-2023 Emergency department Discharge summary Discharge Instructions Thank you for allowing [facility] to assist you with your healthcare needs. The following is important discharge information regarding your hospital visit. Diagnosis from Today's Visit Cellulitis Evaluation of surgical incision What to Do Next Instructions from Your Care Team No qualifying data available. Post Acute Orders No qualifying data available. You Need to Schedule the Following Appointments Follow Up with ELMER CARPIO DO Orthopedic When In 4 days Where: [facility] [place] [address]- [phone] Allergies NKA Medications Please ask your primary doctor or pharmacist before taking any other medication not listed, including over the counter drugs, herbal medications, vitamins and or supplements as they may interact with your home medications. What How Much When Why Instructions Last Dose New cephalexin (cephalexin 500 mg oral tablet) 1 tab(s) by mouth Four (4) times a day Duration: 10 Days Printed Prescription Unchanged acetaminophen-oxyCODONE (Percocet 5 mg-325 mg oral tablet) 1 tab(s) by mouth Every 6 hours as needed for Pain Ankle fracture, right Duration: 7 Days Unchanged apixaban (Eliquis 5 mg oral tablet) 2 tab(s) by mouth Two (2) times a day Duration: 5 Days Unchanged apixaban (Eliquis 5 mg oral tablet) 1 tab(s) by mouth Two (2) times a day Duration: 30 Days Unchanged citalopram (citalopram 40 mg oral tablet) 0.5 tab(s) by mouth Once a day Unchanged losartan (losartan 100 mg oral tablet) 1 tab(s) by mouth Once a day Unchanged propranolol (propranolol 60 mg oral tablet) 1 tab(s) by mouth Once a day Please take this list to your next doctor s visit. Bring all medications you take, including over the counter medications, herbals and other supplements with you to your doctor s visit. Patients and families are reminded to discard old lists and to update any records with all medication providers or retail pharmacies. Education Materials Cellulitis Cellulitis is an infection of the deep layers of skin. A break in the skin, such as a cut or scratch, can let bacteria under the skin. If the bacteria get to deep layers of the skin, it can be serious. If not treated, cellulitis can get into the bloodstream and lymph nodes. The infection can then spread throughout the body. This causes serious illness. Cellulitis causes the affected skin to become red, swollen, warm, and sore. The reddened areas have a visible border. An open sore may leak fluid (pus). You may have a fever, chills, and pain. Cellulitis is treated with antibiotics taken for 7 to 10 days. An open sore may be cleaned and covered with cool wet gauze. Symptoms should get better 1 to 2 days after treatment is started. Make sure to take all the antibiotics for the full number of days until they are gone. Keep taking the medicine even if your symptoms go away. Home care Follow these tips: Limit the use of the part of your body with cellulitis. If the infection is on your leg, keep your leg raised while sitting. This will help to reduce swelling. Take all of the antibiotic medicine exactly as directed until it is gone. Do not miss any doses, especially during the first 7 days. Don t stop taking the medicine when your symptoms get better. Keep the affected area clean and dry. Wash your hands with soap and warm water before and after touching your skin. Anyone else who touches your skin should also wash his or her hands. Don't share towels. Follow-up care Follow up with your healthcare provider, or as advised. If your infection does not go away on the first antibiotic, your healthcare provider will prescribe a different one. When to seek medical advice Call your healthcare provider right away if any of these occur: Red areas that spread Swelling or pain that gets worse Fluid leaking from the skin (pus) Fever higher of 100.4 F (38.0 C) or higher after 2 days on antibiotics [phone] [employer]. [address] [place] [address], [place] [address]. All rights reserved. This information is not intended as a substitute for professional medical care. Always follow your healthcare professional's instructions. Additional Information VACCINATE! IT SAVES LIVES! Members of the community who have not yet received the COVID-19 vaccine and would like to receive it can visit one of [facility] vaccine clinics. There are many vaccine clinic locations within the [facility]. For locations and available times, please visit [email or web address] It is important to note that some COVID mobile vaccine clinics are held outdoors and may be canceled in rainy or stormy conditions. To learn more about pediatric vaccinations (ages 5-11), we invite you to visit the [facility] webpage. https://www.[email or web address].org/pa [email or web address]-[email or web address]-Freque joqk-Kohdv-Mvozdbjrs.html To learn more about the COVID-19 vaccine, we invite you to visit the CDC website for a list of frequently asked questions. https://www.cdc.gov/coronavirus/2 019-ncov/vaccines/faq.html [facility] [employer] Patient Portal Access Instructions: Stay connected with your healthcare team and access your personal medical information anytime with the [facility] Patient Portal. If you would like a full copy of your medical records please contact the [facility] Medical Records Department Tuesday through Tuesday between 8a.m. and 4:30p.m. Please follow the directions below to access the portal: 1.Access the email account you provided upon registration to the hospital.2.Look for an invitation email from [facility].3.Open the email and access the invitation link: Accept Invitation to [facility]4.Fill in the required triana to create your account. Sign into [email or web address] with your username and password that you created in the above steps to stay up to date. You can then view a summary of results, a summary of your visits, and the ability to download your summaries to your computer or send the information securely to a physician. Remember that your healthcare information is confidential, so carefully consider who you will allow to register on the [facility] Patient Portal for access to your information. You can also access the [facility] Patient Portal on the [place] sidra. Simply click on Health Records under Health Data and then click on the [employer] logo. HOW TO SAFELY DISPOSE OF PRESCRIPTION MEDICATIONS Please use one of the following methods to safely dispose of your unused medications. 1.Use a drug disposal kit: the drug disposal pouch allows you to safely discard your old and unused drugs. Ask your nurse to give you one when you are discharged.2.Visit a local take-back location: Many local pharmacies and police departments have programs that collect old and unwanted prescription drugs. Call your local pharmacy or go to http://iGo.[employer]/0K9Qh7t to find one close to you.3.Make use of household items: Use cat litter or old coffee grounds to dispose medications if other options are not available. Mix your drugs with these household products, seal them in an airtight container and throw it into the garbage. Call [facility]: [phone] to be sure your drugs can be disposed of in this way. Some medicines may require a different approach.4.Never flush your medications down the toilet. IF YOU HAVE BEEN PRESCRIBED AN OPIOIDS FOR PAIN If you have been prescribed an opioid (such as hydrocodone, oxycodone or morphine), it is critical to understand the possible side effects and risks of opioid pain medications. Even when taken as directed, opioids can have several side effects including: Tolerance, meaning you might need to take more of a medication for the same pain relief. Nausea, vomiting and/or constipation. Sleepiness, dizziness, dry mouth, confusion, depression or itching. Physical dependence, meaning you have withdrawal symptoms when a medication is stopped ? this can develop within a few days. KNOW YOUR RESPONSIBILITIES It is important to know exactly how much and how often to take the opioid pain medications you are prescribed. Never take opioids in higher amounts or more often than prescribed. Do not combine opioids with alcohol or other drugs that cause drowsiness, such as benzodiazepines, also known as benzos, including diazepam and alprazolam, muscle relaxants or sleep aids. Never sell or share prescription opioids. This is illegal. Store opioids in a secure place and out of reach of others (including children, family, friends and visitors). The last page(s) of this document has been signed and retained as a CHART COPY Signatures Patient Education Materials Cellulitis Skin Infection Medication Leaflets My discharge plan and instructions have been reviewed and explained to me and I,PAULY SETH understand my current condition and have read and understand these discharge instructions. I have received a written copy of the plan/instructions. If I have questions, I am aware that I should contact my doctor. Patient/Polisher Numeral Signature: Date/Time: Relationship to Patient: ____ Witness Name/Signature: Date/Time: [facility] 01-15-2023 Orthopaedic surgery Consult note Date of Service 01-15-2023 Reason for Consultation Examine ankle status post right ankle spanning external fixation Referring Physician Emergency department History of Present Illness Patient is a 67-year-old female presents to [facility] following ankle spanning external fixation applied to her right ankle for a Pilon fracture. Spanning external fixator was placed on January 07, [address] Carpio at [facility]. Patient reports she was discharged in stable condition. Patient ports she was unable to have anyone come out and change her pin sites. Today was the first day she had anyone, take a look at her pin sites. The nurse who examined her told her to come to the emergency department for further evaluation. Patient reports blisters have developed over the medial and lateral portion of her ankle over the last week or so. She says they were not present at the time of the initial Ex-Fix placement. She reports no purulent drainage. Denies fevers or chills. Patient expressed she was concerned about being able to go home. She reported she was unsure if she was able to do the pin site care for self. She lives by herself. Review of Systems Pertinent positives and negative were listed above. All other systems reviewed were negative. Physical Exam Vitals and Measurements T: 36.8 C (Oral) HR: 60 RR: 16 BP: 107/70 SpO2: 96% No qualifying data available. General: NAD, A&Ox3 HEENT: normocephalic, atraumatic, EOMI intact CV: pulses regular throughout, brisk cap refill throughout, Pulm: normal work of breathing, equal chest rise bilaterally, no intercostal retractions or conversational dyspnea GI: abdomen is soft, nontender, nondistended, no rigidity or guarding Psych: calm and cooperative Right lower extremity exam -Dressing is clean dry and intact without signs of infection -Skin pink and well perfused -Sensation intact to light touch L3-S1 -Gross motor function intact to dorsi/plantarflexion of ankle and toes -DP, TP pulses palpable -Compartments are soft and compressible -No calf tenderness -External fixator in place Pin sites show no signs of infection Fracture blisters are present medially and laterally, some have burst Erythema about the ankle Generalized swelling about the entire ankle and foot extending to just distal to the knee joint Lab Results 01/15 15:40 WBC: 11.5 H Hgb: 12.0 Hct: 36.0 Platelet: 338 Neutrophil %: 63.0 Glucose Level: 118 H Sodium Level: 138 Potassium Level: 4.0 BUN: 16.0 Creatinine Lvl (s): 0.84 Imaging Results and Diagnostics I independently reviewed the following imaging: X-ray right ankle: ex fix in place, pilon fracture has not significantly shifted since surgery Assessment/Plan Evaluation of surgical incision - Pin sites were changed today by orthopedics, no signs of infection, still with significant swelling present in the ankle. Fracture blisters present as expected with this type of injury -Patient to remain nonweightbearing right lower extremity -Patient to clean pin sites twice a day with a mixture of peroxide and water. Patient was sent home with Curlex, Xeroform, Isabela wrap. Patient was encouraged to visit a medical supply store for when she runs out. -Patient to be started on Keflex prophylactically -Patient to follow-up in clinic with Dr. Carpio on Tuesday -Patient is fine to go home from our standpoint, however she was possibly interested in being placed Case discussed with Dr. Rosario Portions of the record may have been created with voice recognition software. Occasional wrong-word or `gdlae-h-hvob substitutions may have occurred due to the inherent limitations of voice recognition software. Read the chart carefully and recognize, using context, where substitutions have occurred. NLT Orders: XR Ankle Minimum 3 Views Right Problem List/Past Medical History Ongoing Depression Historical No qualifying data Procedure/Surgical History Cyst of breast Medications Inpatient No active inpatient medications Home citalopram 40 mg oral tablet, 20 mg= 0.5 tab(s), Oral, qDay Eliquis 5 mg oral tablet, 10 mg= 2 tab(s), Oral, BID Eliquis 5 mg oral tablet, 5 mg= 1 tab(s), Oral, BID, 2 refills losartan 100 mg oral tablet, 100 mg= 1 tab(s), Oral, qDay Percocet 5 mg-325 mg oral tablet, 1 tab(s), Oral, q6h, PRN propranolol 60 mg oral tablet, 60 mg= 1 tab(s), Oral, qDay Allergies NKA Social History Smoking Status - 04/24/2015 Current every day smoker Immunizations No qualifying data available. Digitally Signed by KENZIE LOZA DO on 01/15/2023 05:24 PM Digitally Signed by ALEJANDRINA ROSARIO MD Digitally Signed by LANE BRAVO DO [facility] 01-15-2023 Note ORIGINAL EXAMINATION: THREE XRAY VIEWS OF THE RIGHT ANKLE01/15/2023 5:16 pm COMPARISON: Ankle radiograph 01/07/2023 HISTORY: ORDERING SYSTEM PROVIDED HISTORY: Reason for Exam: eval r ankle fx FINDINGS: Interval postsurgical change of the right ankle with external fixation. When compared to the prior exam, there is improved alignment of the distal tibia fracture. This is nearly anatomic at this time. There is also improved alignment of the comminuted distal fibular fracture, nearly in anatomic alignment. Some disruption of the mid to posterior tibiotalar joint with extension of fracture to the articular surface, as seen previously. No other new/acute fracture. Probable small osteo chondroma of the tibia shaft. IMPRESSION: Status post external fixation. Interval improved alignment of trimalleolar fracture, as above. I have personally reviewed the images of this examination and agree with the resident's findings and interpretation. Interpreted by: Padmini Talbot MD Preliminary Report By: Mingo Ibarra Electronically signed By Padmini Talbot MD Dictated Date: 01/15/2023 5:21:38 PM Prelim Date: 01/15/2023 5:30:41 PM Sign Date: 01/15/2023 5:35:08 PM Ordering Provider: KENZIE LOZA [facility] 01-12-2023 Note Discharge Instructions Thank you for allowing [facility] to assist you with your healthcare needs. The following is important discharge information regarding your hospital visit. Your Care Team MARIO ROBERTO DO Your Diagnosis Ankle fracture, right Ankle injury - Major COPD without exacerbation Depression Essential tremor Hypertension Post-op pain Smoker What to do next Instructions From Your Doctor Take Eliquis as prescribed for blood clots in your lungs. Your orthopedic surgeon had sent a prescription for Lovenox to your pharmacy, please ignore this prescription, taking Lovenox with Eliquis is likely the cause bleeding Your oxygen saturations were low in hospital, we are sending you home with oxygen, the likely cause of your low oxygen is from postoperative atelectasis. Use incentive spirometer, your goal oxygen saturation should be around 92%. Anticipate that your oxygen requirement will decrease gradually. Follow instructions as per physical therapy Follow-up with your orthopedic surgeon and primary care physician. Follow Up Appointments Follow Up with ELMER CARPIO DO, Orthopedic When In 2 weeks 01/21/2023 [facility] Where: [address] [place] [address]- [phone] Follow Up with [facility] [phone] When Why: This is your oxygen supplier. PLEASE CALL BEFORE LEAVING THE HOSPITAL TO NOTIFY THEM SO A CONCENTRATOR CAN BE DELIVERED TO YOUR HOME! Follow Up with MARIO ROBERTO DO When Within 1-2 days Why: Please call the office within 2 days to schedule a follow-up appointment. Where: [address] [place] [address]- Follow Up with [facility] will be contacting you for home health. Please call [phone] with any questions. When Within 1-2 days Where: The Following Activity and Diet Have Been Ordered for You Discharge Activity - Ordered -- As instructed by therapy, 01/12/23 13:15:00 EST Discharge Diet - Ordered -- 01/12/23 13:15:00 EST The Following Equipment Has Been Ordered for You No qualifying data available. The Following Treatments Have Been Ordered for You Discharge Labs No qualifying data available. Discharge Radiology No qualifying data available. Other Therapies No qualifying data available. Post Acute Orders No qualifying data available. Someone Will Contact You Regarding These Home Health Referrals No home referrals have been ordered for you. No one will call you. Allergies NKA Medications Please ask your primary doctor or pharmacist before taking any other medication not listed, including over the counter drugs, herbal medications, vitamins and or supplements as they may interact with your home medications. What How Much When Why Instructions Last Dose New apixaban (Eliquis 5 mg oral tablet) 2 tab(s) by mouth Two (2) times a day Duration: 5 Days Pickup at [facility] New apixaban (Eliquis 5 mg oral tablet) 1 tab(s) by mouth Two (2) times a day Duration: 30 Days Refills: 2 Pickup at [facility] [address] Unchanged acetaminophen-oxyCODONE (Percocet 5 mg-325 mg oral tablet) 1 tab(s) by mouth Every 6 hours as needed for Pain Ankle fracture, right Duration: 7 Days Pickup at [facility] [address] Unchanged citalopram (citalopram 40 mg oral tablet) 0.5 tab(s) by mouth Once a day Unchanged losartan (losartan 100 mg oral tablet) 1 tab(s) by mouth Once a day Unchanged propranolol (propranolol 60 mg oral tablet) 1 tab(s) by mouth Once a day Pharmacy Information [facility]: [address] [place], [place] [id number] [phone] What How Much When Comments Stop Taking aspirin (aspirin 81 mg oral delayed release tablet) 1 tab(s) by mouth Once a day Stop Taking enoxaparin (Lovenox 40 mg/ 0.4 mL injectable solution) 0.4 Milliliter Subcutaneous Once a day Duration: 6 week(s) Please take this list to your next doctor s visit. Bring all medications you take, including over the counter medications, herbals and other supplements with you to your doctor s visit. Patients and families are reminded to discard old lists and to update any records with all medication providers or retail pharmacies. Education Materials How to Care for an External Fixator An external fixator is a device that holds a broken bone in a stable (fixed) position until it heals. This device is often used on the arms, legs, pelvis, or neck. It is attached to the bones with screws that are called pins or bolts. The pins are drilled into the bone on each side of the break and are attached to a metal or carbon fiber steven with nuts. When the bone is fully healed, the external fixator is removed. The type of external fixator that you have will depend on which bone is broken. Most people need an external fixator for 6 12 weeks. Sometimes, it is needed for up to 1 year for fractures that heal slowly or fractures that require slow alteration in alignment. What are the risks? Generally, external fixators are safe to wear. However, problems may occur, including infection at the pin sites. Supplies needed: Pin-cleaning solution. Sterile cotton swabs. Sterile split gauze. Square gauze. Clean washcloth. Towel. How to clean your pin sites Clean the pin sites two times a day or as often as told by your health care provider. Pin sites are the spots where the pins go through your skin. There are various types of pin-cleaning solutions. Use the solution that is recommended by your health care provider. 1. Wash your hands with soap and water. 2. Remove the old split gauze from each pin and discard it in a trash bin. 3. Wash your hands again with soap and water. 4. Pour the cleaning solution in a sterile container. 5. Dip a cotton swab in the solution. Swab around the base of the pin, where it meets your skin. Use a circular motion. If your skin has moved up onto the pin, gently push it back down. Remove any crusts that have formed on the pin. After you have swabbed the base of the pin, clean the rest of the pin. 6. Use a new swab for each pin. 7. Dry each pin site with a clean cotton swab. 8. If directed by your health care provider, apply an antibiotic ointment. 9. Place a new split gauze on each pin. Check the pin sites every day for signs of infection. Check for: Redness, swelling, or pain. Fluid or blood. Warmth. Pus or a bad smell. How to care for your external fixator Different types of external fixators will have different instructions for care. Your health care provider will tell you how to care for the type that you have. In general, you should: Examine your external fixator every day. ? Check for any loose pins. One sign of looseness is pain at the site where the pin exits the skin or pain at the site of the break. ? Make sure the nuts are tight. Your health care provider may show you how to tighten the nuts. However, do not make any adjustments to your external fixator unless told to do so by your health care provider. Clean the frame of the fixator two times a week or as often as told by your health care provider. 1. Use a square gauze or a clean washcloth that is moistened with rubbing alcohol and water to clean the frame. 2. After you clean the frame, wipe it dry with a towel. 3. Use a new gauze square or clean washcloth, and a clean towel for each cleaning. Follow these instructions at home: Bathing Do not take baths, swim, or use a hot tub until your health care provider approves. Ask your health care provider if you may take showers. You may only be allowed to take sponge baths. When you are allowed to shower, ask your health care provider if you need to cover your external fixator with a waterproof covering. General instructions Take nzcf-pwg-fpvzzai and prescription medicines only as told by your health care provider. Return to your normal activities as told by your health care provider. Ask your health care provider what activities are safe for you. Keep all follow-up visits as told by your health care provider. This is important. Contact a health care provider if: You have redness, swelling, or pain at any pin site. You have fluid or blood coming from a pin site. A pin site feels warm to the touch. You have pus or a bad smell coming from a pin site. You have a fever. Get help right away if: A pin moves or becomes loose. You have increasing pain where your bone was broken. Summary An external fixator is a device that holds a broken bone in a stable (fixed) position until it heals. Most people need an external fixator for 6 12 weeks. Your health care provider will tell you how to care for the type of external fixator that you have. When the bone is fully healed, the external fixator is removed. This information is not intended to replace advice given to you by your health care provider. Make sure you discuss any questions you have with your health care provider. Document Released: 10/06/2011 Document Revised: 03/23/2019 Document Reviewed: 03/26/2019 Elsevier Patient Education 2020 [employer]. Additional Information VACCINATE! IT SAVES LIVES! Members of the community who have not yet received the COVID-19 vaccine and would like to receive it can visit one of [facility] vaccine clinics. There are many vaccine clinic locations within the [facility]. For locations and available times, please visit https://gettheshot.coronavirus.[place].gov/. It is important to note that some COVID mobile vaccine clinics are held outdoors and may be canceled in rainy or stormy conditions. To learn more about pediatric vaccinations (ages 5-11), we invite you to visit the [employer] webpage. [email or web address] To learn more about the COVID-19 vaccine, we invite you to visit the CDC website for a list of frequently asked questions.https://www.cdc.gov/cor onavirus/2019-ncov/vaccines/faq.h tml [facility] Patient Portal Access Instructions: Stay connected with your healthcare team and access your personal medical information anytime with the [facility] Patient Portal. Please follow the directions below to create your [facility] account: 1.Access the email account you provided upon registration to the hospital/physician office.2.Look for an invitation email from [facility].3.Open the email and access the invitation link: Accept Invitation to [facility].4.Fill in the required triana to create your account. To access your account, visit [email or web address]. Click the blue button labeled Access Patient Portal and then log in with the username and password that you created in the steps above. You will be able to view your test results, lab results, a summary of your visits, upcoming appointments and more. There is also a convenient messaging option where you can send secure messages to your provider. In addition, you will have the ability to download any documents or summaries to your computer and/or send the information securely to a physician. Remember that your healthcare information is confidential, so carefully consider who you will allow to register on the [facility] Patient Portal for access to your information. You can also access the [facility] Patient Portal on the [facility] sidra. Simply click on Patient Portal and then log into your account. If you would like to receive a full copy of your medical records, please contact the [facility] Medical Records Department by calling [phone], Tuesday through Tuesday between 8 a.m. and 4:30 p.m. HOW TO SAFELY DISPOSE OF PRESCRIPTION MEDICATIONS Please use one of the following methods to safely dispose of your unused medications. 1.Use a drug disposal kit: the drug disposal pouch allows you to safely discard your old and unused drugs. Ask your nurse to give you one when you are discharged.2.Visit a local take-back location: Many local pharmacies and police departments have programs that collect old and unwanted prescription drugs. Call your local pharmacy or go to http://[employer]lect/0P0Iy8a to find one close to you.3.Make use of household items: Use cat litter or old coffee grounds to dispose medications if other options are not available. Mix your drugs with these household products, seal them in an airtight container and throw it into the garbage. Call [facility]: [phone] to be sure your drugs can be disposed of in this way. Some medicines may require a different approach.4.Never flush your medications down the toilet. IF YOU HAVE BEEN PRESCRIBED AN OPIOID FOR PAIN If you have been prescribed an opioid (such as hydrocodone, oxycodone or morphine), it is critical to understand the possible side effects and risks of opioid pain medications. Even when taken as directed, opioids can have several side effects including: Tolerance, meaning you might need to take more of a medication for the same pain relief. Nausea, vomiting and/or constipation. Sleepiness, dizziness, dry mouth, confusion, depression or itching. Physical dependence, meaning you have withdrawal symptoms when a medication is stopped, can develop within a few days. KNOW YOUR RESPONSIBILITIES It is important to know exactly how much and how often to take the opioid pain medications you are prescribed. Never take opioids in higher amounts or more often than prescribed. Do not combine opioids with alcohol or other drugs that cause drowsiness, such as benzodiazepines, also known as benzos, including diazepam and alprazolam, muscle relaxants or sleep aids. Never sell or share prescription opioids. This is illegal. Store opioids in a secure place and out of reach of others (including children, family, friends and visitors). The last page of this document has been signed and retained as a CHART COPY. Signatures Patient Education Materials How to Care for an External Fixator Medication Leaflets My discharge plan and instructions have been reviewed and explained to me and IROLO PATRICIA L understand my current condition and have read and understand these discharge instructions. I have received a written copy of the plan/instructions. If I have questions, I am aware that I should contact my doctor. Patient/Polisher Numeral Signature: Date/Time: Relationship to Patient: ____ Witness Name/Signature: Date/Time: [facility] 01-12-2023 Note Discharge Instructions Thank you for allowing [facility] to assist you with your healthcare needs. The following is important discharge information regarding your hospital visit. Your Care Team MARIO ROBERTO DO Your Diagnosis Ankle fracture, right Ankle injury - Major COPD without exacerbation Depression Essential tremor Hypertension Post-op pain Smoker What to do next Instructions From Your Doctor Take Eliquis as prescribed for blood clots in your lungs. Your orthopedic surgeon had sent a prescription for Lovenox to your pharmacy, please ignore this prescription, taking Lovenox with Eliquis is likely the cause bleeding Your oxygen saturations were low in hospital, we are sending you home with oxygen, the likely cause of your low oxygen is from postoperative atelectasis. Use incentive spirometer, your goal oxygen saturation should be around 92%. Anticipate that your oxygen requirement will decrease gradually. Follow instructions as per physical therapy Follow-up with your orthopedic surgeon and primary care physician. Follow Up Appointments Follow Up with ELMER CARPIO DO, Orthopedic When In 2 weeks 01/21/2023 EST Where: [address] [place] [address]- [phone] Follow Up with [facility] [phone] When Why: This is your oxygen supplier. PLEASE CALL BEFORE LEAVING THE HOSPITAL TO NOTIFY THEM SO A CONCENTRATOR CAN BE DELIVERED TO YOUR HOME! Follow Up with MARIO ROBERTO DO When Within 1-2 days Why: Please call the office within 2 days to schedule a follow-up appointment. Where: [address] [place] [address]- Follow Up with [facility] will be contacting you for home health. Please call [phone] with any questions. When Within 1-2 days Where: The Following Activity and Diet Have Been Ordered for You Discharge Activity - Ordered -- As instructed by therapy, 01/12/23 13:15:00 EST Discharge Diet - Ordered -- 01/12/23 13:15:00 EST The Following Equipment Has Been Ordered for You No qualifying data available. The Following Treatments Have Been Ordered for You Discharge Labs No qualifying data available. Discharge Radiology No qualifying data available. Other Therapies No qualifying data available. Post Acute Orders No qualifying data available. Someone Will Contact You Regarding These Home Health Referrals No home referrals have been ordered for you. No one will call you. Allergies NKA Medications Please ask your primary doctor or pharmacist before taking any other medication not listed, including over the counter drugs, herbal medications, vitamins and or supplements as they may interact with your home medications. What How Much When Why Instructions Last Dose New apixaban (Eliquis 5 mg oral tablet) 2 tab(s) by mouth Two (2) times a day Duration: 5 Days Pickup at [facility] New apixaban (Eliquis 5 mg oral tablet) 1 tab(s) by mouth Two (2) times a day Duration: 30 Days Refills: 2 Pickup at [facility] Unchanged acetaminophen-oxyCODONE (Percocet 5 mg-325 mg oral tablet) 1 tab(s) by mouth Every 6 hours as needed for Pain Ankle fracture, right Duration: 7 Days Pickup at [facility] Unchanged citalopram (citalopram 40 mg oral tablet) 0.5 tab(s) by mouth Once a day Unchanged losartan (losartan 100 mg oral tablet) 1 tab(s) by mouth Once a day Unchanged propranolol (propranolol 60 mg oral tablet) 1 tab(s) by mouth Once a day Pharmacy Information [facility]: [address] [place], [place] [id number] [phone] What How Much When Comments Stop Taking aspirin (aspirin 81 mg oral delayed release tablet) 1 tab(s) by mouth Once a day Stop Taking enoxaparin (Lovenox 40 mg/ 0.4 mL injectable solution) 0.4 Milliliter Subcutaneous Once a day Duration: 6 week(s) Please take this list to your next doctor s visit. Bring all medications you take, including over the counter medications, herbals and other supplements with you to your doctor s visit. Patients and families are reminded to discard old lists and to update any records with all medication providers or retail pharmacies. Education Materials How to Care for an External Fixator An external fixator is a device that holds a broken bone in a stable (fixed) position until it heals. This device is often used on the arms, legs, pelvis, or neck. It is attached to the bones with screws that are called pins or bolts. The pins are drilled into the bone on each side of the break and are attached to a metal or carbon fiber steevn with nuts. When the bone is fully healed, the external fixator is removed. The type of external fixator that you have will depend on which bone is broken. Most people need an external fixator for 6 12 weeks. Sometimes, it is needed for up to 1 year for fractures that heal slowly or fractures that require slow alteration in alignment. What are the risks? Generally, external fixators are safe to wear. However, problems may occur, including infection at the pin sites. Supplies needed: Pin-cleaning solution. Sterile cotton swabs. Sterile split gauze. Square gauze. Clean washcloth. Towel. How to clean your pin sites Clean the pin sites two times a day or as often as told by your health care provider. Pin sites are the spots where the pins go through your skin. There are various types of pin-cleaning solutions. Use the solution that is recommended by your health care provider. 1. Wash your hands with soap and water. 2. Remove the old split gauze from each pin and discard it in a trash bin. 3. Wash your hands again with soap and water. 4. Pour the cleaning solution in a sterile container. 5. Dip a cotton swab in the solution. Swab around the base of the pin, where it meets your skin. Use a circular motion. If your skin has moved up onto the pin, gently push it back down. Remove any crusts that have formed on the pin. After you have swabbed the base of the pin, clean the rest of the pin. 6. Use a new swab for each pin. 7. Dry each pin site with a clean cotton swab. 8. If directed by your health care provider, apply an antibiotic ointment. 9. Place a new split gauze on each pin. Check the pin sites every day for signs of infection. Check for: Redness, swelling, or pain. Fluid or blood. Warmth. Pus or a bad smell. How to care for your external fixator Different types of external fixators will have different instructions for care. Your health care provider will tell you how to care for the type that you have. In general, you should: Examine your external fixator every day. ? Check for any loose pins. One sign of looseness is pain at the site where the pin exits the skin or pain at the site of the break. ? Make sure the nuts are tight. Your health care provider may show you how to tighten the nuts. However, do not make any adjustments to your external fixator unless told to do so by your health care provider. Clean the frame of the fixator two times a week or as often as told by your health care provider. 1. Use a square gauze or a clean washcloth that is moistened with rubbing alcohol and water to clean the frame. 2. After you clean the frame, wipe it dry with a towel. 3. Use a new gauze square or clean washcloth, and a clean towel for each cleaning. Follow these instructions at home: Bathing Do not take baths, swim, or use a hot tub until your health care provider approves. Ask your health care provider if you may take showers. You may only be allowed to take sponge baths. When you are allowed to shower, ask your health care provider if you need to cover your external fixator with a waterproof covering. General instructions Take rpsi-ont-bzarujg and prescription medicines only as told by your health care provider. Return to your normal activities as told by your health care provider. Ask your health care provider what activities are safe for you. Keep all follow-up visits as told by your health care provider. This is important. Contact a health care provider if: You have redness, swelling, or pain at any pin site. You have fluid or blood coming from a pin site. A pin site feels warm to the touch. You have pus or a bad smell coming from a pin site. You have a fever. Get help right away if: A pin moves or becomes loose. You have increasing pain where your bone was broken. Summary An external fixator is a device that holds a broken bone in a stable (fixed) position until it heals. Most people need an external fixator for 6 12 weeks. Your health care provider will tell you how to care for the type of external fixator that you have. When the bone is fully healed, the external fixator is removed. This information is not intended to replace advice given to you by your health care provider. Make sure you discuss any questions you have with your health care provider. Document Released: 10/06/2011 Document Revised: 03/23/2019 Document Reviewed: 03/26/2019 [employer] Patient Education 2020 [employer] Additional Information VACCINATE! IT SAVES LIVES! Members of the community who have not yet received the COVID-19 vaccine and would like to receive it can visit one of [facility] vaccine clinics. There are many vaccine clinic locations within the [facility]. For locations and available times, please visit https://[email or web address].[place].gov/. It is important to note that some COVID mobile vaccine clinics are held outdoors and may be canceled in rainy or stormy conditions. To learn more about pediatric vaccinations (ages 5-11), we invite you to visit the [facility] webpage. [email or web address].[email or web address]/pa ges/7704-Tycrg-Zzhzdqamrmw-Freque jsyf-Pcmuv-Zadpobxwa.html To learn more about the COVID-19 vaccine, we invite you to visit the CDC website for a list of frequently asked questions.https://www.cdc.gov/cor onavirus/2019-ncov/vaccines/faq.h tml [facility] [employer] Patient Portal Access Instructions: Stay connected with your healthcare team and access your personal medical information anytime with the [facility] Patient Portal. Please follow the directions below to create your [facility] account: 1.Access the email account you provided upon registration to the hospital/physician office.2.Look for an invitation email from [facility].3.Open the email and access the invitation link: Accept Invitation to [facility].4.Fill in the required triana to create your account. To access your account, visit [email or web address]. Click the blue button labeled Access Patient Portal and then log in with the username and password that you created in the steps above. You will be able to view your test results, lab results, a summary of your visits, upcoming appointments and more. There is also a convenient messaging option where you can send secure messages to your provider. In addition, you will have the ability to download any documents or summaries to your computer and/or send the information securely to a physician. Remember that your healthcare information is confidential, so carefully consider who you will allow to register on the [facility] Patient Portal for access to your information. You can also access the [employer] Patient Portal on the [employer] sidra. Simply click on Patient Portal and then log into your account. If you would like to receive a full copy of your medical records, please contact the [facility] Medical Records Department by calling [phone], Tuesday through Tuesday between 8 a.m. and 4:30 p.m. HOW TO SAFELY DISPOSE OF PRESCRIPTION MEDICATIONS Please use one of the following methods to safely dispose of your unused medications. 1.Use a drug disposal kit: the drug disposal pouch allows you to safely discard your old and unused drugs. Ask your nurse to give you one when you are discharged.2.Visit a local take-back location: Many local pharmacies and police departments have programs that collect old and unwanted prescription drugs. Call your local pharmacy or go to http://bit.[employer]/7A6Rk9m to find one close to you.3.Make use of household items: Use cat litter or old coffee grounds to dispose medications if other options are not available. Mix your drugs with these household products, seal them in an airtight container and throw it into the garbage. Call [facility]: [phone] to be sure your drugs can be disposed of in this way. Some medicines may require a different approach.4.Never flush your medications down the toilet. IF YOU HAVE BEEN PRESCRIBED AN OPIOID FOR PAIN If you have been prescribed an opioid (such as hydrocodone, oxycodone or morphine), it is critical to understand the possible side effects and risks of opioid pain medications. Even when taken as directed, opioids can have several side effects including: Tolerance, meaning you might need to take more of a medication for the same pain relief. Nausea, vomiting and/or constipation. Sleepiness, dizziness, dry mouth, confusion, depression or itching. Physical dependence, meaning you have withdrawal symptoms when a medication is stopped, can develop within a few days. KNOW YOUR RESPONSIBILITIES It is important to know exactly how much and how often to take the opioid pain medications you are prescribed. Never take opioids in higher amounts or more often than prescribed. Do not combine opioids with alcohol or other drugs that cause drowsiness, such as benzodiazepines, also known as benzos, including diazepam and alprazolam, muscle relaxants or sleep aids. Never sell or share prescription opioids. This is illegal. Store opioids in a secure place and out of reach of others (including children, family, friends and visitors). The last page of this document has been signed and retained as a CHART COPY. Signatures Patient Education Materials How to Care for an External Fixator Medication Leaflets My discharge plan and instructions have been reviewed and explained to me and IROLO PATRICIA L understand my current condition and have read and understand these discharge instructions. I have received a written copy of the plan/instructions. If I have questions, I am aware that I should contact my doctor. Patient/Polisher Numeral Signature: Date/Time: Relationship to Patient: ____ Witness Name/Signature: Date/Time: [facility] 01-12-2023 Note Discharge Instructions Thank you for allowing [facility] to assist you with your healthcare needs. The following is important discharge information regarding your hospital visit. Your Care Team MARIO ROBERTO DO Your Diagnosis Ankle fracture, right Ankle injury - Major COPD without exacerbation Depression Essential tremor Hypertension Post-op pain Smoker What to do next Instructions From Your Doctor Take Eliquis as prescribed for blood clots in your lungs. Your orthopedic surgeon had sent a prescription for Lovenox to your pharmacy, please ignore this prescription, taking Lovenox with Eliquis is likely the cause bleeding Your oxygen saturations were low in hospital, we are sending you home with oxygen, the likely cause of your low oxygen is from postoperative atelectasis. Use incentive spirometer, your goal oxygen saturation should be around 92%. Anticipate that your oxygen requirement will decrease gradually. Follow instructions as per physical therapy Follow-up with your orthopedic surgeon and primary care physician. Follow Up Appointments Follow Up with ELMER CARPIO DO, Orthopedic When In 2 weeks 01/21/2023 EST Where: [address] [place] [address] [phone] Follow Up with [facility] [phone] When Why: This is your oxygen supplier. PLEASE CALL BEFORE LEAVING THE HOSPITAL TO NOTIFY THEM SO A CONCENTRATOR CAN BE DELIVERED TO YOUR HOME! Follow Up with MARIO ROBERTO DO When Within 1-2 days Why: Please call the office within 2 days to schedule a follow-up appointment. Where: [address] [place] [address]- Follow Up with [facility] will be contacting you for home health. Please call [phone] with any questions. When Within 1-2 days Where: The Following Activity and Diet Have Been Ordered for You Discharge Activity - Ordered -- As instructed by therapy, 01/12/23 13:15:00 EST Discharge Diet - Ordered -- 01/12/23 13:15:00 EST The Following Equipment Has Been Ordered for You No qualifying data available. The Following Treatments Have Been Ordered for You Discharge Labs No qualifying data available. Discharge Radiology No qualifying data available. Other Therapies No qualifying data available. Post Acute Orders No qualifying data available. Someone Will Contact You Regarding These Home Health Referrals No home referrals have been ordered for you. No one will call you. Allergies NKA Medications Please ask your primary doctor or pharmacist before taking any other medication not listed, including over the counter drugs, herbal medications, vitamins and or supplements as they may interact with your home medications. What How Much When Why Instructions Last Dose New apixaban (Eliquis 5 mg oral tablet) 2 tab(s) by mouth Two (2) times a day Duration: 5 Days Pickup at [facility]11 New apixaban (Eliquis 5 mg oral tablet) 1 tab(s) by mouth Two (2) times a day Duration: 30 Days Refills: 2 Pickup at [facility] Unchanged acetaminophen-oxyCODONE (Percocet 5 mg-325 mg oral tablet) 1 tab(s) by mouth Every 6 hours as needed for Pain Ankle fracture, right Duration: 7 Days Pickup at [facility]11 Unchanged citalopram (citalopram 40 mg oral tablet) 0.5 tab(s) by mouth Once a day Unchanged losartan (losartan 100 mg oral tablet) 1 tab(s) by mouth Once a day Unchanged propranolol (propranolol 60 mg oral tablet) 1 tab(s) by mouth Once a day Pharmacy Information [facility]: [address] [place], [place] [id number] [phone] What How Much When Comments Stop Taking aspirin (aspirin 81 mg oral delayed release tablet) 1 tab(s) by mouth Once a day Stop Taking enoxaparin (Lovenox 40 mg/ 0.4 mL injectable solution) 0.4 Milliliter Subcutaneous Once a day Duration: 6 week(s) Please take this list to your next doctor s visit. Bring all medications you take, including over the counter medications, herbals and other supplements with you to your doctor s visit. Patients and families are reminded to discard old lists and to update any records with all medication providers or retail pharmacies. Education Materials How to Care for an External Fixator An external fixator is a device that holds a broken bone in a stable (fixed) position until it heals. This device is often used on the arms, legs, pelvis, or neck. It is attached to the bones with screws that are called pins or bolts. The pins are drilled into the bone on each side of the break and are attached to a metal or carbon fiber steven with nuts. When the bone is fully healed, the external fixator is removed. The type of external fixator that you have will depend on which bone is broken. Most people need an external fixator for 6 12 weeks. Sometimes, it is needed for up to 1 year for fractures that heal slowly or fractures that require slow alteration in alignment. What are the risks? Generally, external fixators are safe to wear. However, problems may occur, including infection at the pin sites. Supplies needed: Pin-cleaning solution. Sterile cotton swabs. Sterile split gauze. Square gauze. Clean washcloth. Towel. How to clean your pin sites Clean the pin sites two times a day or as often as told by your health care provider. Pin sites are the spots where the pins go through your skin. There are various types of pin-cleaning solutions. Use the solution that is recommended by your health care provider. 1. Wash your hands with soap and water. 2. Remove the old split gauze from each pin and discard it in a trash bin. 3. Wash your hands again with soap and water. 4. Pour the cleaning solution in a sterile container. 5. Dip a cotton swab in the solution. Swab around the base of the pin, where it meets your skin. Use a circular motion. If your skin has moved up onto the pin, gently push it back down. Remove any crusts that have formed on the pin. After you have swabbed the base of the pin, clean the rest of the pin. 6. Use a new swab for each pin. 7. Dry each pin site with a clean cotton swab. 8. If directed by your health care provider, apply an antibiotic ointment. 9. Place a new split gauze on each pin. Check the pin sites every day for signs of infection. Check for: Redness, swelling, or pain. Fluid or blood. Warmth. Pus or a bad smell. How to care for your external fixator Different types of external fixators will have different instructions for care. Your health care provider will tell you how to care for the type that you have. In general, you should: Examine your external fixator every day. ? Check for any loose pins. One sign of looseness is pain at the site where the pin exits the skin or pain at the site of the break. ? Make sure the nuts are tight. Your health care provider may show you how to tighten the nuts. However, do not make any adjustments to your external fixator unless told to do so by your health care provider. Clean the frame of the fixator two times a week or as often as told by your health care provider. 1. Use a square gauze or a clean washcloth that is moistened with rubbing alcohol and water to clean the frame. 2. After you clean the frame, wipe it dry with a towel. 3. Use a new gauze square or clean washcloth, and a clean towel for each cleaning. Follow these instructions at home: Bathing Do not take baths, swim, or use a hot tub until your health care provider approves. Ask your health care provider if you may take showers. You may only be allowed to take sponge baths. When you are allowed to shower, ask your health care provider if you need to cover your external fixator with a waterproof covering. General instructions Take bgwq-thx-yxhhyvf and prescription medicines only as told by your health care provider. Return to your normal activities as told by your health care provider. Ask your health care provider what activities are safe for you. Keep all follow-up visits as told by your health care provider. This is important. Contact a health care provider if: You have redness, swelling, or pain at any pin site. You have fluid or blood coming from a pin site. A pin site feels warm to the touch. You have pus or a bad smell coming from a pin site. You have a fever. Get help right away if: A pin moves or becomes loose. You have increasing pain where your bone was broken. Summary An external fixator is a device that holds a broken bone in a stable (fixed) position until it heals. Most people need an external fixator for 6 12 weeks. Your health care provider will tell you how to care for the type of external fixator that you have. When the bone is fully healed, the external fixator is removed. This information is not intended to replace advice given to you by your health care provider. Make sure you discuss any questions you have with your health care provider. Document Released: 10/06/2011 Document Revised: 03/23/2019 Document Reviewed: 03/26/2019 [employer] Patient Education 2020 [employer] Additional Information VACCINATE! IT SAVES LIVES! Members of the community who have not yet received the COVID-19 vaccine and would like to receive it can visit one of [facility] vaccine clinics. There are many vaccine clinic locations within the [facility]. For locations and available times, please visit https://[email or web address].[place].gov/. It is important to note that some COVID mobile vaccine clinics are held outdoors and may be canceled in rainy or stormy conditions. To learn more about pediatric vaccinations (ages 5-11), we invite you to visit the [employer] webpage. https://[email or web address].org/pa ges/8980-Ccfzc-Akglkqqrzlh-Freque gfwk-Mqfav-Ujjyflhkb.html To learn more about the COVID-19 vaccine, we invite you to visit the CDC website for a list of frequently asked questions.https://www.cdc.gov/cor onavirus/2019-ncov/vaccines/faq.h tml [facility] Patient Portal Access Instructions: Stay connected with your healthcare team and access your personal medical information anytime with the [facility] Patient Portal. Please follow the directions below to create your [facility] account: 1.Access the email account you provided upon registration to the hospital/physician office.2.Look for an invitation email from [facility].3.Open the email and access the invitation link: Accept Invitation to [facility].4.Fill in the required triana to create your account. To access your account, visit [email or web address]. Click the blue button labeled Access Patient Portal and then log in with the username and password that you created in the steps above. You will be able to view your test results, lab results, a summary of your visits, upcoming appointments and more. There is also a convenient messaging option where you can send secure messages to your provider. In addition, you will have the ability to download any documents or summaries to your computer and/or send the information securely to a physician. Remember that your healthcare information is confidential, so carefully consider who you will allow to register on the [facility] [facility] Patient Portal for access to your information. You can also access the [facility] [facility] Patient Portal on the [place] [facility] sidra. Simply click on Patient Portal and then log into your account. If you would like to receive a full copy of your medical records, please contact the [facility] Medical Records Department by calling [phone], Tuesday through Tuesday between 8 a.m. and 4:30 p.m. HOW TO SAFELY DISPOSE OF PRESCRIPTION MEDICATIONS Please use one of the following methods to safely dispose of your unused medications. 1.Use a drug disposal kit: the drug disposal pouch allows you to safely discard your old and unused drugs. Ask your nurse to give you one when you are discharged.2.Visit a local take-back location: Many local pharmacies and police departments have programs that collect old and unwanted prescription drugs. Call your local pharmacy or go to http://[employer]/9K9Ic6t to find one close to you.3.Make use of household items: Use cat litter or old coffee grounds to dispose medications if other options are not available. Mix your drugs with these household products, seal them in an airtight container and throw it into the garbage. Call [facility]: [phone] to be sure your drugs can be disposed of in this way. Some medicines may require a different approach.4.Never flush your medications down the toilet. IF YOU HAVE BEEN PRESCRIBED AN OPIOID FOR PAIN If you have been prescribed an opioid (such as hydrocodone, oxycodone or morphine), it is critical to understand the possible side effects and risks of opioid pain medications. Even when taken as directed, opioids can have several side effects including: Tolerance, meaning you might need to take more of a medication for the same pain relief. Nausea, vomiting and/or constipation. Sleepiness, dizziness, dry mouth, confusion, depression or itching. Physical dependence, meaning you have withdrawal symptoms when a medication is stopped, can develop within a few days. KNOW YOUR RESPONSIBILITIES It is important to know exactly how much and how often to take the opioid pain medications you are prescribed. Never take opioids in higher amounts or more often than prescribed. Do not combine opioids with alcohol or other drugs that cause drowsiness, such as benzodiazepines, also known as benzos, including diazepam and alprazolam, muscle relaxants or sleep aids. Never sell or share prescription opioids. This is illegal. Store opioids in a secure place and out of reach of others (including children, family, friends and visitors). The last page of this document has been signed and retained as a CHART COPY. Signatures Patient Education Materials How to Care for an External Fixator Medication Leaflets My discharge plan and instructions have been reviewed and explained to me and I,PAULY SETH understand my current condition and have read and understand these discharge instructions. I have received a written copy of the plan/instructions. If I have questions, I am aware that I should contact my doctor. Patient/Polisher Numeral Signature: Date/Time: Relationship to Patient: ____ Witness Name/Signature: Date/Time: [facility] 01-12-2023 Hospital Discharg e instructions Patient Education 01/12/2023 13:30:29 How to Care for an External Fixator How to Care for an External Fixator An external fixator is a device that holds a broken bone in a stable (fixed) position until it heals. This device is often used on the arms, legs, pelvis, or neck. It is attached to the bones with screws that are called pins or bolts. The pins are drilled into the bone on each side of the break and are attached to a metal or carbon fiber steven with nuts. When the bone is fully healed, the external fixator is removed. The type of external fixator that you have will depend on which bone is broken. Most people need an external fixator for 6 12 weeks. Sometimes, it is needed for up to 1 year for fractures that heal slowly or fractures that require slow alteration in alignment. What are the risks? Generally, external fixators are safe to wear. However, problems may occur, including infection at the pin sites. Supplies needed: Pin-cleaning solution. Sterile cotton swabs. Sterile split gauze. Square gauze. Clean washcloth. Towel. How to clean your pin sites Clean the pin sites two times a day or as often as told by your health care provider. Pin sites are the spots where the pins go through your skin. There are various types of pin-cleaning solutions. Use the solution that is recommended by your health care provider. 1.Wash your hands with soap and water. 2.Remove the old split gauze from each pin and discard it in a trash bin. 3.Wash your hands again with soap and water. 4.Pour the cleaning solution in a sterile container. 5.Dip a cotton swab in the solution. Swab around the base of the pin, where it meets your skin. Use a circular motion. If your skin has moved up onto the pin, gently push it back down. Remove any crusts that have formed on the pin. After you have swabbed the base of the pin, clean the rest of the pin. 6.Use a new swab for each pin. 7.Dry each pin site with a clean cotton swab. 8.If directed by your health care provider, apply an antibiotic ointment. 9.Place a new split gauze on each pin. Check the pin sites every day for signs of infection. Check for: Redness, swelling, or pain. Fluid or blood. Warmth. Pus or a bad smell. How to care for your external fixator Different types of external fixators will have different instructions for care. Your health care provider will tell you how to care for the type that you have. In general, you should: Examine your external fixator every day. ?Check for any loose pins. One sign of looseness is pain at the site where the pin exits the skin or pain at the site of the break. ?Make sure the nuts are tight. Your health care provider may show you how to tighten the nuts. However, do not make any adjustments to your external fixator unless told to do so by your health care provider. Clean the frame of the fixator two times a week or as often as told by your health care provider. 1.Use a square gauze or a clean washcloth that is moistened with rubbing alcohol and water to clean the frame. 2.After you clean the frame, wipe it dry with a towel. 3.Use a new gauze square or clean washcloth, and a clean towel for each cleaning. Follow these instructions at home: Bathing Do not take baths, swim, or use a hot tub until your health care provider approves. Ask your health care provider if you may take showers. You may only be allowed to take sponge baths. When you are allowed to shower, ask your health care provider if you need to cover your external fixator with a waterproof covering. General instructions Take [id number] and prescription medicines only as told by your health care provider. Return to your normal activities as told by your health care provider. Ask your health care provider what activities are safe for you. Keep all follow-up visits as told by your health care provider. This is important. Contact a health care provider if: You have redness, swelling, or pain at any pin site. You have fluid or blood coming from a pin site. A pin site feels warm to the touch. You have pus or a bad smell coming from a pin site. You have a fever. Get help right away if: A pin moves or becomes loose. You have increasing pain where your bone was broken. Summary An external fixator is a device that holds a broken bone in a stable (fixed) position until it heals. Most people need an external fixator for 6 12 weeks. Your health care provider will tell you how to care for the type of external fixator that you have. When the bone is fully healed, the external fixator is removed. This information is not intended to replace advice given to you by your health care provider. Make sure you discuss any questions you have with your health care provider. Document Released: 10/06/2011 Document Revised: 03/23/2019 Document Reviewed: 03/26/2019 Elsevier Patient Education 2020 [employer] Follow Up Care 01/07/2023 05:01:03 With:[facility] [phone] Address:Unknown When: Unknown Comments:This is your oxygen supplier. PLEASE CALL BEFORE LEAVING THE HOSPITAL TO NOTIFY THEM SO A CONCENTRATOR CAN BE DELIVERED TO YOUR HOME! With:MARIO ROBERTO Address: [address] [place] [address]- When:1-2 days Comments:Please call the office within 2 days to schedule a follow-up appointment. With:[facility] will be contacting you for home health. Please call [phone] with any questions. Address: When:1-2 days With:ELMER CARPIO DO, Orthopedic Address: [address] [place] [address]- [phone] When:01/21/2023 [facility] 01-12-2023 Nurse Progress note All documentation completed by KIM Pat, on 01/12/2023 between [id number] has been reviewed and approved by this nursing program chair. Digitally Signed by Chayo Gibson [employer] Manager on 01/12/2023 02:12 PM [facility] 01-12-2023 Discharge summary Date of Service 01/12/2023 Discharge Diagnosis Displaced pilon fracture of right tibia, initial encounter for closed fracture (S82.871A - ICD-10-CM) Displaced pilon fracture of right tibia, initial encounter for closed fracture (S82.871A - ICD-10-CM) Other pulmonary embolism without acute cor pulmonale (I26.99 - ICD-10-CM) Acute respiratory failure with hypoxia (J96.01 - ICD-10-CM) Atelectasis (J98.11 - ICD-10-CM) Essential (primary) hypertension (I10 - ICD-10-CM) Fall on and from ladder, initial encounter (W11.XXXA - ICD-10-CM) Nicotine dependence, cigarettes, uncomplicated (F17.210 - ICD-10-CM) Essential tremor (G25.0 - ICD-10-CM) Chronic obstructive pulmonary disease, unspecified (J44.9 - ICD-10-CM) Displaced trimalleolar fracture of right lower leg, initial encounter for closed fracture (S82.851A - ICD-10-CM) Pain in right lower leg (M79.661 - ICD-10-CM) Depression, unspecified (F32.A - ICD-10-CM) Cough, unspecified (R05.9 - ICD-10-CM) Other nonspecific abnormal finding of lung field (R91.8 - ICD-10-CM) Ankle fracture, right (S82.891A - ICD-10-CM) Ankle injury - Major ([id number] - PNED) COPD without exacerbation (J44.9 - ICD-10-CM) Depression (F32.A - ICD-10-CM) Essential tremor (G25.0 - ICD-10-CM) Hypertension (I10 - ICD-10-CM) Post-op pain (G89.18 - ICD-10-CM) Smoker (F17.200 - ICD-10-CM) Additional Orders: Other status: BMP,01/12/23 5:00:00 EST, Next AM Draw (one day only), Blood, Once, Stop date 01/12/23 5:00:00 EST(Complete) Other status: CBC,01/12/23 5:00:00 EST, Next AM Draw (one day only), Blood, Once, Stop date 01/12/23 5:00:00 EST(Complete) Ordered: Consult Home Health - OT,01/12/23 13:15:00 EST, Home Therapy Order: OT Eval & Treat, Home Therapy Instruction: Non weight bearing, Reason: Post fracture Ordered: Consult Home Health - PT,01/12/23 13:15:00 EST, Home Therapy Order: PT Eval & Treat, Reason: Post fracture, Home Therapy Instruction: Non weight bearing Ordered: Consult Home Health - RN,01/12/23 13:15:00 EST, Reason: Wound Care Ordered: Discharge,01/12/23 13:15:00 EST, Discharged to: Home Ordered: Discharge Activity,As instructed by therapy, 01/12/23 13:15:00 EST Ordered: Discharge Diet,01/12/23 13:15:00 EST Modified: Eliquis,Start: 01/11/23 11:02:00 EST, Dose = 10 mg, = 2 tab(s), Oral, BID, Indication for Use Treatment of VTE/PE ( Acute ), 12 dose(s), Stop: 01/17/23 21:00:00 EST, DVT / PE, 0, 01/11/23 11:02:00 EST Ordered: Eliquis 5 mg oral tablet,Dose : 10 mg = 2 tab(s), Oral, BID, # 20 tab(s), 0 Refill(s), Pharmacy: [id number], 160, cm, 01/07/23 18:35:00 EST, Height, 86.9, kg, 01/07/23 18:35:00 EST, Dosing Weight Ordered: Eliquis 5 mg oral tablet,Dose : 5 mg = 1 tab(s), Oral, BID, # 60 tab(s), 2 Refill(s), Pharmacy: [id number], 160, cm, 01/07/23 18:35:00 EST, Height, 86.9, kg, 01/07/23 18:35:00 EST, Dosing Weight Ordered: Incentive Spirometer,01/12/23 13:18:00 EST, q2hr Discontinued: Lovenox 40 mg/0.4 mL injectable solution,Dose : 40 mg = 0.4 mL, Subcutaneous, qDay, X 6 week(s), # 16.8 mL, 0 Refill(s), 02/18/23 14:51:00 EST Hospital Course 67-year-old female patient with a past medical history significant for hypertension, smoker 1 ppd for 50+ years, COPD not currently exacerbated, depression, and essential tremors. She presented after a fall on 01/07/2023 while attempting to clean her gutters. She was attempting to move the ladder, states she fell approximately 4 to 5 feet landing backwards and rotating the right lower leg. Per documentation she did not strike her head, she did not lose consciousness, she is able to recall all of the events. Trauma workup did show an unstable trimalleolar fracture of the right tib-fib. The remainder of the trauma workup was negative, she was admitted under trauma services. The patient underwent external fixation of her fracture, postoperatively she developed hypoxia. Chest x-ray showed bilateral atelectasis, also showed bilateral PE but there is no physical examination findings or radiological findings suggestive of hemodynamic compromise. She was started on Eliquis, incentive spirometry was also ordered. Very likely that her hypoxia was due to atelectasis as opposed to her pulmonary embolism. Discharged with Eliquis and she is to follow-up outpatient with orthopedics. She was discharged with home oxygen. Allergies NKA Procedures External fixation Consults Consult to Anesthesia - Ordered -- 01/07/23 7:38:00 EST, surgery pending Consult to Physician - Ordered -- 01/08/23 17:24:00 EST, HOSPITALISTDIAN (For Consultation Assignment Only NO other Orders), Routine, medical management Consult to Physician (Physician Consult) - Ordered -- 01/10/23 9:14:00 JADA PATEL NIHAD MD, Routine, unexplained hypoxia, COPD but no wheezing, postop pending CT PE Imaging Results and Diagnostics CT Angiography Chest w/ Contrast Result Date: January 10, 2023 Verified By: MINGO RODRIGUEZ MD CLINICAL STATEMENT: IMPRESSION: 1. Coarse areas of atelectasis at the posterior lower lobes bilaterally.2. Segmental posterior left lower lobe pulmonary emboli. No indicators ofright heart strain. CT Ankle w/o Contrast Right Result Date: January 07, 2023 Verified By: DELVIS RICHARDSON MD CLINICAL STATEMENT: IMPRESSION: Status post external fixator application to foot. Redemonstration of unstable trimalleolar foot. Metal streak artifact from external fixator hardware somewhat obscuresevaluation of calcaneum. Within these constraints, no definite fracture ofcalcaneum. Small ankle joint effusion/hemorrhage and moderate soft tissue swelling ankleand foot. I have personally reviewed the images of this examination and agree with theresident's findings and interpretation. XR Fluoro 1-2 Hrs Tech Time Result Date: January 07, 2023 Verified By: DOYLE LEVI MD CLINICAL STATEMENT: IMPRESSION: Intraprocedural fluoroscopic spot images as above. See separate procedurereport for more information. I have personally reviewed the images of this examination and agree with theresident's findings and interpretation. XR Tibia/Fibula 2 Views Right Result Date: January 07, 2023 Verified By: DELVIS RICHARDSON MD CLINICAL STATEMENT: IMPRESSION: Unstable trimalleolar fracture has been explained on dedicated ankleradiograph from same day. No other fracture is identified. However there is suspected smallsuprapatellar effusion/hematoma. Consider CT knee for further evaluation ifclinically warranted. I have personally reviewed the images of this examination and agree with theresident's findings and interpretation. XR Ankle Minimum 3 Views Right Result Date: January 07, 2023 Verified By: DELVIS RICHARDSON MD CLINICAL STATEMENT: IMPRESSION: Above findings are most compatible with an unstable trimalleolar fracture. Vertical lucency through the calcaneum on lateral view is likely artifactualalthough subtle nondisplaced fracture is not entirely excluded. I have personally reviewed the images of this examination and agree with theresident's findings and interpretation. XR Pelvis 1 or 2 Views Result Date: January 07, 2023 Verified By: DELVIS RICHARDSON MD CLINICAL STATEMENT: IMPRESSION: Study is degraded due to patient's body habitus and osseous demineralization.Within these constraints, no acute fracture or dislocation. I have personally reviewed the images of this examination and agree with theresident's findings and interpretation. XR Chest 1 View Result Date: January 07, 2023 Verified By: DELVIS RICHARDSON MD CLINICAL STATEMENT: IMPRESSION: Hypoventilatory changes. Otherwise, no acute posttraumatic findings in thethorax. I have personally reviewed the images of this examination and agree with theresident's findings and interpretation. Physical Exam Vitals and Measurements T: 36.6 C (Oral) TMIN: 36.6 C (Oral) TMAX: 36.9 C (Oral) HR: 66 RR: 16 BP: 123/51 SpO2: 91% Weight Dosing Weight: 86.9 kg (01/07/23) Dosing Weight: 86.9 kg (01/07/23) GENERAL: Pt is comfortable in bed. Appears in no acute distress. HEENT: Mucous membranes pink and moist NEURO: Alert and oriented X 3 CVS: S1 & S2 audible, Regular Rate and Rhythm CHEST : No accesory muscle use, equal air entry bilaterally, no adventitious breath sounds GI: Normoactive BS, abdomen soft and non tender Code Status Code Status - Ordered -- 01/07/23 7:29:00 EST, Full Code, Constant Order Admission Date 01/07/2023 Discharge Date 01/12/2023 Patient Instructions Take Eliquis as prescribed for blood clots in your lungs. Your orthopedic surgeon had sent a prescription for Lovenox to your pharmacy, please ignore this prescription, taking Lovenox with Eliquis is likely the cause bleeding Your oxygen saturations were low in hospital, we are sending you home with oxygen, the likely cause of your low oxygen is from postoperative atelectasis. Use incentive spirometer, your goal oxygen saturation should be around 92%. Anticipate that your oxygen requirement will decrease gradually. Follow instructions as per physical therapy Follow-up with your orthopedic surgeon and primary care physician. Medications New Prescription apixaban (Eliquis 5 mg oral tablet)2 tab(s) by mouth two (2) times a day for 5 Days. Refills: 0. apixaban (Eliquis 5 mg oral tablet)1 tab(s) by mouth two (2) times a day for 30 Days. Refills: 2. Unchanged citalopram (citalopram 40 mg oral tablet)0.5 tab(s) by mouth once a day. losartan (losartan 100 mg oral tablet)1 tab(s) by mouth once a day. propranolol (propranolol 60 mg oral tablet)1 tab(s) by mouth once a day. Discontinued aspirin (aspirin 81 mg oral delayed release tablet)1 tab(s) by mouth once a day. enoxaparin (Lovenox 40 mg/0.4 mL injectable solution)0.4 Milliliter Subcutaneous once a day for 6 week(s). Refills: 0. Follow Up Follow Up with ELMER CARPIO DO, Orthopedic When In 2 weeks 01/21/2023 EST Where: [address] [place] [address]- [phone] Follow Up with MARIO ROBERTO DO When Within 1-2 days Why: Please call the office within 2 days to schedule a follow-up appointment. Where: [address] [place] [address]- Follow Up with [facility] will be contacting you for [facility]. Please call [phone] with any questions. When Within 1-2 days Where: Follow Up Appointments Consult Home Health - OT - Ordered -- 01/12/23 13:15:00 EST, Home Therapy Order: OT Eval & Treat, Home Therapy Instruction: Non weight bearing, Reason: Post fracture Consult Home Health - PT - Ordered -- 01/12/23 13:15:00 EST, Home Therapy Order: PT Eval & Treat, Reason: Post fracture, Home Therapy Instruction: Non weight bearing Consult Home Health - RN - Ordered -- 01/12/23 13:15:00 EST, Reason: Wound Care Follow Up Labs/Studies Discharge Labs No Follow-up Labs Discharge Studies No Follow-up Studies Discharge Diet Discharge Diet - Ordered -- 01/12/23 13:15:00 EST Discharge Activity Discharge Activity - Ordered -- As instructed by therapy, 01/12/23 13:15:00 EST Condition on Discharge Stable Discharge Disposition Home with home health care Information Provided To The patient Time Spent Greater than 40 minutes was spent in discharge planning. More than 50% of the time was spent in direct patient care which included time spent speaking with the patient about her medical condition and treatment plan. Digitally Signed by DARIANA WILLIAM MD on 01/12/2023 06:08 PM [facility] 01-11-2023 Pulmonary Progres s note Date of Service 01/11/2023 Subjective Rester status about the same. Oxygen has been able to be weaned a bit Objective Vitals and Measurements T: 36.7 C (Oral) TMIN: 36.6 C (Oral) TMAX: 36.8 C (Oral) HR: 60 RR: 16 BP: 107/55 SpO2: 95% Intake and Output 7AM Yesterday to 7AM Today Intake and Output (Last 24 hours) Intake Oral Intake 680.00 Administration Information 216.57 Output Urine Count 6.00 Total Summary Total Intake 896.57 Total Output 0.00 Fluid Balance 896.57 Physical Exam General: in bed, NAD HEENT: PERRL, EOMI, MM moist Neck: supple Chest: lungs diminished breath sounds Heart: RRR nl s1 s2 Abdomen: + BS, soft, nontender Extremities: no CCE Neuro: Alert, nonfocal Skin: warm, dry Psych: no anxiety Weight Dosing Weight: 86.9 kg (01/07/23) Dosing Weight: 86.9 kg (01/07/23) Medications Medications (19) Active Scheduled: (9) albuterol - ipratropium 2.5 mg-0.5 mg/3 mL Inhal Gina UD 3 mL, Inhalation, TIDRT apixaban 5 mg tablet 10 mg 2 tab(s), Oral, BID bacitracin topical 500 units/g Ointment TUBE 1 sidra, Topical, TID budesonide 0.5 mg/2 mL Susp UD 0.5 mg 2 mL, Inhalation, BIDRT citalopram 20 mg Tablet 20 mg 1 tab(s), Oral, qDay docusate-senna (Senokot S) 50 mg-8.6 mg Tablet 1 tab(s), Oral, BID losartan 100 mg tablet 100 mg 1 tab(s), Oral, qDay polyethylene glycol 3350 - UD packet 17 gram(s) 15 mL, Oral, qDay propranolol 10 mg tablet 50 mg 5 tab(s), Oral, qDay Continuous: (0) PRN: (10) acetaminophen-HYDROcodone 325-5 mg tablet 1 tab(s), Oral, q4h acetaminophen-HYDROcodone 325-5 mg tablet 2 tab(s), Oral, q4h albuterol - ipratropium 2.5 mg-0.5 mg/3 mL Inhal Gina UD 3 mL, Inhalation, q4hRT bisacodyl 10 mg Suppository 10 mg 1 supp, Rectal, qDay dextrose 50% Solution Disp syringe 50 mL 12.5 gram(s) 25 mL, IV Push, AsDirected docusate sodium 100 mg Capsule 100 mg 1 cap(s), Oral, BID HYDROmorphone 0.5 mg/0.5 mL PF syringe 0.5 mg 0.5 mL, IV Push, q2h hydromorphone 1 mg/mL (1mL) INJ 1 mg 1 mL, IV Push, q2h magnesium hydroxide 8% Suspension 30 mL UD 30 mL, Oral, qDay ondansetron 2 mg/ 1 mL 2 mL INJ 4 mg 2 mL, IV Push, q4h Lab Results 01/11 04:00 WBC: 11.2 H Hgb: 11.4 L Hct: 34.0 Platelet: 239 Neutrophil %: 56.4 01/10 08:03 WBC: 11.5 H Hgb: 11.6 L Hct: 35.4 Platelet: 208 Neutrophil %: 58.3 Glucose Level: 107 Sodium Level: 139 Potassium Level: 4.3 BUN: 13.0 Creatinine Lvl (s): 0.79 EKG EKG - Completed -- 01/09/23 20:45:00 EST Assessment/Plan Ankle fracture, right Ankle injury - Major COPD without exacerbation Depression Essential tremor Hypertension Post-op pain Smoker 1. Acute hypoxemic respiratory failure currently 3L nasal cannula. 2. Fall with major right ankle injury, external fixator is in place. 3. History of mild COPD, spirometry not available to us, certainly at this point of time no evidence of acute chest infection or acute exacerbation.. 4. Pulmonary embolus Plan: Continue with anticoagulation Wean oxygen as able Discussed with the patient she is strong likelihood she may require oxygen at discharge at which point we will follow-up with her in a few weeks to reassess. Kike Peoples M.D., [facility] Digitally Signed by KIKE PEOPLES MD on 01/11/2023 02:48 PM [facility] 01-11-2023 Note Date of Service 01/11/2023 Chief Complaint PE Subjective No acute events reported by nursing staff overnight. Please see progress note from yesterday for details of hospitalization. When I saw the patient she had no acute complaints, denies any shortness of breath, chest pain or palpitations. Her only complaint is that she is being stuck frequently for blood draws. Objective Vitals and Measurements T: 36.8 C (Oral) TMIN: 36.6 C (Oral) TMAX: 36.8 C (Oral) HR: 63 RR: 18 BP: 103/74 SpO2: 95% Intake and Output 7AM Yesterday to 7AM Today Intake and Output (Last 24 hours) Intake Oral Intake 1080.00 Administration Information 216.57 Output Stool Count 0.00 Urine Count 4.00 Emesis Count 0.00 Total Summary Total Intake 1296.57 Total Output 0.00 Fluid Balance 1296.57 Physical Exam GENERAL: Pt is comfortable in bed. Appears in no acute distress. HEENT: Mucous membranes pink and moist NEURO: Alert and oriented X 3 CVS: S1 & S2 audible, Regular Rate and Rhythm CHEST : No accesory muscle use, equal air entry bilaterally, no adventitious breath sounds GI: Normoactive BS, abdomen soft and non tender Weight Dosing Weight: 86.9 kg (01/07/23) Dosing Weight: 86.9 kg (01/07/23) Medications Medications (20) Active Scheduled: (9) albuterol - ipratropium 2.5 mg-0.5 mg/3 mL Inhal Gina UD 3 mL, Inhalation, TIDRT apixaban 5 mg tablet 10 mg 2 tab(s), Oral, BID bacitracin topical 500 units/g Ointment TUBE 1 sidra, Topical, TID budesonide 0.5 mg/2 mL Susp UD 0.5 mg 2 mL, Inhalation, BIDRT citalopram 20 mg Tablet 20 mg 1 tab(s), Oral, qDay docusate-senna (Senokot S) 50 mg-8.6 mg Tablet 1 tab(s), Oral, BID losartan 100 mg tablet 100 mg 1 tab(s), Oral, qDay polyethylene glycol 3350 - UD packet 17 gram(s) 15 mL, Oral, qDay propranolol 10 mg tablet 50 mg 5 tab(s), Oral, qDay Continuous: (0) PRN: (11) acetaminophen-HYDROcodone 325-5 mg tablet 1 tab(s), Oral, q4h acetaminophen-HYDROcodone 325-5 mg tablet 2 tab(s), Oral, q4h albuterol - ipratropium 2.5 mg-0.5 mg/3 mL Inhal Gina UD 3 mL, Inhalation, q4hRT bisacodyl 10 mg Suppository 10 mg 1 supp, Rectal, qDay dextrose 50% Solution Disp syringe 50 mL 12.5 gram(s) 25 mL, IV Push, AsDirected docusate sodium 100 mg Capsule 100 mg 1 cap(s), Oral, BID heparin 5,000 units/mL (1 mL) vial 3,476 unit(s) 0.7 mL, IV Push, q6h HYDROmorphone 0.5 mg/0.5 mL PF syringe 0.5 mg 0.5 mL, IV Push, q2h hydromorphone 1 mg/mL (1mL) INJ 1 mg 1 mL, IV Push, q2h magnesium hydroxide 8% Suspension 30 mL UD 30 mL, Oral, qDay ondansetron 2 mg/ 1 mL 2 mL INJ 4 mg 2 mL, IV Push, q4h Lab Results 01/11 04:00 WBC: 11.2 H Hgb: 11.4 L Hct: 34.0 Platelet: 239 Neutrophil %: 56.4 01/10 08:03 WBC: 11.5 H Hgb: 11.6 L Hct: 35.4 Platelet: 208 Neutrophil %: 58.3 Glucose Level: 107 Sodium Level: 139 Potassium Level: 4.3 BUN: 13.0 Creatinine Lvl (s): 0.79 Imaging Results [address] Diagn[address] CT Angiography Chest w/ Contrast Result Date: January 10, 2023 Verified By: MINGO RODRIGUEZ MD CLINICAL STATEMENT: IMPRESSION: 1. Coarse areas of atelectasis at the posterior lower lobes bilaterally.2. Segmental posterior left lower lobe pulmonary emboli. No indicators ofright heart strain. CT Ankle w/o Contrast Right Result Date: January 07, 2023 Verified By: DELVIS RICHARDSON MD CLINICAL STATEMENT: IMPRESSION: Status post external fixator application to foot. Redemonstration of unstable trimalleolar foot. Metal streak artifact from external fixator hardware somewhat obscuresevaluation of calcaneum. Within these constraints, no definite fracture ofcalcaneum. Small ankle joint effusion/hemorrhage and moderate soft tissue swelling ankleand foot. I have personally reviewed the images of this examination and agree with theresident's findings and interpretation. XR Fluoro 1-2 Hrs Tech Time Result Date: January 07, 2023 Verified By: DOYLE LEVI MD CLINICAL STATEMENT: IMPRESSION: Intraprocedural fluoroscopic spot images as above. See separate procedurereport for more information. I have personally reviewed the images of this examination and agree with theresident's findings and interpretation. XR Tibia/Fibula 2 Views Right Result Date: January 07, 2023 Verified By: DELVIS RICHARDSON MD CLINICAL STATEMENT: IMPRESSION: Unstable trimalleolar fracture has been explained on dedicated ankleradiograph from same day. No other fracture is identified. However there is suspected smallsuprapatellar effusion/hematoma. Consider CT knee for further evaluation ifclinically warranted. I have personally reviewed the images of this examination and agree with theresident's findings and interpretation. XR Ankle Minimum 3 Views Right Result Date: January 07, 2023 Verified By: DELVIS RICHARDSON MD CLINICAL STATEMENT: IMPRESSION: Above findings are most compatible with an unstable trimalleolar fracture. Vertical lucency through the calcaneum on lateral view is likely artifactualalthough subtle nondisplaced fracture is not entirely excluded. I have personally reviewed the images of this examination and agree with theresident's findings and interpretation. XR Pelvis 1 or 2 Views Result Date: January 07, 2023 Verified By: DELVIS RICHARDSON MD CLINICAL STATEMENT: IMPRESSION: Study is degraded due to patient's body habitus and osseous demineralization.Within these constraints, no acute fracture or dislocation. I have personally reviewed the images of this examination and agree with theresident's findings and interpretation. XR Chest 1 View Result Date: January 07, 2023 Verified By: DELVIS RICHARDSON MD CLINICAL STATEMENT: IMPRESSION: Hypoventilatory changes. Otherwise, no acute posttraumatic findings in thethorax. I have personally reviewed the images of this examination and agree with theresident's findings and interpretation. EKG EKG - Completed -- 12/03/23 20:45:00 EST Assessment/Plan 1. Acute hypoxic respiratory failure 2. Provoked pulmonary embolism 3. Postop atelectasis 4. History of COPD, not in exacerbation 5. Ankle fracture Plan: I time that I saw the patient she did not seem to be in any respiratory distress, she is on 4 L of oxygen, her oxygen saturation is 95%. Will wean oxygen for goal SpO2 greater than or equal to 90%. Discontinue heparin drip, start her on Eliquis. No further workup needed for her pulmonary embolism, this is a provoked pulmonary embolism from her recent surgery. Her vital signs are stable, no indication that she has hemodynamic compromise secondary to the pulmonary embolism. Also has postop atelectasis which likely is also contributing to her postop hypoxia. Incentive spirometer use encouraged, the patient demonstrated use to me when I was at bedside. Apparently she has not been using the machine much but will try and do so. Not in COPD exacerbation Disposition: She will go home at discharge from hospital. Will evaluate for discharge in the morning, she has been kept today to try and wean her off oxygen. Possibly she will need to go home with oxygen therapy. Digitally Signed by DARIANA WILLIAM MD on 01/11/2023 11:08 AM [facility] 01-11-2023 Respiratory therapy Hospital Progress note Respiratory Therapy Evaluation Entered On: 01/11/2023 8:52 EST Performed On: 01/11/2023 8:51 EST by Matti Chamorro RRT Respiratory Therapy Evaluation Pulmonary Status : Pulmonary disorder Surgical Status : General surgery Chest X-Ray : Clear/not ordered Breath Sounds (RT) : Decreased bilaterally Respiratory Pattern (RT) : Regular RR=12-20 Cough (RT) : Strong, non-productive Respiratory Therapy Evaluation Score : 7 Level of Activity : Ambulatory with assistance Mental Status : Alert, oriented Respiratory Evaluation Triage Score : 4 - (6-10) Freq: TIDRT & Albuterol Q2hRT prn RT Assessment [Frequency/Schedule] : bronchodilator TID and prn Matti Chamorro RRT - 01/11/2023 8:51 EST Digitally Signed by Matti Chamorro RRT on 01/11/2023 08:51 AM [facility] 01-10-2023 Orthopaedic surgery Progress note Date of Service 01/10/2023 Subjective patient seen and examined at bedside this morning. She had increasing oxygen requirements overnight. She is currently on high flow unified nasal cannula at 8 L and saturating 94%. Patient does not use oxygen at home. she denies shortness of breath. She has no new orthopedic complaints. Objective Vitals and Measurements T: 36.3 C (Oral) TMIN: 36.3 C (Oral) TMAX: 37.0 C (Oral) HR: 54 RR: 18 BP: 127/56 SpO2: 94% Intake and Output 7AM Yesterday to 7AM Today Intake and Output (Last 24 hours) Intake Oral Intake 720.00 Output Stool Count 0.00 Urine Count 4.00 Total Summary Total Intake 720.00 Total Output 0.00 Fluid Balance 720.00 Physical Exam General: Alert and oriented x3, in no acute distress Right lower extremity: External fixator in place. Overlying Isabela is clean, dry, intact. Able to wiggle toes. Sensation grossly intact. Calf soft and nontender. Brisk capillary refills Weight Dosing Weight: 86.9 kg (01/07/23) Dosing Weight: 86.9 kg (01/07/23) Medications Medications (19) Active Scheduled: (9) albuterol - ipratropium 2.5 mg-0.5 mg/3 mL Inhal Gina UD 3 mL, Inhalation, TIDRT bacitracin topical 500 units/g Ointment TUBE 1 sidra, Topical, TID budesonide 0.5 mg/2 mL Susp UD 0.5 mg 2 mL, Inhalation, BIDRT citalopram 20 mg Tablet 20 mg 1 tab(s), Oral, qDay docusate-senna (Senokot S) 50 mg-8.6 mg Tablet 1 tab(s), Oral, BID enoxaparin 40 mg/ 0.4mL syringe 40 mg 0.4 mL, Subcutaneous, qDay losartan 100 mg tablet 100 mg 1 tab(s), Oral, qDay polyethylene glycol 3350 - UD packet 17 gram(s) 15 mL, Oral, qDay propranolol 20 mg tablet 60 mg 3 tab(s), Oral, qDay Continuous: (0) PRN: (10) acetaminophen-HYDROcodone 325-5 mg tablet 1 tab(s), Oral, q4h acetaminophen-HYDROcodone 325-5 mg tablet 2 tab(s), Oral, q4h albuterol - ipratropium 2.5 mg-0.5 mg/3 mL Inhal Gina UD 3 mL, Inhalation, q4hRT bisacodyl 10 mg Suppository 10 mg 1 supp, Rectal, qDay dextrose 50% Solution Disp syringe 50 mL 12.5 gram(s) 25 mL, IV Push, AsDirected docusate sodium 100 mg Capsule 100 mg 1 cap(s), Oral, BID HYDROmorphone 0.5 mg/0.5 mL PF syringe 0.5 mg 0.5 mL, IV Push, q2h hydromorphone 1 mg/mL (1mL) INJ 1 mg 1 mL, IV Push, q2h magnesium hydroxide 8% Suspension 30 mL UD 30 mL, Oral, qDay ondansetron 2 mg/ 1 mL 2 mL INJ 4 mg 2 mL, IV Push, q4h Lab Results 01/09 12:01 WBC: 13.0 H Hgb: 11.2 L Hct: 33.9 L Platelet: 200 Neutrophil %: 55.9 EKG Electrocardiogram (EKG) - Ordered -- 01/09/23 15:38:00 EST Electrocardiogram (EKG) - InProcess -- 01/09/23 20:45:00 EST Assessment/Plan Ankle fracture, right POD 3 s/p right ankle spanning Ex-Fix application - Okay to change Isabela wrap/underlying dressing for saturation. Twice daily pin site care -Nonweightbearing right lower extremity - PT/OT recommending SNF - Hgb 11.2 - DVT prophylaxis with Lovenox and SCDs - Encourage incentive spirometer - Pain control - Hospitalist management of medical comorbidities. Patient is orthopedically stable for discharge, but if she requires prolonged hospitalization due to respiratory status, we may consider transferring service to hospitalist. - Follow up as outpatient with Dr. Carpio in 2 weeks - Dispo: Patient prefers to go home, as her daughter is in town from [place]. PT recommended front wheel walker and home therapy if patient were to be discharged home. Orders are pended. - Will discuss with attending Ankle injury - Major COPD without exacerbation Depression Essential tremor Hypertension Post-op pain Smoker Orders: Admit to Inpatient Wheeled Walker Digitally Signed by AMOS MEDINA DO on 01/10/2023 07:55 AM [facility] 12-04-2023 Note Date of Service 01/10/2023 Chief Complaint 01/10/2023 this is a 67-year-old female with a known history of hypertension, tobacco abuse with a greater than [id number] history (currently smoking 1 pack/day), COPD (states had PFTs at [place] 5 years ago found to be mild to moderate disease), depression, essential tremors who presented on 01/07/2023 after having a mechanical fall. Patient was cleaning her gutters and fell approximately 4 to 5feet from the ladder backwards rotating the right lower leg. She is found to have a an unstable trimalleolar fracture of postop, patient has been hypoxic requiring increasing amounts of oxygen. She clinically does not endorse to having any shortness of breath, overnight, she required almost 10 L ofnasal cannula to maintain a saturation greater than 92%. ABG shows mixed respiratory failure with aPCO2 of 49, PO2 of 60.8, pH 7.41. She is not dependent on oxygen at home. Uses as needed inhalers. Currently, hospitalist team is taking over as primary. Subjective Today, patient states that she is having some bilateral lower rib pain worse when she coughs. She does state that she has a chronic smoker's cough occasionally, no new symptoms. Denies any productivecough today. She denies any palpitations, orthopnea or PND. She states she feels otherwise fine butdoes not understand why she is having low oxygen levels and requiring so much oxygen. Denies any wheezing, no fever or chills. Objective Vitals and Measurements T: 36.3 C (Oral) TMIN: 36.3 C (Oral) TMAX: 37.0 C (Oral) HR: 54 RR: 18 BP: 127/56 SpO2: 94% Intake and Output 7AM Yesterday to 7AM Today Intake and Output (Last 24 hours) Intake Oral Intake 720.00 Output Stool Count 0.00 Urine Count 4.00 Total Summary Total Intake 720.00 Total Output 0.00 Fluid Balance 720.00 Physical Exam General Appearance: Patient comfortably lying on bed, not in acute distress Head: Normocephalic, atraumatic EENT: PERRLA, moist mucous membranes Neck: Supple, no JVD, no mass Cardiac: s1s2,RRR, no murmurs or rubs or gallops Lungs: Lung sounds are actually clear bilaterally, no wheeze noted although patient stated that shedid receive a breathing treatment this morning, no rhonchi or crackles. Abdomen: Soft, obese, nontender, no organomegaly, bowel sounds heard Musculoskeletal: Full ROM , no gross deformities Extremities: No pedal edema noted, right lower extremity with external fixation device and wound dressing status post orthopedic surgery Neurological: Alert, oriented x 3, grossly no focal neurological deficits Skin: No rash or ulcers, no cyanosis noted Weight Dosing Weight: 86.9 kg (01/07/23) Dosing Weight: 86.9 kg (01/07/23) Medications Medications (19) Active Scheduled: (9) albuterol - ipratropium 2.5 mg-0.5 mg/3 mL Inhal Gina UD 3 mL, Inhalation, TIDRT bacitracin topical 500 units/g Ointment TUBE 1 sidra, Topical, TID budesonide 0.5 mg/2 mL Susp UD 0.5 mg 2 mL, Inhalation, BIDRT citalopram 20 mg Tablet 20 mg 1 tab(s), Oral, qDay docusate-senna (Senokot S) 50 mg-8.6 mg Tablet 1 tab(s), Oral, BID enoxaparin 40 mg/ 0.4mL syringe 40 mg 0.4 mL, Subcutaneous, qDay losartan 100 mg tablet 100 mg 1 tab(s), Oral, qDay polyethylene glycol 3350 - UD packet 17 gram(s) 15 mL, Oral, qDay propranolol 20 mg tablet 60 mg 3 tab(s), Oral, qDay Continuous: (0) PRN: (10) acetaminophen-HYDROcodone 325-5 mg tablet 1 tab(s), Oral, q4h acetaminophen-HYDROcodone 325-5 mg tablet 2 tab(s), Oral, q4h albuterol - ipratropium 2.5 mg-0.5 mg/3 mL Inhal Gina UD 3 mL, Inhalation, q4hRT bisacodyl 10 mg Suppository 10 mg 1 supp, Rectal, qDay dextrose 50% Solution Disp syringe 50 mL 12.5 gram(s) 25 mL, IV Push, AsDirected docusate sodium 100 mg Capsule 100 mg 1 cap(s), Oral, BID HYDROmorphone 0.5 mg/0.5 mL PF syringe 0.5 mg 0.5 mL, IV Push, q2h hydromorphone 1 mg/mL (1mL) INJ 1 mg 1 mL, IV Push, q2h magnesium hydroxide 8% Suspension 30 mL UD 30 mL, Oral, qDay ondansetron 2 mg/ 1 mL 2 mL INJ 4 mg 2 mL, IV Push, q4h Lab Results 01/10 08:03 WBC: 11.5 H Hgb: 11.6 L Hct: 35.4 Platelet: 208 Neutrophil %: 58.3 Glucose Level: 107 Sodium Level: 139 Potassium Level: 4.3 BUN: 13.0 Creatinine Lvl (s): 0.79 01/09 12:01 WBC: 13.0 H Hgb: 11.2 L Hct: 33.9 L Platelet: 200 Neutrophil %: 55.9 Imaging Results [address] CT Ankle w/o Contrast Right Result Date: January 07, 2023 Verified By: DELVIS RICHARDSON MD CLINICAL STATEMENT: IMPRESSION: Status post external fixator application to foot. Redemonstration of unstable trimalleolar foot. Metal streak artifact from external fixator hardware somewhat obscuresevaluation of calcaneum. Within these constraints, no definite fracture ofcalcaneum. Small ankle joint effusion/hemorrhage and moderate soft tissue swelling ankleand foot. I have personally reviewed the images of this examination and agree with theresident's findings and interpretation. XR Fluoro 1-2 Hrs Tech Time Result Date: January 07, 2023 Verified By: DOYLE LEVI MD CLINICAL STATEMENT: IMPRESSION: Intraprocedural fluoroscopic spot images as above. See separate procedurereport for more information. I have personally reviewed the images of this examination and agree with theresident's findings and interpretation. XR Tibia/Fibula 2 Views Right Result Date: January 07, 2023 Verified By: DELVIS RICHARDSON MD CLINICAL STATEMENT: IMPRESSION: Unstable trimalleolar fracture has been explained on dedicated ankleradiograph from same day. No other fracture is identified. However there is suspected smallsuprapatellar effusion/hematoma. Consider CT knee for further evaluation ifclinically warranted. I have personally reviewed the images of this examination and agree with theresident's findings and interpretation. XR Ankle Minimum 3 Views Right Result Date: January 07, 2023 Verified By: DELVIS RICHARDSON MD CLINICAL STATEMENT: IMPRESSION: Above findings are most compatible with an unstable trimalleolar fracture. Vertical lucency through the calcaneum on lateral view is likely artifactualalthough subtle nondisplaced fracture is not entirely excluded. I have personally reviewed the images of this examination and agree with theresident's findings and interpretation. XR Pelvis 1 or 2 Views Result Date: January 07, 2023 Verified By: DELVIS RICHARDSON MD CLINICAL STATEMENT: IMPRESSION: Study is degraded due to patient's body habitus and osseous demineralization.Within these constraints, no acute fracture or dislocation. I have personally reviewed the images of this examination and agree with theresident's findings and interpretation. XR Chest 1 View Result Date: January 07, 2023 Verified By: DELVIS RICHARDSON MD CLINICAL STATEMENT: IMPRESSION: Hypoventilatory changes. Otherwise, no acute posttraumatic findings in thethorax. I have personally reviewed the images of this examination and agree with theresident's findings and interpretation. EKG Electrocardiogram (EKG) - Ordered -- 01/09/23 15:38:00 EST Electrocardiogram (EKG) - InProcess -- 01/09/23 20:45:00 EST Assessment/Plan Acute hypoxic hypercapnic respiratory failure COPD, does not appear to be in exacerbation Right ankle fracture status post spanning external fixator Tobacco abuse (greater than 50 pack years, currently ongoing smoking of 1 pack/day) Sinus bradycardia Essential tremor on propranolol Leukocytosis, improved, likely reactive Mild postop anemia, stable Postop pain Known history of depression, hypertension DVT prophylaxis: Lovenox CODE STATUS: Full code Plan: Patient has been examined this morning. She has required upwards of 10 L of nasal cannula yesterday. ABG shows mixed respiratory failure with mild hypercapnia. She clinically does not endorse to having significant shortness of breath. This morning, she is on 7 L saturating 94%. She does not use oxygen at baseline. On exam, she does not have any wheezing. Does not appear to be acute COPD exacerbation. She is postop day 3 from orthopedic surgery of right foot external fixation. No evidence of pneumonia. Endorses to having bilateral lower rib pain 2 days prior to arrival to the hospital which is still present. No mention of any pathology or fractures on initial chest x-ray. Continue with DuoNebs 3 times a day, budesonide twice daily. Hold off on steroids at this time Incentive parameter, Acapella, up ad tin. Obtain a CTA of the chest to rule out PE given unexplained hypoxia. Obtain troponin and proBNP. Patient clinically does not appear to be in heart failure. Wean oxygen as tolerated to maintain a saturation of 92 or greater. Consult pulmonary medicine for any further input regarding hypoxia not correlating with her clinical exam. Patient has been taking propranolol for her essential tremors. She does not have any underlying cardiac history except for hypertension for which she is on losartan. Reduce propranolol to 50 mg daily given sinus bradycardia on telemetry. Patient denies any symptoms. Hold parameters. Pain management per orthopedic team. Bowel regimen while she is on opioids. PT OT Twice daily pin site care Nonweightbearing right lower extremity PT recommending rehab facility, patient states that she has help at home and would like to go home with home therapy and front wheeled walker. Follow-up with Dr. Carpio in 2 weeks. Discussed plan of care with patient at bedside. Discussed with orthopedic surgical team This is a note transcribed by me, the attending physician on service using the '[employer]' dictation software. Please excuse any grammatical errors, repetitions/duplications if any are present in the entirety of this note. Thank you. Digitally Signed by FRANCISCO DELAROSA MD on 01/10/2023 09:13 AM [id number] ORIGINAL EXAMINATION: CTA OF THE CHEST 01/10/2023 11:38 am TECHNIQUE: CTA of the chest was performed after the administration of intravenous contrast. Multiplanar reformatted images are provided for review. MIP images are provided for review. Automated exposure control, iterative reconstruction, and/or weight based adjustment of the mA/kV was utilized to reduce the radiation dose to as low as reasonably achievable. COMPARISON: Chest x-ray January 07, 2023 HISTORY: ORDERING SYSTEM PROVIDED HISTORY: Reason for Exam: Hypoxia, post op FINDINGS: Minor degenerative changes are noted in the spine. No other osseous abnormality seen. Emphysema is evident and there are scattered areas of pulmonary and pleural scarring seen. Coarse areas of atelectasis are identified at both posterior lower lobes. No other focal area of consolidation is identified. No pleural fluid. No mediastinal adenopathy is identified. There is a small sliding hiatal hernia seen. Atelectatic lung enhances normally. This exam is positive for segmental posterior left lower lobe pulmonary embolism. No other pulmonary emboli are visible. There are no indicators of right heart strain. No additional contributory abnormality seen. IMPRESSION: 1. Coarse areas of atelectasis at the posterior lower lobes bilaterally. 2. Segmental posterior left lower lobe pulmonary emboli. No indicators of right heart strain. Interpreted by: Mingo Rodriguez MD Preliminary Report By: Mingo Rodriguez MD Electronically signed By Mingo Rodriguez MD Dictated Date: 01/10/2023 11:49:30 AM Prelim Date: 01/10/2023 11:53:13 AM Sign Date: 01/10/2023 11:53:13 AM Ordering Provider: [facility]12-04-2023 Pulmonary Consult note Date of Service 01/10/2023 Reason for Consultation Acute hypoxemia Referring Physician Dr. Plaza History of Present Illness 67 years old lady with history of mild COPD per spirometry that was done 5 years ago and communicated to her by her primary care physician, smokes 1 cigarette a day has done so for the last 15 years,history of hypertension, was admitted to [facility] on 01/07/2023 after she fell from 5 feet while she was cleaning the gutters, no loss of consciousness, patient was found to have a complex right ankle fracture/injury underwent external fixation in preparation for dental surgery when the swelling comes down, no other injury identified certainly no chest trauma, initial chest x-ray no pneumothorax contusion or atelectasis, imaging throughout this hospitalization patient has been on oxygen therapy between 4 to 10 L per nasal cannula, she denies pleuritic chest pain, hemoptysis or even dyspnea. Assessment reveals no evidence of acute bronchospasm/COPD exacerbation so that pulmonary consult was called for evaluation. I saw this patient this morning, patient is alert, follows command, does not seems to be in any respiratory distress, O2 saturation is 95% on 4 L Roxiprin nasal cannula, examination lungs are clear there is no bronchospasm, and she did not cough during the interviews. Review of Systems Extensive review of system was performed, pertinent finding were described in the history of present illness otherwise all negative. ABGs was done reveals no evidence of hypercapnia, PO2 is 60 mmHg, chest x-ray no infiltrates. Physical Exam Vitals and Measurements T: 36.3 C (Oral) TMIN: 36.3 C (Oral) TMAX: 37.0 C (Oral) HR: 54 RR: 18 BP: 127/56 SpO2: 94% Weight Dosing Weight: 86.9 kg (01/07/23) Dosing Weight: 86.9 kg (01/07/23) General patient is alert does not appear to be in any distress. Skin: Warm and dry no obvious rash or ulcerations. HEENT: The head is normal cephalic, pupils are equal, sclerae clear, mucous membranes are moist, mouth and throat without any exudate. Neck: No JVD or adenopathy. Cardiovascular: Normal heart sounds, regular rhythm no murmurs. Chest and lung exam: Normal excursion with symmetric chest wall movement. Chest wall is nontender. Lungs are clear, breath sounds equal there is no rales or rhonchi's no wheezing. Abdomen: No obvious visible abnormalities, soft, nontender, no organomegaly, no rigidity or tenderness. Neurologic: Alert moves all 4 extremities, no focal motor deficits present. Musculoskeletal: No clubbing, cyanosis or edema. Lymphatic: No evidence of lymphadenopathy or tenderness. Lower extremities: Right foot and surgical dressing along with external fixators Lab Results 01/10 08:03 WBC: 11.5 H Hgb: 11.6 L Hct: 35.4 Platelet: 208 Neutrophil %: 58.3 Glucose Level: 107 Sodium Level: 139 Potassium Level: 4.3 BUN: 13.0 Creatinine Lvl (s): 0.79 01/09 12:01 WBC: 13.0 H Hgb: 11.2 L Hct: 33.9 L Platelet: 200 Neutrophil %: 55.9 Assessment/Plan 1. Acute hypoxemic respite failure currently 4 L Roxiprin nasal cannula. 2. Fall with major right ankle injury, external fixator is in place. 3. History of mild COPD, spirometry not available to us, certainly at this point of time no evidence of acute chest infection or acute exacerbation.. Plan: 1. Continue current respiratory support with 4 L of oxygen of course wean as tolerated. 2. Hypoxemia in the setting of right ankle injury with external fixator, acute pulm emboli must be considered, suggested stat CT angio of the chest to be ordered. 3. At this point of time no evidence of acute exacerbation of COPD or acute chest infection so thatno need for steroid or antibiotic therapy however agree with current bronchodilators. Discussed Dr. Delarosa and also with the patient's Problem List/Past Medical History Ongoing Depression Historical No qualifying data Procedure/Surgical History Cyst of breast Medications Inpatient bacitracin topical ointment, 1 sidra, Topical, TID budesonide 0.5 mg/2 mL inhalation suspension, 0.5 mg= 2 mL, Inhalation, BIDRT citalopram, 20 mg= 1 tab(s), Oral, qDay Colace, 100 mg= 1 cap(s), Oral, BID, PRN Dextrose 50% IV Push, 12.5 gram(s)= 25 mL, IV Push, AsDirected, PRN Dilaudid, 0.5 mg= 0.5 mL, IV Push, q2h, PRN Dilaudid, 1 mg= 1 mL, IV Push, q2h, PRN docusate-senna 50 mg-8.6 mg oral tablet, 1 tab(s), Oral, BID Dulcolax Laxative, 10 mg= 1 supp, Rectal, qDay, PRN DuoNeb, 3 mL, Inhalation, q4hRT, PRN DuoNeb, 3 mL, Inhalation, TIDRT losartan, 100 mg= 1 tab(s), Oral, qDay Lovenox, 40 mg= 0.4 mL, Subcutaneous, qDay Milk of Magnesia, 30 mL, Oral, qDay, PRN Miralax Powder Packet, 17 gram(s)= 15 mL, Oral, qDay [place] 325- 5 mg oral tablet, 1 tab(s), Oral, q4h, PRN [place] 325- 5 mg oral tablet, 2 tab(s), Oral, q4h, PRN propranolol, 50 mg= 5 tab(s), Oral, qDay Zofran, 4 mg= 2 mL, IV Push, q4h, PRN Home citalopram 40 mg oral tablet, 20 mg= 0.5 tab(s), Oral, qDay losartan 100 mg oral tablet, 100 mg= 1 tab(s), Oral, qDay Lovenox 40 mg/0.4 mL injectable solution, 40 mg= 0.4 mL, Subcutaneous, qDay propranolol 60 mg oral tablet, 60 mg= 1 tab(s), Oral, qDay Allergies NKA Social History Smoking Status - 04/24/2015 Current every day smoker Immunizations No qualifying data available. Digitally Signed by MICHAEL ELIAS MD on 01/10/2023 10:55 AM [place] [id number] Note Date of Service 01/10/2023 Chief Complaint 01/10/2023 this is a 67-year-old female with a known history of hypertension, tobacco abuse with a greater than [id number] history (currently smoking 1 pack/day), COPD (states had PFTs at [place] 5 years ago found to be mild to moderate disease), depression, essential tremors who presented on 01/07/2023 after having a mechanical fall. Patient was cleaning her gutters and fell approximately 4 to 5 feet from the ladder backwards rotating the right lower leg. She is found to have a an unstable trimalleolar fracture of postop, patient has been hypoxic requiring increasing amounts of oxygen. She clinically does not endorse to having any shortness of breath, overnight, she required almost 10 L of nasal cannula to maintain a saturation greater than 92%. ABG shows mixed respiratory failure with a PCO2 of 49, PO2 of 60.8, pH 7.41. She is not dependent on oxygen at home. Uses as needed inhalers. Currently, hospitalist team is taking over as primary. Subjective Today, patient states that she is having some bilateral lower rib pain worse when she coughs. She does state that she has a chronic smoker's cough occasionally, no new symptoms. Denies any productivecough today. She denies any palpitations, orthopnea or PND. She states she feels otherwise fine butdoes not understand why she is having low oxygen levels and requiring so much oxygen. Denies any wheezing, no fever or chills. Objective Vitals and Measurements T: 36.3 C (Oral) TMIN: 36.3 C (Oral) TMAX: 37.0 C (Oral) HR: 54 RR: 18 BP: 127/56 SpO2: 94% Intake and Output 7AM Yesterday to 7AM Today Intake and Output (Last 24 hours) Intake Oral Intake 720.00 Output Stool Count 0.00 Urine Count 4.00 Total Summary Total Intake 720.00 Total Output 0.00 Fluid Balance 720.00 Physical Exam General Appearance: Patient comfortably lying on bed, not in acute distress Head: Normocephalic, atraumatic EENT: PERRLA, moist mucous membranes Neck: Supple, no JVD, no mass Cardiac: s1s2,RRR, no murmurs or rubs or gallops Lungs: Lung sounds are actually clear bilaterally, no wheeze noted although patient stated that shedid receive a breathing treatment this morning, no rhonchi or crackles. Abdomen: Soft, obese, nontender, no organomegaly, bowel sounds heard Musculoskeletal: Full ROM , no gross deformities Extremities: No pedal edema noted, right lower extremity with external fixation device and wound dressing status post orthopedic surgery Neurological: Alert, oriented x 3, grossly no focal neurological deficits Skin: No rash or ulcers, no cyanosis noted Weight Dosing Weight: 86.9 kg (01/07/23) Dosing Weight: 86.9 kg (01/07/23) Medications Medications (19) Active Scheduled: (9) albuterol - ipratropium 2.5 mg-0.5 mg/3 mL Inhal Gina UD 3 mL, Inhalation, TIDRT bacitracin topical 500 units/g Ointment TUBE 1 sidra, Topical, TID budesonide 0.5 mg/2 mL Susp UD 0.5 mg 2 mL, Inhalation, BIDRT citalopram 20 mg Tablet 20 mg 1 tab(s), Oral, qDay docusate-senna (Senokot S) 50 mg-8.6 mg Tablet 1 tab(s), Oral, BID enoxaparin 40 mg/ 0.4mL syringe 40 mg 0.4 mL, Subcutaneous, qDay losartan 100 mg tablet 100 mg 1 tab(s), Oral, qDay polyethylene glycol 3350 - UD packet 17 gram(s) 15 mL, Oral, qDay propranolol 20 mg tablet 60 mg 3 tab(s), Oral, qDay Continuous: (0) PRN: (10) acetaminophen-HYDROcodone 325-5 mg tablet 1 tab(s), Oral, q4h acetaminophen-HYDROcodone 325-5 mg tablet 2 tab(s), Oral, q4h albuterol - ipratropium 2.5 mg-0.5 mg/3 mL Inhal Gina UD 3 mL, Inhalation, q4hRT bisacodyl 10 mg Suppository 10 mg 1 supp, Rectal, qDay dextrose 50% Solution Disp syringe 50 mL 12.5 gram(s) 25 mL, IV Push, AsDirected docusate sodium 100 mg Capsule 100 mg 1 cap(s), Oral, BID HYDROmorphone 0.5 mg/0.5 mL PF syringe 0.5 mg 0.5 mL, IV Push, q2h hydromorphone 1 mg/mL (1mL) INJ 1 mg 1 mL, IV Push, q2h magnesium hydroxide 8% Suspension 30 mL UD 30 mL, Oral, qDay ondansetron 2 mg/ 1 mL 2 mL INJ 4 mg 2 mL, IV Push, q4h Lab Results 01/10 08:03 WBC: 11.5 H Hgb: 11.6 L Hct: 35.4 Platelet: 208 Neutrophil %: 58.3 Glucose Level: 107 Sodium Level: 139 Potassium Level: 4.3 BUN: 13.0 Creatinine Lvl (s): 0.79 01/09 12:01 WBC: 13.0 H Hgb: 11.2 L Hct: 33.9 L Platelet: 200 Neutrophil %: 55.[address] CT Ankle w/o Contrast Right Result Date: January 07, 2023 Verified By: DELVIS RICHARDSON MD CLINICAL STATEMENT: IMPRESSION: Status post external fixator application to foot. Redemonstration of unstable trimalleolar foot. Metal streak artifact from external fixator hardware somewhat obscuresevaluation of calcaneum. Within these constraints, no definite fracture ofcalcaneum. Small ankle joint effusion/hemorrhage and moderate soft tissue swelling ankleand foot. I have personally reviewed the images of this examination and agree with theresident's findings and interpretation. XR Fluoro 1-2 Hrs Tech Time Result Date: January 07, 2023 Verified By: DOYLE LEVI MD CLINICAL STATEMENT: IMPRESSION: Intraprocedural fluoroscopic spot images as above. See separate procedurereport for more information. I have personally reviewed the images of this examination and agree with theresident's findings and interpretation. XR Tibia/Fibula 2 Views Right Result Date: January 07, 2023 Verified By: DELVIS RICHARDSON MD CLINICAL STATEMENT: IMPRESSION: Unstable trimalleolar fracture has been explained on dedicated ankleradiograph from same day. No other fracture is identified. However there is suspected smallsuprapatellar effusion/hematoma. Consider CT knee for further evaluation ifclinically warranted. I have personally reviewed the images of this examination and agree with theresident's findings and interpretation. XR Ankle Minimum 3 Views Right Result Date: January 07, 2023 Verified By: DELVIS RICHARDSON MD CLINICAL STATEMENT: IMPRESSION: Above findings are most compatible with an unstable trimalleolar fracture. Vertical lucency through the calcaneum on lateral view is likely artifactualalthough subtle nondisplaced fracture is not entirely excluded. I have personally reviewed the images of this examination and agree with theresident's findings and interpretation. XR Pelvis 1 or 2 Views Result Date: January 07, 2023 Verified By: DELVIS RICHARDSON MD CLINICAL STATEMENT: IMPRESSION: Study is degraded due to patient's body habitus and osseous demineralization.Within these constraints, no acute fracture or dislocation. I have personally reviewed the images of this examination and agree with theresident's findings and interpretation. XR Chest 1 View Result Date: January 07, 2023 Verified By: DELVIS RICHARDSON MD CLINICAL STATEMENT: IMPRESSION: Hypoventilatory changes. Otherwise, no acute posttraumatic findings in thethorax. I have personally reviewed the images of this examination and agree with theresident's findings and interpretation. EKG Electrocardiogram (EKG) - Ordered -- 01/09/23 15:38:00 EST Electrocardiogram (EKG) - InProcess -- 01/09/23 20:45:00 EST Assessment/Plan Acute hypoxic hypercapnic respiratory failure COPD, does not appear to be in exacerbation Right ankle fracture status post spanning external fixator Tobacco abuse (greater than 50 pack years, currently ongoing smoking of 1 pack/day) Sinus bradycardia Essential tremor on propranolol Leukocytosis, improved, likely reactive Mild postop anemia, stable Postop pain Known history of depression, hypertension DVT prophylaxis: Lovenox CODE STATUS: Full code Plan: Patient has been examined this morning. She has required upwards of 10 L of nasal cannula yesterday. ABG shows mixed respiratory failure with mild hypercapnia. She clinically does not endorse to having significant shortness of breath. This morning, she is on 7 L saturating 94%. She does not use oxygen at baseline. On exam, she does not have any wheezing. Does not appear to be acute COPD exacerbation. She is postop day 3 from orthopedic surgery of right foot external fixation. No evidence of pneumonia. Endorses to having bilateral lower rib pain 2 days prior to arrival to the hospital which is still present. No mention of any pathology or fractures on initial chest x-ray. Continue with DuoNebs 3 times a day, budesonide twice daily. Hold off on steroids at this time Incentive parameter, Acapella, up ad tin. Obtain a CTA of the chest to rule out PE given unexplained hypoxia. Obtain troponin and proBNP. Patient clinically does not appear to be in heart failure. Wean oxygen as tolerated to maintain a saturation of 92 or greater. Consult pulmonary medicine for any further input regarding hypoxia not correlating with her clinical exam. Patient has been taking propranolol for her essential tremors. She does not have any underlying cardiac history except for hypertension for which she is on losartan. Reduce propranolol to 50 mg daily given sinus bradycardia on telemetry. Patient denies any symptoms. Hold parameters. Pain management per orthopedic team. Bowel regimen while she is on opioids. PT OT Twice daily pin site care Nonweightbearing right lower extremity PT recommending rehab facility, patient states that she has help at home and would like to go home with home therapy and front wheeled walker. Follow-up with Dr. Carpio in 2 weeks. Discussed plan of care with patient at bedside. Discussed with orthopedic surgical team This is a note transcribed by me, the attending physician on service using the '[employer]' dictation software. Please excuse any grammatical errors, repetitions/duplications if any are present in the entirety of this note. Thank you. Digitally Signed by FRANCISCO DELAROAS MD on 01/10/2023 09:13 AM [id number] Progress note Date of Service 01/10/2023 Subjective patient seen and examined at bedside this morning. She had increasing oxygen requirements overnight. She is currently on high flow unified nasal cannula at 8 L and saturating 94%. Patient does not use oxygen at home. she denies shortness of breath. She has no new orthopedic complaints. Objective Vitals and Measurements T: 36.3 C (Oral) TMIN: 36.3 C (Oral) TMAX: 37.0 C (Oral) HR: 54 RR: 18 BP: 127/56 SpO2: 94% Intake and Output 7AM Yesterday to 7AM Today Intake and Output (Last 24 hours) Intake Oral Intake 720.00 Output Stool Count 0.00 Urine Count 4.00 Total Summary Total Intake 720.00 Total Output 0.00 Fluid Balance 720.00 Physical Exam General: Alert and oriented x3, in no acute distress Right lower extremity: External fixator in place. Overlying Isabela is clean, dry, intact. Able to wiggle toes. Sensation grossly intact. Calf soft and nontender. Brisk capillary refills Weight Dosing Weight: 86.9 kg (01/07/23) Dosing Weight: 86.9 kg (01/07/23) Medications Medications (19) Active Scheduled: (9) albuterol - ipratropium 2.5 mg-0.5 mg/3 mL Inhal Gina UD 3 mL, Inhalation, TIDRT bacitracin topical 500 units/g Ointment TUBE 1 sidra, Topical, TID budesonide 0.5 mg/2 mL Susp UD 0.5 mg 2 mL, Inhalation, BIDRT citalopram 20 mg Tablet 20 mg 1 tab(s), Oral, qDay docusate-senna (Senokot S) 50 mg-8.6 mg Tablet 1 tab(s), Oral, BID enoxaparin 40 mg/ 0.4mL syringe 40 mg 0.4 mL, Subcutaneous, qDay losartan 100 mg tablet 100 mg 1 tab(s), Oral, qDay polyethylene glycol 3350 - UD packet 17 gram(s) 15 mL, Oral, qDay propranolol 20 mg tablet 60 mg 3 tab(s), Oral, qDay Continuous: (0) PRN: (10) acetaminophen-HYDROcodone 325-5 mg tablet 1 tab(s), Oral, q4h acetaminophen-HYDROcodone 325-5 mg tablet 2 tab(s), Oral, q4h albuterol - ipratropium 2.5 mg-0.5 mg/3 mL Inhal Gina UD 3 mL, Inhalation, q4hRT bisacodyl 10 mg Suppository 10 mg 1 supp, Rectal, qDay dextrose 50% Solution Disp syringe 50 mL 12.5 gram(s) 25 mL, IV Push, AsDirected docusate sodium 100 mg Capsule 100 mg 1 cap(s), Oral, BID HYDROmorphone 0.5 mg/0.5 mL PF syringe 0.5 mg 0.5 mL, IV Push, q2h hydromorphone 1 mg/mL (1mL) INJ 1 mg 1 mL, IV Push, q2h magnesium hydroxide 8% Suspension 30 mL UD 30 mL, Oral, qDay ondansetron 2 mg/ 1 mL 2 mL INJ 4 mg 2 mL, IV Push, q4h Lab Results 01/09 12:01 WBC: 13.0 H Hgb: 11.2 L Hct: 33.9 L Platelet: 200 Neutrophil %: 55.9 EKG Electrocardiogram (EKG) - Ordered -- 01/09/23 15:38:00 EST Electrocardiogram (EKG) - InProcess -- 01/09/23 20:45:00 EST Assessment/Plan Ankle fracture, right POD 3 s/p right ankle spanning Ex-Fix application - Okay to change Isabela wrap/underlying dressing for saturation. Twice daily pin site care -Nonweightbearing right lower extremity - PT/OT recommending SNF - Hgb 11.2 - DVT prophylaxis with Lovenox and SCDs - Encourage incentive spirometer - Pain control - Hospitalist management of medical comorbidities. Patient is orthopedically stable for discharge, but if she requires prolonged hospitalization due to respiratory status, we may consider transferring service to hospitalist. - Follow up as outpatient with Dr. Carpio in 2 weeks - Dispo: Patient prefers to go home, as her daughter is in town from [place]. PT recommended front wheel walker and home therapy if patient were to be discharged home. Orders are pended. - Will discuss with attending Ankle injury - Major COPD without exacerbation Depression Essential tremor Hypertension Post-op pain Smoker Orders: Admit to Inpatient Wheeled Walker Digitally Signed by AMOS MEDINA DO on 01/10/2023 07:55 AM [id number] Progress note Date of Service 01/08/2023 Chief Complaint Trauma/fall from ladder Postoperative day #1 from right ankle spanning, Ex-Fix application Subjective This is a shared split visit between self and Dr. Peacock On examination of the patient she is seen sitting up in her chair eating breakfast. Patient denies any nausea, vomiting fever or chills. Patient reports that she noticed that she is having drainage to drainage from her dressing on her right ankle. Objective Vitals and Measurements T: 37 C (Oral) TMIN: 36.0 C (Temporal Artery) TMAX: 37.5 C (Oral) HR: 70 RR: 17 BP: 116/61 SpO2: 92% HT: 160 cm WT: 86.9 kg BMI: 33.95 Intake and Output 7AM Yesterday to 7AM Today Intake and Output (Last 24 hours) Intake Administration Information 1000.00 Output Urine Voided 800.00 Intra-Op EBL 5.00 Urine Count 1.00 Total Summary Total Intake 1000.00 Total Output 805.00 Fluid Balance 195.00 Physical Exam General: Awake and alert. Does not appear in distress. Able to answer questions. HEENT: Head appears normocephalic and atraumatic. No cephalohematoma. No bony step off. No raccoon sign. No oliver sign. No otorrhea or rhinorrhea. Able to open and close mouth/jaw without pain/difficulty. Mucous membranes moist and pink. Sclerae anicteric. PERRLA Heart: Regular rate and rhythm. S1S2 present and without murmur, rub or gallop. Neck: No pain with palpation to midline. Back: No pain with palpation to the midline. No visible cutaneous trauma. Lungs: Chest rise symmetrical. Respirations unlabored. Trachea midline. Clear to auscultation bilaterally. Remains on supplemental O2 Chest: No pain with palpation of the chest wall. No crepitus with palpation. Abdomen: Soft and nontender. Nondistended. No guarding or rigidity. Bowel sounds 4 quadrants. Extremities: Moving all 3 without difficulty. No evidence of cyanosis clubbing or edema. Right lower extremity with external fixator use. Skin: No pallor or diaphoresis. No abrasions. No lacerations. Psychiatric: Calm and cooperative. Weight Dosing Weight: 86.9 kg (01/07/23) Dosing Weight: 86.9 kg (01/07/23) Medications Medications (12) Active Scheduled: (2) bacitracin topical 500 units/g Ointment TUBE 1 sidra, Topical, TID enoxaparin 40 mg/ 0.4mL syringe 40 mg 0.4 mL, Subcutaneous, qDay Continuous: (1) Lactated Ringers 1,000 mL 1,000 mL, Intravenous, 100 mL/hr PRN: (9) acetaminophen-HYDROcodone 325-5 mg tablet 1 tab(s), Oral, q4h acetaminophen-HYDROcodone 325-5 mg tablet 2 tab(s), Oral, q4h bisacodyl 10 mg Suppository 10 mg 1 supp, Rectal, qDay dextrose 50% Solution Disp syringe 50 mL 12.5 gram(s) 25 mL, IV Push, AsDirected docusate sodium 100 mg Capsule 100 mg 1 cap(s), Oral, BID HYDROmorphone 0.5 mg/0.5 mL PF syringe 0.5 mg 0.5 mL, IV Push, q2h hydromorphone 1 mg/mL (1mL) INJ 1 mg 1 mL, IV Push, q2h magnesium hydroxide 8% Suspension 30 mL UD 30 mL, Oral, qDay ondansetron 2 mg/ 1 mL 2 mL INJ 4 mg 2 mL, IV Push, q4h Lab Results 01/08 05:50 WBC: 12.4 H Hgb: 11.9 L Hct: 35.8 Platelet: 195 Neutrophil %: 78.5 H Glucose Level: 116 H Sodium Level: 141 Potassium Level: 4.3 BUN: 10.0 Creatinine Lvl (s): 0.77 01/07 05:23 WBC: 13.1 H Hgb: 13.8 Hct: 42.6 Platelet: 248 Neutrophil %: 75.3 H Protime: 11.5 PT International Ratio: 1.0 Glucose Level: 133 H Sodium Level: 139 Potassium Level: 4.3 BUN: 13.0 Creatinine Lvl (s): 0.93 EKG No qualifying data available. Assessment/Plan This patient is a 67-year-old female admitted to the trauma services after falling from a ladder after cleaning her glares. Patient was noted to have trimalleolar fracture and went to the OR yesterday with orthopedics. Patient tolerated the procedure well. Patient remains hemodynamically stable at this time. Tertiary examination is negative for any acuteinjuries. Plan: Patient will be transferred to the orthopedic services at this time. No other injuries noted on tertiary examination. This was discussed with orthopedic resident. -Will initiate bowel regimen on the patient. DVT prophylaxis per orthopedic team -Pain control per the primary team. Case discussed with Dr. Peacock Digitally Signed by GEORGE PEDRAZA on 01/08/2023 10:23 AM [facility] [id number] History and physical note Date of Service 01/07/23 Chief Complaint Trauma/Fall from ladder History of Present Illness This is a split shared visit between myself and This patient is a 67-year-old female who states that she lives alone, was cleaning her gutters yesterday and as she was coming back down the ladder, she states that she fell approximately 4 to 5 feetwhen the ladder fell backwards. Patient did not strike her head, she did not lose consciousness. She was able to recall events. Patient states that her right lower leg was very painful, she did attempt to yell for neighbors, was able to pull herself over to her car and hit the corner to try to drawattention. Patient states that eventually someone did find her and called 911. Patient does not have any past surgical history, states her past medical history includes hypertension, COPD, depression, and essential tremors. Patient does admit to smoking approximately a pack a day for approximately 40 to 50 years. Workup includes: Hemodynamically stable, afebrile. WBC 13.1, Hgb 13.8, PT 11.5, INR 1.0, PTT 22.7, BUN 13, creatinine 0.93. X-ray of pelvis with radiology impression no acute fractures or dislocation. Chest x-ray with radiology impression showing no acute posttraumatic findings. X-ray of the right ankle with radiology impression showing unstable Tri malleoli are fracture. X-ray of the right tib-fib with radiology impression showing unstable trimalleolar fracture. No other fracture is identified. Patient will be admitted to trauma services with a tertiary examination in the morning, orthopedicswill be taking the patient to surgery today. Can transfer service tomorrow. Review of Systems All other pertinent positives and negatives are present in the HPI. All other systems are reviewed as negative unless otherwise previously mentioned Physical Exam Vitals and Measurements HR: 60 RR: 14 BP: 124/49 SpO2: 95% WT: 86.9 kg Weight Dosing Weight: 86.9 kg (01/07/23) General: Awake and alert. Does not appear in distress. Able to answer questions. HEENT: Head appears normocephalic and atraumatic. No cephalohematoma. No bony step off. No raccoon sign. No oliver sign. No otorrhea or rhinorrhea. Able to open and close mouth/jaw without pain/difficulty. Mucous membranes moist and pink. Sclerae anicteric. PERRLA Heart: Regular rate and rhythm. S1S2 present and without murmur, rub or gallop. Neck: No pain with palpation to midline. Range of motion displayed. Back: No pain with palpation to the midline. No visible cutaneous trauma. Lungs: Chest rise symmetrical. Respirations unlabored. Trachea midline. Clear to auscultation bilaterally. Chest: No pain with palpation of the chest wall. No crepitus with palpation. Abdomen: Soft and nontender. Nondistended. No guarding or rigidity. Bowel sounds 4 quadrants. Extremities: Left lower extremity tender with any movement, able to wiggle toes, pink and warm. Allother extremities are intact, without difficulties. Skin: No pallor or diaphoresis. No abrasions. No lacerations. Psychiatric: Calm and cooperative. Lab Results 01/07 05:23 WBC: 13.1 H Hgb: 13.8 Hct: 42.6 Platelet: 248 Neutrophil %: 75.3 H Protime: 11.5 PT International Ratio: 1.0 Glucose Level: 133 H Sodium Level: 139 Potassium Level: 4.3 BUN: 13.0 Creatinine Lvl (s): 0.93 Imaging Results and Diagnostics XR Tibia/Fibula 2 Views Right Result Date: January 07, 2023 Verified By: DELVIS RICHARDSON MD CLINICAL STATEMENT: IMPRESSION: Unstable trimalleolar fracture has been explained on dedicated ankle radiograph from same day. No other fracture is identified. However there is suspected small suprapatellar effusion/hematoma. Consider CT knee for further evaluation if clinically warranted. I have personally reviewed the images of this examination and agree with the resident's findings and interpretation. XR Ankle Minimum 3 Views Right Result Date: January 07, 2023 Verified By: DELVIS RICHARDSON MD CLINICAL STATEMENT: IMPRESSION: Above findings are most compatible with an unstable trimalleolar fracture. Vertical lucency through the calcaneum on lateral view is likely artifactual although subtle nondisplaced fracture is not entirely excluded. I have personally reviewed the images of this examination and agree with the resident's findings and interpretation. XR Pelvis 1 or 2 Views Result Date: January 07, 2023 Verified By: DELVIS RICHARDSON MD CLINICAL STATEMENT: IMPRESSION: Study is degraded due to patient's body habitus and osseous demineralization.Within these constraints, no acute fracture or dislocation. I have personally reviewed the images of this examination and agree with the resident's findings and interpretation. XR Chest 1 View Result Date: January 07, 2023 Verified By: DELVIS RICHARDSON MD CLINICAL STATEMENT: IMPRESSION: Hypoventilatory changes. Otherwise, no acute posttraumatic findings in the thorax. I have personally reviewed the images of this examination and agree with the resident's findings and interpretation. EKG EC01/07/23: SINUS RHYTHM Compared to ECG at 01/22/2015 16:28:51 Electronic Signature: TOMAS SANTANA MD 01/07/2023 06:19:59 Assessment/Plan Ankle injury - Major This patient is a 67-year-old female who is being admitted to trauma services after falling from her ladder after cleaning gutters. No loss of consciousness, patient is able to recall events from fall. Injuries sustained include a trimalleolar fracture. No other injuries are noted at this time. Denies any complaints of shortness of breath or chest pain, denies any complaints of abdominal pain. Able to move all extremities, patient is able to wiggle toes on her left lower extremity, toes arepink and warm. Left lower extremity is painful with any movement. Abdomen soft, nondistended, bowel sounds are present. Patient states last bowel movement was yesterday. Denies any complaints of nausea or vomiting. Orthopedics was consulted, they will be taking patient to surgery today. Patient to be admitted to trauma services and transferred Ortho tomorrow after tertiary survey. Discussed with Dr. Peacock, please see his addendum to follow. Problem List/Past Medical History Ongoing Depression Historical No qualifying data Procedure/Surgical History Cyst of breast Medications Home Medications (3) Active citalopram 40 mg oral tablet 20 mg = 0.5 tab(s), Oral, qDay losartan 100 mg oral tablet 100 mg = 1 tab(s), Oral, qDay propranolol 60 mg oral tablet 60 mg = 1 tab(s), Oral, qDay Allergies NKA Social History Smoking Status - 04/24/2015 Current every day smoker Immunizations No qualifying data available. Code Status Code Status - Ordered -- 01/07/23 7:29:00 EST, Full Code, Constant Order Digitally Signed by AIDA [place] on 01/07/2023 09:43 AM [id number] NoteSINUS RHYTHM LEFT ATRIAL ENLARGEMENT PROBABLE ANTERIOR INFARCT, AGE INDETERMINATE Electronic Signature: XAVI FOFANA MD 01/10/2023 18:00:[facility] 12-03-2023 Respiratory therapy Hospital Progress note Respiratory Therapy Evaluation Entered On: 01/09/2023 16:20 EST Performed On: 01/09/2023 16:20 EST by Verena Hinojosa Respiratory Therapy Evaluation RT Assessment [Frequency/Schedule] : patient remains TID Verena Hinojosa - 01/09/2023 16:56 EST Respiratory Evaluation Triage Score : 4 - (6-10) Freq: TIDRT & Albuterol Q2hRT prn Cough (RT) : Strong, non-productive Respiratory Therapy Evaluation Score : 7 Verena Hinojosa - 01/09/2023 16:53 EST Pulmonary Status : Pulmonary disorder Verena Hinojosa - 01/09/2023 16:23 EST Breath Sounds (RT) : Decreased bilaterally Verena Hinojosa - 01/09/2023 16:22 EST Chest X-Ray : Clear/not ordered Level of Activity : Ambulatory with assistance Mental Status : Alert, oriented Verena Hinojosa - 01/09/2023 16:21 EST Surgical Status : General surgery Respiratory Pattern (RT) : Regular RR=12-20 Verena Hniojosa - 01/09/2023 16:20 EST Digitally Signed by Verena Hinojosa on 01/09/2023 04:56 PM [id number] HCoV 229E RNA ROSENDO+non-probe Ql (Nph)Not Detected *NA* (01/09/23 3:50 PM) Auto Viro/Sero [id number] Note Date of Service 01/08/2023 Subjective Patient was seen and examined bedside. She states her pain is better controlled with current medications. She denies any symptoms of shortness of breath although she is on 3 L of oxygen. She states she does not use this previously, she states occasional dry cough but no other symptoms. She denies any chest pain, no fever or chills. Objective Vitals and Measurements T: 36.7 C (Oral) TMIN: 36.6 C (Oral) TMAX: 36.9 C (Oral) HR: 55 RR: 20 BP: 118/57 SpO2: 91% Intake and Output 7AM Yesterday to 7AM Today Intake and Output (Last 24 hours) Intake Administration Information 800.00 Oral Intake 420.00 Output Stool Count 0.00 Urine Count 2.00 Total Summary Total Intake 1220.00 Total Output 0.00 Fluid Balance 1220.00 Physical Exam General Appearance: Patient comfortably lying on bed, not in acute distress Head: Normocephalic, atraumatic EENT: PERRLA, moist mucous membranes Neck: Supple, no JVD, no mass Cardiac: s1s2,RRR, no murmurs or rubs or gallops Lungs: Clear to auscultation bilaterally with mild expiratory wheezing, bibasilar crackles noted. No rhonchi. On 3 L nasal cannula saturating 94%. Abdomen: Soft , Nontender, no organomegaly, bowel sounds heard Musculoskeletal: Full ROM , no gross deformities Extremities: No rash or ulcers or pedal edema. Right lower extremity with external fixation device,wound well dressed. Neurological: Alert, oriented x 3, grossly no focal neurological deficits Skin: No rash or ulcers Weight Dosing Weight: 86.9 kg (01/07/23) Dosing Weight: 86.9 kg (01/07/23) Medications Medications (18) Active Scheduled: (7) bacitracin topical 500 units/g Ointment TUBE 1 sidra, Topical, TID citalopram 20 mg Tablet 20 mg 1 tab(s), Oral, qDay docusate-senna (Senokot S) 50 mg-8.6 mg Tablet 1 tab(s), Oral, BID enoxaparin 40 mg/ 0.4mL syringe 40 mg 0.4 mL, Subcutaneous, qDay losartan 100 mg tablet 100 mg 1 tab(s), Oral, qDay polyethylene glycol 3350 - UD packet 17 gram(s) 15 mL, Oral, qDay propranolol 20 mg tablet 60 mg 3 tab(s), Oral, qDay Continuous: (1) Lactated Ringers 1,000 mL 1,000 mL, Intravenous, 100 mL/hr PRN: (10) acetaminophen-HYDROcodone 325-5 mg tablet 1 tab(s), Oral, q4h acetaminophen-HYDROcodone 325-5 mg tablet 2 tab(s), Oral, q4h albuterol - ipratropium 2.5 mg-0.5 mg/3 mL Inhal Gina UD 3 mL, Inhalation, q4hRT bisacodyl 10 mg Suppository 10 mg 1 supp, Rectal, qDay dextrose 50% Solution Disp syringe 50 mL 12.5 gram(s) 25 mL, IV Push, AsDirected docusate sodium 100 mg Capsule 100 mg 1 cap(s), Oral, BID HYDROmorphone 0.5 mg/0.5 mL PF syringe 0.5 mg 0.5 mL, IV Push, q2h hydromorphone 1 mg/mL (1mL) INJ 1 mg 1 mL, IV Push, q2h magnesium hydroxide 8% Suspension 30 mL UD 30 mL, Oral, qDay ondansetron 2 mg/ 1 mL 2 mL INJ 4 mg 2 mL, IV Push, q4h Lab Results 01/09 12:01 WBC: 13.0 H Hgb: 11.2 L Hct: 33.9 L Platelet: 200 Neutrophil %: 55.9 01/08 05:50 WBC: 12.4 H Hgb: 11.9 L Hct: 35.8 Platelet: 195 Neutrophil %: 78.5 H Glucose Level: 116 H Sodium Level: 141 Potassium Level: 4.3 BUN: 10.0 Creatinine Lvl (s): 0.77 Imaging Results and Diagnostics CT Ankle w/o Contrast Right Result Date: January 07, 2023 Verified By: DELVIS RICHARDSON MD CLINICAL STATEMENT: IMPRESSION: Status post external fixator application to foot. Redemonstration of unstable trimalleolar foot. Metal streak artifact from external fixator hardware somewhat obscuresevaluation of calcaneum. Within these constraints, no definite fracture ofcalcaneum. Small ankle joint effusion/hemorrhage and moderate soft tissue swelling ankleand foot. I have personally reviewed the images of this examination and agree with theresident's findings and interpretation. XR Fluoro 1-2 Hrs Tech Time Result Date: January 07, 2023 Verified By: DOYLE LEVI MD CLINICAL STATEMENT: IMPRESSION: Intraprocedural fluoroscopic spot images as above. See separate procedurereport for more information. I have personally reviewed the images of this examination and agree with theresident's findings and interpretation. XR Tibia/Fibula 2 Views Right Result Date: January 07, 2023 Verified By: DELVIS RICHARDSON MD CLINICAL STATEMENT: IMPRESSION: Unstable trimalleolar fracture has been explained on dedicated ankleradiograph from same day. No other fracture is identified. However there is suspected smallsuprapatellar effusion/hematoma. Consider CT knee for further evaluation ifclinically warranted. I have personally reviewed the images of this examination and agree with theresident's findings and interpretation. XR Ankle Minimum 3 Views Right Result Date: January 07, 2023 Verified By: DELVIS RICHARDSON MD CLINICAL STATEMENT: IMPRESSION: Above findings are most compatible with an unstable trimalleolar fracture. Vertical lucency through the calcaneum on lateral view is likely artifactualalthough subtle nondisplaced fracture is not entirely excluded. I have personally reviewed the images of this examination and agree with theresident's findings and interpretation. XR Pelvis 1 or 2 Views Result Date: January 07, 2023 Verified By: DELVIS RICHARDSON MD CLINICAL STATEMENT: IMPRESSION: Study is degraded due to patient's body habitus and osseous demineralization.Within these constraints, no acute fracture or dislocation. I have personally reviewed the images of this examination and agree with theresident's findings and interpretation. XR Chest 1 View Result Date: January 07, 2023 Verified By: DELVIS RICHARDSON MD CLINICAL STATEMENT: IMPRESSION: Hypoventilatory changes. Otherwise, no acute posttraumatic findings in thethorax. I have personally reviewed the images of this examination and agree with theresident's findings and interpretation. EKG No qualifying data available. Assessment/Plan Right ankle fracture status post fixation Acute hypoxic respiratory failure Tobacco abuse COPD Hypertension Known history of depression, essential tremor Leukocytosis likely reactive Mild postop anemia, stable Postop pain Plan: Hospitalist team is following for medical management. I was told by the charge nurse the patient is requiring 3 L of nasal cannula to maintain a saturation greater than 95%. She does have underlying history of COPD. She denies feeling short of breath. She is not dependent on oxygen at home. She does state that she smokes about a pack a day daily. Does not use an inhaler. Chest x-ray reviewed, hypoventilatory changes on admission. She does not have any areas of consolidation. Occasional dry cough. Hypoxia appears to multifactorial with underlying atelectasis, possibly mild COPD although does nothave significant wheezing on exam. She does have some bibasilar crackles. Discontinue IV fluids. Instructed the patient to use her incentive spirometer while she is here in the hospital, Acapella device with good pulmonary toilet. Budesonide twice daily while she is in the hospital, DuoNebs 3 times a day while she is in the hospital. To be thorough, obtain respiratory panel, initial presenting temperature of 37.5. Some leukocytosisalthough I think this is reactive. Recommend monitoring the patient overnight. She needs outpatient PFTs and close follow-up with pulmonary medicine. Wean oxygen as tolerated to maintain a saturation of 92% or greater with underlying COPD. Recommend amatory pulse ox prior to discharge, she may need 1 to 2 L on discharge temporarily. Tobacco cessation counseling performed at bedside. Patient states that she has tried in the past but was unsuccessful to stop. She is precontemplative at this time. Discussed the importance of cessation given her underlying COPD and the ongoing risks associated with this. Continue with current dose of losartan with hold parameters. Pain management and care for her right lower extremity per orthopedic team. Monitor the patient overnight, hospitalist team will continue to follow. Patient can likely be discharged home in the next 24 hours as the patient is denying acute rehab. This is a note transcribed by me, the attending physician on service using the '[employer]' dictation software. Please excuse any grammatical errors, repetitions/duplications if any are present in the entirety of this note. Thank you. Digitally Signed by FRANCISCO DELAROSA MD on 01/09/2023 03:01 PM [facility] [id number] Orthopaedic surgery Progress note Date of Service 01/09/2023 Subjective No acute vents or night. Patient is doing subjectively well, pain is controlled. She was able to get some sleep last night. Tolerating regular diet without issue. Denies fever, chills, nausea, vomiting, chest pain, shortness of breath, numbness, paresthesia. No new orthopedic complaints. Objective Vitals and Measurements T: 36.6 C (Oral) TMIN: 36.6 C (Oral) TMAX: 36.9 C (Oral) HR: 51 RR: 18 BP: 125/61 SpO2: 92% Intake and Output 7AM Yesterday to 7AM Today Intake and Output (Last 24 hours) Intake Administration Information 800.00 Oral Intake 420.00 Output Stool Count 0.00 Urine Count 2.00 Total Summary Total Intake 1220.00 Total Output 0.00 Fluid Balance 1220.00 Physical Exam General: Alert and oriented x3, in no acute distress Right lower extremity: External fixator in place. Bloody strikethrough over the heel. Able to wiggle toes. Sensation grossly intact. Calf soft and nontender. Brisk capillary refills Weight Dosing Weight: 86.9 kg (01/07/23) Dosing Weight: 86.9 kg (01/07/23) Medications Medications (18) Active Scheduled: (7) bacitracin topical 500 units/g Ointment TUBE 1 sidra, Topical, TID citalopram 20 mg Tablet 20 mg 1 tab(s), Oral, qDay docusate-senna (Senokot S) 50 mg-8.6 mg Tablet 1 tab(s), Oral, BID enoxaparin 40 mg/ 0.4mL syringe 40 mg 0.4 mL, Subcutaneous, qDay losartan 100 mg tablet 100 mg 1 tab(s), Oral, qDay polyethylene glycol 3350 - UD packet 17 gram(s) 15 mL, Oral, qDay propranolol 20 mg tablet 60 mg 3 tab(s), Oral, qDay Continuous: (1) Lactated Ringers 1,000 mL 1,000 mL, Intravenous, 100 mL/hr PRN: (10) acetaminophen-HYDROcodone 325-5 mg tablet 1 tab(s), Oral, q4h acetaminophen-HYDROcodone 325-5 mg tablet 2 tab(s), Oral, q4h albuterol - ipratropium 2.5 mg-0.5 mg/3 mL Inhal Gina UD 3 mL, Inhalation, q4hRT bisacodyl 10 mg Suppository 10 mg 1 supp, Rectal, qDay dextrose 50% Solution Disp syringe 50 mL 12.5 gram(s) 25 mL, IV Push, AsDirected docusate sodium 100 mg Capsule 100 mg 1 cap(s), Oral, BID HYDROmorphone 0.5 mg/0.5 mL PF syringe 0.5 mg 0.5 mL, IV Push, q2h hydromorphone 1 mg/mL (1mL) INJ 1 mg 1 mL, IV Push, q2h magnesium hydroxide 8% Suspension 30 mL UD 30 mL, Oral, qDay ondansetron 2 mg/ 1 mL 2 mL INJ 4 mg 2 mL, IV Push, q4h Lab Results 01/08 05:50 WBC: 12.4 H Hgb: 11.9 L Hct: 35.8 Platelet: 195 Neutrophil %: 78.5 H Glucose Level: 116 H Sodium Level: 141 Potassium Level: 4.3 BUN: 10.0 Creatinine Lvl (s): 0.77 EKG No qualifying data available. Assessment/Plan Ankle fracture, right POD 2 s/p right ankle spanning Ex-Fix application -Okay to change Isabela wrap/underlying dressing for saturation. Twice daily pin site care -Nonweightbearing right lower extremity - PT/OT recommending SNF - Hgb 11.9 yesterday, pending this morning - DVT prophylaxis with Lovenox starting today and SCDs - Encourage incentive spirometer - Pain control - Hospitalist management of medical comorbidities - CT of right ankle has been obtained. - Follow up as outpatient with Dr. Carpio in 2 weeks - Dispo: Pending placement - Will discuss with attending Ankle injury - Major COPD without exacerbation Depression Essential tremor Hypertension Post-op pain Smoker Orders: acetaminophen-hydrocodone, Start: 01/08/23 9:19:00 EST, Dose = 2 tab(s), Tab, Oral, q4h, PRN, Pain,scale 7-10, 0, 01/08/23 9:19:00 EST acetaminophen-hydrocodone, Start: 01/08/23 9:17:00 EST, Dose = 1 tab(s), Tab, Oral, q4h, PRN, Pain,scale 4-6, 01/08/23 9:17:00 EST Consult to Physician Digitally Signed by BANDAR CONDE MD on 01/09/2023 08:12 AM [facility] [id number] Consult note Date of Service 01/08/2023 Reason for Consultation Medical management Referring Physician Dr Bandar Conde History of Present Illness This is a 67-year-old female patient with a past medical history significant for hypertension, smoker 1 ppd for 50+ years, COPD not currently exacerbated, depression, and essential tremors. She presented after a fall on 01/07/2023 while attempting to clean her gutters. She was attempting to move [facility], states she fell approximately 4 to 5 feet landing backwards and rotating the right lower leg. Per documentation she did not strike her head, she did not lose consciousness, she is able to recall all of the events. Trauma workup did show an unstable trimalleolar fracture of the right tib-fib. The remainder of the trauma workup was negative, she was admitted under trauma services. She did go to surgery on 01/07/2023 for right ankle spanning with an external fixator application per Dr. Carpio and at this time services have been transferred to the orthopedics team. Hospitalist have been consulted for medical management. The patient is seen resting in bed on 5S and is awake and alert and states her right lower leg painis minimal at this time. States that she has had more right knee pain then surgical site pain. She also endorses bilateral rib pain and states that it is difficult to take a big deep breath and especially with using the incentive spirometer. She is tolerating the pain medication regimen at this time. She denies any chest pain, palpitations or shortness of breath or wheezing. She states she does have an albuterol inhaler at home which she does not use as she does not feel it has been necessary. She is a current smoker and is interested in quitting smoking, is refusing NicoDerm patches at this time. States that she is not having any difficulty without nicotine use since her hospital admission. She states she has been eating well and tolerating her meals and denies any nausea, vomiting or diarrhea. States she realizes this will be a long process ahead, but that she has a good familial support system. Data is collected by chart review and in discussion with nursing staff and patient interview. Review of Systems I reviewed constitutional, HEENT, cardiovascular, respiratory, GI, , skin, musculoskeletal, neurologic, hematologic, and psychiatric. All systems reviewed and are negative except as noted above in the HPI. Physical Exam Vitals and Measurements T: 36.6 C (Oral) TMIN: 36.6 C (Oral) TMAX: 37.5 C (Oral) HR: 74 RR: 18 BP: 118/68 SpO2: 94% Weight Dosing Weight: 86.9 kg (01/07/23) Dosing Weight: 86.9 kg (01/07/23) Physical Exam General: No acute distress. Alert and Appropriate Skin: No rash. Warm, Dry, Intact HEENT: Head is normocephalic and atraumatic. No lesions. Pupils equal in size. Extraocular movements within normal limits. Nose: No septal deviation. Mouth: Oropharynx mucosa is without lesion. Neck: Supple. No lymphadenopathy, thyromegaly noted. Lungs: Bilaterally diminished breath sounds with no crepitation or wheeze. Unlabored Cardiovascular: Heart is regular rhythm, S1S2, No extra-audible heart tones Abdomen: Abdomen is soft, nontender. Rounded/obese. Bowel sounds positive all four quadrants. Extremities: No clubbing, cyanosis or edema. Peripheral pulses palpable. No calf tenderness. Adequate peripheral circulation. Neurological: The patient is awake, oriented to time, people and place. Following simple commands, moving all extremities. Lab Results 01/08 05:50 WBC: 12.4 H Hgb: 11.9 L Hct: 35.8 Platelet: 195 Neutrophil %: 78.5 H Glucose Level: 116 H Sodium Level: 141 Potassium Level: 4.3 BUN: 10.0 Creatinine Lvl (s): 0.77 Imaging Results and [address]ostics CT Ankle w/o Contrast Right Result Date: January 07, 2023 Verified By: DELVIS RICHARDSON MD CLINICAL STATEMENT: IMPRESSION: Status post external fixator application to foot. Redemonstration of unstable trimalleolar foot. Metal streak artifact from external fixator hardware somewhat obscures evaluation of calcaneum. Within these constraints, no definite fracture of calcaneum. Small ankle joint effusion/hemorrhage and moderate soft tissue swelling ankle and foot. I have personally reviewed the images of thisexamination and agree with the resident's findings and interpretation. XR Fluoro 1-2 Hrs Tech Time Result Date: January 07, 2023 Verified By: DOYLE LEVI MD CLINICAL STATEMENT: IMPRESSION: Intraprocedural fluoroscopic spot images as above. See separate procedure report for more information. I have personally reviewed the images of this examination and agree with the resident's findings and interpretation. XR Tibia/Fibula 2 Views Right Result Date: January 07, 2023 Verified By: DELVIS RICHARDSON MD CLINICAL STATEMENT: IMPRESSION: Unstable trimalleolar fracture has been explained on dedicated ankle radiograph from same day. No other fracture is identified. However there is suspected small suprapatellar effusion/hematoma. Consider CT knee for further evaluation if clinically warranted. I have personally reviewed the images of this examination and agree with the resident's findings and interpretation. XR Ankle Minimum 3 Views Right Result Date: January 07, 2023 Verified By: DELVIS RICHARDSON MD CLINICAL STATEMENT: IMPRESSION: Above findings are most compatible with an unstable trimalleolar fracture. Vertical lucency through the calcaneum on lateral view is likely artifactual although subtle nondisplaced fracture is not entirely excluded. I have personally reviewed the images of this examination and agree with the resident's findings and interpretation. XR Pelvis 1 or 2 Views Result Date: January 07, 2023 Verified By: DELVIS RICHARDSON MD CLINICAL STATEMENT: IMPRESSION: Study is degraded due to patient's body habitus and osseous demineralization.Within these constraints, no acute fracture or dislocation. I have personally reviewed the images of this examination and agree with the resident's findings and interpretation. XR Chest 1 View Result Date: January 07, 2023 Verified By: DELVIS RICHARDSON MD CLINICAL STATEMENT: IMPRESSION: Hypoventilatory changes. Otherwise, no acute posttraumatic findings in the thorax. I have personally reviewed the images of this examination and agree with the resident's findings and interpretation. EKG SINUS RHYTHM Vent rate 63 Assessment/Plan 1. Hypertension Resume home lisinopril with hold parameters Currently 118/68, goal SBP<140. Controlled 2. COPD without exacerbation 3 L NC supplemental oxygen currently 92-25% Duoneb tid ordered, prn q 2 hrs as needed Encouraged incentive spirometer use and splinting ribs and adequate pain control 3. Smoker Refused NicoDerm at this time, cessation information requested 4. Depression Resume home citalopram; controlled 5. Essential tremor Resume home propranolol, controlled 6. Ankle fracture, right POD 1 for right ankle spanning with external fixator application per primary team PT/OT NWB RLE DVT and pain prophylaxis per primary team Labs and diagnostics as noted in HPI Thank you for requesting our participation in the care of your patient. We will continue to follow during hospitalization. Document transcribed with voice recognition and may contain typographical errors Orders: albuterol-ipratropium, Start: 01/08/23 20:41:00 EST, Dose = 3 mL, Soln, Inhalation, q4hRT, PRN, Shortness of breath or wheezing, 01/08/23 20:41:00 EST citalopram, Start: 01/08/23 20:13:00 EST, Dose = 20 mg, = 1 tab(s), Oral, qDay, 0, 01/08/23 20:13:00 EST losartan, Start: 01/08/23 20:13:00 EST, Dose = 100 mg, = 1 tab(s), Oral, qDay, Hold if SBP (mmHg) < 110, 01/08/23 20:13:00 EST propranolol, Start: 01/08/23 20:13:00 EST, Dose = 60 mg, = 3 tab(s), Oral, qDay, 01/08/23 20:13:00 EST Problem List/Past Medical History Ongoing Depression Historical No qualifying data Procedure/Surgical History Cyst of breast Medications Inpatient bacitracin topical ointment, 1 sidra, Topical, TID citalopram, 20 mg= 1 tab(s), Oral, qDay Colace, 100 mg= 1 cap(s), Oral, BID, PRN Dextrose 50% IV Push, 12.5 gram(s)= 25 mL, IV Push, AsDirected, PRN Dilaudid, 0.5 mg= 0.5 mL, IV Push, q2h, PRN Dilaudid, 1 mg= 1 mL, IV Push, q2h, PRN docusate-senna 50 mg-8.6 mg oral tablet, 1 tab(s), Oral, BID Dulcolax Laxative, 10 mg= 1 supp, Rectal, qDay, PRN DuoNeb, 3 mL, Inhalation, q4hRT, PRN losartan, 100 mg= 1 tab(s), Oral, qDay Lovenox, 40 mg= 0.4 mL, Subcutaneous, qDay LR 1,000 mL, 1000 mL, Intravenous Milk of Magnesia, 30 mL, Oral, qDay, PRN Miralax Powder Packet, 17 gram(s)= 15 mL, Oral, qDay [place] 325- 5 mg oral tablet, 1 tab(s), Oral, q4h, PRN [place] 325- 5 mg oral tablet, 2 tab(s), Oral, q4h, PRN propranolol, 60 mg= 3 tab(s), Oral, qDay Zofran, 4 mg= 2 mL, IV Push, q4h, PRN Home aspirin 81 mg oral delayed release tablet, 81 mg= 1 tab(s), Oral, qDay citalopram 40 mg oral tablet, 20 mg= 0.5 tab(s), Oral, qDay losartan 100 mg oral tablet, 100 mg= 1 tab(s), Oral, qDay Lovenox 40 mg/0.4 mL injectable solution, 40 mg= 0.4 mL, Subcutaneous, qDay propranolol 60 mg oral tablet, 60 mg= 1 tab(s), Oral, qDay Allergies NKA Social History Smoking Status - 04/24/2015 Current every day smoker Immunizations No qualifying data available. Digitally Signed by VIJAY MEDEROS on 01/08/2023 10:16 PM [id number] Hospital Progress note Respiratory Therapy Evaluation Entered On: 01/08/2023 20:41 EST Performed On: 01/08/2023 20:40 EST by Alejandrina Geiger RRT Respiratory Therapy Evaluation Pulmonary Status : Non-smoker Surgical Status : No surgeries Chest X-Ray : Clear/not ordered Breath Sounds (RT) : Decreased bilaterally Respiratory Pattern (RT) : Regular RR=12-20 Cough (RT) : Strong, non-productive Respiratory Therapy Evaluation Score : 3 Level of Activity : Ambulatory with assistance Mental Status : Alert, oriented RT Assessment [Frequency/Schedule] : Q4 PRN Alejandrina Geiger ADVANCED PRACTICE NURSE PSYCHOTHERAPIST - 01/08/2023 20:40 EST Digitally Signed by Alejandrina Geiger ADVANCED PRACTICE NURSE PSYCHOTHERAPIST on 01/08/2023 08:40 PM [id number] [facility] Hospital Progress note Date of Service 01/08/2023 Chief Complaint Trauma/fall from ladder Postoperative day #1 from right ankle spanning, Ex-Fix application Subjective This is a shared split visit between self and Dr. Peacock On examination of the patient she is seen sitting up in her chair eating breakfast. Patient denies any nausea, vomiting fever or chills. Patient reports that she noticed that she is having drainage to drainage from her dressing on her right ankle. Objective Vitals and Measurements T: 37 C (Oral) TMIN: 36.0 C (Temporal Artery) TMAX: 37.5 C (Oral) HR: 70 RR: 17 BP: 116/61 SpO2: 92% HT: 160 cm WT: 86.9 kg BMI: 33.95 Intake and Output 7AM Yesterday to 7AM Today Intake and Output (Last 24 hours) Intake Administration Information 1000.00 Output Urine Voided 800.00 Intra-Op EBL 5.00 Urine Count 1.00 Total Summary Total Intake 1000.00 Total Output 805.00 Fluid Balance 195.00 Physical Exam General: Awake and alert. Does not appear in distress. Able to answer questions. HEENT: Head appears normocephalic and atraumatic. No cephalohematoma. No bony step off. No raccoon sign. No oliver sign. No otorrhea or rhinorrhea. Able to open and close mouth/jaw without pain/difficulty. Mucous membranes moist and pink. Sclerae anicteric. PERRLA Heart: Regular rate and rhythm. S1S2 present and without murmur, rub or gallop. Neck: No pain with palpation to midline. Back: No pain with palpation to the midline. No visible cutaneous trauma. Lungs: Chest rise symmetrical. Respirations unlabored. Trachea midline. Clear to auscultation bilaterally. Remains on supplemental O2 Chest: No pain with palpation of the chest wall. No crepitus with palpation. Abdomen: Soft and nontender. Nondistended. No guarding or rigidity. Bowel sounds 4 quadrants. Extremities: Moving all 3 without difficulty. No evidence of cyanosis clubbing or edema. Right lower extremity with external fixator use. Skin: No pallor or diaphoresis. No abrasions. No lacerations. Psychiatric: Calm and cooperative. Weight Dosing Weight: 86.9 kg (01/07/23) Dosing Weight: 86.9 kg (01/07/23) Medications Medications (12) Active Scheduled: (2) bacitracin topical 500 units/g Ointment TUBE 1 sidra, Topical, TID enoxaparin 40 mg/ 0.4mL syringe 40 mg 0.4 mL, Subcutaneous, qDay Continuous: (1) Lactated Ringers 1,000 mL 1,000 mL, Intravenous, 100 mL/hr PRN: (9) acetaminophen-HYDROcodone 325-5 mg tablet 1 tab(s), Oral, q4h acetaminophen-HYDROcodone 325-5 mg tablet 2 tab(s), Oral, q4h bisacodyl 10 mg Suppository 10 mg 1 supp, Rectal, qDay dextrose 50% Solution Disp syringe 50 mL 12.5 gram(s) 25 mL, IV Push, AsDirected docusate sodium 100 mg Capsule 100 mg 1 cap(s), Oral, BID HYDROmorphone 0.5 mg/0.5 mL PF syringe 0.5 mg 0.5 mL, IV Push, q2h hydromorphone 1 mg/mL (1mL) INJ 1 mg 1 mL, IV Push, q2h magnesium hydroxide 8% Suspension 30 mL UD 30 mL, Oral, qDay ondansetron 2 mg/ 1 mL 2 mL INJ 4 mg 2 mL, IV Push, q4h Lab Results 01/08 05:50 WBC: 12.4 H Hgb: 11.9 L Hct: 35.8 Platelet: 195 Neutrophil %: 78.5 H Glucose Level: 116 H Sodium Level: 141 Potassium Level: 4.3 BUN: 10.0 Creatinine Lvl (s): 0.77 01/07 05:23 WBC: 13.1 H Hgb: 13.8 Hct: 42.6 Platelet: 248 Neutrophil %: 75.3 H Protime: 11.5 PT International Ratio: 1.0 Glucose Level: 133 H Sodium Level: 139 Potassium Level: 4.3 BUN: 13.0 Creatinine Lvl (s): 0.93 EKG No qualifying data available. Assessment/Plan This patient is a 67-year-old female admitted to the trauma services after falling from a ladder after cleaning her glares. Patient was noted to have trimalleolar fracture and went to the OR yesterday with orthopedics. Patient tolerated the procedure well. Patient remains hemodynamically stable at this time. Tertiary examination is negative for any acuteinjuries. Plan: Patient will be transferred to the orthopedic services at this time. No other injuries noted on tertiary examination. This was discussed with orthopedic resident. -Will initiate bowel regimen on the patient. DVT prophylaxis per orthopedic team -Pain control per the primary team. Case discussed with Dr. Peacock Digitally Signed by GEORGE PEDRAZA on 01/08/2023 10:23 AM [facility] [id number] Orthopaedic surgery Progress note Date of Service 01/08/2023 Subjective Patient seen and examined at bedside this morning. She is resting comfortably with right leg elevated on some pillows. There was some pressing concern for mild surgical site bleeding, but at the timeof examination, bleeding had stopped. Patient's daughter is in town. She denies new complaints. Objective Vitals and Measurements T: 37 C (Oral) TMIN: 36.0 C (Temporal Artery) TMAX: 37.5 C (Oral) HR: 70 RR: 17 BP: 116/61 SpO2: 92% HT: 160 cm WT: 86.9 kg BMI: 33.95 Intake and Output 7AM Yesterday to 7AM Today Intake and Output (Last 24 hours) Intake Administration Information 1000.00 Output Urine Voided 800.00 Intra-Op EBL 5.00 Urine Count 1.00 Total Summary Total Intake 1000.00 Total Output 805.00 Fluid Balance 195.00 Physical Exam General: Alert and oriented x3, in no acute distress Right lower extremity: External fixator in place. some dried blood on the dressing over her heel. Able to wiggle toes. Sensation grossly intact. Calf soft and nontender. Brisk capillary refills Weight Dosing Weight: 86.9 kg (01/07/23) Dosing Weight: 86.9 kg (01/07/23) Medications Medications (10) Active Scheduled: (2) bacitracin topical 500 units/g Ointment TUBE 1 sidra, Topical, TID enoxaparin 40 mg/ 0.4mL syringe 40 mg 0.4 mL, Subcutaneous, qDay Continuous: (1) Lactated Ringers 1,000 mL 1,000 mL, Intravenous, 100 mL/hr PRN: (7) bisacodyl 10 mg Suppository 10 mg 1 supp, Rectal, qDay dextrose 50% Solution Disp syringe 50 mL 12.5 gram(s) 25 mL, IV Push, AsDirected docusate sodium 100 mg Capsule 100 mg 1 cap(s), Oral, BID HYDROmorphone 0.5 mg/0.5 mL PF syringe 0.5 mg 0.5 mL, IV Push, q2h hydromorphone 1 mg/mL (1mL) INJ 1 mg 1 mL, IV Push, q2h magnesium hydroxide 8% Suspension 30 mL UD 30 mL, Oral, qDay ondansetron 2 mg/ 1 mL 2 mL INJ 4 mg 2 mL, IV Push, q4h Lab Results 01/08 05:50 WBC: 12.4 H Hgb: 11.9 L Hct: 35.8 Platelet: 195 Neutrophil %: 78.5 H Glucose Level: 116 H Sodium Level: 141 Potassium Level: 4.3 BUN: 10.0 Creatinine Lvl (s): 0.77 01/07 05:23 WBC: 13.1 H Hgb: 13.8 Hct: 42.6 Platelet: 248 Neutrophil %: 75.3 H Protime: 11.5 PT International Ratio: 1.0 Glucose Level: 133 H Sodium Level: 139 Potassium Level: 4.3 BUN: 13.0 Creatinine Lvl (s): 0.93 EKG No qualifying data available. Assessment/Plan Ankle injury - Major POD 1 s/p right ankle spanning Ex-Fix application -Okay to change Isabela wrap/underlying dressing for saturation. Twice daily pin site care -Nonweightbearing right lower extremity - PT/OT as tolerated - Hgb 11.9 - DVT prophylaxis with Lovenox starting today and SCDs - 24hr post op Ancef course - Encourage incentive spirometer - Pain control - Hospitalist management of medical comorbidities -CT of right ankle has been obtained. - Follow up as outpatient with Dr. Carpio in 2 weeks - Will discuss with attending Post-op pain Ordered: acetaminophen-oxyCODONE, Dose = 1 tab(s), Oral, q6hr, PRN for pain, X 5 day(s), # 28 tab(s), 0 Refill(s), Post-op pain, 86.9 Orders: enoxaparin, Dose : 40 mg = 0.4 mL, Subcutaneous, qDay, X 6 week(s), # 16.8 mL, 0 Refill(s), 02/18/23 14:51:00 EST enoxaparin, Start: 01/08/23 9:00:00 EST, Dose = 40 mg, = 0.4 mL, Subcutaneous, qDay, 01/08/23 9:00:00 EST Consult to Case Management/Social Service Consult to Occupational Therapy Diet Order Elevate Neurovascular Check lower extremity Non Weight Bearing Sequential Compression Device Application Up to Chair Digitally Signed by AMOS MEDINA DO on 01/08/2023 07:55 AM [id number] Anesthesiology Consult note Patient: PAULY SETH Age: 67 years Sex: Female : 1955 Associated Diagnoses: None Author: VANE SANCHEZ MD Postoperative Information Post Operative Info: Post op day: Post Anesthesia Care Unit. Patient location: PACU. Assessment Postanesthesia assessment Vitals: Vital signs from flowsheet : Vital Signs 01/07/2023 18:50 EST Temperature Oral 36.8 DegC Peripheral Pulse Rate 70 bpm Systolic Blood Pressure Non-Invasive 153 mmHg HI Diastolic Blood Pressure Non-Invasive 66 mmHg 01/07/2023 18:17 EST Heart Rate Monitored 69 bpm Respiratory Rate 16 br/min 01/07/2023 18:00 EST Temperature Temporal Artery 36.0 DegC Heart Rate Monitored 70 bpm Respiratory Rate 16 br/min Systolic Blood Pressure Non-Invasive 160 mmHg HI Diastolic Blood Pressure Non-Invasive 67 mmHg Mean Arterial Pressure (NBP) 93 mmHg 01/07/2023 17:35 EST Heart Rate Monitored 71 bpm Respiratory Rate 16 br/min Systolic Blood Pressure Non-Invasive 153 mmHg HI Diastolic Blood Pressure Non-Invasive 81 mmHg Mean Arterial Pressure (NBP) 104 mmHg 01/07/2023 17:20 EST Heart Rate Monitored 67 bpm Respiratory Rate 16 br/min Systolic Blood Pressure Non-Invasive 150 mmHg HI Diastolic Blood Pressure Non-Invasive 82 mmHg Mean Arterial Pressure (NBP) 102 mmHg 01/07/2023 17:05 EST Heart Rate Monitored 67 bpm Respiratory Rate 16 br/min Systolic Blood Pressure Non-Invasive 174 mmHg HI Diastolic Blood Pressure Non-Invasive 85 mmHg Mean Arterial Pressure (NBP) 109 mmHg 01/07/2023 16:50 EST Heart Rate Monitored 67 bpm Respiratory Rate 16 br/min Systolic Blood Pressure Non-Invasive 177 mmHg HI Diastolic Blood Pressure Non-Invasive 85 mmHg Mean Arterial Pressure (NBP) 110 mmHg 01/07/2023 16:35 EST Heart Rate Monitored 69 bpm Respiratory Rate 16 br/min Systolic Blood Pressure Non-Invasive 180 mmHg HI Diastolic Blood Pressure Non-Invasive 86 mmHg Mean Arterial Pressure (NBP) 114 mmHg 01/07/2023 16:20 EST Temperature Temporal Artery 36.5 DegC Heart Rate Monitored 71 bpm Respiratory Rate 16 br/min Systolic Blood Pressure Non-Invasive 158 mmHg HI Diastolic Blood Pressure Non-Invasive 84 mmHg Mean Arterial Pressure (NBP) 106 mmHg 01/07/2023 16:15 EST Respiratory Rate - Anes 0 br/min br/min 01/07/2023 16:10 EST Heart Rate Monitored 75 bpm bpm Respiratory Rate - Anes 0 br/min br/min Systolic Blood Pressure Non-Invasive 161 mmHg mmHg Diastolic Blood Pressure Non-Invasive 92 mmHg mmHg 01/07/2023 16:07 EST Systolic Blood Pressure Non-Invasive 143 mmHg mmHg Diastolic Blood Pressure Non-Invasive 69 mmHg mmHg 01/07/2023 16:05 EST Heart Rate Monitored 59 bpm bpm Respiratory Rate - Anes 11 br/min br/min 01/07/2023 16:04 EST Systolic Blood Pressure Non-Invasive 93 mmHg mmHg Diastolic Blood Pressure Non-Invasive 51 mmHg mmHg 01/07/2023 16:01 EST Systolic Blood Pressure Non-Invasive 87 mmHg mmHg Diastolic Blood Pressure Non-Invasive 39 mmHg mmHg 01/07/2023 16:00 EST Temperature (Route Not Specified) 36.5 DegC DegC Heart Rate Monitored 57 bpm bpm Respiratory Rate - Anes 12 br/min br/min 01/07/2023 15:58 EST Systolic Blood Pressure Non-Invasive 103 mmHg mmHg Diastolic Blood Pressure Non-Invasive 54 mmHg mmHg 01/07/2023 15:55 EST Temperature (Route Not Specified) 36.44 DegC DegC Heart Rate Monitored 54 bpm bpm Respiratory Rate - Anes 12 br/min br/min Systolic Blood Pressure Non-Invasive 91 mmHg mmHg Diastolic Blood Pressure Non-Invasive 44 mmHg mmHg 01/07/2023 15:53 EST Systolic Blood Pressure Non-Invasive 118 mmHg mmHg Diastolic Blood Pressure Non-Invasive 47 mmHg mmHg 01/07/2023 15:50 EST Temperature (Route Not Specified) 36.45 DegC DegC Heart Rate Monitored 62 bpm bpm Respiratory Rate - Anes 13 br/min br/min 01/07/2023 15:49 EST Systolic Blood Pressure Non-Invasive 128 mmHg mmHg Diastolic Blood Pressure Non-Invasive 61 mmHg mmHg 01/07/2023 15:47 EST Systolic Blood Pressure Non-Invasive 99 mmHg mmHg Diastolic Blood Pressure Non-Invasive 40 mmHg mmHg 01/07/2023 15:45 EST Temperature (Route Not Specified) 36.4 DegC DegC Heart Rate Monitored 48 bpm bpm Respiratory Rate - Anes 12 br/min br/min 01/07/2023 15:43 EST Systolic Blood Pressure Non-Invasive 117 mmHg mmHg Diastolic Blood Pressure Non-Invasive 49 mmHg mmHg 01/07/2023 15:40 EST Temperature (Route Not Specified) 36.5 DegC DegC Heart Rate Monitored 50 bpm bpm Respiratory Rate - Anes 12 br/min br/min Systolic Blood Pressure Non-Invasive 71 mmHg mmHg Diastolic Blood Pressure Non-Invasive 41 mmHg mmHg 01/07/2023 15:38 EST Systolic Blood Pressure Non-Invasive 81 mmHg mmHg Diastolic Blood Pressure Non-Invasive 36 mmHg mmHg 01/07/2023 15:35 EST Temperature (Route Not Specified) 36.52 DegC DegC Heart Rate Monitored 60 bpm bpm Respiratory Rate - Anes 12 br/min br/min 01/07/2023 15:34 EST Systolic Blood Pressure Non-Invasive 104 mmHg mmHg Diastolic Blood Pressure Non-Invasive 39 mmHg mmHg 01/07/2023 15:31 EST Systolic Blood Pressure Non-Invasive 94 mmHg mmHg Diastolic Blood Pressure Non-Invasive 40 mmHg mmHg 01/07/2023 15:30 EST Heart Rate Monitored 65 bpm bpm Respiratory Rate - Anes 12 br/min br/min 01/07/2023 15:28 EST Systolic Blood Pressure Non-Invasive 113 mmHg mmHg Diastolic Blood Pressure Non-Invasive 51 mmHg mmHg 01/07/2023 15:25 EST Respiratory Rate - Anes 0 br/min br/min Systolic Blood Pressure Non-Invasive 145 mmHg mmHg Diastolic Blood Pressure Non-Invasive 87 mmHg mmHg 01/07/2023 13:53 EST Heart Rate Monitored 66 bpm 01/07/2023 10:00 EST Peripheral Pulse Rate 66 bpm Respiratory Rate 12 br/min LOW Systolic Blood Pressure Non-Invasive 181 mmHg HI Diastolic Blood Pressure Non-Invasive 68 mmHg 01/07/2023 5:18 EST Peripheral Pulse Rate 60 bpm Respiratory Rate 14 br/min Systolic Blood Pressure Non-Invasive 124 mmHg Diastolic Blood Pressure Non-Invasive 49 mmHg , Oxygen Therapy : Oxygen Therapy & Oxygenation Information 01/07/2023 18:50 EST Oxygen Therapy Nasal cannula 0L-6L Oxygen Saturation 93 % Oxygen Flow Rate 3 01/07/2023 18:17 EST Oxygen Therapy Nasal cannula 0L-6L Oxygen Saturation 94 % Oxygen Flow Rate 3 01/07/2023 18:00 EST Oxygen Therapy Nasal cannula 0L-6L Oxygen Saturation 95 % Oxygen Flow Rate 3 01/07/2023 17:35 EST Oxygen Therapy Nasal cannula 0L-6L Oxygen Saturation 95 % Oxygen Flow Rate 3 01/07/2023 17:20 EST Oxygen Therapy Nasal cannula 0L-6L Oxygen Saturation 91 % LOW Oxygen Flow Rate 3 01/07/2023 17:05 EST Oxygen Therapy Nasal cannula 0L-6L Oxygen Saturation 94 % Oxygen Flow Rate 3 01/07/2023 16:50 EST Oxygen Therapy Nasal cannula 0L-6L Oxygen Saturation 97 % Oxygen Flow Rate 3 01/07/2023 16:35 EST Oxygen Therapy Simple mask Oxygen Saturation 96 % Oxygen Flow Rate 9 01/07/2023 16:20 EST Oxygen Therapy Simple mask Oxygen Saturation 94 % Oxygen Flow Rate 9 01/07/2023 16:15 EST Oxygen Saturation 95 % % 01/07/2023 16:10 EST Oxygen Saturation 98 % % 01/07/2023 16:05 EST Oxygen Saturation 99 % % 01/07/2023 16:00 EST Oxygen Saturation 99 % % 01/07/2023 15:55 EST Oxygen Saturation 99 % % 01/07/2023 15:50 EST Oxygen Saturation 100 % % 01/07/2023 15:45 EST Oxygen Saturation 100 % % 01/07/2023 15:40 EST Oxygen Saturation 99 % % 01/07/2023 15:35 EST Oxygen Saturation 100 % % 01/07/2023 15:30 EST Oxygen Saturation 100 % % 01/07/2023 15:25 EST Oxygen Saturation 80 % % 01/07/2023 13:53 EST Oxygen Therapy Nasal cannula 0L-6L Oxygen Flow Rate 2 01/07/2023 10:00 EST Oxygen Therapy Nasal cannula 0L-6L Oxygen Saturation 94 % Oxygen Flow Rate 2 01/07/2023 5:18 EST Oxygen Therapy Nasal cannula 0L-6L Oxygen Saturation 95 % Oxygen Flow Rate 2 L/min . Mental status: at preoperative baseline. Respiratory function: respirations are non-labored, Stable. Respiratory support: none. CV function: Stable. Cardiovascular support: none. Pain: Satisfactory. Nausea status: Satisfactory. Postoperative hydration status: within normal limits. Notes: Patient is sufficiently recovered from anesthesia to participate in the evaluation. No follow-up care needed. No complications post-anesthesia.. Digitally Signed by VANE SANCHEZ MD on 01/07/2023 10:23 PM [facility] [id number] Note ORIGINAL EXAMINATION: CT OF THE RIGHT ANKLE WITHOUT CONTRAST 01/07/2023 8:40 pm TECHNIQUE: CT of the right ankle was performed without the administration of intravenous contrast. Multiplanar reformatted images are provided for review. Automated exposure control, iterative reconstruction, and/or weight based adjustment of the mA/kV was utilized to reduce the radiation dose to as low as reasonably achievable. COMPARISON: X-ray ankle 01/07/2023 HISTORY ORDERING SYSTEM PROVIDED HISTORY: Reason for Exam: POST SURGERY FINDINGS: Bones: The patient is status post external fixator application to foot. Redemonstration of unstable trimalleolar fracture including comminuted displaced distal fibula fracture, comminuted intra-articular distal tibia and/or medial malleolar fracture. Mild medial displacement of medial malleolus. Comminuted mildly displaced posterior malleolar fracture also noted. External fixator hardware metal streak artifact somewhat obscures evaluation of calcaneum. Within these constraints, no definite fracture of calcaneum. Talar dome and ankle mortise is intact. No tibiotalar joint dislocation. No aggressive appearing osseous abnormality or periostitis. Soft Tissue: There is moderate soft tissue swelling dorsum of foot and ankle. Joint: There are tiny bone fragments in the medial, lateral and posterior aspect of tibiotalar joint. Small ankle joint effusion/hemorrhage. Mild degenerative changes at the 1st MTP joint with marginal osteophyte formation. Tiny bone fragment adjacent the 5th metatarsal base likely relates to os peroneum. Os navicular also noted. No osseous erosions. IMPRESSION: Status post external fixator application to foot. Redemonstration of unstable trimalleolar foot. Metal streak artifact from external fixator hardware somewhat obscures evaluation of calcaneum. Within these constraints, no definite fracture of calcaneum. Small ankle joint effusion/hemorrhage and moderate soft tissue swelling ankle and foot. I have personally reviewed the images of this examination and agree with the resident's findings and interpretation. Interpreted by: Delvis Richardson MD Preliminary Report By: Zaira Plunkett Electronically signed By Delvis Richardson MD Dictated Date: 01/08/2023 4:47:51 AM Prelim Date: 01/08/2023 5:01:09 AM Sign Date: 01/08/2023 5:55:24 AM Ordering Provider: [facility]12-01-2023 Note ORIGINAL EXAMINATION: SPOT FLUOROSCOPIC IMAGES 01/07/2023 4:14 pm TECHNIQUE: Fluoroscopy was provided by the radiology department for procedure. Radiologist was not present during examination. FLUOROSCOPY DOSE AND TYPE: Radiation Exposure Index: Reference air Kerma mGy, 1.14 mGy COMPARISON: None HISTORY: ORDERING SYSTEM PROVIDED HISTORY: Reason for Exam: RT ANKLE FX Intraprocedural imaging. FINDINGS: 12 spot intraoperative images are obtained. IMPRESSION: Intraprocedural fluoroscopic spot images as above. See separate procedure report for more information. I have personally reviewed the images of this examination and agree with the resident's findings and interpretation. Interpreted by: Doyle Levi Preliminary Report By: Zaira Plunkett Electronically signed By Doyle Levi Dictated Date: 01/08/2023 12:11:57 AM Prelim Date: 01/08/2023 12:14:19 AM Sign Date: 01/08/2023 12:14:52 AM Ordering Provider: [facility]12-01-2023 Anesthesiology Consult note Patient: PAULY SETH Age: 67 years Sex: Female : 1955 Associated Diagnoses: None Author: JOHN FRAGA MD Health Status Allergies: Allergic Reactions (All) NKA, Allergies (1) ActiveReaction NKANone Documented Current medications: (Selected) Inpatient Medications Ordered Kefzol: 2 gram(s), 20 mL, 240 mL/hr, IV Push (INT), PREOP pharm LR 1,000 mL: 100 mL/hr, Intravenous Documented Medications Documented aspirin 81 mg oral delayed release tablet: 81 mg, 1 tab(s), Oral, qDay citalopram 40 mg oral tablet: 20 mg, 0.5 tab(s), Oral, qDay losartan 100 mg oral tablet: 100 mg, 1 tab(s), Oral, qDay propranolol 60 mg oral tablet: 60 mg, 1 tab(s), Oral, qDay, Medications (2) Active Scheduled: (1) ceFAZolin syringe 2 gram(s) 20 mL, IV Push (INT), PREOP pharm Continuous: (1) Lactated Ringers 1,000 mL 1,000 mL, Intravenous, 100 mL/hr PRN: (0) Problem list: Medical Depression / SNOMED CT [id number] / Confirmed, Active Problems (1) Depression Histories Past Medical History: No active or resolved past medical history items have been selected or recorded. Family History: No family history items have been selected or recorded. Procedure history: Cyst of breast ([id number]). Social History Social & Psychosocial Habits No Data Available . Physical Examination Vital Signs 01/07/2023 13:53 EST Heart Rate Monitored 66 bpm 01/07/2023 10:00 EST Peripheral Pulse Rate 66 bpm Respiratory Rate 12 br/min LOW Systolic Blood Pressure Non-Invasive 181 mmHg HI Diastolic Blood Pressure Non-Invasive 68 mmHg 01/07/2023 5:18 EST Peripheral Pulse Rate 60 bpm Respiratory Rate 14 br/min Systolic Blood Pressure Non-Invasive 124 mmHg Diastolic Blood Pressure Non-Invasive 49 mmHg Vital Signs(last 24 hrs) Last Charted Heart Rate [id number] bpm (JAN 07 13:53) Resp Rate L 12br/min (JAN 07 10:00) SBPH 181mmHg (JAN 07 10:00) DBP68 mmHg (JAN 07 10:00) Measurements from flowsheet : Measurements 01/07/2023 5:18 EST Admission Weight 86.9 kg Pain assessment: Pain Assessment 01/07/2023 10:19 EST Primary Pain Intensity 8 . General: Alert and oriented. Airway: Normal temporomandibular joint mobility, Nares patent, Trachea midline. Mallampati classification: II (soft palate, fauces, uvula visible). Head: Normocephalic, Atraumatic. Dentition Evaluation: Intact, Own teeth. Respiratory: Lungs are clear to auscultation. Cardiovascular: Normal rate, Regular rhythm. Neurologic: Alert, Oriented. Review / Management Results review: Labs (Last four charted values) WBC H 13.1(JAN 07) Hgb 13.8(JAN 07) Hct 42.6(JAN 07) Plt 248(JAN 07) Na 139(JAN 07) K 4.3(JAN 07) CO2 28(JAN 07) Cl 109(JAN 07) Cr 0.93(JAN 07) BUN 13.0(JAN 07) Glucose H 133(JAN 07) Ca 9.4(JAN 07) PT 11.5(JAN 07) INR 1.0(JAN 07) PTT L 22.7(JAN 07) , Lab results 01/07/2023 14:14 EST SN - GCD - Post-operative Diagnosis RIGHT PILON FRACTURE SN - GCD - Case Level Level 4 01/07/2023 14:12 EST SN - CAt - Case Attendee SN - CAt - Case Attendee SN - CAt - Role Performed Primary Surgeon 01/07/2023 14:05 EST Living Situation Home independently Transition Planning Note Transition Planning Initial Assessment 01/07/2023 13:53 EST Heart Rate Monitored 66 bpm Oxygen Therapy Nasal cannula 0L-6L Oxygen Flow Rate 2 01/07/2023 13:21 EST ED Note-Nursing Sent to OR 01/07/2023 10:22 EST Lactated Ringers Injection Begin Bag 1,000 mL mL 01/07/2023 10:20 EST ondansetron 4 mg mg 01/07/2023 10:19 EST Primary Pain Intensity 8 morphine 2 mg mg 01/07/2023 10:00 EST Peripheral Pulse Rate 66 bpm Respiratory Rate 12 br/min LOW Systolic Blood Pressure Non-Invasive 181 mmHg HI Diastolic Blood Pressure Non-Invasive 68 mmHg Oxygen Therapy Nasal cannula 0L-6L Oxygen Saturation 94 % Oxygen Flow Rate 2 01/07/2023 9:15 EST History and Physical History and Physical 01/07/2023 9:09 EST Orthopedic Consultation Consult Note (Modified) 01/07/2023 7:52 EST ABO/Rh Interp A NEG ABSC Interp (Gel) Negative ABSC 01/07/2023 6:45 EST XR Tibia/Fibula 2 Views Right XR TIBIA/FIBULA 2 VIEWS RIGHT 01/07/2023 6:44 EST XR Ankle Minimum 3 Views Right XR ANKLE MINIMUM 3 VIEWS RIGHT 01/07/2023 6:18 EST EKG (ED) - CV Signed 01/07/2023 6:06 EST ED Note-Physician ED/Urgent Care Provider Note (Modified) 01/07/2023 5:33 EST XR Chest 1 View XR CHEST 1 VIEW 01/07/2023 5:27 EST XR Pelvis 1 or 2 Views XR PELVIS 1 OR 2 VIEWS 01/07/2023 5:23 EST WBC 13.1 10^3/mcL HI RBC 4.53 10^6/mcL Hgb 13.8 G/dL Hct 42.6 % MCV 94.1 fL MCH 30.4 pg MCHC 32.2 G/dL RDW 14.5 % Platelet 248 10^3/mcL MPV 10.1 fL Monocyte Distribution Width 15.66 Neutrophil % 75.3 % HI Lymphocyte % 15.5 % LOW Monocyte % 8.4 % Eosinophil % 0.4 % Basophil % 0.4 % Neutrophil, Absolute 9.8 10^3/mcL HI Lymphocyte, Absolute 2.0 10^3/mcL Monocyte, Absolute 1.1 10^3/mcL Eosinophil, Absolute 0.0 10^3/mcL Basophil, Absolute 0.0 10^3/mcL Heparin dose (APTT) None APTT 22.7 seconds LOW Protime 11.5 seconds PT International Ratio 1.0 ratio NA Glucose Level 133 mg/dL HI Sodium Level 139 mEq/L Potassium Level 4.3 mEq/L Chloride 109 mEq/L CO2 28 mEq/L Electrolyte Balance 2.0 mEq/L LOW BUN 13.0 mg/dL Creatinine Lvl (s) 0.93 mg/dL BUN/Creatinine Ratio 14.0 ratio Calcium Lvl 9.4 mg/dL GFR Non- 60 ml/min/1.73sqm NA GFR >60 ml/min/1.73sqm NA Ethanol Level <10.0 mg/dL NA 01/07/2023 5:18 EST Admission Weight 86.9 kg Peripheral Pulse Rate 60 bpm Respiratory Rate 14 br/min Systolic Blood Pressure Non-Invasive 124 mmHg Diastolic Blood Pressure Non-Invasive 49 mmHg YESSICA Level 1 No YESSICA Level 2 No YESSICA Level 3 Many Vital Signs YESSICA No Recommended YESSICA Level 3 Oxygen Therapy Nasal cannula 0L-6L Oxygen Saturation 95 % Oxygen Flow Rate 2 L/min Status No, per patient Eye Opening Response Sunbright Spontaneously Best Motor Response Sunbright Obeys simple commands Best Verbal Response Veronica Oriented Sunbright Coma Score 15 Wish To Be No Suicidal Thoughts No Ever Made Plans to End Your Life No Suicide Severity Rating No problems noted Infectious Disease Symptoms Patient states no symptoms Infectious Disease Recent Exposure No Alcohol and Drug Use No Employee of Institutional Living No Health Care Employee No History of Exposure to TB No History of Positive Chest X-Ray for TB No History of Positive TB Skin Test No Homeless No Known Immunosuppression No Recent Immigrant No Resident of Institutional Living No Bloody Sputum No Fatigue No Fever No Loss of Appetite No Night Sweats No Persistent Cough > 3 Weeks No Weight Loss No Chief Complaint Description Trauma transfer from [place]. 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 Pt ankle placed in hard splint at [facility] and transported here. Denies blood thinners/loc. Pt reports no other pain or injury from fall. Place Where Injury/Illness Occurred Home Tracking Group ED Tracking Group Tracking Acuity 3 Triage Treatments Ice to affected area Mode of Transfer Ground ambulance Ambulance Service Other: [facility]ician[facility] EMS Prev Test Positive/Diagnosis w/COVID-19 No Current Quarantine/Isolated any Illness No Any Contact with Sick Animals/Birds No Traveled Anywhere in Last 30 Days No ED Assessment Note - Nursing ED Assessment Trauma . Assessment and Plan [place] [employer] (ASA) physical status classification: Class II. Anesthetic Preoperative Plan Anesthetic technique: General. Induction: intravenously. Maintenance airway: Laryngeal mask airway. Postoperative pain management: Per surgeon. Risks discussed: nausea, vomiting, headache, sore throat, dental injury, hypotension, allergic reaction, serious complications. Informed consent: signed by patient. Notes: HTN, smoker, depression, essential tremor treated with propranolol. Beta Delano: Beta Delano Taken Within 24 Hrs: No. Digitally Signed by JOHN FRAGA MD on 01/07/2023 02:24 PM [id number] Orthopaedic surgery Consult note Date of Service 01/07/2023 Reason for Consultation Right pilon fracture History of Present Illness 67-year-old female with unremarkable past medical history presents as a trauma transfer from [place] after falling from a ladder. Patient states that she is unsure exactly how she landed, but that she fell 5 to 6 feet from a ladder and did land on her right side. The patient notes that she had immediate pain in the right ankle. Denies orthopedic complaints otherwise. Denies previous injury to thearea. Denies numbness, paresthesia. Review of Systems Musculoskeletal: Negative except as above in HPI. Skin: Negative except as above in HPI. Neurological: Negative except as above in HPI. ROS otherwise negative except as noted above in HPI. Physical Exam Vitals and Measurements HR: 60 RR: 14 BP: 124/49 SpO2: 95% WT: 86.9 kg Weight Dosing Weight: 86.9 kg (01/07/23) General Appearance: Lying in bed in no acute distress. Musculoskeletal: RUE: No gross deformity. Not TTP. Unencumbered active and passive range of motion shoulder/elbow/wrist/all digits. Palpable radial pulse. SILT median/ulnar/radial. All 3 cardinal motions of hand performed. LUE: No gross deformity. Not TTP. Unencumbered active and passive range of motion shoulder/elbow/wrist/all digits. Palpable radial pulse. SILT median/ulnar/radial. All 3 cardinal motions of hand performed. RLE: AO splint in place, taken down. Areas of fracture blisters over the medial and lateral sides of the ankle with substantial swelling. No open wounds, skin lesions, skin breakdown. All compartments are compressible. Tolerates passive stretch of digits. The ankle is globally tender to palpation. Range of motion of the ankle and digits are compromised by pain. Unencumbered active and passive range of motion hip/knee. Brisk capillary refill all digits. SILT sural/saphenous/tib/SP/DP. Fires EHL/FHL/TibAnt. LLE: No gross deformity. Not TTP. Unencumbered active and passive range of motion hip/knee/ankle/all digits. Brisk capillary refill all digits. SILT sural/saphenous/tib/SP/DP. Fires EHL/FHL/TibAnt. Lab Results 01/07 05:23 WBC: 13.1 H Hgb: 13.8 Hct: 42.6 Platelet: 248 Neutrophil %: 75.3 H Protime: 11.5 PT International Ratio: 1.0 Glucose Level: 133 H Sodium Level: 139 Potassium Level: 4.3 BUN: 13.0 Creatinine Lvl (s): 0.93 Imaging Results and Diagnostics Radiographic imaging of the right ankle and tib-fib demonstrate a comminuted pilon fracture with displacement. No other acute osseous or soft tissue abnormalities noted. EKG EC01/07/23: SINUS RHYTHM Compared to ECG at 01/22/2015 16:28:51 Electronic Signature: TOMAS SANTANA MD 01/07/2023 06:19:59 Assessment/Plan Ankle injury - Major -67-year-old female presents after fall from ladder sustaining right pilon fracture. -This was a closed, isolated injury. The patient is neurovascular intact. -I explained to the patient the need for surgical intervention to prevent major morbidity mortalitywith nonoperative treatment. Patient voiced understanding and was agreeable to proceed. -Will obtain informed consent and plan for right ankle external fixation with Dr. Carpio today 01/07/2023. -Maintain AO splint -Hold any chemical DVT prophylaxis at this time - will order SCDs -Pain control -per primary -Bedrest, NWB right lower extremity -N.p.o. at midnight -Ancef on-call to the OR -We will order type and screen preoperatively. Patient's current hemoglobin 13, platelets 248 -Awaiting medical optimization -We will discuss with Dr. Carpio Orders: ceFAZolin, Start: 01/07/23 7:38:00 EST, Dose= 2 gram(s), = 20 mL, IV Push (INT), PREOP pharm, Rate:240 mL/hr, Infuse over: 5 minute(s), 20 mL, 01/07/23 7:38:00 EST Lactated Ringers Infusion 1,000 mL, Start: 01/07/23 7:38:00 EST, Rate: 100 mL/hr, 01/07/23 7:38:00 EST ABO/Rh Retype (Gel) Comments: Ordered by Discern Communication Order (continuous) Communication Order (scheduled) Comments: Disregard this order if there is existing documentation from primary team that states that patient is cleared or medically optimized for operating room Consult to Anesthesia Comments: if not collected within the past 24 hours Non Weight Bearing NPO Sequential Compression Device Application Weak D (Gel) Problem List/Past Medical History Ongoing Depression Historical No qualifying data Procedure/Surgical History Cyst of breast Medications Inpatient Kefzol, 2 gram(s)= 20 mL, IV Push (INT), PREOP pharm LR 1,000 mL, 1000 mL, Intravenous Home citalopram 40 mg oral tablet, 20 mg= 0.5 tab(s), Oral, qDay, Investigating losartan 100 mg oral tablet, 100 mg= 1 tab(s), Oral, qDay, Investigating propranolol 60 mg oral tablet, 60 mg= 1 tab(s), Oral, qDay, Investigating Allergies NKA Social History Smoking Status - 04/24/2015 Current every day smoker Immunizations No qualifying data available. Digitally Signed by BANDAR CONDE MD on 01/07/2023 09:13 AM [facility] [id number] Evaluation + Plan noteExtracted from: Title:History and Physical Author:AIDA [place] PLACEMENT SPECIALIST-FRONT OFFICE HELP Date:01/07/23 Ankle injury - Major This patient is a 67-year-old female who is being admitted to trauma services after falling from her ladder after cleaning gutters. No loss of consciousness, patient is able to recall events from fall. Injuries sustained include a trimalleolar fracture. No other injuries are noted at this time. Denies any complaints of shortness of breath or chest pain, denies any complaints of abdominal pain. Able to move all extremities, patient is able to wiggle toes on her left lower extremity, toes are pink and warm. Left lower extremity is painful with any movement. Abdomen soft, nondistended, bowel sounds are present. Patient states last bowel movement was yesterday. Denies any complaints of nausea or vomiting. Orthopedics was consulted, they will be taking patient to surgery today. Patient to be admitted to trauma services and transferred Ortho tomorrow after tertiary survey. Discussed with Dr. Peacock, please see his addendum to follow. Addendum by SKIP PEACOCK on January 10, 2023 07:35:36 EST I have seen, examined, discussed and agree w above [facility] 12-01-2023 History and physical note Date of Service 01/07/23 Chief Complaint Trauma/Fall from ladder History of Present Illness This is a split shared visit between myself and This patient is a 67-year-old female who states that she lives alone, was cleaning her gutters yesterday and as she was coming back down the ladder, she states that she fell approximately 4 to 5 feetwhen the ladder fell backwards. Patient did not strike her head, she did not lose consciousness. She was able to recall events. Patient states that her right lower leg was very painful, she did attempt to yell for neighbors, was able to pull herself over to her car and hit the corner to try to drawattention. Patient states that eventually someone did find her and called 911. Patient does not have any past surgical history, states her past medical history includes hypertension, COPD, depression, and essential tremors. Patient does admit to smoking approximately a pack a day for approximately 40 to 50 years. Workup includes: Hemodynamically stable, afebrile. WBC 13.1, Hgb 13.8, PT 11.5, INR 1.0, PTT 22.7, BUN 13, creatinine 0.93. X-ray of pelvis with radiology impression no acute fractures or dislocation. Chest x-ray with radiology impression showing no acute posttraumatic findings. X-ray of the right ankle with radiology impression showing unstable Tri malleoli are fracture. X-ray of the right tib-fib with radiology impression showing unstable trimalleolar fracture. No other fracture is identified. Patient will be admitted to trauma services with a tertiary examination in the morning, orthopedicswill be taking the patient to surgery today. Can transfer service tomorrow. Review of Systems All other pertinent positives and negatives are present in the HPI. All other systems are reviewed as negative unless otherwise previously mentioned Physical Exam Vitals and Measurements HR: 60 RR: 14 BP: 124/49 SpO2: 95% WT: 86.9 kg Weight Dosing Weight: 86.9 kg (01/07/23) General: Awake and alert. Does not appear in distress. Able to answer questions. HEENT: Head appears normocephalic and atraumatic. No cephalohematoma. No bony step off. No raccoon sign. No olvier sign. No otorrhea or rhinorrhea. Able to open and close mouth/jaw without pain/difficulty. Mucous membranes moist and pink. Sclerae anicteric. PERRLA Heart: Regular rate and rhythm. S1S2 present and without murmur, rub or gallop. Neck: No pain with palpation to midline. Range of motion displayed. Back: No pain with palpation to the midline. No visible cutaneous trauma. Lungs: Chest rise symmetrical. Respirations unlabored. Trachea midline. Clear to auscultation bilaterally. Chest: No pain with palpation of the chest wall. No crepitus with palpation. Abdomen: Soft and nontender. Nondistended. No guarding or rigidity. Bowel sounds 4 quadrants. Extremities: Left lower extremity tender with any movement, able to wiggle toes, pink and warm. Allother extremities are intact, without difficulties. Skin: No pallor or diaphoresis. No abrasions. No lacerations. Psychiatric: Calm and cooperative. Lab Results 01/07 05:23 WBC: 13.1 H Hgb: 13.8 Hct: 42.6 Platelet: 248 Neutrophil %: 75.3 H Protime: 11.5 PT International Ratio: 1.0 Glucose Level: 133 H Sodium Level: 139 Potassium Level: 4.3 BUN: 13.0 Creatinine Lvl (s): 0.93 Imaging Results and Diagnostics XR Tibia/Fibula 2 Views Right Result Date: January 07, 2023 Verified By: DELVIS RICHARDSON MD CLINICAL STATEMENT: IMPRESSION: Unstable trimalleolar fracture has been explained on dedicated ankle radiograph from same day. No other fracture is identified. However there is suspected small suprapatellar effusion/hematoma. Consider CT knee for further evaluation if clinically warranted. I have personally reviewed the images of this examination and agree with the resident's findings and interpretation. XR Ankle Minimum 3 Views Right Result Date: January 07, 2023 Verified By: DELVIS RICHARDSON MD CLINICAL STATEMENT: IMPRESSION: Above findings are most compatible with an unstable trimalleolar fracture. Vertical lucency through the calcaneum on lateral view is likely artifactual although subtle nondisplaced fracture is not entirely excluded. I have personally reviewed the images of this examination and agree with the resident's findings and interpretation. XR Pelvis 1 or 2 Views Result Date: January 07, 2023 Verified By: DELVIS RICHARDSON MD CLINICAL STATEMENT: IMPRESSION: Study is degraded due to patient's body habitus and osseous demineralization.Within these constraints, no acute fracture or dislocation. I have personally reviewed the images of this examination and agree with the resident's findings and interpretation. XR Chest 1 View Result Date: January 07, 2023 Verified By: DELVIS RICHARDSON MD CLINICAL STATEMENT: IMPRESSION: Hypoventilatory changes. Otherwise, no acute posttraumatic findings in the thorax. I have personally reviewed the images of this examination and agree with the resident's findings and interpretation. EKG EC01/07/23: SINUS RHYTHM Compared to ECG at 01/22/2015 16:28:51 Electronic Signature: TOMAS SANTANA MD 01/07/2023 06:19:59 Assessment/Plan Ankle injury - Major This patient is a 67-year-old female who is being admitted to trauma services after falling from her ladder after cleaning gutters. No loss of consciousness, patient is able to recall events from fall. Injuries sustained include a trimalleolar fracture. No other injuries are noted at this time. Denies any complaints of shortness of breath or chest pain, denies any complaints of abdominal pain. Able to move all extremities, patient is able to wiggle toes on her left lower extremity, toes arepink and warm. Left lower extremity is painful with any movement. Abdomen soft, nondistended, bowel sounds are present. Patient states last bowel movement was yesterday. Denies any complaints of nausea or vomiting. Orthopedics was consulted, they will be taking patient to surgery today. Patient to be admitted to trauma services and transferred Ortho tomorrow after tertiary survey. Discussed with Dr. Peacock, please see his addendum to follow. Problem List/Past Medical History Ongoing Depression Historical No qualifying data Procedure/Surgical History Cyst of breast Medications Home Medications (3) Active citalopram 40 mg oral tablet 20 mg = 0.5 tab(s), Oral, qDay losartan 100 mg oral tablet 100 mg = 1 tab(s), Oral, qDay propranolol 60 mg oral tablet 60 mg = 1 tab(s), Oral, qDay Allergies NKA Social History Smoking Status - 04/24/2015 Current every day smoker Immunizations No qualifying data available. Code Status Code Status - Ordered -- 01/07/23 7:29:00 EST, Full Code, Constant Order Digitally Signed by AIDA [place] on 01/07/2023 09:43 AM [facility] [id number] Orthopaedic surgery Consult note Date of Service 01/07/2023 Reason for Consultation Right pilon fracture History of Present Illness 67-year-old female with unremarkable past medical history presents as a trauma transfer from [place] after falling from a ladder. Patient states that she is unsure exactly how she landed, but that she fell 5 to 6 feet from a ladder and did land on her right side. The patient notes that she had immediate pain in the right ankle. Denies orthopedic complaints otherwise. Denies previous injury to thearea. Denies numbness, paresthesia. Review of Systems Musculoskeletal: Negative except as above in HPI. Skin: Negative except as above in HPI. Neurological: Negative except as above in HPI. ROS otherwise negative except as noted above in HPI. Physical Exam Vitals and Measurements HR: 60 RR: 14 BP: 124/49 SpO2: 95% WT: 86.9 kg Weight Dosing Weight: 86.9 kg (01/07/23) General Appearance: Lying in bed in no acute distress. Musculoskeletal: RUE: No gross deformity. Not TTP. Unencumbered active and passive range of motion shoulder/elbow/wrist/all digits. Palpable radial pulse. SILT median/ulnar/radial. All 3 cardinal motions of hand performed. LUE: No gross deformity. Not TTP. Unencumbered active and passive range of motion shoulder/elbow/wrist/all digits. Palpable radial pulse. SILT median/ulnar/radial. All 3 cardinal motions of hand performed. RLE: AO splint in place, taken down. Areas of fracture blisters over the medial and lateral sides of the ankle with substantial swelling. No open wounds, skin lesions, skin breakdown. All compartments are compressible. Tolerates passive stretch of digits. The ankle is globally tender to palpation. Range of motion of the ankle and digits are compromised by pain. Unencumbered active and passive range of motion hip/knee. Brisk capillary refill all digits. SILT sural/saphenous/tib/SP/DP. Fires EHL/FHL/TibAnt. LLE: No gross deformity. Not TTP. Unencumbered active and passive range of motion hip/knee/ankle/all digits. Brisk capillary refill all digits. SILT sural/saphenous/tib/SP/DP. Fires EHL/FHL/TibAnt. Lab Results 01/07 05:23 WBC: 13.1 H Hgb: 13.8 Hct: 42.6 Platelet: 248 Neutrophil %: 75.3 H Protime: 11.5 PT International Ratio: 1.0 Glucose Level: 133 H Sodium Level: 139 Potassium Level: 4.3 BUN: 13.0 Creatinine Lvl (s): 0.93 Imaging Results and Diagnostics Radiographic imaging of the right ankle and tib-fib demonstrate a comminuted pilon fracture with displacement. No other acute osseous or soft tissue abnormalities noted. EKG EC01/07/23: SINUS RHYTHM Compared to ECG at 01/22/2015 16:28:51 Electronic Signature: TOMAS SANTANA MD 01/07/2023 06:19:59 Assessment/Plan Ankle injury - Major -67-year-old female presents after fall from ladder sustaining right pilon fracture. -This was a closed, isolated injury. The patient is neurovascular intact. -I explained to the patient the need for surgical intervention to prevent major morbidity mortalitywith nonoperative treatment. Patient voiced understanding and was agreeable to proceed. -Will obtain informed consent and plan for right ankle external fixation with Dr. Carpio today 01/07/2023. -Maintain AO splint -Hold any chemical DVT prophylaxis at this time - will order SCDs -Pain control -per primary -Bedrest, NWB right lower extremity -N.p.o. at midnight -Ancef on-call to the OR -We will order type and screen preoperatively. Patient's current hemoglobin 13, platelets 248 -Awaiting medical optimization -We will discuss with Dr. Carpio Orders: ceFAZolin, Start: 01/07/23 7:38:00 EST, Dose= 2 gram(s), = 20 mL, IV Push (INT), PREOP pharm, Rate:240 mL/hr, Infuse over: 5 minute(s), 20 mL, 01/07/23 7:38:00 EST Lactated Ringers Infusion 1,000 mL, Start: 01/07/23 7:38:00 EST, Rate: 100 mL/hr, 01/07/23 7:38:00 EST ABO/Rh Retype (Gel) Comments: Ordered by Discern Communication Order (continuous) Communication Order (scheduled) Comments: Disregard this order if there is existing documentation from primary team that states that patient is cleared or medically optimized for operating room Consult to Anesthesia Comments: if not collected within the past 24 hours Non Weight Bearing NPO Sequential Compression Device Application Weak D (Gel) Problem List/Past Medical History Ongoing Depression Historical No qualifying data Procedure/Surgical History Cyst of breast Medications Inpatient Kefzol, 2 gram(s)= 20 mL, IV Push (INT), PREOP pharm LR 1,000 mL, 1000 mL, Intravenous Home citalopram 40 mg oral tablet, 20 mg= 0.5 tab(s), Oral, qDay, Investigating losartan 100 mg oral tablet, 100 mg= 1 tab(s), Oral, qDay, Investigating propranolol 60 mg oral tablet, 60 mg= 1 tab(s), Oral, qDay, Investigating Allergies NKA Social History Smoking Status - 04/24/2015 Current every day smoker Immunizations No qualifying data available. Digitally Signed by BANDAR CONDE MD on 01/07/2023 09:13 AM [facility] [id number] Note ORIGINAL EXAMINATION: TWO XRAY VIEWS OF THE RIGHT TIBIA/FIBULA 01/07/2023 6:45 am COMPARISON: None. HISTORY: ORDERING SYSTEM PROVIDED HISTORY: Reason for Exam: Patient fell off 5 foot ladder, pain. FINDINGS: Overlying splint obscures fine anatomical details. Unstable trimalleolar fracture has been explained on dedicated ankle radiograph from same day. No other fracture is identified. There is suspect small suprapatellar effusion/hematoma. IMPRESSION: Unstable trimalleolar fracture has been explained on dedicated ankle radiograph from same day. No other fracture is identified. However there is suspected small suprapatellar effusion/hematoma. Consider CT knee for further evaluation if clinically warranted. I have personally reviewed the images of this examination and agree with the resident's findings and interpretation. Interpreted by: Delvis Richardson MD Preliminary Report By: Zaira Plunkett Electronically signed By Delvis Richardson MD Dictated Date: 01/07/2023 6:55:53 AM Prelim Date: 01/07/2023 7:04:51 AM Sign Date: 01/07/2023 7:18:08 AM Ordering Provider: [facility]12-01-2023 Note ORIGINAL EXAMINATION: THREE XRAY VIEWS OF THE RIGHT ANKLE 01/07/2023 6:44 am COMPARISON: None. HISTORY: ORDERING SYSTEM PROVIDED HISTORY: Reason for Exam: Patient fell off 5 foot ladder injuring ankle. FINDINGS: Overlying splint obscures fine anatomical details. Comminuted and mildly displaced fracture of distal fibula. Intra-articular, comminuted fracture of distal tibia and medial malleolus, with 6 mm medial displacement of medial malleolus. Oblique mildly displaced fracture of posterior malleolus. Adjacent soft tissue swelling at the ankle. Talar dome and ankle mortise is grossly unremarkable. On the lateral view there is a vertical lucency through the calcaneum. IMPRESSION: Above findings are most compatible with an unstable trimalleolar fracture. Vertical lucency through the calcaneum on lateral view is likely artifactual although subtle nondisplaced fracture is not entirely excluded. I have personally reviewed the images of this examination and agree with the resident's findings and interpretation. Interpreted by: Delvis Richardson MD Preliminary Report By: Zaira Plunkett Electronically signed By Delvis Richardson MD Dictated Date: 01/07/2023 6:46:08 AM Prelim Date: 01/07/2023 6:55:44 AM Sign Date: 01/07/2023 7:16:03 AM Ordering Provider: [facility]12-01-2023 NoteSINUS RHYTHM Compared to ECG at 01/22/2015 16:28:51 Electronic Signature: TOMAS SANTANA MD 01/07/2023 06:19:59[facility] 12-01-2023 Note ORIGINAL EXAMINATION: ONE XRAY VIEW OF THE CHEST 01/07/2023 5:34 am COMPARISON: None. HISTORY: ORDERING SYSTEM PROVIDED HISTORY: Reason for Exam: pain; trauma patient FINDINGS: Normal cardiomediastinal silhouette. No focal consolidation, large pleural effusion or pneumothorax. Low lung volumes due to hypoventilation. No acute osseous findings. IMPRESSION: Hypoventilatory changes. Otherwise, no acute posttraumatic findings in the thorax. I have personally reviewed the images of this examination and agree with the resident's findings and interpretation. Interpreted by: Delvis Richardson MD Preliminary Report By: Zaira Plunkett Electronically signed By Delvis Richardson MD Dictated Date: 01/07/2023 5:37:43 AM Prelim Date: 01/07/2023 5:39:13 AM Sign Date: 01/07/2023 7:09:47 AM Ordering Provider: [facility]12-01-2023 Note ORIGINAL EXAMINATION: ONE XRAY VIEW OF THE PELVIS 01/07/2023 5:27 am COMPARISON: None. HISTORY: ORDERING SYSTEM PROVIDED HISTORY: Reason for Exam: pain; trauma patient FINDINGS: Study is degraded due to patient's body habitus and osseous demineralization. No acute fracture or dislocation. No radiopaque foreign body or soft tissue abnormality. The pelvic ring is intact. Sacrum is grossly unremarkable. Varying degree of degenerative changes in the spine, sacroiliac and hip joints. IMPRESSION: Study is degraded due to patient's body habitus and osseous demineralization. Within these constraints, no acute fracture or dislocation. I have personally reviewed the images of this examination and agree with the resident's findings and interpretation. Interpreted by: Delvis Richardson MD Preliminary Report By: Zaira Plunkett Electronically signed By Delvis Richardson MD Dictated Date: 01/07/2023 5:35:32 AM Prelim Date: 01/07/2023 5:37:34 AM Sign Date: 01/07/2023 7:08:23 AM Ordering Provider: [facility]10-16-2023 NoteHNO ID: [id number] Author: Mario Roberto, DO Service: ? Author Type: Physician Type: Progress Notes Filed: 11/27/2022 9:09 AM Note Text: CC: Pauly Seth is a 67 year old female who presents to the office for follow up HPI: Right knee pain, better than previous after she had her 1st corticosteroid knee injection. Walking better than before, still having improvement but pain is starting to come back. Had right knee injection July 02, 5 months ago with benefit. Is requesting this injection again. Wants to try to avoid surgery at this time on her knee Tobacco use, knows needs to quit but not sure that she is ready to quit. Has at least stage 1 COPD Mood, stable, taking Celexa, no concerns. PAST MEDICAL HISTORY Diagnosis Date Depression Hypercholesteremia Mental disorder Sebaceous cyst 06/02/2005 cyst R middle toe 06/11 Stage 1 mild COPD by GOLD classification ([facility]) 11/2017 Syncope and collapse 06/02/2005 near syncope 07/10 Tobacco use disorder 06/02/2005 PAST SURGICAL HISTORY Procedure Laterality Date CAUTERY CERVIX CRYOCAUTERY INITIAL/REPEAT 1991 COLONOSCOPY FLX DX W/COLLJ SPEC WHEN PFRMD 03/06/2018 Colonoscopy EXCISION GANGLION WRIST DORSAL/VOLAR PRIMARY right PAST SURGICAL HISTORY OF benign tumor Right breast removed Current Outpatient Medications Medication Sig albuterol HFA (PROVENTIL HFA, VENTOLIN HFA) 90 mcg/actuation inhaler Inhale 2 Puffs as instructed every 4 hours as needed for wheezing/shortness of breath. aspirin, enteric coated (ASPIRIN, ENTERIC COATED) 81 mg EC tablet Take 81 mg by mouth once daily. citalopram (CELEXA) 40 mg tablet Take 0.5 tablets by mouth once daily. guaiFENesin (MUCINEX) 600 mg 12 hr tablet Take 2 tablets by mouth twice daily. losartan (COZAAR) 100 mg tablet Take 1 tablet by mouth once daily. For high blood pressure propranolol (INDERAL) 60 mg tablet Take 1 tablet by mouth once daily. For tremor Current Facility-Administered Medications Medication Dose Route Frequency betamethasone acetate-betamethasone sodium phosphate 6 mg injection (CELESTONE) 6 mg Injection - FOR ORTHO USE ONLY ONCE ALLERGIES Allergen Reactions Asa [Salicylates] stomach upset Social History Tobacco Use Smoking status: Every Day Packs/day: 1.00 Years: 33.00 Additional pack years: 0.00 Total pack years: 33.00 Types: Cigarettes Smokeless tobacco: Never Tobacco comments: Just under a pack Substance Use Topics Alcohol use: Yes Comment: occasionally Drug use: No ROS: See HPI PE: BP 136/80 Pulse 56 Temp (Src) 97.6 (Left Tympanic) Resp 16 Wt 181 lb (82.1kg) LMP 09/27/2012 Gen: AANDOX3, NAD, non-toxic appearing HEENT: PERRLA, EOMs intact b/l, nares without drainage, pharynx without erythema, exudate, lesions, or drainage. Uvula midline. Neck: No LAD, no thyromegaly, no meningismus. CV: RRR, no murmur Lungs: CTA b/l, no wheezing Skin: No rashes, lesions, or wounds on exposed skin. Right knee with medial and lateral jiont line TTP and mild effusion without erythema or warmth, antalgic gait, no instability INFORMED CONSENT Pauly Seth Medical Record: [id number] Date: 11/27/2022 Procedure:right knee corticosteroid joint injection The risks, benefits and anticipated outcomes of the procedure, the risks and benefits of the alternatives to the procedure and the roles and tasks of the personnel to be involved were discussed with the patient and the patient consents to the procedure and agrees to proceed. I verify that I personally obtained Pauly Seth's consent. Mario Roberto DO [facility] [place] Procedure: After discussing the risks, complications, and benefits of corticosteroid injection, as well as alternative treatments, the patient agreed to proceed. Under sterile prep, the Right: 1 knee was injected with 3 cc of 1% Lidocaine, and 1cc of 6 mg of Betamethasone There were no complications, and good pain relief was achieved. ASSESSMENT/PLAN: 1. Primary osteoarthritis of right knee - ICD9: 715.16, ICD10: M17.11 (primary diagnosis) Joint injection given in right knee joint today with benefit, no complications. Tolerated well. She is aware of care after procedure at home. - BETAMETHASONE ACETATE AND SODIUM PHOS 6 MG/ML SUSPENSION FOR INJECTION 2. Need for influenza vaccination - ICD9: V04.81, ICD10: Z23 - INFLUENZA VACCINE, PRSV FREE, AGE 65+ YR, HIGH DOSE, QUADRIVALENT (FLUZONE HIGH-DOSE) 3. Chronic pain of right knee - ICD9: 719.46, 338.29, ICD10: M25.561, G89.29 Joint injection given in right knee joint today with benefit, no complications. Tolerated well. She is aware of care after procedure at home. - BETAMETHASONE ACETATE AND SODIUM PHOS 6 MG/ML SUSPENSION FOR INJECTION 4. IFG (impaired fasting glucose) - ICD9: 790.21, ICD10: R73.01 Recheck labs as ordered, need for weight loss - HGB A1C - CBC + DIFF - COMP METABOLIC PANEL 5. (more content not included)...[facility]10-16-2023 History of Present illness Narrative* Mario Roberto DO - 11/22/2022 9:02 AM EDT CC: Pauly Seth is a 67 year old female who presents to the office for follow up HPI: Right knee pain, better than previous after she had her 1st corticosteroid knee injection. Walking better than before, still having improvement but pain is starting to come back. Had right knee injection July 02, 5 months ago with benefit. Is requesting this injection again. Wants to try to avoid surgery at this time on her knee Tobacco use, knows needs to quit but not sure that she is ready to quit. Has at least stage 1 COPD Mood, stable, taking Celexa, no concerns. PAST MEDICAL HISTORY Diagnosis Date Depression Hypercholesteremia Mental disorder Sebaceous cyst 06/02/2005 cyst R middle toe 06/11 Stage 1 mild COPD by GOLD classification ([facility]) 11/2017 Syncope and collapse 06/02/2005 near syncope 07/10 Tobacco use disorder 06/02/2005 PAST SURGICAL HISTORY Procedure Laterality Date CAUTERY CERVIX CRYOCAUTERY INITIAL/REPEAT 1991 COLONOSCOPY FLX DX W/COLLJ SPEC WHEN PFRMD 03/06/2018 Colonoscopy EXCISION GANGLION WRIST DORSAL/VOLAR PRIMARY right PAST SURGICAL HISTORY OF benign tumor Right breast removed Current Outpatient Medications Medication Sig albuterol HFA (PROVENTIL HFA, VENTOLIN HFA) 90 mcg/actuation inhaler Inhale 2 Puffs as instructed every 4 hours as needed for wheezing/shortness of breath. aspirin, enteric coated (ASPIRIN, ENTERIC COATED) 81 mg EC tablet Take 81 mg by mouth once daily. citalopram (CELEXA) 40 mg tablet Take 0.5 tablets by mouth once daily. guaiFENesin (MUCINEX) 600 mg 12 hr tablet Take 2 tablets by mouth twice daily. losartan (COZAAR) 100 mg tablet Take 1 tablet by mouth once daily. For high blood pressure propranolol (INDERAL) 60 mg tablet Take 1 tablet by mouth once daily. For tremor Current Facility-Administered Medications Medication Dose Route Frequency betamethasone acetate-betamethasone sodium phosphate 6 mg injection (CELESTONE) 6 mg Injection - FOR ORTHO USE ONLY ONCE ALLERGIES Allergen Reactions Asa [Salicylates] stomach upset Social History Tobacco Use Smoking status: Every Day Packs/day: 1.00 Years: 33.00 Additional pack years: 0.00 Total pack years: 33.00 Types: Cigarettes Smokeless tobacco: Never Tobacco comments: Just under a pack Substance Use Topics Alcohol use: Yes Comment: occasionally Drug use: No ROS: See HPI PE: BP 136/80 Pulse 56 Temp (Src) 97.6 (Left Tympanic) Resp 16 Wt 181 lb (82.1kg) LMP 09/27/2012 Gen: A&OX3, NAD, non-toxic appearing HEENT: PERRLA, EOMs intact b/l, nares without drainage, pharynx without erythema, exudate, lesions,or drainage. Uvula midline. Neck: No LAD, no thyromegaly, no meningismus. CV: RRR, no murmur Lungs: CTA b/l, no wheezing Skin: No rashes, lesions, or wounds on exposed skin. Right knee with medial and lateral jiont line TTP and mild effusion without erythema or warmth, antalgic gait, no instability INFORMED CONSENT Pauly Seth Medical Record: [id number] Date: 11/27/2022 Procedure:right knee corticosteroid joint injection The risks, benefits and anticipated outcomes of the procedure, the risks and benefits of the alternatives to the procedure and the roles and tasks of the personnel to be involved were discussed with the patient and the patient consents to the procedure and agrees to proceed. I verify that I personally obtained Pauly Seth's consent. Mario Roberto DO [facility] Procedure: After discussing the risks, complications, and benefits of corticosteroid injection, as well as alternative treatments, the patient agreed to proceed. Under sterile prep, the Right: 1 kneewas injected with 3 cc of 1% Lidocaine, and 1cc of 6 mg of Betamethasone There were no complications, and good pain relief was achieved. ASSESSMENT/PLAN: 1. Primary osteoarthritis of right knee - ICD9: 715.16, ICD10: M17.11 (primary diagnosis) Joint injection given in right knee joint today with benefit, no complications. Tolerated well. Sheis aware of care after procedure at home. - BETAMETHASONE ACETATE AND SODIUM PHOS 6 MG/ML SUSPENSION FOR INJECTION 2. Need for influenza vaccination - ICD9: V04.81, ICD10: Z23 - INFLUENZA VACCINE, PRSV FREE, AGE 65+ YR, HIGH DOSE, QUADRIVALENT (FLUZONE HIGH-DOSE) 3. Chronic pain of right knee - ICD9: 719.46, 338.29, ICD10: M25.561, G89.29 Joint injection given in right knee joint today with benefit, no complications. Tolerated well. Sheis aware of care after procedure at home. - BETAMETHASONE ACETATE AND SODIUM PHOS 6 MG/ML SUSPENSION FOR INJECTION 4. IFG (impaired fasting glucose) - ICD9: 790.21, ICD10: R73.01 Recheck labs as ordered, need for weight loss - HGB A1C - CBC + DIFF - COMP METABOLIC PANEL 5. Hypertriglyceridemia - ICD9: 272.1, ICD10: E78.1 - Controlled - Continue current medications - Counseled on healthy diet and regular exercise - LIPID PANEL BASIC 6. Stage 1 mild COPD by GOLD classification (HCC) - ICD9: 496, ICD10: J44.9 Need for tobacco cessation, she isn't ready yet 7. Obesity, Class I, BMI 30-34.9 - ICD9: 278.00, ICD10: E66.9 - Lengthy discussion in office today regarding diet and exercise. Discussed use of small plate to eat meals from, drink 1 glass of water 10-15 minutes prior to eating meal, drink 8 glasses of water daily, eat fresh fruit and vegetable during meal first then lean protein such as grilled/baked chicken breast or fish, limit carbohydrate intake (less pasta, breads, rice and snack foods) as well as limiting sugars (desserts etc). Important to count / track your calories and exercise as well. 8. Fatigue, unspecified type - ICD9: 780.79, ICD10: R53.83 Need for weight loss, recheck labss - VITAMIN B12 BLOOD - VITAMIN D 25 HYDROXY - TSH BLD - T4 FREE/FREE THYROX - T3 FREE BLD - CBC + DIFF - COMP METABOLIC PANEL 9. Tobacco use - ICD9: 305.1, ICD10: Z72.0 - Cessation encouraged. - Physiologic and physical aspects of tobacco addiction as well as strategies for quitting were discussed. - Counseling was given focusing on the harmful effects of this addiction especially given the patient's medical condition(s) which will be worsened because of the chemicals in tobacco. 10. Vitamin D deficiency - ICD9: 268.9, ICD10: E55.9 - VITAMIN D 25 HYDROXY Mario Roberto, DO Return if no improvement. Follow up with Mario Roberto DO. To ER if develops chest pain, shortness of breath. Discussed risks, benefits, alternatives, and potential side effects of medications. Patient/Guardian expressed understanding and agreed with the plan. See patient instructions. Mario Roberto DO [address] [place] [address] [facility] Miscellaneous Notes* Telephone Encounter - Smith Faust RN - 10/20/2022 3:00 PM EDT Patient has been identified by name and date of : Yes, Provider Pardeep Date 10-20-22 Time 3:02 pm Patient phones for refill(s): Requested Prescriptions Pending Prescriptions Disp Refills citalopram (CELEXA) 40 mg tablet 45 tablet 0 Sig: Take 0.5 tablets by mouth once daily. propranolol (INDERAL) 60 mg tablet 90 tablet 0 Sig: Take 1 tablet by mouth once daily. For tremor Date of last office visit with pcp: 09-09-22. Next appt: 11-22-22 Patient reports she only has 2 celexa left. Last 2 Encounter Wt Readings: Date: Wt: 09/09/2022 82.1 kg (181 lb) 07/02/2022 80.8 kg (178 lb 3.2 oz) Previous labs/tests for medication: Blood Pressure: BUN (mg/dL) Date Value 10/22/2020 15 Sodium (mmol/L) Date Value 10/22/2020 137 Last 1 Encounter BP Readings: Date: BP: 09/09/2022 130/76 Liver Function: ALT (U/L) Date Value 10/22/2020 13 AST (U/L) Date Value 10/22/2020 16 Please advise. Thank you. Smith Faust RN documented [facility]23 Miscellaneous Notes* Telephone Encounter - Denise Holt RPh - 09/10/2022 11:02 AM EDT Pharmacy Community Monitoring Outreach Patient indicated a medication question during [facility]) outreach. Encounter was routed to Pharmacy Medication Question Pool for follow up. Second attempt: Unable to reach patient after two attempts. No answer, left voicemail. No further attempts will be made at this time. If message left, advised patient reach out to PCP office with any immediate questions or concerns. Denise Holt RPh September 10, 2022 11:03 AM documented in this encounterMer[facility]08-03-2023 NoteHNO ID: [id number] Author: Jimy Chavis APRN.[facility] Service: ? Author Type: Nurse Practitioner Type: Progress Notes Filed: 09/09/2022 6:57 PM Note Text: Chief Complaint Patient presents with: Chest Congestion HPI Pauly Seth is a 67 year old female who presents here today for Above Complaints.. Patient presents for chest congestion x 5 days. Patient reports harsh productive cough, increased shortness of breath, and wheezing. Past medical history, appointments, medications, allergies reviewed. Previous Medical History PAST MEDICAL HISTORY Diagnosis Date Depression Hypercholesteremia Mental disorder Sebaceous cyst 06/02/2005 cyst R middle toe 06/11 Stage 1 mild COPD by GOLD classification ([facility]) 11/2017 Syncope and collapse 06/02/2005 near syncope 07/10 Tobacco use disorder 06/02/2005 Previous Surgical History PAST SURGICAL HISTORY Procedure Laterality Date CAUTERY CERVIX CRYOCAUTERY INITIAL/REPEAT 1991 COLONOSCOPY FLX DX W/COLLJ SPEC WHEN PFRMD 03/06/2018 Colonoscopy EXCISION GANGLION WRIST DORSAL/VOLAR PRIMARY right PAST SURGICAL HISTORY OF benign tumor Right breast removed Family History FAMILY HISTORY Problem Relation Age of Onset Heart Father ? other (lung cancer) Father Heart Brother Patient Allergies ALLERGIES Allergen Reactions Asa [Salicylates] stomach upset Current Medications Current Outpatient Medications on File Prior to Visit Medication Sig losartan (COZAAR) 100 mg tablet Take 1 tablet by mouth once daily. For high blood pressure propranolol (INDERAL) 60 mg tablet Take 1 tablet by mouth once daily. For tremor citalopram (CELEXA) 40 mg tablet Take 0.5 tablets by mouth once daily. albuterol HFA (PROAIR HFA) 90 mcg/actuation inhaler Inhale 2 Puffs as instructed every 6 hours as needed for wheezing/shortness of breath. aspirin, enteric coated (ASPIRIN, ENTERIC COATED) 81 mg EC tablet Take 81 mg by mouth once daily. Cholecalciferol, Vitamin D3, 2,000 unit cap Take 1 tablet by mouth once daily. calcium carbonate (CALTRATE) 600 mg (1,500 mg) tab Take 1 tablet by mouth twice daily. MULTIVITAMIN TAB Take one(1) tablet daily. No current facility-administered medications on file prior to visit. Social History Social History Tobacco Use Smoking status: Every Day Packs/day: 1.00 Years: 33.00 Total pack years: 33.00 Types: Cigarettes Smokeless tobacco: Never Tobacco comments: Just under a pack Substance Use Topics Alcohol use: Yes Comment: occasionally Drug use: No Review of Symptoms REVIEW OF SYSTEMS SEE HPI EXAM: BP 130/76 Pulse 74 Resp 14 Wt 82.1 kg (181 lb) LMP 09/27/2012 BMI 32.58 kg/m? General Appearance: Well appearing, alert, in no acute distress, well-hydrated, well nourished.. Lungs: Positive findings: wheezing , tachypnea Shortness of breath: Upon exertion. Heart: RRR without murmur, gallop, or rubs. No ectopy. Health Maintenance List BP CONTROLLED (<130/80) Never done ALPHA-1 ANTITRYPSIN DEFICIENCY SCREENING Never done SHINGRIX VACCINE(1 of 2) Never done BONE DENSITY due on 2018 LUNG CANCER SCREENING due on 11/10/2018 PNEUMOCOCCAL: 65+(2 - PPSV23 or PCV20) due on 12/21/2019 COVID-19 VACCINE(4 - Pfizer series) due on 04/02/2021 MAMMOGRAM due on 04/14/2022 INFLUENZA(1) due on 10/08/2022 ANNUAL PCP TEAM CHRONIC DISEASE VISIT due on 07/03/2023 DIABETES SCREEN due on 10/23/2023 DTAP,TDAP,TD(4 - Td or Tdap) due on 06/19/2025 LIPID SCREEN due on 10/22/2025 COLORECTAL CANCER SCREENING due on 03/06/2028 SPIROMETRY Completed HEPATITIS C SCREENING Completed ADVANCE DIRECTIVE DISCUSSION Discontinued ASSESSMENT/PLAN: 1. Stage 1 mild COPD by GOLD classification (HCC) - ICD9: 496, ICD10: J44.9 (primary diagnosis) - ALBUTEROL SULFATE HFA 90 MCG/ACTUATION AEROSOL INHALER - INHALATIONAL SPACING DEVICE 2. Chronic obstructive pulmonary disease with acute exacerbation ([facility]) - ICD9: 491.21, ICD10: J44.1 - GUAIFENESIN ER 600 MG TABLET, EXTENDED RELEASE 12 HR - PREDNISONE 20 MG TABLET - OMNICEF Jimy Chavis APRN.[facility]08-03-2023 History of Present illness Narrative* Jimy Chavis APRN.[facility] - 09/09/2022 6:44 PM EDT Chief Complaint Patient presents with: Chest Congestion HPI Pauly Seth is a 67 year old female who presents here today for Above Complaints.. Patient presents for chest congestion x 5 days. Patient reports harsh productive cough, increased shortness of breath, and wheezing. Past medical history, appointments, medications, allergies reviewed. Previous Medical History PAST MEDICAL HISTORY Diagnosis Date Depression Hypercholesteremia Mental disorder Sebaceous cyst 06/02/2005 cyst R middle toe 06/11 Stage 1 mild COPD by GOLD classification ([facility]) 11/2017 Syncope and collapse 06/02/2005 near syncope 07/10 Tobacco use disorder 06/02/2005 Previous Surgical History PAST SURGICAL HISTORY Procedure Laterality Date CAUTERY CERVIX CRYOCAUTERY INITIAL/REPEAT 1991 COLONOSCOPY FLX DX W/COLLJ SPEC WHEN PFRMD 03/06/2018 Colonoscopy EXCISION GANGLION WRIST DORSAL/VOLAR PRIMARY right PAST SURGICAL HISTORY OF benign tumor Right breast removed Family History FAMILY HISTORY Problem Relation Age of Onset Heart Father ? other (lung cancer) Father Heart Brother Patient Allergies ALLERGIES Allergen Reactions Asa [Salicylates] stomach upset Current Medications Current Outpatient Medications on File Prior to Visit Medication Sig losartan (COZAAR) 100 mg tablet Take 1 tablet by mouth once daily. For high blood pressure propranolol (INDERAL) 60 mg tablet Take 1 tablet by mouth once daily. For tremor citalopram (CELEXA) 40 mg tablet Take 0.5 tablets by mouth once daily. albuterol HFA (PROAIR HFA) 90 mcg/actuation inhaler Inhale 2 Puffs as instructed every 6 hours as needed for wheezing/shortness of breath. aspirin, enteric coated (ASPIRIN, ENTERIC COATED) 81 mg EC tablet Take 81 mg by mouth once daily. Cholecalciferol, Vitamin D3, 2,000 unit cap Take 1 tablet by mouth once daily. calcium carbonate (CALTRATE) 600 mg (1,500 mg) tab Take 1 tablet by mouth twice daily. MULTIVITAMIN TAB Take one(1) tablet daily. No current facility-administered medications on file prior to visit. Social History Social History Tobacco Use Smoking status: Every Day Packs/day: 1.00 Years: 33.00 Total pack years: 33.00 Types: Cigarettes Smokeless tobacco: Never Tobacco comments: Just under a pack Substance Use Topics Alcohol use: Yes Comment: occasionally Drug use: No Review of Symptoms REVIEW OF SYSTEMS SEE HPI EXAM: BP 130/76 Pulse 74 Resp 14 Wt 82.1 kg (181 lb) LMP 09/27/2012 BMI 32.58 kg/m General Appearance: Well appearing, alert, in no acute distress, well-hydrated, well nourished.. Lungs: Positive findings: wheezing , tachypnea Shortness of breath: Upon exertion. Heart: RRR without murmur, gallop, or rubs. No ectopy. Health Maintenance List BP CONTROLLED (<130/80) Never done ALPHA-1 ANTITRYPSIN DEFICIENCY SCREENING Never done SHINGRIX VACCINE(1 of 2) Never done BONE DENSITY due on 2018 LUNG CANCER SCREENING due on 11/10/2018 PNEUMOCOCCAL: 65+(2 - PPSV23 or PCV20) due on 12/21/2019 COVID-19 VACCINE(4 - Pfizer series) due on 04/02/2021 MAMMOGRAM due on 04/14/2022 INFLUENZA(1) due on 10/08/2022 ANNUAL PCP TEAM CHRONIC DISEASE VISIT due on 07/03/2023 DIABETES SCREEN due on 10/23/2023 DTAP,TDAP,TD(4 - Td or Tdap) due on 06/19/2025 LIPID SCREEN due on 10/22/2025 COLORECTAL CANCER SCREENING due on 03/06/2028 SPIROMETRY Completed HEPATITIS C SCREENING Completed ADVANCE DIRECTIVE DISCUSSION Discontinued ASSESSMENT/PLAN: 1. Stage 1 mild COPD by GOLD classification (HCC) - ICD9: 496, ICD10: J44.9 (primary diagnosis) - ALBUTEROL SULFATE HFA 90 MCG/ACTUATION AEROSOL INHALER - INHALATIONAL SPACING DEVICE 2. Chronic obstructive pulmonary disease with acute exacerbation (HCC) - ICD9: 491.21, ICD10: J44.1 - GUAIFENESIN ER 600 MG TABLET, EXTENDED RELEASE 12 HR - PREDNISONE 20 MG TABLET - OMNICEF Jimy Chavis APRN.FRONT OFFICE HELP documented in this encounterMer[facility]23 Miscellaneous Notes* Telephone Encounter - Kelsey Shaffer RN - 09/09/2022 4:30 PM EDT Triage Protocol Recommended: See provider within 4 hours for evaluation. No appt available with PCPteam . Appt made with [facility] for today at 6:40pm with Jimy Chavis CNP. Please contact pt if provider has other recommendations. Thank you. Reason for Disposition [1] MILD difficulty breathing (e.g., minimal/no SOB at rest, SOB with walking, pulse <100) AND [2] still present when not coughing Wheezing is present Answer Assessment - Initial Assessment Questions 1. ONSET:4 days ago 2. SEVERITY: moderate 3. SPUTUM: yes, yellow 4. HEMOPTYSIS: denies 5. DIFFICULTY BREATHING: mild SOB with exertion at times 6. FEVER: denies but has not checked. I may have had a fever a couple days ago 7. CARDIAC HISTORY: see history 8. LUNG HISTORY: COPD-see history 9. PE RISK FACTORS: denies 10. OTHER SYMPTOMS: - hurts when I cough -productive cough -chest congestion -increase in wheezing at times -body aches -reports she has COPD 11. : no 12. TRAVEL: denies 13. OTHER: reports her cats all have colds and believes that is interesting Protocols used: Cough - Acute Ulxjuuxkxo-[id number]-SN documented in this encounterMer[facility]08-03-2023 NotePatient Outreach ([facility]) PAULY SETH ([id number]) 1955 F Date Time Provider Department 09/09/22 NIYAH KING During your visit today, we recorded the following information about you: Niyah King RN 09/09/2022 5:51 PM Signed CDM ESCALATION Provider Action / FYI: Message received via: social organization professor Pool Contact made with patient: No, left message. Niyah Viera RN September 09, 2022 10:31 AM Allergies As of Date: 09/09/2022 Noted Allergy Reaction No Active Allergies DELETED: ASA (SALICYLATES) 06/02/2005 8 - GI Upset Comments: stomach upset sometimes Date Reviewed: 09/09/2022 Reviewed by: Gabi De Cma - Fully Assessed Reason for Visit: Community monitoring outreach [Other] C[facility] Prescriptions as of 02/18/2023 - oxyCODONE-acetaminophen (PERCOCET) 5-325 mg tablet Take 1 tablet by mouth every 6 hours as needed for pain for up to 7 days. - calcium-cholecalciferol, D3, (OSCAL+D 250) 250 mg-3.125 mcg (125 unit) per tablet Take 1 tablet by mouth two times a day. - ascorbic acid, vitamin C, (VITAMIN C) 500 mg tablet Take 1 tablet by mouth two times a day. - oxyCODONE ER (OXYCONTIN) 10 mg 12 hr tablet Take 1 tablet by mouth every 12 hours for 5 days. - polyethylene glycol 3350 (MIRALAX) 17 gram/dose powder Take 17 g by mouth once daily for 15 days. Dissolve dose in 4 - 8 ounces of liquid and take as directed. - ELIQUIS 5 mg tab(s) Take 5 mg by mouth two times a day. - citalopram (CELEXA) 40 mg tablet Take 0.5 tablets by mouth once daily. - propranolol (INDERAL) 60 mg tablet Take 1 tablet by mouth once daily. For tremor - losartan (COZAAR) 100 mg tablet Take 1 tablet by mouth once daily. For high blood pressure Problem List As Of Date 09/09/2022 Noted Resolved Syncope and collapse [R55] 06/02/2005 11/11/2015 TOBACCO USE DISORDER [F17.200] 06/02/2005 Sebaceous cyst [L72.3] 06/02/2005 DEPRESSIVE DISORDER NEC [F32.89] 03/31/2007 SLEEP DISTURBANCE NOS [G47.9] 03/14/2008 Hyperlipidemia [E78.5] 04/24/2014 Actinic keratoses [L57.0] 06/13/2017 Special screening for malignant neoplasms, colo*06/13/2017 Sweating abnormality [L74.9] 06/13/2017 Hot flashes [R23.2] 06/13/2017 Left lateral ankle pain [M25.572] 06/13/2017 Changing skin lesion [L98.9] 06/13/2017 Finger injury, right, initial encounter [S69.91*06/13/2017 Right hand pain [M79.641] 06/13/2017 Skin lesion of left leg [L98.9] 11/02/2017 Pilonidal cyst without abscess [L05.91] 11/02/2017 Tobacco dependence [F17.200] 11/02/2017 Chronic cough [R05.3] 11/02/2017 Shortness of breath [R06.02] 11/02/2017 Stage 1 mild COPD by GOLD classification (HCC) *11/07/2017 IFG (impaired fasting glucose) [R73.01] 06/12/2018 Tobacco use [Z72.0] 06/12/2018 Dysthymia [F34.1] 08/16/2018 Hypertriglyceridemia [E78.1] 08/16/2018 Obesity, Class I, BMI 30-34.9 [E66.9] 10/29/2020 Primary osteoarthritis of left knee [M17.12] 04/29/2021 Acute pain of right knee [M25.561] 04/29/2021 Fatigue [R53.83] 04/21/2022 Hypertension, essential [I10] 04/21/2022 Primary osteoarthritis of right knee [M17.11] 07/02/2022 Encounter Status:Closed by NIYAH VILLEDA on 09/09/22[facility] 09-09-2022 NoteHNO ID: [id number] Author: Niyah King RN Service: ? Author Type: Registered Nurse Type: Progress Notes Filed: 09/09/2022 5:51 PM Note Text: CDM ESCALATION Provider Action / FYI: Message received via: social organization professor Pool Contact made with patient: No, left message. Niyah Viera RN September 09, 2022 10:31 [facility]08-03[facility] History of Present illness Narrative* Niyah King RN - 09/09/2022 10:30 AM EDT CDM ESCALATION Provider Action / FYI: Message received via: social organization professor Pool Contact made with patient: No, left message. Niyah Viera RN September 09, 2022 10:31 AM documented in this encounterMercy Health West Hospital08-03-2023 Miscellaneous Notes* Telephone Encounter - Gely Echeverria RPh - 09/09/2022 10:03 AM EDT Pharmacy Community Monitoring Outreach Patient indicated a medication question during [facility] outreach. Encounter was routed to Pharmacy Medication Question Pool for follow up. First attempt: No answer, left voicemail. Advised patient to reach out to PCP office with any immediate questions or concerns. Gely Echeverria RPh September 09, 2022 10:03 AM documented in this encounterMercy Health West Hospital07-25-2023 NoteHNO ID: [id number] Author: Ermias Zacarias PSS Service: ? Author Type: ? Type: Progress Notes Filed: 08/31/2022 3:03 PM Note Text: POPULATION HEALTH NAVIGATION OUTREACH Action/FYI Pt due for: Mammogram Called pt, LM. Sent mychart message Patient Identified by Name and : NO Outreach Outcome/Action Unable to reach patient: Left message MyChart message sent Did you use a PCP flex slot to schedule this appointment? N/A Reason for Outreach Care Gap or Scheduling/Wellness visits Payer: Payor: SCARLETT PARADA [employer] / Plan: [employer] HMO / Product Type: HMO / Care Gap Reviewed:: Breast Cancer screening Reminder: Reminder note to check Health Maintenance for items below Health Maintenance items due: BP CONTROLLED (<130/80) Never done ALPHA-1 ANTITRYPSIN DEFICIENCY SCREENING Never done SHINGRIX VACCINE(1 of 2) Never done BONE DENSITY due on 2018 LUNG CANCER SCREENING due on 11/10/2018 PNEUMOCOCCAL: 65+(2 - PPSV23 or PCV20) due on 12/21/2019 COVID-19 VACCINE(4 - Pfizer series) due on 04/02/2021 MAMMOGRAM due on 04/14/2022 Navigation Signature: MINERVA Seay August 31, 2022 2:54 [facility]07-25-2023 NotePatient Outreach (NETNAV) PAULY SETH ([id number]) 1955 F Date Time Provider Department 08/31/22 ERMIAS ZACARIAS During your visit today, we recorded the following information about you: Ermias Zacarias, MINERVA 08/31/2022 3:03 PM Signed POPULATION HEALTH NAVIGATION OUTREACH Action/ Pt due for: Mammogram Called pt, LM. Sent [employer] message Patient Identified by Name and : NO Outreach Outcome/Action Unable to reach patient: Left message Gram[employer]hart message sent Did you use a PCP flex slot to schedule this appointment? N/A Reason for Outreach Care Gap or Scheduling/Wellness visits Payer: Payor: SCARLETT [employer] / Plan: [employer] HMO / Product Type: HMO / Care Gap Reviewed:: Breast Cancer screening Reminder: Reminder note to check Health Maintenance for items below Health Maintenance items due: BP CONTROLLED (<130/80) Never done ALPHA-1 ANTITRYPSIN DEFICIENCY SCREENING Never done SHINGRIX VACCINE(1 of 2) Never done BONE DENSITY due on 2018 LUNG CANCER SCREENING due on 11/10/2018 PNEUMOCOCCAL: 65+(2 - PPSV23 or PCV20) due on 12/21/2019 COVID-19 VACCINE(4 - Pfizer series) due on 04/02/2021 MAMMOGRAM due on 04/14/2022 Navigation Signature: MINERVA Seay August 31, 2022 2:54 PM Allergies As of Date: 08/31/2022 Noted Allergy Reaction ASA (SALICYLATES) 06/02/2005 Comments: stomach upset Date Reviewed: 04/19/2022 Reviewed by: Galina Segal LPN - Fully Assessed Reason for Visit: Population Health Navigation Outreach [3910] Cmt: Scarlett gonzales Prescriptions as of 08/31/2022 - losartan (COZAAR) 100 mg tablet Take 1 tablet by mouth once daily. For high blood pressure - propranolol (INDERAL) 60 mg tablet Take 1 tablet by mouth once daily. For tremor - citalopram (CELEXA) 40 mg tablet Take 0.5 tablets by mouth once daily. - albuterol HFA (PROAIR HFA) 90 mcg/actuation inhaler Inhale 2 Puffs as instructed every 6 hours as needed for wheezing/shortness of breath. - aspirin, enteric coated (ASPIRIN, ENTERIC COATED) 81 mg EC tablet Take 81 mg by mouth once daily. - Cholecalciferol, Vitamin D3, 2,000 unit cap Take 1 tablet by mouth once daily. - calcium carbonate (CALTRATE) 600 mg (1,500 mg) tab Take 1 tablet by mouth twice daily. - MULTIVITAMIN TAB Take one(1) tablet daily. Problem List As Of Date 08/31/2022 Noted Resolved Syncope and collapse [R55] 06/02/2005 11/11/2015 TOBACCO USE DISORDER [F17.200] 06/02/2005 Sebaceous cyst [L72.3] 06/02/2005 DEPRESSIVE DISORDER NEC [F32.89] 03/31/2007 SLEEP DISTURBANCE NOS [G47.9] 03/14/2008 Hyperlipidemia [E78.5] 04/24/2014 Actinic keratoses [L57.0] 06/13/2017 Special screening for malignant neoplasms, colo*06/13/2017 Sweating abnormality [L74.9] 06/13/2017 Hot flashes [R23.2] 06/13/2017 Left lateral ankle pain [M25.572] 06/13/2017 Changing skin lesion [L98.9] 06/13/2017 Finger injury, right, initial encounter [S69.91*06/13/2017 Right hand pain [M79.641] 06/13/2017 Skin lesion of left leg [L98.9] 11/02/2017 Pilonidal cyst without abscess [L05.91] 11/02/2017 Tobacco dependence [F17.200] 11/02/2017 Chronic cough [R05.3] 11/02/2017 Shortness of breath [R06.02] 11/02/2017 Stage 1 mild COPD by GOLD classification ([facility]) *11/07/2017 IFG (impaired fasting glucose) [R73.01] 06/12/2018 Tobacco use [Z72.0] 06/12/2018 Dysthymia [F34.1] 08/16/2018 Hypertriglyceridemia [E78.1] 08/16/2018 Obesity, Class I, BMI 30-34.9 [E66.9] 10/29/2020 Primary osteoarthritis of left knee [M17.12] 04/29/2021 Acute pain of right knee [M25.561] 04/29/2021 Fatigue [R53.83] 04/21/2022 Hypertension, essential [I10] 04/21/2022 Primary osteoarthritis of right knee [M17.11] 07/02/2022 Encounter Status:Closed by ERMIAS ZACARIAS on 08/31/22[facility]07-19-[facility]23 Miscellaneous Notes* Telephone Encounter - Ksihor Reed LPN - 08/25/2022 10:42 AM EDT Left message to return call to office. MC message to pt as well. Kishor Reed LPN * Telephone Encounter - Flaquita Spicer - 08/19/2022 10:52 AM EDT Left message for patient to return call. Flaquita Spicer * Telephone Encounter - Kevin Duval MD - 08/19/2022 8:38 AM EDT Let her know Dr Roberto is out of the office currently. Also let her know generally they recommendwaiting at least three months. * Telephone Encounter - Galina Segal LPN - 08/18/2022 4:01 PM EDT Images from the original note were not included. Pauly Seth [facility] My Chart Rx Pool Dr Roberto, Is it safe to get another shot in my knee, it will be 7 weeks this Tuesday? Tracy documented in this encounterMer[facility]07-12-2023 Miscellaneous Notes* Telephone Encounter - Galina Segal LPN - 08/18/2022 4:02 PM EDT See telephone note documented in this encounterMercy Health [facility] Hospital05-26-2023 NoteHNO ID: [id number] Author: Mario Roberto, DO Service: ? Author Type: Physician Type: Progress Notes Filed: 07/02/2022 5:17 PM Note Text: CC: Pauly Seth is a 66 year old female who presents to the office for right knee pain HPI: Right knee pain, recently over the last 2-3 weeks the pain and mild joint swelling has been bothering her a lot, she hasn't been able to mow her yard or walk a long distance. Hx of OA, hasn't ever had a joint injection in the past but requesting one today if able. Has been taking oral ibuprofen and tylenol, resting and icing, with minimal /mild relief only. No fevers or chills. No known injuries. PAST MEDICAL HISTORY Diagnosis Date Depression Hypercholesteremia Mental disorder Sebaceous cyst 06/02/2005 cyst R middle toe 06/11 Stage 1 mild COPD by GOLD classification ([facility]) 11/2017 Syncope and collapse 06/02/2005 near syncope 07/10 Tobacco use disorder 06/02/2005 PAST SURGICAL HISTORY Procedure Laterality Date CAUTERY CERVIX CRYOCAUTERY INITIAL/REPEAT 1991 COLONOSCOPY FLX DX W/COLLJ SPEC WHEN PFRMD 03/06/2018 Colonoscopy EXCISION GANGLION WRIST DORSAL/VOLAR PRIMARY right PAST SURGICAL HISTORY OF benign tumor Right breast removed Current Outpatient Medications Medication Sig propranolol (INDERAL) 60 mg tablet Take 1 tablet by mouth once daily. For tremor losartan (COZAAR) 25 mg tablet Take 1 tablet by mouth once daily. For high blood pressure citalopram (CELEXA) 40 mg tablet Take 0.5 tablets by mouth once daily. albuterol HFA (PROAIR HFA) 90 mcg/actuation inhaler Inhale 2 Puffs as instructed every 6 hours as needed for wheezing/shortness of breath. aspirin, enteric coated (ASPIRIN, ENTERIC COATED) 81 mg EC tablet Take 81 mg by mouth once daily. Cholecalciferol, Vitamin D3, 2,000 unit cap Take 1 tablet by mouth once daily. calcium carbonate (CALTRATE) 600 mg (1,500 mg) tab Take 1 tablet by mouth twice daily. MULTIVITAMIN TAB Take one(1) tablet daily. No current facility-administered medications for this visit. ALLERGIES Allergen Reactions Asa [Salicylates] stomach upset Social History Tobacco Use Smoking status: Every Day Packs/day: 1.00 Years: 33.00 Pack years: 33.00 Types: Cigarettes Smokeless tobacco: Never Tobacco comments: Just under a pack Substance Use Topics Alcohol use: Yes Comment: occasionally Drug use: No ROS: See HPI PE: BP 150/94 Pulse 60 Temp 97.2 Resp 16 Wt 178 lb 3.2 oz (80.8kg) SpO2 96% LMP 09/27/2012 Gen: AANDOX3, NAD, non-toxic appearing HEENT: PERRLA, EOMs intact b/l, nares without drainage, pharynx without erythema, exudate, lesions, or drainage. Uvula midline. Neck: No LAD, no thyromegaly, no meningismus. CV: RRR, no murmur Lungs: CTA b/l, no wheezing Skin: No rashes, lesions, or wounds on exposed skin. Right knee joint effusion and TTP medial>lateral joint without any skin color change, grinding on flex and ext of joint INFORMED CONSENT Pauly Seth Medical Record: [id number] Date: 07/02/2022 Procedure:right knee joint corticosteroid injection The risks, benefits and anticipated outcomes of the procedure, the risks and benefits of the alternatives to the procedure and the roles and tasks of the personnel to be involved were discussed with the patient and the patient consents to the procedure and agrees to proceed. I verify that I personally obtained Pauly Seth's consent. Mario Roberto DO [facility] [place] Procedure: After discussing the risks, complications, and benefits of corticosteroid injection, as well as alternative treatments, the patient agreed to proceed. Under sterile prep, the Right: 1 knee was injected with 3 cc of 1% Lidocaine, and 1cc of 6 mg of Betamethasone. There were no complications, and good pain relief was achieved. ASSESSMENT/PLAN: 1. Primary osteoarthritis of right knee - ICD9: 715.16, ICD10: M17.11 (primary diagnosis) Right knee joint corticosteroid injection given in the office today, tolerated well, no complications, she is aware of routine after injection to do at home - BETAMETHASONE ACETATE AND SODIUM PHOS 6 MG/ML SUSPENSION FOR INJECTION 2. Hypertension, essential - ICD9: 401.9, ICD10: I10 - poor control - Increase losartan(Cozaar) - Recommended regular aerobic exercise. - Recommend home blood pressure monitoring, to bring results in on next visit - Discussed need and benefit for weight loss. - Goal of BP <130/80 - LOSARTAN 100 MG TABLET 3. Acute pain of right knee - ICD9: 719.46, ICD10: M25.561 Right knee joint corticosteroid injection given in the office today, tolerated well, no complications, she is aware of routine after injection to do at home - BETAMETHASONE ACETATE AND SODIUM PHOS 6 MG/ML SUSPENSION FOR INJECTION Mario Roberto DO Return if no improvement. Follow up with Mario Roberto DO. To ER if develops chest pain, shortness of (more content not included)... [facility]05-19-2023 NoteHNO ID: [id number] Author: Soumya Maldonado Service: ? Author Type: ? Type: Progress Notes Filed: 06/25/2022 12:50 PM Note Text: POPULATION HEALTH NAVIGATION OUTREACH Action/FYI Left vm Patient Identified by Name and : NO Outreach Outcome/Action Unable to reach patient: Left message MyChart message sent Did you use a PCP flex slot to schedule this appointment? No Reason for Outreach Care Gap or Scheduling/Wellness visits Payer: Payor: SCARLETT [employer] / Plan: [employer] HMO / Product Type: HMO / Care Gap Reviewed:: Specialty Scheduling Reminder: Reminder note to check Health Maintenance for items below Health Maintenance items due: BP CONTROLLED (<130/80) Never done ALPHA-1 ANTITRYPSIN DEFICIENCY SCREENING Never done SHINGRIX VACCINE(1 of 2) Never done BONE DENSITY due on 2018 LUNG CANCER SCREENING due on 11/10/2018 PNEUMOCOCCAL: 65+(2 - PPSV23 if available, else PCV20) due on 12/21/2019 COVID-19 VACCINE(4 - Booster for Pfizer series) due on 04/02/2021 MAMMOGRAM due on 04/14/2022 Navigation Signature: Soumya Maldonado June 25, 2022 12:50 [facility]05-19-2023 NotePatient Outreach (NETNAV) PAULY SETH ([id number]) 1955 F Date Time Provider Department 06/25/22 LIZBETH ORTIZ During your visit today, we recorded the following information about you: Lizbeth Ortiz MA 06/25/2022 11:38 AM Signed POPULATION HEALTH NAVIGATION OUTREACH Action/FYI I left a message and sent a mychart. Patient needs: physical (04/21/23), mammogram Patient Identified by Name and : NO Outreach Outcome/Action Unable to reach patient: Left message MyChart message sent Did you use a PCP flex slot to schedule this appointment? N/A Reason for Outreach Care Gap or Scheduling/Wellness visits Payer: Payor: SCARLETT [employer] [facility] / Plan: SCARLETT MAT[employer]AL HMO / Product Type: HMO / Care Gap Reviewed:: Annual Wellness visit Breast Cancer screening Reminder: Reminder note to check Health Maintenance for items below Health Maintenance items due: BP CONTROLLED (<130/80) Never done ALPHA-1 ANTITRYPSIN DEFICIENCY SCREENING Never done SHINGRIX VACCINE(1 of 2) Never done BONE DENSITY due on 2018 LUNG CANCER SCREENING due on 11/10/2018 PNEUMOCOCCAL: 65+(2 - PPSV23 if available, else PCV20) due on 12/21/2019 COVID-19 VACCINE(4 - Booster for Pfizer series) due on 04/02/2021 MAMMOGRAM due on 04/14/2022 Navigation Signature: Lizbeth Ortiz Population Health Navigator June 25, 2022 8:18 AM Allergies As of Date: 06/25/2022 Noted Allergy Reaction ASA (SALICYLATES) 06/02/2005 Comments: stomach upset Date Reviewed: 04/19/2022 Reviewed by: Galina Segal LPN - Fully Assessed Reason for Visit: Population Health Navigation Outreach [3910] Cmt: Scarlett Care Gaps Prescriptions as of 06/25/2022 - propranolol (INDERAL) 60 mg tablet Take 1 tablet by mouth once daily. For tremor - losartan (COZAAR) 25 mg tablet Take 1 tablet by mouth once daily. For high blood pressure - citalopram (CELEXA) 40 mg tablet Take 0.5 tablets by mouth once daily. - albuterol HFA (PROAIR HFA) 90 mcg/actuation inhaler Inhale 2 Puffs as instructed every 6 hours as needed for wheezing/shortness of breath. - aspirin, enteric coated (ASPIRIN, ENTERIC COATED) 81 mg EC tablet Take 81 mg by mouth once daily. - Cholecalciferol, Vitamin D3, 2,000 unit cap Take 1 tablet by mouth once daily. - calcium carbonate (CALTRATE) 600 mg (1,500 mg) tab Take 1 tablet by mouth twice daily. - MULTIVITAMIN TAB Take one(1) tablet daily. Problem List As Of Date 06/25/2022 Noted Resolved Syncope and collapse [R55] 06/02/2005 11/11/2015 TOBACCO USE DISORDER [F17.200] 06/02/2005 Sebaceous cyst [L72.3] 06/02/2005 DEPRESSIVE DISORDER NEC [F32.89] 03/31/2007 SLEEP DISTURBANCE NOS [G47.9] 03/14/2008 Hyperlipidemia [E78.5] 04/24/2014 Actinic keratoses [L57.0] 06/13/2017 Special screening for malignant neoplasms, colo*06/13/2017 Sweating abnormality [L74.9] 06/13/2017 Hot flashes [R23.2] 06/13/2017 Left lateral ankle pain [M25.572] 06/13/2017 Changing skin lesion [L98.9] 06/13/2017 Finger injury, right, initial encounter [S69.91*06/13/2017 Right hand pain [M79.641] 06/13/2017 Skin lesion of left leg [L98.9] 11/02/2017 Pilonidal cyst without abscess [L05.91] 11/02/2017 Tobacco dependence [F17.200] 11/02/2017 Chronic cough [R05.3] 11/02/2017 Shortness of breath [R06.02] 11/02/2017 Stage 1 mild COPD by GOLD classification (HCC) *11/07/2017 IFG (impaired fasting glucose) [R73.01] 06/12/2018 Tobacco use [Z72.0] 06/12/2018 Dysthymia [F34.1] 08/16/2018 Hypertriglyceridemia [E78.1] 08/16/2018 Obesity, Class I, BMI 30-34.9 [E66.9] 10/29/2020 Primary osteoarthritis of left knee [M17.12] 04/29/2021 Chronic pain of left knee [M25.562, G89.29] 04/29/2021 Fatigue [R53.83] 04/21/2022 Hypertension, essential [I10] 04/21/2022 Encounter Status:Closed by LIZBETH ORTIZ on 06/25/22[facility] 06-25-2022 NotePatient Outreach ([facility]) ROLOPAULY Em ([id number]) 1955 F Date Time Provider Department 06/25/22 PCP (HISTORICAL) [facility] During your visit today, we recorded the following information about you: Soumya Ronda 06/25/2022 12:50 PM Signed POPULATION HEALTH NAVIGATION OUTREACH Action/FYI Left vm Patient Identified by Name and : NO Outreach Outcome/Action Unable to reach patient: Left message Gram[employer] message sent Did you use a PCP flex slot to schedule this appointment? No Reason for Outreach Care Gap or Scheduling/Wellness visits Payer: Payor: [employer] / Plan: [employer] HMO / Product Type: HMO / Care Gap Reviewed:: Specialty Scheduling Reminder: Reminder note to check Health Maintenance for items below Health Maintenance items due: BP CONTROLLED (<130/80) Never done ALPHA-1 ANTITRYPSIN DEFICIENCY SCREENING Never done SHINGRIX VACCINE(1 of 2) Never done BONE DENSITY due on 2018 LUNG CANCER SCREENING due on 11/10/2018 PNEUMOCOCCAL: 65+(2 - PPSV23 if available, else PCV20) due on 12/21/2019 COVID-19 VACCINE(4 - Booster for Pfizer series) due on 04/02/2021 MAMMOGRAM due on 04/14/2022 Navigation Signature: Soumya Ronda June 25, 2022 12:50 PM Allergies As of Date: 06/25/2022 Noted Allergy Reaction ASA (SALICYLATES) 06/02/2005 Comments: stomach upset Date Reviewed: 04/19/2022 Reviewed by: Galina Segal LPN - Fully Assessed Prescriptions as of 06/25/2022 - propranolol (INDERAL) 60 mg tablet Take 1 tablet by mouth once daily. For tremor - losartan (COZAAR) 25 mg tablet Take 1 tablet by mouth once daily. For high blood pressure - citalopram (CELEXA) 40 mg tablet Take 0.5 tablets by mouth once daily. - albuterol HFA (PROAIR HFA) 90 mcg/actuation inhaler Inhale 2 Puffs as instructed every 6 hours as needed for wheezing/shortness of breath. - aspirin, enteric coated (ASPIRIN, ENTERIC COATED) 81 mg EC tablet Take 81 mg by mouth once daily. - Cholecalciferol, Vitamin D3, 2,000 unit cap Take 1 tablet by mouth once daily. - calcium carbonate (CALTRATE) 600 mg (1,500 mg) tab Take 1 tablet by mouth twice daily. - MULTIVITAMIN TAB Take one(1) tablet daily. Problem List As Of Date 06/25/2022 Noted Resolved Syncope and collapse [R55] 06/02/2005 11/11/2015 TOBACCO USE DISORDER [F17.200] 06/02/2005 Sebaceous cyst [L72.3] 06/02/2005 DEPRESSIVE DISORDER NEC [F32.89] 03/31/2007 SLEEP DISTURBANCE NOS [G47.9] 03/14/2008 Hyperlipidemia [E78.5] 04/24/2014 Actinic keratoses [L57.0] 06/13/2017 Special screening for malignant neoplasms, colo*06/13/2017 Sweating abnormality [L74.9] 06/13/2017 Hot flashes [R23.2] 06/13/2017 Left lateral ankle pain [M25.572] 06/13/2017 Changing skin lesion [L98.9] 06/13/2017 Finger injury, right, initial encounter [S69.91*06/13/2017 Right hand pain [M79.641] 06/13/2017 Skin lesion of left leg [L98.9] 11/02/2017 Pilonidal cyst without abscess [L05.91] 11/02/2017 Tobacco dependence [F17.200] 11/02/2017 Chronic cough [R05.3] 11/02/2017 Shortness of breath [R06.02] 11/02/2017 Stage 1 mild COPD by GOLD classification (HCC) *11/07/2017 IFG (impaired fasting glucose) [R73.01] 06/12/2018 Tobacco use [Z72.0] 06/12/2018 Dysthymia [F34.1] 08/16/2018 Hypertriglyceridemia [E78.1] 08/16/2018 Obesity, Class I, BMI 30-34.9 [E66.9] 10/29/2020 Primary osteoarthritis of left knee [M17.12] 04/29/2021 Chronic pain of left knee [M25.562, G89.29] 04/29/2021 Fatigue [R53.83] 04/21/2022 Hypertension, essential [I10] 04/21/2022 Encounter Status:Closed by SOUMYA MALDONADO on 06/25/22[facility] 06-25-2022 NoteHNO ID: [id number] Author: Lizbeth Ortiz MA Service: ? Author Type: Flask Cleaner Type: Progress Notes Filed: 06/25/2022 11:38 AM Note Text: POPULATION HEALTH NAVIGATION OUTREACH Action/FYI I left a message and sent a mychart. Patient needs: physical (04/21/23), mammogram Patient Identified by Name and : NO Outreach Outcome/Action Unable to reach patient: Left message MyChart message sent Did you use a PCP flex slot to schedule this appointment? N/A Reason for Outreach Care Gap or Scheduling/Wellness visits Payer: Payor: [employer] / Plan: [employer] HMO / Product Type: HMO / Care Gap Reviewed:: Annual Wellness visit Breast Cancer screening Reminder: Reminder note to check Health Maintenance for items below Health Maintenance items due: BP CONTROLLED (<130/80) Never done ALPHA-1 ANTITRYPSIN DEFICIENCY SCREENING Never done SHINGRIX VACCINE(1 of 2) Never done BONE DENSITY due on 2018 LUNG CANCER SCREENING due on 11/10/2018 PNEUMOCOCCAL: 65+(2 - PPSV23 if available, else PCV20) due on 12/21/2019 COVID-19 VACCINE(4 - Booster for Pfizer series) due on 04/02/2021 MAMMOGRAM due on 04/14/2022 Navigation Signature: Lizbeth Ortiz Population Health Navigator June 25, 2022 8:18 [facility]04-23-2023 NoteHNO ID: [id number] Author: Lizbeth Jolley RN Service: ? Author Type: Registered Nurse Type: Progress Notes Filed: 05/30/2022 1:47 PM Note Text: CDM ESCALATION Provider Action / FYI: Second attempt to reach patient - left message MyChart message sent Message received via: social organization professor Pool Contact made with patient: No, left message. Robert Whittington! This is Lizbeth Jolley, a nurse at [facility]. My colleague received your Home Monitoring questionnaire responses yesterday. She tried to reach you to discuss further yesterday and make sure you were okay and had no needs. We are sorry that we didn't connect. Please call Dr. Roberto's office if you have further questions or needs. Have a good day! Lizbeth Jolley RN May 30, 2022 1:43 [facility]04-23-2023 NotePatient Outreach ([facility]) PAULY SETH ([id number]) 1955 F Date Time Provider Department 05/30/22 LIZBETH JOLLEY During your visit today, we recorded the following information about you: Lizbeth Jolley RN 05/30/2022 1:47 PM Signed CDM ESCALATION Provider Action / FYI: Left message on home phone Message received via: social organization professor Pool Contact made with patient: No, left message. Robert Whittington! This is Lizbeth Jolley, a nurse at [facility]. My colleague received your Home Monitoring questionnaire responses yesterday. She tried to reach you to discuss further yesterday and make sure you were okay and had no needs. We are sorry that we didn't connect. Please call Dr. Roberto's office if you have further questions or needs. Have a good day! Lizbeth Jolley RN May 30, 2022 8:40 AM Lizbeth Jolley RN 05/30/2022 1:47 PM Signed CDM ESCALATION Provider Action / FYI: Second attempt to reach patient - left message MyChart message sent Message received via: social organization professor Pool Contact made with patient: No, left message. Robert Whittington! This is Lizbeth Jolley, a nurse at [facility]. My colleague received your Home Monitoring questionnaire responses yesterday. She tried to reach you to discuss further yesterday and make sure you were okay and had no needs. We are sorry that we didn't connect. Please call Dr. Roberto's office if you have further questions or needs. Have a good day! Lizbeth Jolley RN May 30, 2022 1:43 PM Allergies As of Date: 05/30/2022 Noted Allergy Reaction ASA (SALICYLATES) 06/02/2005 Comments: stomach upset Date Reviewed: 04/19/2022 Reviewed by: Galina Segal LPN - Fully Assessed Reason for Visit: Community Monitoring Outreach [Other] Cmt: CDM Escalation - Second Outreach Attempts Prescriptions as of 05/30/2022 - propranolol (INDERAL) 60 mg tablet Take 1 tablet by mouth once daily. For tremor - losartan (COZAAR) 25 mg tablet Take 1 tablet by mouth once daily. For high blood pressure - citalopram (CELEXA) 40 mg tablet Take 0.5 tablets by mouth once daily. - albuterol HFA (PROAIR HFA) 90 mcg/actuation inhaler Inhale 2 Puffs as instructed every 6 hours as needed for wheezing/shortness of breath. - aspirin, enteric coated (ASPIRIN, ENTERIC COATED) 81 mg EC tablet Take 81 mg by mouth once daily. - Cholecalciferol, Vitamin D3, 2,000 unit cap Take 1 tablet by mouth once daily. - calcium carbonate (CALTRATE) 600 mg (1,500 mg) tab Take 1 tablet by mouth twice daily. - MULTIVITAMIN TAB Take one(1) tablet daily. Problem List As Of Date 05/30/2022 Noted Resolved Syncope and collapse [R55] 06/02/2005 11/11/2015 TOBACCO USE DISORDER [F17.200] 06/02/2005 Sebaceous cyst [L72.3] 06/02/2005 DEPRESSIVE DISORDER NEC [F32.89] 03/31/2007 SLEEP DISTURBANCE NOS [G47.9] 03/14/2008 Hyperlipidemia [E78.5] 04/24/2014 Actinic keratoses [L57.0] 06/13/2017 Special screening for malignant neoplasms, colo*06/13/2017 Sweating abnormality [L74.9] 06/13/2017 Hot flashes [R23.2] 06/13/2017 Left lateral ankle pain [M25.572] 06/13/2017 Changing skin lesion [L98.9] 06/13/2017 Finger injury, right, initial encounter [S69.91*06/13/2017 Right hand pain [M79.641] 06/13/2017 Skin lesion of left leg [L98.9] 11/02/2017 Pilonidal cyst without abscess [L05.91] 11/02/2017 Tobacco dependence [F17.200] 11/02/2017 Chronic cough [R05.3] 11/02/2017 Shortness of breath [R06.02] 11/02/2017 Stage 1 mild COPD by GOLD classification (HCC) *11/07/2017 IFG (impaired fasting glucose) [R73.01] 06/12/2018 Tobacco use [Z72.0] 06/12/2018 Dysthymia [F34.1] 08/16/2018 Hypertriglyceridemia [E78.1] 08/16/2018 Obesity, Class I, BMI 30-34.9 [E66.9] 10/29/2020 Primary osteoarthritis of left knee [M17.12] 04/29/2021 Chronic pain of left knee [M25.562, G89.29] 04/29/2021 Fatigue [R53.83] 04/21/2022 Hypertension, essential [I10] 04/21/2022 Encounter Status:Closed by LIZBETH JOLLEY on 05/30/22[facility] 05-30-2022 NoteHNO ID: [id number] Author: Lizbeth Jolley RN Service: ? Author Type: Registered Nurse Type: Progress Notes Filed: 05/30/2022 1:47 PM Note Text: CDM ESCALATION Provider Action / FYI: Left message on home phone Message received via: social organization professor Pool Contact made with patient: No, left message. Robert Whittington! This is Lizbeth Jolley, a nurse at [facility]. My colleague received your Home Monitoring questionnaire responses yesterday. She tried to reach you to discuss further yesterday and make sure you were okay and had no needs. We are sorry that we didn't connect. Please call Dr. Roberto's office if you have further questions or needs. Have a good day! Lizbeth Jolley RN May 30, 2022 8:40 [facility]04-22-2023 NotePatient Outreach ([facility]) PAULY SETH ([id number]) 1955 F Date Time Provider Department 05/29/22 FRANKLYN TOLEDO During your visit today, we recorded the following information about you: Franklyn Toledo RN 05/29/2022 8:30 AM Signed CDM ESCALATION Provider Action / FYI: CDM questionnaire triggered outreach - LVM and sent my chart message, Message received via: social organization professor Pool Contact made with patient: No, left message. Franklyn Toledo RN May 29, 2022 8:28 AM Franklyn Toledo RN 05/29/2022 10:45 AM Signed CDM ESCALATION Provider Action / FYI: Second outreach attempt - lvm Message received via: social organization professor Pool Contact made with patient: No, left message. Franklyn Toledo RN May 29, 2022 10:43 AM Allergies As of Date: 05/29/2022 Noted Allergy Reaction ASA (SALICYLATES) 06/02/2005 Comments: stomach upset Date Reviewed: 04/19/2022 Reviewed by: Galina Segal LPN - Fully Assessed Reason for Visit: cdm outreach [Other] Cmt: Escalation Prescriptions as of 05/29/2022 - propranolol (INDERAL) 60 mg tablet Take 1 tablet by mouth once daily. For tremor - losartan (COZAAR) 25 mg tablet Take 1 tablet by mouth once daily. For high blood pressure - citalopram (CELEXA) 40 mg tablet Take 0.5 tablets by mouth once daily. - albuterol HFA (PROAIR HFA) 90 mcg/actuation inhaler Inhale 2 Puffs as instructed every 6 hours as needed for wheezing/shortness of breath. - aspirin, enteric coated (ASPIRIN, ENTERIC COATED) 81 mg EC tablet Take 81 mg by mouth once daily. - Cholecalciferol, Vitamin D3, 2,000 unit cap Take 1 tablet by mouth once daily. - calcium carbonate (CALTRATE) 600 mg (1,500 mg) tab Take 1 tablet by mouth twice daily. - MULTIVITAMIN TAB Take one(1) tablet daily. Problem List As Of Date 05/29/2022 Noted Resolved Syncope and collapse [R55] 06/02/2005 11/11/2015 TOBACCO USE DISORDER [F17.200] 06/02/2005 Sebaceous cyst [L72.3] 06/02/2005 DEPRESSIVE DISORDER NEC [F32.89] 03/31/2007 SLEEP DISTURBANCE NOS [G47.9] 03/14/2008 Hyperlipidemia [E78.5] 04/24/2014 Actinic keratoses [L57.0] 06/13/2017 Special screening for malignant neoplasms, colo*06/13/2017 Sweating abnormality [L74.9] 06/13/2017 Hot flashes [R23.2] 06/13/2017 Left lateral ankle pain [M25.572] 06/13/2017 Changing skin lesion [L98.9] 06/13/2017 Finger injury, right, initial encounter [S69.91*06/13/2017 Right hand pain [M79.641] 06/13/2017 Skin lesion of left leg [L98.9] 11/02/2017 Pilonidal cyst without abscess [L05.91] 11/02/2017 Tobacco dependence [F17.200] 11/02/2017 Chronic cough [R05.3] 11/02/2017 Shortness of breath [R06.02] 11/02/2017 Stage 1 mild COPD by GOLD classification (HCC) *11/07/2017 IFG (impaired fasting glucose) [R73.01] 06/12/2018 Tobacco use [Z72.0] 06/12/2018 Dysthymia [F34.1] 08/16/2018 Hypertriglyceridemia [E78.1] 08/16/2018 Obesity, Class I, BMI 30-34.9 [E66.9] 10/29/2020 Primary osteoarthritis of left knee [M17.12] 04/29/2021 Chronic pain of left knee [M25.562, G89.29] 04/29/2021 Fatigue [R53.83] 04/21/2022 Hypertension, essential [I10] 04/21/2022 Encounter Status:Closed by FRANKLYN TOLEDO on 05/29/22[facility] 05-29-2022 NoteHNO ID: [id number] Author: Franklyn Toledo RN Service: ? Author Type: Registered Nurse Type: Progress Notes Filed: 05/29/2022 10:45 AM Note Text: CDM ESCALATION Provider Action / FYI: Second outreach attempt - lvm Message received via: social organization professor Pool Contact made with patient: No, left message. Franklyn Toledo RN May 29, 2022 10:43 [facility]04-22-2023 History of Present illness Narrative* Franklyn Toledo RN - 05/29/2022 10:41 AM EDT CDM ESCALATION Provider Action / FYI: Second outreach attempt - lvm Message received via: social organization professor Pool Contact made with patient: No, left message. Franklyn Toledo RN May 29, 2022 10:43 AM * Franklyn Toledo RN - 05/29/2022 8:26 AM EDT CDM ESCALATION Provider Action / FYI: CDM questionnaire triggered outreach - LVM and sent my chart message, Message received via: social organization professor Pool Contact made with patient: No, left message. Franklyn Toledo RN May 29, 2022 8:28 AM [facility] NoteHNO ID: [id number] Author: Franklyn Toledo RN Service: ? Author Type: Registered Nurse Type: Progress Notes Filed: 05/29/2022 8:30 AM Note Text: CDM ESCALATION Provider Action / FYI: CDM questionnaire triggered outreach - LVM and sent my chart message, Message received via: social organization professor Pool Contact made with patient: No, left message. Franklyn Toledo RN May 29, 2022 8:28 [facility]04-12-2023 NotePatient Outreach ([facility]) ROLOPAULY L ([id number]) 1955 F Date Time Provider Department 05/19/22 ROBERTOMARIO During your visit today, we recorded the following information about you: Allergies As of Date: 05/19/2022 Noted Allergy Reaction ASA (SALICYLATES) 06/02/2005 Comments: stomach upset Date Reviewed: 04/19/2022 Reviewed by: Galina Segal LPN - Fully Assessed Visit Diagnosis:Encounter for screening mammogram for breast cancer [Z12.31] Order(s):[facility] SCREENING [[id number]] Order #: [id number] FUTURE Prescriptions as of 05/24/2022 - propranolol (INDERAL) 60 mg tablet Take 1 tablet by mouth once daily. For tremor - losartan (COZAAR) 25 mg tablet Take 1 tablet by mouth once daily. For high blood pressure - citalopram (CELEXA) 40 mg tablet Take 0.5 tablets by mouth once daily. - albuterol HFA (PROAIR HFA) 90 mcg/actuation inhaler Inhale 2 Puffs as instructed every 6 hours as needed for wheezing/shortness of breath. - aspirin, enteric coated (ASPIRIN, ENTERIC COATED) 81 mg EC tablet Take 81 mg by mouth once daily. - Cholecalciferol, Vitamin D3, 2,000 unit cap Take 1 tablet by mouth once daily. - calcium carbonate (CALTRATE) 600 mg (1,500 mg) tab Take 1 tablet by mouth twice daily. - MULTIVITAMIN TAB Take one(1) tablet daily. Problem List As Of Date 05/19/2022 Noted Resolved Syncope and collapse [R55] 06/02/2005 11/11/2015 TOBACCO USE DISORDER [F17.200] 06/02/2005 Sebaceous cyst [L72.3] 06/02/2005 DEPRESSIVE DISORDER NEC [F32.89] 03/31/2007 SLEEP DISTURBANCE NOS [G47.9] 03/14/2008 Hyperlipidemia [E78.5] 04/24/2014 Actinic keratoses [L57.0] 06/13/2017 Special screening for malignant neoplasms, colo*06/13/2017 Sweating abnormality [L74.9] 06/13/2017 Hot flashes [R23.2] 06/13/2017 Left lateral ankle pain [M25.572] 06/13/2017 Changing skin lesion [L98.9] 06/13/2017 Finger injury, right, initial encounter [S69.91*06/13/2017 Right hand pain [M79.641] 06/13/2017 Skin lesion of left leg [L98.9] 11/02/2017 Pilonidal cyst without abscess [L05.91] 11/02/2017 Tobacco dependence [F17.200] 11/02/2017 Chronic cough [R05.3] 11/02/2017 Shortness of breath [R06.02] 11/02/2017 Stage 1 mild COPD by GOLD classification (HCC) *11/07/2017 IFG (impaired fasting glucose) [R73.01] 06/12/2018 Tobacco use [Z72.0] 06/12/2018 Dysthymia [F34.1] 08/16/2018 Hypertriglyceridemia [E78.1] 08/16/2018 Obesity, Class I, BMI 30-34.9 [E66.9] 10/29/2020 Primary osteoarthritis of left knee [M17.12] 04/29/2021 Chronic pain of left knee [M25.562, G89.29] 04/29/2021 Fatigue [R53.83] 04/21/2022 Hypertension, essential [I10] 04/21/2022 Encounter Status:Closed by TRACEY, PRODUSER on 05/24/22[facility] 04-21-2022 NoteHNO ID: [id number] Author: Mario Roberto, DO Service: ? Author Type: Physician Type: Progress Notes Filed: 04/21/2022 7:34 AM Note Text: CC: Pauly Seth is a 66 year old female who presents to the office for follow up HPI: Concerns for elevated blood pressure recently with readings up to 160-170/80-100 range at home. Seems to be worsening the last few weeks. No known changes in her life. Knows needs to quit smoking COPD, stage 1, knows needs to quit smoking. HPL, diet controlled Tremors, use of propranolol, knows medication does cause her fatigue symptoms. Depression, use of celexa, no concerns, she is looking forward to spring. Knows needs to be exercising more regularly Refuses shingles and pneumonia vaccines and covid 19 vaccines today. + fatigue PAST MEDICAL HISTORY Diagnosis Date Depression Hypercholesteremia Mental disorder Sebaceous cyst 06/02/2005 cyst R middle toe 06/11 Stage 1 mild COPD by GOLD classification ([facility]) 11/2017 Syncope and collapse 06/02/2005 near syncope 07/10 Tobacco use disorder 06/02/2005 PAST SURGICAL HISTORY Procedure Laterality Date CAUTERY CERVIX CRYOCAUTERY INITIAL/REPEAT 1991 COLONOSCOPY FLX DX W/COLLJ SPEC WHEN PFRMD 03/06/2018 Colonoscopy EXCISION GANGLION WRIST DORSAL/VOLAR PRIMARY right PAST SURGICAL HISTORY OF benign tumor Right breast removed Current Outpatient Medications Medication Sig citalopram (CELEXA) 40 mg tablet Take 0.5 tablets by mouth once daily. albuterol HFA (PROAIR HFA) 90 mcg/actuation inhaler Inhale 2 Puffs as instructed every 6 hours as needed for wheezing/shortness of breath. aspirin, enteric coated (ASPIRIN, ENTERIC COATED) 81 mg EC tablet Take 81 mg by mouth once daily. propranolol (INDERAL) 60 mg tablet Take 1 tablet by mouth once daily. For tremor losartan (COZAAR) 25 mg tablet Take 1 tablet by mouth once daily. For high blood pressure Cholecalciferol, Vitamin D3, 2,000 unit cap Take 1 tablet by mouth once daily. calcium carbonate (CALTRATE) 600 mg (1,500 mg) tab Take 1 tablet by mouth twice daily. MULTIVITAMIN TAB Take one(1) tablet daily. No current facility-administered medications for this visit. ALLERGIES Allergen Reactions Asa [Salicylates] stomach upset Social History Tobacco Use Smoking status: Every Day Packs/day: 1.00 Years: 33.00 Pack years: 33.00 Types: Cigarettes Smokeless tobacco: Never Tobacco comments: Just under a pack Substance Use Topics Alcohol use: Yes Comment: occasionally Drug use: No ROS: See HPI PE: BP 152/81[BP Kevin average[ Pulse 60 Temp (Src) 96.3 (Left Tympanic) Resp 16 Wt 176 lb (79.8kg) LMP 09/27/2012 Gen: AANDOX3, NAD, non-toxic appearing HEENT: PERRLA, EOMs intact b/l, nares without drainage, pharynx without erythema, exudate, lesions, or drainage. Uvula midline. Neck: No LAD, no thyromegaly, no meningismus. CV: RRR, no murmur Lungs: CTA b/l, no wheezing, diminished at bases, no respiratory distress Skin: No rashes, lesions, or wounds on exposed skin. No edema, normal pulses ASSESSMENT/PLAN: 1. Hypertension, essential - ICD9: 401.9, ICD10: I10 (primary diagnosis) - newly diagnosed - factors affecting control of BP include being overweight and lack of exercise. - Begin losartan(Cozaar) - Encouraged dietary sodium restriction/DASH diet - Recommended regular aerobic exercise. - Recommend home blood pressure monitoring, to bring results in on next visit - Discussed need and benefit for weight loss. - Reviewed risks of HTN and principles of treatment - Goal of BP <130/80 - Patient counselled on smoking cessation. - Recommend home or pharmacy blood pressure monitoring - Recommended no refined sugar, low refined starch, healthy oil intake (olive oil), healthy protein (fish) along the lines of the Mediterranean diet. - LOSARTAN 25 MG TABLET 2. IFG (impaired fasting glucose) - ICD9: 790.21, ICD10: R73.01 Recheck labs as ordered. Need for weight loss - COMP METABOLIC PANEL - CBC + DIFF - HGB A1C 3. Hypertriglyceridemia - ICD9: 272.1, ICD10: E78.1 - to be determined upon return of lab results - Encouraged following a low fat, low cholesterol diet. - Discussed the benefits of regular aerobic exercise and weight loss. - Check fasting lipid panel - COMP METABOLIC PANEL - CBC + DIFF - LIPID PANEL BASIC 4. Fatigue, unspecified type - ICD9: 780.79, ICD10: R53.83 Recheck labs as ordered. - COMP METABOLIC PANEL - CBC + DIFF - TSH BLD - VITAMIN D 25 HYDROXY - VITAMIN B12 BLOOD 5. Stage 1 mild COPD by GOLD classification ([facility]) - ICD9: 496, ICD10: J44.9 - stable, chronic, need for tobacco cessation 6. Obesity, Class I, BMI 30-34.9 - ICD9: 278.00, ICD10: E66.9 Stable - Behavioral intervention and - Eat well program Mario Roberto, DO Return if no improvement. Follow up with Mario Roberto DO. To ER if develops chest pain, shortness of breath Discussed (more content not included)...[facility]03-15-2023 History of Present illness Narrative* Mario Roberto DO - 04/21/2022 7:27 AM EDT CC: Pauly Seth is a 66 year old female who presents to the office for follow up HPI: Concerns for elevated blood pressure recently with readings up to 160-170/80-100 range at home. Seems to be worsening the last few weeks. No known changes in her life. Knows needs to quit smoking COPD, stage 1, knows needs to quit smoking. HPL, diet controlled Tremors, use of propranolol, knows medication does cause her fatigue symptoms. Depression, use of celexa, no concerns, she is looking forward to spring. Knows needs to be exercising more regularly Refuses shingles and pneumonia vaccines and covid 19 vaccines today. + fatigue PAST MEDICAL HISTORY Diagnosis Date Depression Hypercholesteremia Mental disorder Sebaceous cyst 06/02/2005 cyst R middle toe 06/11 Stage 1 mild COPD by GOLD classification (HCC) 11/2017 Syncope and collapse 06/02/2005 near syncope 07/10 Tobacco use disorder 06/02/2005 PAST SURGICAL HISTORY Procedure Laterality Date CAUTERY CERVIX CRYOCAUTERY INITIAL/REPEAT 1991 COLONOSCOPY FLX DX W/COLLJ SPEC WHEN PFRMD 03/06/2018 Colonoscopy EXCISION GANGLION WRIST DORSAL/VOLAR PRIMARY right PAST SURGICAL HISTORY OF benign tumor Right breast removed Current Outpatient Medications Medication Sig citalopram (CELEXA) 40 mg tablet Take 0.5 tablets by mouth once daily. albuterol HFA (PROAIR HFA) 90 mcg/actuation inhaler Inhale 2 Puffs as instructed every 6 hours as needed for wheezing/shortness of breath. aspirin, enteric coated (ASPIRIN, ENTERIC COATED) 81 mg EC tablet Take 81 mg by mouth once daily. propranolol (INDERAL) 60 mg tablet Take 1 tablet by mouth once daily. For tremor losartan (COZAAR) 25 mg tablet Take 1 tablet by mouth once daily. For high blood pressure Cholecalciferol, Vitamin D3, 2,000 unit cap Take 1 tablet by mouth once daily. calcium carbonate (CALTRATE) 600 mg (1,500 mg) tab Take 1 tablet by mouth twice daily. MULTIVITAMIN TAB Take one(1) tablet daily. No current facility-administered medications for this visit. ALLERGIES Allergen Reactions Asa [Salicylates] stomach upset Social History Tobacco Use Smoking status: Every Day Packs/day: 1.00 Years: 33.00 Pack years: 33.00 Types: Cigarettes Smokeless tobacco: Never Tobacco comments: Just under a pack Substance Use Topics Alcohol use: Yes Comment: occasionally Drug use: No ROS: See HPI PE: BP 152/81[BP Kevin average[ Pulse 60 Temp (Src) 96.3 (Left Tympanic) Resp 16 Wt 176 lb (79.8kg) LMP 09/27/2012 Gen: A&OX3, NAD, non-toxic appearing HEENT: PERRLA, EOMs intact b/l, nares without drainage, pharynx without erythema, exudate, lesions,or drainage. Uvula midline. Neck: No LAD, no thyromegaly, no meningismus. CV: RRR, no murmur Lungs: CTA b/l, no wheezing, diminished at bases, no respiratory distress Skin: No rashes, lesions, or wounds on exposed skin. No edema, normal pulses ASSESSMENT/PLAN: 1. Hypertension, essential - ICD9: 401.9, ICD10: I10 (primary diagnosis) - newly diagnosed - factors affecting control of BP include being overweight and lack of exercise. - Begin losartan(Cozaar) - Encouraged dietary sodium restriction/DASH diet - Recommended regular aerobic exercise. - Recommend home blood pressure monitoring, to bring results in on next visit - Discussed need and benefit for weight loss. - Reviewed risks of HTN and principles of treatment - Goal of BP <130/80 - Patient counselled on smoking cessation. - Recommend home or pharmacy blood pressure monitoring - Recommended no refined sugar, low refined starch, healthy oil intake (olive oil), healthy protein(fish) along the lines of the Mediterranean diet. - LOSARTAN 25 MG TABLET 2. IFG (impaired fasting glucose) - ICD9: 790.21, ICD10: R73.01 Recheck labs as ordered. Need for weight loss - COMP METABOLIC PANEL - CBC + DIFF - HGB A1C 3. Hypertriglyceridemia - ICD9: 272.1, ICD10: E78.1 - to be determined upon return of lab results - Encouraged following a low fat, low cholesterol diet. - Discussed the benefits of regular aerobic exercise and weight loss. - Check fasting lipid panel - COMP METABOLIC PANEL - CBC + DIFF - LIPID PANEL BASIC 4. Fatigue, unspecified type - ICD9: 780.79, ICD10: R53.83 Recheck labs as ordered. - COMP METABOLIC PANEL - CBC + DIFF - TSH BLD - VITAMIN D 25 HYDROXY - VITAMIN B12 BLOOD 5. Stage 1 mild COPD by GOLD classification (HCC) - ICD9: 496, ICD10: J44.9 - stable, chronic, need for tobacco cessation 6. Obesity, Class I, BMI 30-34.9 - ICD9: 278.00, ICD10: E66.9 Stable - Behavioral intervention and - Eat well program Mario Roberto DO Return if no improvement. Follow up with Mario Roberto DO. To ER if develops chest pain, shortness of breath Discussed risks, benefits, alternatives, and potential side effects of medications. Patient/Guardian expressed understanding and agreed with the plan. See patient instructions. Mario Roberto DO [address] [place] [address] [facility] NoteZORAO ID: [id number] Author: Belén Benitez Service: ? Author Type: ? Type: Progress Notes Filed: 04/16/2022 11:23 AM Note Text: Contacted patient scheduled her to see Dr. Roberto on 04-19-22 @ 4:00 pm [facility] NoteHNO ID: [id number] Author: Guerline Blanc Population Health Navigator Service: ? Author Type: ? Type: Progress Notes Filed: 04/14/2022 3:32 PM Note Text: POPULATION HEALTH NAVIGATION OUTREACH Action/FYI Patient requesting appointment with PCP in a couple weeks to follow up on elevated blood pressure. I could not find anything with PCP available. Guerline Blanc Population Health Navigator April 14, 2022 3:31 [facility]03-08-2023 NoteHNO ID: [id number] Author: Galina Liang RN Service: ? Author Type: Registered Nurse Type: Progress Notes Filed: 04/14/2022 3:22 PM Note Text: inSight CDM Escalation Follow Up Action/FYI: Spoke to patient as follow up to virtualist visit yesterday. Virtualist advised patient to check her BP daily to keep track of for her PCP. When asked patient about headaches, patient stated she has had a mild one lately. Advise patient to pay attention to that as it is a sign of increasing blood pressure. Pt stated she will document her BP and if it still high after a week she would set up an appointment with PCP. Pt suggested it is difficult to get into see PCP. This nurse offered to route request to faculty dean so she has something set and in the meantime if something changes she can cancel, but at least she has a plan. Pt agrees. Routing to faculty dean. Advised patient to continue to monitor her symptoms and if she develops sob, increased headache or chest pain to go to ED. Pt denies other needs, questions, or concerns at this time. END OUTREACH Contact made with patient: Patient identified by name and Discussed care with patient Patient Escalated to Virtualist on: 04/13 Reason for Escalation: Increased BP Virtualist Intervention: Monitor BP daily to bring results to PCP. Follow up with PCP for possible BP med. Disposition: Patient stable no further interventionsMi[facility]03-[facility]23 History of Present illness Narrative* Guerline Blanc Population Health Navigator - 04/14/2022 3:31 PM EST POPULATION HEALTH NAVIGATION OUTREACH Action/FYI Patient requesting appointment with PCP in a couple weeks to follow up on elevated blood pressure. I could not find anything with PCP available. Guerline Blanc Population Health Navigator April 14, 2022 3:31 PM * Galina Liang RN - 04/14/2022 3:07 PM EST Oleg CDM Escalation Follow Up Action/FYI: Spoke to patient as follow up to virtualist visit yesterday. Virtualist advised patient to check her BP daily to keep track of for her PCP. When asked patient about headaches, patient stated she has had a mild one lately. Advise patient topay attention to that as it is a sign of increasing blood pressure. Pt stated she will document her BP and if it still high after a week she would set up an appointment with PCP. Pt suggested it is difficult to get into see PCP. This nurse offered to route request yohannes so she has something set and in the meantime if something changes she can cancel, but at least she has a plan. Pt agrees. Routing to faculty dean. Advised patient to continue to monitor her symptoms and if she develops sob, increased headache or chest pain to go to ED. Pt denies other needs, questions, or concerns at this time. END OUTREACH Contact made with patient: Patient identified by name and Discussed care with patient Patient Escalated to Virtualist on: 04/13 Reason for Escalation: Increased BP Virtualist Intervention: Monitor BP daily to bring results to PCP. Follow up with PCP for possible BP med. Disposition: Patient stable no further interventions documented in this encounterMer[facility]23 NotePatient Outreach ([facility]) PAULY SETH ([id number]) 1955 F Date Time Provider Department 04/14/22 GALINA LIANG During your visit today, we recorded the following information about you: Galina Liang RN 04/14/2022 10:57 AM Signed inSight CDM Escalation Follow Up FYI: Made escalation follow up call. NA/Left VM. Encouraged patient to check BP daily as Virtualist had directed and to follow up with PCP. END OUTREACH Contact made with patient: Left Message: My name is Galina Liang RN, [facility]. I am calling regarding your recent visit with our Virtual Provider. Sorry that I am not able to speak with you. If you have a problem that needs to addressed by your Physician, please contact your Primary Care Provider's office. - END OUTREACH Allergies As of Date: 04/14/2022 Noted Allergy Reaction ASA (SALICYLATES) 06/02/2005 Comments: stomach upset Date Reviewed: 11/11/2021 Reviewed by: Tali Rashid APRN.FRONT OFFICE HELP - Fully Assessed Reason for Visit: CDM [Other] Cmt: [facility] escalation Prescriptions as of 04/14/2022 - propranolol (INDERAL) 60 mg tablet Take 1 tablet by mouth once daily. For tremor - citalopram (CELEXA) 40 mg tablet Take 0.5 tablets by mouth once daily. - albuterol HFA (PROAIR HFA) 90 mcg/actuation inhaler Inhale 2 Puffs as instructed every 6 hours as needed for wheezing/shortness of breath. - aspirin, enteric coated (ASPIRIN, ENTERIC COATED) 81 mg EC tablet Take 81 mg by mouth once daily. - Cholecalciferol, Vitamin D3, 2,000 unit cap Take 1 tablet by mouth once daily. - calcium carbonate (CALTRATE) 600 mg (1,500 mg) tab Take 1 tablet by mouth twice daily. - MULTIVITAMIN TAB Take one(1) tablet daily. Problem List As Of Date 04/14/2022 Noted Resolved Syncope and collapse [R55] 06/02/2005 11/11/2015 TOBACCO USE DISORDER [F17.200] 06/02/2005 Sebaceous cyst [L72.3] 06/02/2005 DEPRESSIVE DISORDER NEC [F32.89] 03/31/2007 SLEEP DISTURBANCE NOS [G47.9] 03/14/2008 Hyperlipidemia [E78.5] 04/24/2014 Actinic keratoses [L57.0] 06/13/2017 Special screening for malignant neoplasms, colo*06/13/2017 Sweating abnormality [L74.9] 06/13/2017 Hot flashes [R23.2] 06/13/2017 Left lateral ankle pain [M25.572] 06/13/2017 Changing skin lesion [L98.9] 06/13/2017 Finger injury, right, initial encounter [S69.91*06/13/2017 Right hand pain [M79.641] 06/13/2017 Skin lesion of left leg [L98.9] 11/02/2017 Pilonidal cyst without abscess [L05.91] 11/02/2017 Tobacco dependence [F17.200] 11/02/2017 Chronic cough [R05.3] 11/02/2017 Shortness of breath [R06.02] 11/02/2017 Stage 1 mild COPD by GOLD classification (HCC) *11/07/2017 IFG (impaired fasting glucose) [R73.01] 06/12/2018 Tobacco use [Z72.0] 06/12/2018 Dysthymia [F34.1] 08/16/2018 Hypertriglyceridemia [E78.1] 08/16/2018 Obesity, Class I, BMI 30-34.9 [E66.9] 10/29/2020 Primary osteoarthritis of left knee [M17.12] 04/29/2021 Chronic pain of left knee [M25.562, G89.29] 04/29/2021 Encounter Status:Closed by GALINA LIANG on 04/14/22[facility] NotePatient Outreach ([facility]) PAULY SETH ([id number]) 1955 F Date Time Provider Department 04/14/22 GALINA LIANG [facility] [place] During your visit today, we recorded the following information about you: Galina Liang RN 04/14/2022 3:22 PM Signed inSight [facility] Escalation Follow Up Action/FYI: Spoke to patient as follow up to virtualist visit yesterday. Virtualist advised patient to check her BP daily to keep track of for her PCP. When asked patient about headaches, patient stated she has had a mild one lately. Advise patient to pay attention to that as it is a sign of increasing blood pressure. Pt stated she will document her BP and if it still high after a week she would set up an appointment with PCP. Pt suggested it is difficult to get into see PCP. This nurse offered to route request to faculty dean so she has something set and in the meantime if something changes she can cancel, but at least she has a plan. Pt agrees. Routing to faculty dean. Advised patient to continue to monitor her symptoms and if she develops sob, increased headache or chest pain to go to ED. Pt denies other needs, questions, or concerns at this time. END OUTREACH Contact made with patient: Patient identified by name and Discussed care with patient Patient Escalated to Virtualist on: 04/13 Reason for Escalation: Increased BP Virtualist Intervention: Monitor BP daily to bring results to PCP. Follow up with PCP for possible BP med. Disposition: Patient stable no further interventions Guerline Blanc Population Health Navigator 04/14/2022 3:32 PM Signed POPULATION HEALTH NAVIGATION OUTREACH Action/FYI Patient requesting appointment with PCP in a couple weeks to follow up on elevated blood pressure. I could not find anything with PCP available. Guerline Blanc Population Health Navigator April 14, 2022 3:31 PM Belén Benitez 04/16/2022 11:23 AM Signed Contacted patient scheduled her to see Dr. Roberto on 04-19-22 @ 4:00 pm Belén Benitez Allergies As of Date: 04/14/2022 Noted Allergy Reaction ASA (SALICYLATES) 06/02/2005 Comments: stomach upset Date Reviewed: 11/11/2021 Reviewed by: Tali Rashid APRN.FRONT OFFICE HELP - Fully Assessed Reason for Visit: cdm [Other] Cmt: [facility] escalation Prescriptions as of 04/16/2022 - propranolol (INDERAL) 60 mg tablet Take 1 tablet by mouth once daily. For tremor - citalopram (CELEXA) 40 mg tablet Take 0.5 tablets by mouth once daily. - albuterol HFA (PROAIR HFA) 90 mcg/actuation inhaler Inhale 2 Puffs as instructed every 6 hours as needed for wheezing/shortness of breath. - aspirin, enteric coated (ASPIRIN, ENTERIC COATED) 81 mg EC tablet Take 81 mg by mouth once daily. - Cholecalciferol, Vitamin D3, 2,000 unit cap Take 1 tablet by mouth once daily. - calcium carbonate (CALTRATE) 600 mg (1,500 mg) tab Take 1 tablet by mouth twice daily. - MULTIVITAMIN TAB Take one(1) tablet daily. Problem List As Of Date 04/14/2022 Noted Resolved Syncope and collapse [R55] 06/02/2005 11/11/2015 TOBACCO USE DISORDER [F17.200] 06/02/2005 Sebaceous cyst [L72.3] 06/02/2005 DEPRESSIVE DISORDER NEC [F32.89] 03/31/2007 SLEEP DISTURBANCE NOS [G47.9] 03/14/2008 Hyperlipidemia [E78.5] 04/24/2014 Actinic keratoses [L57.0] 06/13/2017 Special screening for malignant neoplasms, colo*06/13/2017 Sweating abnormality [L74.9] 06/13/2017 Hot flashes [R23.2] 06/13/2017 Left lateral ankle pain [M25.572] 06/13/2017 Changing skin lesion [L98.9] 06/13/2017 Finger injury, right, initial encounter [S69.91*06/13/2017 Right hand pain [M79.641] 06/13/2017 Skin lesion of left leg [L98.9] 11/02/2017 Pilonidal cyst without abscess [L05.91] 11/02/2017 Tobacco dependence [F17.200] 11/02/2017 Chronic cough [R05.3] 11/02/2017 Shortness of breath [R06.02] 11/02/2017 Stage 1 mild COPD by GOLD classification (HCC) *11/07/2017 IFG (impaired fasting glucose) [R73.01] 06/12/2018 Tobacco use [Z72.0] 06/12/2018 Dysthymia [F34.1] 08/16/2018 Hypertriglyceridemia [E78.1] 08/16/2018 Obesity, Class I, BMI 30-34.9 [E66.9] 10/29/2020 Primary osteoarthritis of left knee [M17.12] 04/29/2021 Chronic pain of left knee [M25.562, G89.29] 04/29/2021 Encounter Status:Closed by GALINA LIANG on 04/14/22[facility] NoteHNO ID: [id number] Author: Galina Liang RN Service: ? Author Type: Registered Nurse Type: Progress Notes Filed: 04/14/2022 10:57 AM Note Text: inSight CDM Escalation Follow Up FYI: Made escalation follow up call. NA/Left VM. Encouraged patient to check BP daily as Virtualist had directed and to follow up with PCP. END OUTREACH Contact made with patient: Left Message: My name is Galina Liang RN, from the [facility]. I am calling regarding your recent visit with our Virtual Provider. Sorry that I am not able to speak with you. If you have a problem that needs to addressed by your Physician, please contact your Primary Care Provider's office. - END [facility]ACH[facility] History of Present illness Narrative* Galina Liang RN - 04/14/2022 10:55 AM EST inSight CDM Escalation Follow Up FYI: Made escalation follow up call. NA/Left VM. Encouraged patient to check BP daily as Virtualist had directed and to follow up with PCP. END OUTREACH Contact made with patient: Left Message: My name is Galina Liang RN, from the [facility]. I am calling regarding your recent visit with our Virtual Provider. Sorry that I am not able to speak with you. If you have a problem that needs to addressed by your Physician, please contact your Primary Care Provider's office. - END OUTREACH documented in this encounterMer[facility]03-07-2023 NoteHNO ID: [id number] Author: Sheryl Hearn APRN.FRONT OFFICE HELP Service: ? Author Type: Nurse Practitioner Type: Progress Notes Filed: 04/13/2022 4:35 PM Note Text: Virtualist Distance Health Note (CDM/TCM//CC HC/H@[facility] escalations) Pauly Seth has consented to this telephone encounter. Persons Present: patient Triage source: Chronic Disease Management Contacted by phone, uiu, Google Duo, Zoom, Doximity, other: phone visit, patient consents History of present illness: Hx COPD Having wheezing, SOB, cough at baseline, not worse then baseline More concerned about BP 171/88, not on any BP medication Past medical history, past surgical history, family history and social history reviewed and updated as indicated in EMR. REVIEW OF SYSTEMS: Review of Systems VITAL SIGNS: (if available) [facility] 09/27/2012 Physical Exam (if video visit was performed) Physical Exam Assessment/Plan: ASSESSMENT/PLAN: 1. Hypertension, unspecified type - ICD9: 401.9, ICD10: I10 (primary diagnosis) -Patient will log BPs every day at the same time for a few days to share with PCP or CDM to be started on anti-hypertensive if needed -Discussed red flag symptoms 2. SOB (shortness of breath) - ICD9: 786.05, ICD10: R06.02 3. Wheezing - ICD9: 786.07, ICD10: R06.2 -Monitor, these symptoms weren't of concern to her, they are at baseline Disposition: Patient remains at home A total of 20 minutes was spent providing medical care using telemedicine. Signed in as Primary Virtualist, Secondary Virtualist, or [facility] Telehealth provider: Primary SIGNATURE: Sheryl Hearn APRN.CNP PATIENT NAME: Pauly Seth DATE: April 13, [facility] NoteHNO ID: [id number] Author: Galina Liang RN Service: ? Author Type: Registered Nurse Type: Progress Notes Filed: 04/13/2022 4:12 PM Note Text: INSIGHT CDM ESCALATION Provider Action/FYI: CDM Patient : Escalation to virtualist. Made call #2 Pt states she is having increased sob and wheezing. Pt denies chest pain. Pt is concerned because her BP has increased significantly. It is documented regularly within normal limits but today is 171/88. Pt states 2 weeks ago it was 160/90. Pt states she has not used her MDI and will not use it until I absolutely have to. I know when I do it will mean it's the end. She states she knows when it comes to that she will need to go to the ED. Encouraged patient to use the inhaler to avoid having to go to the ED. Offered to page jessicaist to speak to patient regarding her BP concerns. Pt agrees. END OUTREACH ESCALATING TO VIRTUALIST Question 04/13/2022 12:52 AM EST - Filed by Patient Do you have new or worse shortness of breath with activity? No Do you have new or worsening cough? Yes Do you have new or worsening wheezing? Yes Do you need to use your rescue (Albuterol) inhaler or nebulizer more often than normal? No Do you check your blood pressure at home? Yes Have your blood pressure readings been NOT at your goal Thank you for letting us know about your blood pressure readings. A member of our [facility] Nursing team will review your responses and will be in contact via by [employer] or telephone within one business day. Message received via: InSight - Yes contact made with patient ACTION TAKEN: Based on manager of finance, the following disposition is advised: Urgent / SAME DAY visit: Page Jessicaist at and indicate 'CDM patient', MRN, Patient Name, Patient Concern, and patient's preferred method of contact (telephone, uiu, Banyan), your name, your contact number. Informed patient that you recommend further assessment from a provider to review symptoms. I have sent a page for the provider to contact you today. If you haven't heard from that provider and still have concerns, please contact you PCP's office right away. Indicated CDM patient and symptoms in the FYI box and sent alpha page to Virtualist to to contact the patient. Route as 'high priority' to Pedro new car salesperson - End outreach.[facility]03[facility] NotePatient Outreach (NETNAV) PAULY SETH ([id number]) 1955 F Date Time Provider Department 04/13/22 TIFFANY DELAROSA During your visit today, we recorded the following information about you: Tiffany Delaroas MA 04/13/2022 9:51 AM Signed POPULATION HEALTH NAVIGATION OUTREACH Action/FYI Left patient voicemail message to return call. My chart message sent Medicare wellness/HCC gap review for 2022 Mammogram Navigation Laurium low HCC gap outreach J44.9 - Stage 1 mild COPD by GOLD classification (HCC) - [id number] Last Billed 04/28/2021 Patient Identified by Name and : NO Outreach Outcome/Action Unable to reach patient: Left message Veosearcht message sent Did you use a PCP flex slot to schedule this appointment? N/A Reason for Outreach HCC or suspected condition Payer: Payor: [employer] (Closed) / Plan: [employer] HMO / Product Type: HMO / Care Gap Reviewed:: Annual Wellness visit Breast Cancer screening Reminder: Reminder note to check Health Maintenance for items below Health Maintenance items due: ALPHA-1 ANTITRYPSIN DEFICIENCY SCREENING Never done SHINGRIX VACCINE(1 of 2) Never done BONE DENSITY due on 2018 LUNG CANCER SCREENING due on 11/10/2018 PNEUMOCOCCAL: 65+(2 - PPSV23 if available, else PCV20) due on 12/21/2019 COVID-19 VACCINE(4 - Booster for Pfizer series) due on 04/02/2021 MAMMOGRAM due on 04/14/2022 Navigation Signature: Tiffany Delarosa MA April 13, 2022 9:48 AM Allergies As of Date: 04/13/2022 Noted Allergy Reaction ASA (SALICYLATES) 06/02/2005 Comments: stomach upset Date Reviewed: 11/11/2021 Reviewed by: Tali Rashid APRN.FRONT OFFICE HELP - Fully Assessed Reason for Visit: Population Health Navigation Outreach [3910] Cmt: Navigation [facility] HCC gap outreach Prescriptions as of 04/13/2022 - propranolol (INDERAL) 60 mg tablet Take 1 tablet by mouth once daily. For tremor - citalopram (CELEXA) 40 mg tablet Take 0.5 tablets by mouth once daily. - albuterol HFA (PROAIR HFA) 90 mcg/actuation inhaler Inhale 2 Puffs as instructed every 6 hours as needed for wheezing/shortness of breath. - aspirin, enteric coated (ASPIRIN, ENTERIC COATED) 81 mg EC tablet Take 81 mg by mouth once daily. - Cholecalciferol, Vitamin D3, 2,000 unit cap Take 1 tablet by mouth once daily. - calcium carbonate (CALTRATE) 600 mg (1,500 mg) tab Take 1 tablet by mouth twice daily. - MULTIVITAMIN TAB Take one(1) tablet daily. Problem List As Of Date 04/13/2022 Noted Resolved Syncope and collapse [R55] 06/02/2005 11/11/2015 TOBACCO USE DISORDER [F17.200] 06/02/2005 Sebaceous cyst [L72.3] 06/02/2005 DEPRESSIVE DISORDER NEC [F32.89] 03/31/2007 SLEEP DISTURBANCE NOS [G47.9] 03/14/2008 Hyperlipidemia [E78.5] 04/24/2014 Actinic keratoses [L57.0] 06/13/2017 Special screening for malignant neoplasms, colo*06/13/2017 Sweating abnormality [L74.9] 06/13/2017 Hot flashes [R23.2] 06/13/2017 Left lateral ankle pain [M25.572] 06/13/2017 Changing skin lesion [L98.9] 06/13/2017 Finger injury, right, initial encounter [S69.91*06/13/2017 Right hand pain [M79.641] 06/13/2017 Skin lesion of left leg [L98.9] 11/02/2017 Pilonidal cyst without abscess [L05.91] 11/02/2017 Tobacco dependence [F17.200] 11/02/2017 Chronic cough [R05.3] 11/02/2017 Shortness of breath [R06.02] 11/02/2017 Stage 1 mild COPD by GOLD classification (HCC) *11/07/2017 IFG (impaired fasting glucose) [R73.01] 06/12/2018 Tobacco use [Z72.0] 06/12/2018 Dysthymia [F34.1] 08/16/2018 Hypertriglyceridemia [E78.1] 08/16/2018 Obesity, Class I, BMI 30-34.9 [E66.9] 10/29/2020 Primary osteoarthritis of left knee [M17.12] 04/29/2021 Chronic pain of left knee [M25.562, G89.29] 04/29/2021 Encounter Status:Closed by TIFFANY DELAROSA on 04/13/22[facility] 04-13-[facility] NotePatient Outreach ([facility]) PAULY SETH ([id number]) 1955 F Date Time Provider Department 04/13/22 GALINA LIANG During your visit today, we recorded the following information about you: Galina Liang RN 04/13/2022 9:40 AM Signed INSIGHT CDM ESCALATION Provider Action/FYI: Made call #1 NA/LEFT VM Question 04/13/2022 12:52 AM EST - Filed by Patient Do you have new or worse shortness of breath with activity? No Do you have new or worsening cough? Yes Do you have new or worsening wheezing? Yes Do you need to use your rescue (Albuterol) inhaler or nebulizer more often than normal? No Do you check your blood pressure at home? Yes Have your blood pressure readings been NOT at your goal Thank you for letting us know about your blood pressure readings. A member of our [facility] Nursing team will review your responses and will be in contact via by [employer] or telephone within one business day. Message received via: [employer] - No contact made with patient Left Message for PatientSushma Milligan my name is Galina Liang RN from the [facility]. I am calling about your responses to our InSight Home Monitoring questionnaire. Sorry I am not able to speak with you. If you have a problem that needs to be addressed by your physician please contact your PCP office--End Outreach Allergies As of Date: 04/13/2022 Noted Allergy Reaction ASA (SALICYLATES) 06/02/2005 Comments: stomach upset Date Reviewed: 11/11/2021 Reviewed by: Tali Rashid APRN.FRONT OFFICE HELP - Fully Assessed Reason for Visit: CDM escalation [Other] Cmt: CDM [facility] questionnaire triggered escalation Prescriptions as of 04/13/2022 - propranolol (INDERAL) 60 mg tablet Take 1 tablet by mouth once daily. For tremor - citalopram (CELEXA) 40 mg tablet Take 0.5 tablets by mouth once daily. - albuterol HFA (PROAIR HFA) 90 mcg/actuation inhaler Inhale 2 Puffs as instructed every 6 hours as needed for wheezing/shortness of breath. - aspirin, enteric coated (ASPIRIN, ENTERIC COATED) 81 mg EC tablet Take 81 mg by mouth once daily. - Cholecalciferol, Vitamin D3, 2,000 unit cap Take 1 tablet by mouth once daily. - calcium carbonate (CALTRATE) 600 mg (1,500 mg) tab Take 1 tablet by mouth twice daily. - MULTIVITAMIN TAB Take one(1) tablet daily. Problem List As Of Date 04/13/2022 Noted Resolved Syncope and collapse [R55] 06/02/2005 11/11/2015 TOBACCO USE DISORDER [F17.200] 06/02/2005 Sebaceous cyst [L72.3] 06/02/2005 DEPRESSIVE DISORDER NEC [F32.89] 03/31/2007 SLEEP DISTURBANCE NOS [G47.9] 03/14/2008 Hyperlipidemia [E78.5] 04/24/2014 Actinic keratoses [L57.0] 06/13/2017 Special screening for malignant neoplasms, colo*06/13/2017 Sweating abnormality [L74.9] 06/13/2017 Hot flashes [R23.2] 06/13/2017 Left lateral ankle pain [M25.572] 06/13/2017 Changing skin lesion [L98.9] 06/13/2017 Finger injury, right, initial encounter [S69.91*06/13/2017 Right hand pain [M79.641] 06/13/2017 Skin lesion of left leg [L98.9] 11/02/2017 Pilonidal cyst without abscess [L05.91] 11/02/2017 Tobacco dependence [F17.200] 11/02/2017 Chronic cough [R05.3] 11/02/2017 Shortness of breath [R06.02] 11/02/2017 Stage 1 mild COPD by GOLD classification (HCC) *11/07/2017 IFG (impaired fasting glucose) [R73.01] 06/12/2018 Tobacco use [Z72.0] 06/12/2018 Dysthymia [F34.1] 08/16/2018 Hypertriglyceridemia [E78.1] 08/16/2018 Obesity, Class I, BMI 30-34.9 [E66.9] 10/29/2020 Primary osteoarthritis of left knee [M17.12] 04/29/2021 Chronic pain of left knee [M25.562, G89.29] 04/29/2021 Encounter Status:Closed by GALINA LIANG on 04/13/22[facility] 04-13-2022 NotePatient Outreach (AMBG) PAULY SETH ([id number]) 1955 F Date Time Provider Department 04/13/22 GALINA LIANG During your visit today, we recorded the following information about you: Galina Liang, RN 04/13/2022 4:12 PM Signed INSIGHT CDM ESCALATION Provider Action/FYI: CDM Patient : Escalation to virtualist. Made call #2 Pt states she is having increased sob and wheezing. Pt denies chest pain. Pt is concerned because her BP has increased significantly. It is documented regularly within normal limits but today is 171/88. Pt states 2 weeks ago it was 160/90. Pt states she has not used her MDI and will not use it until I absolutely have to. I know when I do it will mean it's the end. She states she knows when it comes to that she will need to go to the ED. Encouraged patient to use the inhaler to avoid having to go to the ED. Offered to charity vasquez to speak to patient regarding her BP concerns. Pt agrees. END OUTREACH ESCALATING TO VIRTUALIST Question 04/13/2022 12:52 AM EST - Filed by Patient Do you have new or worse shortness of breath with activity? No Do you have new or worsening cough? Yes Do you have new or worsening wheezing? Yes Do you need to use your rescue (Albuterol) inhaler or nebulizer more often than normal? No Do you check your blood pressure at home? Yes Have your blood pressure readings been NOT at your goal Thank you for letting us know about your blood pressure readings. A member of our [facility] Nursing team will review your responses and will be in contact via by [employer] or telephone within one business day. Message received via: InSight - Yes contact made with patient ACTION TAKEN: Based on manager of finance, the following disposition is advised: Urgent / [place] [phone] and indicate 'CDM patient', MRN, Patient Name, Patient Concern, and patient's preferred method of contact (telephone, uiu, Google Bitdelio), your name, your contact number. Informed patient that you recommend further assessment from a provider to review symptoms. I have sent a page for the provider to contact you today. If you haven't heard from that provider and still have concerns, please contact you PCP's office right away. Indicated CDM patient and symptoms in the FYI box [place] [phone] to contact the patient. Route as 'high priority' to Virtualist new car salesperson - End outreach. Allergies As of Date: 04/13/2022 Noted Allergy Reaction ASA (SALICYLATES) 06/02/2005 Comments: stomach upset Date Reviewed: 11/11/2021 Reviewed by: Tali Rashid APRN.FRONT OFFICE HELP - Fully Assessed Reason for Visit: CDM [Other] Cmt: [facility] escalation Prescriptions as of 04/13/2022 - propranolol (INDERAL) 60 mg tablet Take 1 tablet by mouth once daily. For tremor - citalopram (CELEXA) 40 mg tablet Take 0.5 tablets by mouth once daily. - albuterol HFA (PROAIR HFA) 90 mcg/actuation inhaler Inhale 2 Puffs as instructed every 6 hours as needed for wheezing/shortness of breath. - aspirin, enteric coated (ASPIRIN, ENTERIC COATED) 81 mg EC tablet Take 81 mg by mouth once daily. - Cholecalciferol, Vitamin D3, 2,000 unit cap Take 1 tablet by mouth once daily. - calcium carbonate (CALTRATE) 600 mg (1,500 mg) tab Take 1 tablet by mouth twice daily. - MULTIVITAMIN TAB Take one(1) tablet daily. Problem List As Of Date 04/13/2022 Noted Resolved Syncope and collapse [R55] 06/02/2005 11/11/2015 TOBACCO USE DISORDER [F17.200] 06/02/2005 Sebaceous cyst [L72.3] 06/02/2005 DEPRESSIVE DISORDER NEC [F32.89] 03/31/2007 SLEEP DISTURBANCE NOS [G47.9] 03/14/2008 Hyperlipidemia [E78.5] 04/24/2014 Actinic keratoses [L57.0] 06/13/2017 Special screening for malignant neoplasms, colo*06/13/2017 Sweating abnormality [L74.9] 06/13/2017 Hot flashes [R23.2] 06/13/2017 Left lateral ankle pain [M25.572] 06/13/2017 Changing skin lesion [L98.9] 06/13/2017 Finger injury, right, initial encounter [S69.91*06/13/2017 Right hand pain [M79.641] 06/13/2017 Skin lesion of left leg [L98.9] 11/02/2017 Pilonidal cyst without abscess [L05.91] 11/02/2017 Tobacco dependence [F17.200] 11/02/2017 Chronic cough [R05.3] 11/02/2017 Shortness of breath [R06.02] 11/02/2017 Stage 1 mild COPD by GOLD classification ([facility]) *11/07/2017 IFG (impaired fasting glucose) [R73.01] 06/12/2018 Tobacco use [Z72.0] 06/12/2018 Dysthymia [F34.1] 08/16/2018 Hypertriglyceridemia [E78.1] 08/16/2018 Obesity, Class I, BMI 30-34.9 [E66.9] 10/29/2020 Primary osteoarthritis of left knee [M17.12] 04/29/2021 Chronic pain of left knee [M25.562, G89.29] 04/29/2021 Encounter Status:Closed by GALINA LIANG on 04/13/22[facility] 04-13-2022 NoteHNO ID: [id number] Author: Tiffany Delarosa MA Service: ? Author Type: Flask Cleaner Type: Progress Notes Filed: 04/13/2022 9:51 AM Note Text: POPULATION HEALTH NAVIGATION OUTREACH Action/FYI Left patient voicemail message to return call. My chart message sent Medicare wellness/HCC gap review for 2022 Mammogram Navigation Laurium low HCC gap outreach J44.9 - Stage 1 mild COPD by GOLD classification ([facility]) - [id number] Last Billed 04/28/2021 Patient Identified by Name and : NO Outreach Outcome/Action Unable to reach patient: Left message MyChart message sent Did you use a PCP flex slot to schedule this appointment? N/A Reason for Outreach HCC or suspected condition Payer: Payor: [employer] / Plan: [employer] HMO / Product Type: HMO / Care Gap Reviewed:: Annual Wellness visit Breast Cancer screening Reminder: Reminder note to check Health Maintenance for items below Health Maintenance items due: ALPHA-1 ANTITRYPSIN DEFICIENCY SCREENING Never done SHINGRIX VACCINE(1 of 2) Never done BONE DENSITY due on 2018 LUNG CANCER SCREENING due on 11/10/2018 PNEUMOCOCCAL: 65+(2 - PPSV23 if available, else PCV20) due on 12/21/2019 COVID-19 VACCINE(4 - Booster for Pfizer series) due on 04/02/2021 MAMMOGRAM due on 04/14/2022 Navigation Signature: Tiffany Delarosa MA April 13, 2022 9:48 [facility]03-07-2023 NoteHNO ID: [id number] Author: Galina Liang RN Service: ? Author Type: Registered Nurse Type: Progress Notes Filed: 04/13/2022 9:40 AM Note Text: INSIGHT CDM ESCALATION Provider Action/FYI: Made call #1 NA/LEFT VM Question 04/13/2022 12:52 AM EST - Filed by Patient Do you have new or worse shortness of breath with activity? No Do you have new or worsening cough? Yes Do you have new or worsening wheezing? Yes Do you need to use your rescue (Albuterol) inhaler or nebulizer more often than normal? No Do you check your blood pressure at home? Yes Have your blood pressure readings been NOT at your goal Thank you for letting us know about your blood pressure readings. A member of our [facility] Nursing team will review your responses and will be in contact via by Bell[employer] or telephone within one business day. Message received via: InSight - No contact made with patient Left Message for PatientSushma Milligan my name is Galina Liang RN from the [facility]. I am calling about your responses to our InSight Home Monitoring questionnaire. Sorry I am not able to speak with you. If you have a problem that needs to be addressed by your physician please contact your PCP office--[facility] History of Present illness Narrative* Galina Liang RN - 04/13/2022 8:39 AM EST INSIGHT CDM ESCALATION Provider Action/FYI: Made call #1 NA/LEFT VM Question 04/13/2022 12:52 AM EST - Filed by Patient Do you have new or worse shortness of breath with activity? No Do you have new or worsening cough? Yes Do you have new or worsening wheezing? Yes Do you need to use your rescue (Albuterol) inhaler or nebulizer more often than normal? No Do you check your blood pressure at home? Yes Have your blood pressure readings been NOT at your goal Thank you for letting us know about your blood pressure readings. A member of our [facility] Nursing team will review your responses and will be in contact via by [employer] or telephone within one business day. Message received via: InSight - No contact made with patient Left Message for PatientSushma Milligan my name is Galina Liang RN from the [facility]. I am calling about your responses to our InSight Home Monitoring questionnaire. Sorry I am not able to speak withyou. If you have a problem that needs to be addressed by your physician please contact your PCP office--End Outreach documented in this [facility]11-[facility]22 Miscellaneous Notes* Telephone Encounter - Zoë Kelley RN - 12/17/2021 11:29 AM EST Pt called and is notified of providers results and instructions. Pt voices understanding. Zoë Kelley RN * Telephone Encounter - Andree Orta RN - 12/17/2021 9:13 AM EST TC patient, left message for patient to call back and speak to triage nurse regarding results. Andree Orta RN * Telephone Encounter - DILAN Contreras - 12/10/2021 3:21 PM EDT Phone rings busy, try again later. DILAN Contreras * Telephone Encounter - Tali Rashid APRN.CNP - 12/09/2021 6:59 PM EDT Please call patient and let her know that mammogram and breast US show a 5 mm oval asymmetry in theleft breast that is a benign cyst -- this is not concerning. There is no abnormality seen in the left breast to correspond with the discharge from the nipple and there is no mammographic evidence of m alignancy. Continue with annual mammograms. Thank you, Tali Rashid APRN.CNP documented in this [facility]Mer[facility]11-[facility]-2022 History of Present illness Narrative* Leta Garcia RDMS - 12/09/2021 4:00 PM EDT Radiology Service Progress Note PATIENT NAME: Pauly Seth DATE OF SERVICE: December 09, 2021 TIME: 4:11 PM PATIENT IDENTITY VERIFICATION COMPLETED USING TWO (2) IDENTIFIERS: Name and Date of confirmedby patient verbally. FALL SCREENING: Has the patient had 2 falls in the last year or 1 fall with injury or currently using an Ambulatory Assistive Device (Walker, Cane, Wheelchair, Crutches, etc.)? No PATIENT GENDER DATA: Female. status: : No status: NO. PATIENT RELEVANT IMPLANT DATA REVIEWED: Not Applicable RADIOLOGY DEPARTMENT: Ultrasound PERIPHERAL IV DATA: Not applicable SIGNED BY: Leta Garcia RDMS RVT December 09, 2021 4:11 PM documented in this encounterMer[facility]10-25-2022 History of Present illness Narrative* Ariela Lees RN - 12/01/2021 3:28 PM EDT inSight CDM Engagement Provider Action/FYI: Contact Made with Patient: No, first attempt, left message. Srini Cervantesluis enrique Strickland Rolo. This is Ariela Lees RN your Commercial Print Salesman from the [facility]. I am calling to check in with you concerning the MyChart questionnaire you have been receiving from me. I will call you again tomorrow and am looking forward to speaking with you. (Commercial Print Salesman enters next day in next patient outreach ) documented in this [facility]10-12-2022 Miscellaneous Notes* Telephone Encounter - Tiffany Hoyos Ma - 11/18/2021 3:39 PM EDT Pt informed, verbalized understanding Tiffany Hoyos Ma * Telephone Encounter - Tiffany Hoyos Ma - 11/16/2021 1:43 PM EDT Vm left with patient to contact office for results Tiffany Hoyos Ma * Telephone Encounter - Tali Rashid APRN.CNP - 11/16/2021 8:11 AM EDT Please call patient and let her know that wound culture of drainage from breast/nipple is negative for any bacteria or signs of infection. Continue with US and mammogram. Thank you, Tali Rashid APRN.ZEFERINO documented in this [facility]10-05-2022 Nurse Note* Ivory Higgins LPN - 11/11/2021 3:36 PM EDT Pt receives flu vaccine as ordered . Tolerated welll. documented in this [facility]10-05-2022 History of Present illness Narrative* aTli Rashid APRN.CNP - 11/11/2021 12:41 PM EDT Chief Complaint Patient presents with: Breast Problem: Clear odorless discharge from left breast for about past five days HPI Pauly Seth is a 66 year old female who presents here today for Above Complaints. Pauly is an established patient of Dr. Pardeep DO. Pauly is a new patient to me today. Concerns today.. Breast drainage -- L breast drainage from nipple intermittently x 4-6 days. Very small amount but only noticed due to not wearing a bra while around the house and noticed wetness to breast and nipple area. Reports clear drainage with no odor. Denies any swelling or redness to nipple or breast. Denies any lump or nodule in breast from self breast exams. Denies any changes to nipple such as inversion. Mammogram screening on 04/14/21 -- normal. Smoker -- current 1 pack per day smoker. Hx of COPD. Wants to quit smoking but does not have the motivation currently to do so. Concern for lung cancer -- agreeable to lung cancer screening with CT scan. Fears of needing oxygen in future if something does not change. Has tried wellbutrin in the past without success. Declines chantix due to side effects. Has not tried OTC patches or gum. HM -- Willing to get flu shot. Overdue for routine blood work and preventative screening visit -- pt reports overwhelmed with current situation and will return for wellness exam. Past medical history, appointments, medications, allergies reviewed. Previous Medical History PAST MEDICAL HISTORY Diagnosis Date Depression Hypercholesteremia Mental disorder Sebaceous cyst 06/02/2005 cyst R middle toe 06/11 Stage 1 mild COPD by GOLD classification ([facility]) 11/2017 Syncope and collapse 06/02/2005 near syncope 07/10 Tobacco use disorder 06/02/2005 Previous Surgical History PAST SURGICAL HISTORY Procedure Laterality Date CAUTERY CERVIX CRYOCAUTERY INITIAL/REPEAT 1991 COLONOSCOPY FLX DX W/COLLJ SPEC WHEN PFRMD 03/06/2018 Colonoscopy EXCISION GANGLION WRIST DORSAL/VOLAR PRIMARY right PAST SURGICAL HISTORY OF benign tumor Right breast removed Family History FAMILY HISTORY Problem Relation Age of Onset Heart Father ? other (lung cancer) Father Heart Brother Patient Allergies ALLERGIES Allergen Reactions Asa [Salicylates] stomach upset Current Medications Current Outpatient Medications on File Prior to Visit Medication Sig citalopram (CELEXA) 40 mg tablet Take 0.5 tablets by mouth once daily. propranolol (INDERAL) 60 mg tablet Take 1 tablet by mouth once daily. For tremor albuterol HFA (PROAIR HFA) 90 mcg/actuation inhaler Inhale 2 Puffs as instructed every 6 hours as needed for wheezing/shortness of breath. aspirin, enteric coated (ASPIRIN, ENTERIC COATED) 81 mg EC tablet Take 81 mg by mouth once daily. Cholecalciferol, Vitamin D3, 2,000 unit cap Take 1 tablet by mouth once daily. calcium carbonate (CALTRATE) 600 mg (1,500 mg) tab Take 1 tablet by mouth twice daily. MULTIVITAMIN TAB Take one(1) tablet daily. No current facility-administered medications on file prior to visit. Social History Social History Tobacco Use Smoking status: Every Day Packs/day: 1.00 Years: 33.00 Pack years: 33.00 Types: Cigarettes Smokeless tobacco: Never Tobacco comments: Just under a pack Substance Use Topics Alcohol use: Yes Comment: occasionally Drug use: No REVIEW OF SYSTEMS: as above Reviewed relevant PMHx, PSHx, Social Hx, current medications and allergies. Review of Symptoms REVIEW OF SYSTEMS See HPI. All other systems are negative. EXAM: BP 120/70 (BP Site: Left Arm, BP Position: Sitting, BP Cuff Size: Regular Adult) Pulse 64 Resp 16 Wt 80.3 kg (177 lb) LMP 09/27/2012 BMI 31.86 kg/m General Appearance: Well appearing, alert, in no acute distress, well-hydrated, well nourished.. Skin: Skin color, texture, turgor normal, no suspicious rashes or lesions. Head: Normocephalic, no masses, lesions, tenderness or abnormalities. Lungs: Lungs clear to auscultation. No wheezing, rhonchi, rales.. Heart: RRR without murmur, gallop, or rubs. No ectopy. Breast: No skin changes or dimpling and Positive findings: nipple discharge on left -- clear, odorless, small amount. Health Maintenance List ALPHA-1 ANTITRYPSIN DEFICIENCY SCREENING Never done SHINGRIX VACCINE(1 of 2) Never done BONE DENSITY due on 2018 LUNG CANCER SCREENING due on 11/10/2018 PNEUMOCOCCAL: 65+(2 - PPSV23 or PCV20) due on 10/25/2020 COVID-19 VACCINE(4 - Booster for Pfizer series) due on 04/02/2021 INFLUENZA(1) due on 10/08/2021 MAMMOGRAM due on 04/14/2022 ANNUAL PCP TEAM CHRONIC DISEASE VISIT due on 06/12/2022 DIABETES SCREEN due on 10/23/2023 DTAP,TDAP,TD(3 - Td or Tdap) due on 06/19/2025 LIPID SCREEN due on 10/22/2025 COLORECTAL CANCER SCREENING due on 03/06/2028 SPIROMETRY Completed HEPATITIS C SCREENING Completed ADVANCE DIRECTIVE DISCUSSION Discontinued ASSESSMENT/PLAN: 1. Nipple discharge - ICD9: 611.79, ICD10: N64.52 (primary diagnosis) Clear odorless drainage from L nipple x a few days. Enough drainage to get wound culture. Diagnostic mammogram and US of breast. - CONSULT LUNG CANCER SCREENING CLINIC - WOUND CULTURE AND GRAM STAIN - NOÉ DIAGNOSTIC LT - US BREAST LTD LT 2. Encounter for immunization - ICD9: V03.89, ICD10: Z23 - INFLUENZA SEASONAL QUADRIVALENT HIGH DOSE AGE 65+ 3. Encounter for screening for lung cancer - ICD9: V76.0, ICD10: Z12.2 1 pack per day x 30 + years. - CONSULT LUNG CANCER SCREENING CLINIC 4. Smoker - ICD9: 305.1, ICD10: F17.200 - Cessation encouraged. - Physiologic and physical aspects of tobacco addiction as well as strategies for quitting were discussed. - Counseling was given focusing on the harmful effects of this addiction especially given the patient's medical condition(s) which will be worsened because of the chemicals in tobacco. - Counseling was given 3-4 minutes. - Recommended to called 1-800-QUIT NOW RTO in 1 month, sooner if needed, for routine physical and HM. Prescription instructions reviewed with patient as applicable. Potential red flag symptoms discussed with the patient. Reviewed appropriate action plan to take if red flag symptoms occur. Patient agreeable to treatment plan. Tali Rashid APRN.CNP [address] [place] [address] documented in this encounterMer[facility]10-[facility]-2022 Instructions* Patient Instructions* Ivory Higgins LPN - 11/11/2021 12:33 PM EDT BONE MINERAL DENSITY PATIENT INSTRUCTIONS Bone mineral density testing measures the amount of calcium in certain parts of your bones. This information determines how strong your bones are. The test is used to detect osteoporosis, a disease in which the bone's mineral content and density are low, increasing a person's risk of fractures. Thelumbar spine (lower back) and the hip are the skeletal sites usually examined. For the test, remember that: 1. You cannot take this test if you are . 2. Eat a normal diet on the day of the test. 3. Take your medications as you normally would. 4. DO NOT take calcium supplements (such as Tums) for 24 hours before the test. 5. On the day of the test, leave valuables (jewelry or credit cards) at home. 6. The test should be performed prior to oral, rectal or IV contrast studies, or at least 7 days after any of these studies. For the test, you may be asked to wear a hospital gown. You will lie on your back, on a padded table, in a comfortable position. Generally, you can resume your usual activities immediately. documented in this encounterMer[facility]10-03-2022 Miscellaneous Notes* Telephone Encounter - Darya Painter APRN.CNP - 11/09/2021 2:51 PM EDT Noted, thank you. Darya Painter APRN.CNP * Telephone Encounter - Tiffany Hoyos Ma - 11/09/2021 1:22 PM EDT [facility] Tiffany Hoyos Ma * Telephone Encounter - DO True Beckwith 11/09/2021 12:56 PM EDT Please set her up with an appt in office with WEATHERIZATION ADMINISTRATOR for breast exam and testing if needed Mario Roberto DO * Telephone Encounter - Tiffany Hoyos Ma - 11/09/2021 11:16 AM EDT Images from the original note were not included. Please see pt mychart message documented in this encounterMercy [facility] Hospital10-03-2022 Miscellaneous Notes* Telephone Encounter - Tiffany Hoyos Ma - 11/09/2021 11:15 AM EDT The Echo Systemhart message turned into TE per JG Tiffany Hoyos Ma documented in this encounterMercy [facility] Hospital09-09-2022 History of Present illness Narrative* Ariela Lees RN - 10/16/2021 11:20 AM EDT PRIMARY CARE COORDINATION QUICK NOTE Provider Action/FYI Chart reviewed, goals, falls, ADL's updated Patient identified by name and date . documented in this encounterMercy [facility] Hospital05-06-2022 History of Present illness Narrative* Mario Roberto DO - 06/12/2021 3:29 PM EDT CC: Pauly Seth is a 65 year old female who presents to the office for skin lesion treatment HPI: She is here in the office today for skin lesions that are bothering her or changing that she has noticed recently. Several are getting caught on her shirts, pulled and irritated/bleeding. Hx of sun exposure in the past PAST MEDICAL HISTORY Diagnosis Date Depression Hypercholesteremia Mental disorder Sebaceous cyst 06/02/2005 cyst R middle toe 06/11 Stage 1 mild COPD by GOLD classification ([facility]) 11/2017 Syncope and collapse 06/02/2005 near syncope 07/10 Tobacco use disorder 06/02/2005 PAST SURGICAL HISTORY Procedure Laterality Date CAUTERY CERVIX CRYOCAUTERY INITIAL/REPEAT 1991 COLONOSCOPY FLX DX W/COLLJ SPEC WHEN PFRMD 03/06/2018 Colonoscopy EXCISION GANGLION WRIST DORSAL/VOLAR PRIMARY right PAST SURGICAL HISTORY OF benign tumor Right breast removed Current Outpatient Medications Medication Sig propranolol (INDERAL) 60 mg tablet Take 1 tablet by mouth once daily. For tremor albuterol HFA (PROAIR HFA) 90 mcg/actuation inhaler Inhale 2 Puffs as instructed every 6 hours as needed for wheezing/shortness of breath. aspirin, enteric coated (ASPIRIN, ENTERIC COATED) 81 mg EC tablet Take 81 mg by mouth once daily. citalopram (CELEXA) 40 mg tablet Take 0.5 tablets by mouth once daily. Cholecalciferol, Vitamin D3, 2,000 unit cap Take 1 tablet by mouth once daily. calcium carbonate (CALTRATE) 600 mg (1,500 mg) tab Take 1 tablet by mouth twice daily. MULTIVITAMIN TAB Take one(1) tablet daily. No current facility-administered medications for this visit. ALLERGIES Allergen Reactions Asa [Salicylates] stomach upset Social History Tobacco Use Smoking status: Current Every Day Smoker Packs/day: 1.00 Years: 33.00 Pack years: 33.00 Types: Cigarettes Smokeless tobacco: Never Used Tobacco comment: Just under a pack Substance Use Topics Alcohol use: Yes Comment: occasionally Drug use: No ROS: See HPI PE: BP 112/70 Pulse 60 Temp (Src) 97 (Left Tympanic) Resp 20 Wt 175 lb (79.4kg) LMP 09/27/2012 Gen: A&OX3, NAD, non-toxic appearing Skin: Inflamed acrochordon left side of neck and left side of inferior chest wall and 3 under rightbreast (5 total) ASSESSMENT/PLAN: 1. Inflamed acrochordon - ICD9: 701.9, 686.9, ICD10: L91.8 - treated 5 inflamed acrochordans as above- treated with cryotherapy without complication, tolerated well, no complications. Aware of post procedure wound care. Mario Roberto DO Return if no improvement. Follow up with Mario Roberto DO. To ER if develops chest pain, shortness of breath Discussed risks, benefits, alternatives, and potential side effects of medications. Patient/Guardian expressed understanding and agreed with the plan. See patient instructions. Mario Roberto DO [address] [place] [address] documented in this encounterMercy [facility] Hospital05-05-2022 History of Present illness Narrative* Ariela Lees RN - 06/11/2021 3:22 PM EDT INSIGHT CDM TELEPHONIC OUTREACH Provider Action/FYI: Contact made with patient: No - Left message Hello my name is Airela Lees RN your Commercial Print Salesman from the [facility] I am calling today to check in. I am sorry I missedyour call. I will reach out to you again at a later date. documented in this encounterMercy [facility]04-22-2022 Miscellaneous Notes* Telephone Encounter - Tali Rashid APRN.CNP - 05/29/2021 4:10 PM EDT The following approved medication requests have been transmitted electronically. Signed Prescriptions Disp Refills propranolol (INDERAL) 60 mg tablet 90 tablet 1 Sig: Take 1 tablet by mouth once daily. 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 Has since then quit this job and is trying to recover. No obvious swelling or skin changes. No known falls. Has used a neoprene knee brace to pull on. No routine use of ice or heat. Use of ibuprofen or tylenol with mild benefit. She was given J brace for knee and had been ordered xray. 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 Rare need for ibuprofen or tylenol. COPD. Knows needs to quit smoking. Not interested in taking Wellbutrin. Knows needs to try something. Not sure she is ready to quit yet. No further shortness of breath or cough worsening. No fevers or chills or hemoptysis. She is not interested in the shingrix or pneumonia vaccines or bone density at this time PAST MEDICAL HISTORY Diagnosis Date Depression Hypercholesteremia Mental disorder Sebaceous cyst 06/02/2005 cyst R middle toe 06/11 Stage 1 mild COPD by GOLD classification ([facility]) 11/2017 Syncope and collapse 06/02/2005 near syncope 07/10 Tobacco use disorder 06/02/2005 PAST SURGICAL HISTORY Procedure Laterality Date CAUTERY CERVIX CRYOCAUTERY INITIAL/REPEAT 1991 COLONOSCOPY FLX DX W/COLLJ SPEC WHEN PFRMD 03/06/2018 Colonoscopy EXCISION GANGLION WRIST DORSAL/VOLAR PRIMARY right PAST SURGICAL HISTORY OF benign tumor Right breast removed Current Outpatient Medications Medication Sig albuterol HFA (PROAIR HFA) 90 mcg/actuation inhaler Inhale 2 Puffs as instructed every 6 hours as needed for wheezing/shortness of breath. propranolol (INDERAL) 60 mg tablet Take 1 tablet by mouth once daily. For tremor aspirin, enteric coated (ASPIRIN, ENTERIC COATED) 81 mg EC tablet Take 81 mg by mouth once daily. citalopram (CELEXA) 40 mg tablet Take 0.5 tablets by mouth once daily. Cholecalciferol, Vitamin D3, 2,000 unit cap Take 1 tablet by mouth once daily. calcium carbonate (CALTRATE) 600 mg (1,500 mg) tab Take 1 tablet by mouth twice daily. MULTIVITAMIN TAB Take one(1) tablet daily. No current facility-administered medications for this visit. ALLERGIES Allergen Reactions Asa [Salicylates] stomach upset Social History Tobacco Use Smoking status: Current Every Day Smoker Packs/day: 1.00 Years: 33.00 Pack years: 33.00 Types: Cigarettes Smokeless tobacco: Never Used Tobacco comment: Just under a pack Substance Use Topics Alcohol use: Yes Comment: occasionally Drug use: No ROS: See HPI. PE: BP 122/68 Pulse 60 Temp (Src) 96.8 (Left Tympanic) Resp 20 Wt 172 lb (78.0kg) LMP 09/27/2012 Gen: A&OX3, NAD, non-toxic appearing HEENT: PERRLA, EOMs intact b/l, nares without drainage, pharynx without erythema, exudate, lesions,or drainage. Uvula midline. Neck: No LAD, no thyromegaly, no meningismus. CV: RRR, no murmur Lungs: CTA b/l, diffusely mildly diminished with prolonged exhalation phase, no distress No edema Left knee with mild joint line TTP without skin changes or effusoin Skin: No rashes, lesions, or wounds on exposed skin. Scattered nevi and seborrheic keratoses and angiomas. ASSESSMENT/PLAN: 1. Chronic pain of left knee - ICD9: 719.46, 338.29, ICD10: M25.562, G89.29 (primary diagnosis) - secondary to mild OA changes. Continue use of brace and icing and rest and prn NSAIDs 2. Primary osteoarthritis of left knee - ICD9: 715.16, ICD10: M17.12 - secondary to mild OA changes. Continue use of brace and icing and rest and prn NSAIDs 3. Hypertriglyceridemia - ICD9: 272.1, ICD10: E78.1 - suboptimal control - Encouraged following a low fat, low cholesterol diet. - Discussed the benefits of regular aerobic exercise and weight loss. 4. IFG (impaired fasting glucose) - ICD9: 790.21, ICD10: R73.01 - stable 5. Tobacco use - ICD9: 305.1, ICD10: Z72.0 - Cessation encouraged. - Physiologic and physical aspects of tobacco addiction as well as strategies for quitting were discussed. - Counseling was given focusing on the harmful effects of this addiction especially given the patient's medical condition(s) which will be worsened because of the chemicals in tobacco. 6. Stage 1 mild COPD by GOLD classification (HCC) - ICD9: 496, ICD10: J44.9 - needs to quit smoking 7. Obesity, Class I, BMI 30-34.9 - ICD9: 278.00, ICD10: E66.9 Stable - Behavioral intervention Mario Roberto DO F/u in office for 40 min skin check/lesion evaluation Return if no improvement. Follow up with Mario Roberto DO. To ER if develops chest pain, shortness of breath Discussed risks, benefits, alternatives, and potential side effects of medications. Patient/Guardian expressed understanding and agreed with the plan. See patient instructions. Mario Roberto DO [address] [place] [address] documented in this [facility] History of Past illness Narrative* Problem Noted Date Resolved Date Syncope and collapse 06/02/2005 11/11/2015 Overview: near syncope 07/10 documented as of this encounter (statuses as of 04/29/2021) [facility] of [facility] illness Narrative* Problem Noted Date Resolved Date Syncope and collapse 06/02/2005 11/11/2015 Overview: near syncope / documented as of this encounter (statuses as of 05/29/2021) [facility] of [facility] illness Narrative* Problem Noted Date Resolved Date Syncope and collapse 06/02/2005 11/11/2015 Overview: near syncope / documented as of this encounter (statuses as of 06/11/2021) [facility] of Past illness Narrative* Problem Noted Date Resolved Date Syncope and collapse 06/02/2005 11/11/2015 Overview: near syncope 6/03 documented as of this encounter (statuses as of 06/12/2021) [place] [id number] History of Past illness Narrative* Problem Noted Date Resolved Date Syncope and collapse 06/02/2005 11/11/2015 Overview: near syncope 6/03 documented as of this encounter (statuses as of 10/16/2021) [address]26-2006 History of Past illness Narrative* Problem Noted Date Resolved Date Syncope and collapse 06/02/2005 11/11/2015 Overview: near syncope 6/03 documented as of this encounter (statuses as of 11/09/2021) [address]26-2006 History of Past illness Narrative* Problem Noted Date Resolved Date Syncope and collapse 06/02/2005 11/11/2015 Overview: near syncope 6/03 documented as of this encounter (statuses as of 11/09/2021) [address]26[address]2006 History of Past illness Narrative* Problem Noted Date Resolved Date Syncope and collapse 06/02/2005 11/11/2015 Overview: near syncope 6/03 documented as of this encounter (statuses as of 11/11/2021) [place] [id number] History of Past illness Narrative* Problem Noted Date Resolved Date Syncope and collapse 06/02/2005 11/11/2015 Overview: near syncope 6/03 documented as of this encounter (statuses as of 11/18/2021) [address]26[address]2006 History of Past illness Narrative* Problem Noted Date Resolved Date Syncope and collapse 06/02/2005 11/11/2015 Overview: near syncope 6/03 documented as of this encounter (statuses as of 12/01/2021) [address]26-2006 History of Past illness Narrative* Problem Noted Date Resolved Date Syncope and collapse 06/02/2005 11/11/2015 Overview: near syncope 6/03 documented as of this encounter (statuses as of 12/17/2021) [address]26-2006 History of Past illness Narrative* Problem Noted Date Resolved Date Syncope and collapse 06/02/2005 11/11/2015 Overview: near syncope 6/03 documented as of this encounter (statuses as of 01/08/2022) [address]26-2006 History of Past illness Narrative* Problem Noted Date Resolved Date Syncope and collapse 06/02/2005 11/11/2015 Overview: near syncope 6/03 documented as of this encounter (statuses as of 01/08/2022) [address]26-2006 History of Past illness Narrative* Problem Noted Date Resolved Date Syncope and collapse 06/02/2005 11/11/2015 Overview: near syncope 6/03 documented as of this encounter (statuses as of 01/08/2022) [address]26-2006 History of Past illness Narrative* Problem Noted Date Resolved Date Syncope and collapse 06/02/2005 11/11/2015 Overview: near syncope 6/03 documented as of this encounter (statuses as of 01/08/2022) [address]26[address]2006 History of Past illness Narrative* Problem Noted Date Resolved Date Syncope and collapse 06/02/2005 11/11/2015 Overview: near syncope 6/03 documented as of this encounter (statuses as of 01/12/2022) [address]26[address]2006 History of Past illness Narrative* Problem Noted Date Resolved Date Syncope and collapse 06/02/2005 11/11/2015 Overview: near syncope 6/03 documented as of this encounter (statuses as of 02/22/2022) [address]26[address]2006 History of Past illness Narrative* Problem Noted Date Resolved Date Syncope and collapse 06/02/2005 11/11/2015 Overview: near syncope 6/03 documented as of this encounter (statuses as of 04/13/2022) [place] [id number] History of Past illness Narrative* Problem Noted Date Resolved Date Syncope and collapse 06/02/2005 11/11/2015 Overview: near syncope 6/03 documented as of this encounter (statuses as of 04/14/2022) [place] [id number] History of Past illness Narrative* Problem Noted Date Resolved Date Syncope and collapse 06/02/2005 11/11/2015 Overview: near syncope 6/03 documented as of this encounter (statuses as of 04/21/2022) [place] [id number] History of Past illness Narrative* Problem Noted Date Resolved Date Syncope and collapse 06/02/2005 11/11/2015 Overview: near syncope 6/03 documented as of this encounter (statuses as of 05/24/2022) [place] [id number] History of Past illness Narrative* Problem Noted Date Resolved Date Syncope and collapse 06/02/2005 11/11/2015 Overview: near syncope 6/03 documented as of this encounter (statuses as of 05/29/2022) [facility] Narrative* Problem Noted Date Diagnosed Date Resolved Date Syncope and collapse 06/02/2005 016 Overview: near syncope 6/03 documented as of this encounter (statuses as of 08/19/2022) [place] [id number] History of Past illness Narrative* Problem Noted Date Diagnosed Date Resolved Date Syncope and collapse 06/02/2005 016 Overview: near syncope 6/03 documented as of this encounter (statuses as of 08/25/2022) [place] [id number] History of Past illness Narrative* Problem Noted Date Diagnosed Date Resolved Date Syncope and collapse 06/02/2005 016 Overview: near syncope 6/03 documented as of this encounter (statuses as of 09/09/2022) [place] [id number] History of Past illness Narrative* Problem Noted Date Diagnosed Date Resolved Date Syncope and collapse 06/02/2005 016 Overview: near syncope 6/03 documented as of this encounter (statuses as of 09/10/2022) [facility] Narrative* Problem Noted Date Diagnosed Date Resolved Date Syncope and collapse 06/02/2005 016 Overview: near syncope 6/03 documented as of this encounter (statuses as of 09/10/2022) [facility] Narrative* Problem Noted Date Diagnosed Date Resolved Date Syncope and collapse 06/02/2005 016 Overview: near syncope 6/03 documented as of this encounter (statuses as of 09/10/2022) [facility] Narrative* Problem Noted Date Diagnosed Date Resolved Date Syncope and collapse 06/02/2005 016 Overview: near syncope 6/03 documented as of this encounter (statuses as of 10/21/2022) [facility] Narrative* Problem Noted Date Diagnosed Date Resolved Date Syncope and collapse 06/02/2005 016 Overview: near syncope 6/03 documented as of this encounter (statuses as of 11/27/2022) [facility] Narrative* Problem Noted Date Diagnosed Date Resolved Date Syncope and collapse 06/02/2005 016 Overview: near syncope 6/03 documented as of this encounter (statuses as of 12/03/2022) [facility] Narrative* Problem Noted Date Diagnosed Date Resolved Date Syncope and collapse 06/02/2005 016 Overview: near syncope 6/03 documented as of this encounter (statuses as of 12/12/2022) [facility] Narrative* Problem Noted Date Diagnosed Date Resolved Date Syncope and collapse 06/02/2005 016 Overview: near syncope 6/ documented as of this encounter (statuses as of 12/12/2022) [facility] Narrative* Problem Noted Date Diagnosed Date Resolved Date Syncope and collapse 06/02/2005 016 Overview: near syncope 6/ documented as of this encounter (statuses as of 03/21/2023) [facility]* VANE SANCHEZ MD: PERFORM, SIGN, VERIFY Event Display: Anesthesiology Consultation Authored Date: Patient: PAULY SETH Age: 67 years Sex: Female : 1955 Associated Diagnoses: None Author: VANE SANCHEZ MD Postoperative Information Post Operative Info: Post op day: Post Anesthesia Care Unit. Patient location: PACU. Assessment Postanesthesia assessment Vitals: Vital signs from flowsheet : Vital Signs 01/07/2023 18:50 EST Temperature Oral 36.8 DegC Peripheral Pulse Rate 70 bpm Systolic Blood Pressure Non-Invasive 153 mmHg HI Diastolic Blood Pressure Non-Invasive 66 mmHg 01/07/2023 18:17 EST Heart Rate Monitored 69 bpm Respiratory Rate 16 br/min 01/07/2023 18:00 EST Temperature Temporal Artery 36.0 DegC Heart Rate Monitored 70 bpm Respiratory Rate 16 br/min Systolic Blood Pressure Non-Invasive 160 mmHg HI Diastolic Blood Pressure Non-Invasive 67 mmHg Mean Arterial Pressure (NBP) 93 mmHg 01/07/2023 17:35 EST Heart Rate Monitored 71 bpm Respiratory Rate 16 br/min Systolic Blood Pressure Non-Invasive 153 mmHg HI Diastolic Blood Pressure Non-Invasive 81 mmHg Mean Arterial Pressure (NBP) 104 mmHg 01/07/2023 17:20 EST Heart Rate Monitored 67 bpm Respiratory Rate 16 br/min Systolic Blood Pressure Non-Invasive 150 mmHg HI Diastolic Blood Pressure Non-Invasive 82 mmHg Mean Arterial Pressure (NBP) 102 mmHg 01/07/2023 17:05 EST Heart Rate Monitored 67 bpm Respiratory Rate 16 br/min Systolic Blood Pressure Non-Invasive 174 mmHg HI Diastolic Blood Pressure Non-Invasive 85 mmHg Mean Arterial Pressure (NBP) 109 mmHg 01/07/2023 16:50 EST Heart Rate Monitored 67 bpm Respiratory Rate 16 br/min Systolic Blood Pressure Non-Invasive 177 mmHg HI Diastolic Blood Pressure Non-Invasive 85 mmHg Mean Arterial Pressure (NBP) 110 mmHg 01/07/2023 16:35 EST Heart Rate Monitored 69 bpm Respiratory Rate 16 br/min Systolic Blood Pressure Non-Invasive 180 mmHg HI Diastolic Blood Pressure Non-Invasive 86 mmHg Mean Arterial Pressure (NBP) 114 mmHg 01/07/2023 16:20 EST Temperature Temporal Artery 36.5 DegC Heart Rate Monitored 71 bpm Respiratory Rate 16 br/min Systolic Blood Pressure Non-Invasive 158 mmHg HI Diastolic Blood Pressure Non-Invasive 84 mmHg Mean Arterial Pressure (NBP) 106 mmHg 01/07/2023 16:15 EST Respiratory Rate - Anes 0 br/min br/min 01/07/2023 16:10 EST Heart Rate Monitored 75 bpm bpm Respiratory Rate - Anes 0 br/min br/min Systolic Blood Pressure Non-Invasive 161 mmHg mmHg Diastolic Blood Pressure Non-Invasive 92 mmHg mmHg 01/07/2023 16:07 EST Systolic Blood Pressure Non-Invasive 143 mmHg mmHg Diastolic Blood Pressure Non-Invasive 69 mmHg mmHg 01/07/2023 16:05 EST Heart Rate Monitored 59 bpm bpm Respiratory Rate - Anes 11 br/min br/min 01/07/2023 16:04 EST Systolic Blood Pressure Non-Invasive 93 mmHg mmHg Diastolic Blood Pressure Non-Invasive 51 mmHg mmHg 01/07/2023 16:01 EST Systolic Blood Pressure Non-Invasive 87 mmHg mmHg Diastolic Blood Pressure Non-Invasive 39 mmHg mmHg 01/07/2023 16:00 EST Temperature (Route Not Specified) 36.5 DegC DegC Heart Rate Monitored 57 bpm bpm Respiratory Rate - Anes 12 br/min br/min 01/07/2023 15:58 EST Systolic Blood Pressure Non-Invasive 103 mmHg mmHg Diastolic Blood Pressure Non-Invasive 54 mmHg mmHg 01/07/2023 15:55 EST Temperature (Route Not Specified) 36.44 DegC DegC Heart Rate Monitored 54 bpm bpm Respiratory Rate - Anes 12 br/min br/min Systolic Blood Pressure Non-Invasive 91 mmHg mmHg Diastolic Blood Pressure Non-Invasive 44 mmHg mmHg 01/07/2023 15:53 EST Systolic Blood Pressure Non-Invasive 118 mmHg mmHg Diastolic Blood Pressure Non-Invasive 47 mmHg mmHg 01/07/2023 15:50 EST Temperature (Route Not Specified) 36.45 DegC DegC Heart Rate Monitored 62 bpm bpm Respiratory Rate - Anes 13 br/min br/min 01/07/2023 15:49 EST Systolic Blood Pressure Non-Invasive 128 mmHg mmHg Diastolic Blood Pressure Non-Invasive 61 mmHg mmHg 01/07/2023 15:47 EST Systolic Blood Pressure Non-Invasive 99 mmHg mmHg Diastolic Blood Pressure Non-Invasive 40 mmHg mmHg 01/07/2023 15:45 EST Temperature (Route Not Specified) 36.4 DegC DegC Heart Rate Monitored 48 bpm bpm Respiratory Rate - Anes 12 br/min br/min 01/07/2023 15:43 EST Systolic Blood Pressure Non-Invasive 117 mmHg mmHg Diastolic Blood Pressure Non-Invasive 49 mmHg mmHg 01/07/2023 15:40 EST Temperature (Route Not Specified) 36.5 DegC DegC Heart Rate Monitored 50 bpm bpm Respiratory Rate - Anes 12 br/min br/min Systolic Blood Pressure Non-Invasive 71 mmHg mmHg Diastolic Blood Pressure Non-Invasive 41 mmHg mmHg 01/07/2023 15:38 EST Systolic Blood Pressure Non-Invasive 81 mmHg mmHg Diastolic Blood Pressure Non-Invasive 36 mmHg mmHg 01/07/2023 15:35 EST Temperature (Route Not Specified) 36.52 DegC DegC Heart Rate Monitored 60 bpm bpm Respiratory Rate - Anes 12 br/min br/min 01/07/2023 15:34 EST Systolic Blood Pressure Non-Invasive 104 mmHg mmHg Diastolic Blood Pressure Non-Invasive 39 mmHg mmHg 01/07/2023 15:31 EST Systolic Blood Pressure Non-Invasive 94 mmHg mmHg Diastolic Blood Pressure Non-Invasive 40 mmHg mmHg 01/07/2023 15:30 EST Heart Rate Monitored 65 bpm bpm Respiratory Rate - Anes 12 br/min br/min 01/07/2023 15:28 EST Systolic Blood Pressure Non-Invasive 113 mmHg mmHg Diastolic Blood Pressure Non-Invasive 51 mmHg mmHg 01/07/2023 15:25 EST Respiratory Rate - Anes 0 br/min br/min Systolic Blood Pressure Non-Invasive 145 mmHg mmHg Diastolic Blood Pressure Non-Invasive 87 mmHg mmHg 01/07/2023 13:53 EST Heart Rate Monitored 66 bpm 01/07/2023 10:00 EST Peripheral Pulse Rate 66 bpm Respiratory Rate 12 br/min LOW Systolic Blood Pressure Non-Invasive 181 mmHg HI Diastolic Blood Pressure Non-Invasive 68 mmHg 01/07/2023 5:18 EST Peripheral Pulse Rate 60 bpm Respiratory Rate 14 br/min Systolic Blood Pressure Non-Invasive 124 mmHg Diastolic Blood Pressure Non-Invasive 49 mmHg <LLOW , Oxygen Therapy : Oxygen Therapy & Oxygenation Information 01/07/2023 18:50 EST Oxygen Therapy Nasal cannula 0L-6L Oxygen Saturation 93 % Oxygen Flow Rate 3 01/07/2023 18:17 EST Oxygen Therapy Nasal cannula 0L-6L Oxygen Saturation 94 % Oxygen Flow Rate 3 01/07/2023 18:00 EST Oxygen Therapy Nasal cannula 0L-6L Oxygen Saturation 95 % Oxygen Flow Rate 3 01/07/2023 17:35 EST Oxygen Therapy Nasal cannula 0L-6L Oxygen Saturation 95 % Oxygen Flow Rate 3 01/07/2023 17:20 EST Oxygen Therapy Nasal cannula 0L-6L Oxygen Saturation 91 % LOW Oxygen Flow Rate 3 01/07/2023 17:05 EST Oxygen Therapy Nasal cannula 0L-6L Oxygen Saturation 94 % Oxygen Flow Rate 3 01/07/2023 16:50 EST Oxygen Therapy Nasal cannula 0L-6L Oxygen Saturation 97 % Oxygen Flow Rate 3 01/07/2023 16:35 EST Oxygen Therapy Simple mask Oxygen Saturation 96 % Oxygen Flow Rate 9 01/07/2023 16:20 EST Oxygen Therapy Simple mask Oxygen Saturation 94 % Oxygen Flow Rate 9 01/07/2023 16:15 EST Oxygen Saturation 95 % % 01/07/2023 16:10 EST Oxygen Saturation 98 % % 01/07/2023 16:05 EST Oxygen Saturation 99 % % 01/07/2023 16:00 EST Oxygen Saturation 99 % % 01/07/2023 15:55 EST Oxygen Saturation 99 % % 01/07/2023 15:50 EST Oxygen Saturation 100 % % 01/07/2023 15:45 EST Oxygen Saturation 100 % % 01/07/2023 15:40 EST Oxygen Saturation 99 % % 01/07/2023 15:35 EST Oxygen Saturation 100 % % 01/07/2023 15:30 EST Oxygen Saturation 100 % % 01/07/2023 15:25 EST Oxygen Saturation 80 % % 01/07/2023 13:53 EST Oxygen Therapy Nasal cannula 0L-6L Oxygen Flow Rate 2 01/07/2023 10:00 EST Oxygen Therapy Nasal cannula 0L-6L Oxygen Saturation 94 % Oxygen Flow Rate 2 01/07/2023 5:18 EST Oxygen Therapy Nasal cannula 0L-6L Oxygen Saturation 95 % Oxygen Flow Rate 2 L/min . Mental status: at preoperative baseline. Respiratory function: respirations are non-labored, Stable. Respiratory support: none. CV function: Stable. Cardiovascular support: none. Pain: Satisfactory. Nausea status: Satisfactory. Postoperative hydration status: within normal limits. Notes: Patient is sufficiently recovered from anesthesia to participate in the evaluation. No follow-up care needed. No complications post-anesthesia.. Digitally Signed by VANE SANCHEZ MD on 01/07/2023 10:23 PM * JOHN FRAGA MD: PERFORM, SIGN, VERIFY Event Display: Anesthesiology Consultation Authored Date: Patient: PAULY SETH Age: 67 years Sex: Female : 1955 Associated Diagnoses: None Author: JOHN FRAGA MD Health Status Allergies: Allergic Reactions (All) NKA, Allergies (1) ActiveReaction NKANone Documented Current medications: (Selected) Inpatient Medications Ordered Kefzol: 2 gram(s), 20 mL, 240 mL/hr, IV Push (INT), PREOP pharm LR 1,000 mL: 100 mL/hr, Intravenous Documented Medications Documented aspirin 81 mg oral delayed release tablet: 81 mg, 1 tab(s), Oral, qDay citalopram 40 mg oral tablet: 20 mg, 0.5 tab(s), Oral, qDay losartan 100 mg oral tablet: 100 mg, 1 tab(s), Oral, qDay propranolol 60 mg oral tablet: 60 mg, 1 tab(s), Oral, qDay, Medications (2) Active Scheduled: (1) ceFAZolin syringe 2 gram(s) 20 mL, IV Push (INT), PREOP pharm Continuous: (1) Lactated Ringers 1,000 mL 1,000 mL, Intravenous, 100 mL/hr PRN: (0) Problem list: Medical Depression / SNOMED CT [id number] / Confirmed, Active Problems (1) Depression Histories Past Medical History: No active or resolved past medical history items have been selected or recorded. Family History: No family history items have been selected or recorded. Procedure history: Cyst of breast ([id number]). Social History Social & Psychosocial Habits No Data Available . Physical Examination Vital Signs 01/07/2023 13:53 EST Heart Rate Monitored 66 bpm 01/07/2023 10:00 EST Peripheral Pulse Rate 66 bpm Respiratory Rate 12 br/min LOW Systolic Blood Pressure Non-Invasive 181 mmHg HI Diastolic Blood Pressure Non-Invasive 68 mmHg 01/07/2023 5:18 EST Peripheral Pulse Rate 60 bpm Respiratory Rate 14 br/min Systolic Blood Pressure Non-Invasive 124 mmHg Diastolic Blood Pressure Non-Invasive 49 mmHg <LLOW Vital Signs(last 24 hrs) Last Charted Heart Rate [id number] bpm (JAN 07 13:53) Resp Rate L 12br/min (JAN 07 10:00) SBPH 181mmHg (JAN 07 10:00) DBP68 mmHg (JAN 07 10:00) Measurements from flowsheet : Measurements 01/07/2023 5:18 EST Admission Weight 86.9 kg Pain assessment: Pain Assessment 01/07/2023 10:19 EST Primary Pain Intensity 8 . General: Alert and oriented. Airway: Normal temporomandibular joint mobility, Nares patent, Trachea midline. Mallampati classification: II (soft palate, fauces, uvula visible). Head: Normocephalic, Atraumatic. Dentition Evaluation: Intact, Own teeth. Respiratory: Lungs are clear to auscultation. Cardiovascular: Normal rate, Regular rhythm. Neurologic: Alert, Oriented. Review / Management Results review: Labs (Last four charted values) WBC H 13.1(JAN 07) Hgb 13.8(JAN 07) Hct 42.6(JAN 07) Plt 248(JAN 07) Na 139(JAN 07) K 4.3(JAN 07) CO2 28(JAN 07) Cl 109(JAN 07) Cr 0.93(JAN 07) BUN 13.0(JAN 07) Glucose H 133(JAN 07) Ca 9.4(JAN 07) PT 11.5(JAN 07) INR 1.0(JAN 07) PTT L 22.7(JAN 07) , Lab results 01/07/2023 14:14 EST SN - GCD - Post-operative Diagnosis RIGHT PILON FRACTURE SN - GCD - Case Level Level 4 01/07/2023 14:12 EST SN - CAt - Case Attendee SN - CAt - Case Attendee SN - CAt - Role Performed Primary Surgeon 01/07/2023 14:05 EST Living Situation Home independently Transition Planning Note Transition Planning Initial Assessment 01/07/2023 13:53 EST Heart Rate Monitored 66 bpm Oxygen Therapy Nasal cannula 0L-6L Oxygen Flow Rate 2 01/07/2023 13:21 EST ED Note-Nursing Sent to OR 01/07/2023 10:22 EST Lactated Ringers Injection Begin Bag 1,000 mL mL 01/07/2023 10:20 EST ondansetron 4 mg mg 01/07/2023 10:19 EST Primary Pain Intensity 8 morphine 2 mg mg 01/07/2023 10:00 EST Peripheral Pulse Rate 66 bpm Respiratory Rate 12 br/min LOW Systolic Blood Pressure Non-Invasive 181 mmHg HI Diastolic Blood Pressure Non-Invasive 68 mmHg Oxygen Therapy Nasal cannula 0L-6L Oxygen Saturation 94 % Oxygen Flow Rate 2 01/07/2023 9:15 EST History and Physical History and Physical 01/07/2023 9:09 EST Orthopedic Consultation Consult Note (Modified) 01/07/2023 7:52 EST ABO/Rh Interp A NEG ABSC Interp (Gel) Negative ABSC 01/07/2023 6:45 EST XR Tibia/Fibula 2 Views Right XR TIBIA/FIBULA 2 VIEWS RIGHT 01/07/2023 6:44 EST XR Ankle Minimum 3 Views Right XR ANKLE MINIMUM 3 VIEWS RIGHT 01/07/2023 6:18 EST EKG (ED) - CV Signed 01/07/2023 6:06 EST ED Note-Physician ED/Urgent Care Provider Note (Modified) 01/07/2023 5:33 EST XR Chest 1 View XR CHEST 1 VIEW 01/07/2023 5:27 EST XR Pelvis 1 or 2 Views XR PELVIS 1 OR 2 VIEWS 01/07/2023 5:23 EST WBC 13.1 10^3/mcL HI RBC 4.53 10^6/mcL Hgb 13.8 G/dL Hct 42.6 % MCV 94.1 fL MCH 30.4 pg MCHC 32.2 G/dL RDW 14.5 % Platelet 248 10^3/mcL MPV 10.1 fL Monocyte Distribution Width 15.66 Neutrophil % 75.3 % HI Lymphocyte % 15.5 % LOW Monocyte % 8.4 % Eosinophil % 0.4 % Basophil % 0.4 % Neutrophil, Absolute 9.8 10^3/mcL HI Lymphocyte, Absolute 2.0 10^3/mcL Monocyte, Absolute 1.1 10^3/mcL Eosinophil, Absolute 0.0 10^3/mcL Basophil, Absolute 0.0 10^3/mcL Heparin dose (APTT) None APTT 22.7 seconds LOW Protime 11.5 seconds PT International Ratio 1.0 ratio NA Glucose Level 133 mg/dL HI Sodium Level 139 mEq/L Potassium Level 4.3 mEq/L Chloride 109 mEq/L CO2 28 mEq/L Electrolyte Balance 2.0 mEq/L LOW BUN 13.0 mg/dL Creatinine Lvl (s) 0.93 mg/dL BUN/Creatinine Ratio 14.0 ratio Calcium Lvl 9.4 mg/dL GFR Non- 60 ml/min/1.73sqm NA GFR >60 ml/min/1.73sqm NA Ethanol Level <10.0 mg/dL NA 01/07/2023 5:18 EST Admission Weight 86.9 kg Peripheral Pulse Rate 60 bpm Respiratory Rate 14 br/min Systolic Blood Pressure Non-Invasive 124 mmHg Diastolic Blood Pressure Non-Invasive 49 mmHg <LLOW YESSICA Level 1 No YESSICA Level 2 No YESSICA Level 3 Many Vital Signs YESSICA No Recommended YESSICA Level 3 Oxygen Therapy Nasal cannula 0L-6L Oxygen Saturation 95 % Oxygen Flow Rate 2 L/min Status No, per patient Eye Opening Response Sunbright Spontaneously Best Motor Response Veronica Obeys simple commands Best Verbal Response Sunbright Oriented Veronica Coma Score 15 Wish To Be No Suicidal Thoughts No Ever Made Plans to End Your Life No Suicide Severity Rating No problems noted Infectious Disease Symptoms Patient states no symptoms Infectious Disease Recent Exposure No Alcohol and Drug Use No Employee of Institutional Living No Health Care Employee No History of Exposure to TB No History of Positive Chest X-Ray for TB No History of Positive TB Skin Test No Homeless No Known Immunosuppression No Recent Immigrant No Resident of Institutional Living No Bloody Sputum No Fatigue No Fever No Loss of Appetite No Night Sweats No Persistent Cough > 3 Weeks No Weight Loss No Chief Complaint Description Trauma transfer from [place]. 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 Pt ankle placed in hard splint at [facility] and transported here. Denies blood thinners/loc. Pt reports no other pain or injury from fall. Place Where Injury/Illness Occurred Home Tracking Group ED Tracking Group Tracking Acuity 3 Triage Treatments Ice to affected area Mode of Transfer Ground ambulance Ambulance Service Other: [facility] Prev Test Positive/Diagnosis w/COVID-19 No Current Quarantine/Isolated any Illness No Any Contact with Sick Animals/Birds No Traveled Anywhere in Last 30 Days No ED Assessment Note - Nursing ED Assessment Trauma . Assessment and Plan [place] [employer] (ASA) physical status classification: Class II. Anesthetic Preoperative Plan Anesthetic technique: General. Induction: intravenously. Maintenance airway: Laryngeal mask airway. Postoperative pain management: Per surgeon. Risks discussed: nausea, vomiting, headache, sore throat, dental injury, hypotension, allergic reaction, serious complications. Informed consent: signed by patient. Notes: HTN, smoker, depression, essential tremor treated with propranolol. Beta Delano: Beta Delano Taken Within 24 Hrs: No. Digitally Signed by JOHN FRAGA MD on 01/07/2023 02:24 PM [facility] Evaluation note* Diagnosis Chronic pain of left knee- Primary Pain in joint, lower leg Primary osteoarthritis of left knee Primary localized osteoarthrosis, lower leg Hypertriglyceridemia Pure hyperglyceridemia IFG (impaired fasting glucose) Impaired fasting glucose Tobacco use Tobacco use disorder Stage 1 mild COPD by GOLD classification ([facility]) Obesity, Class I, BMI 30-34.9 Obesity, unspecified [facility] Diagnosis Inflamed acrochordon- Primary Unspecified hypertrophic and atrophic condition of skin [facility] Diagnosis Nipple discharge- Primary Other sign and symptom in breast Encounter for immunization Need for other specified prophylactic vaccination against single bacterial disease Encounter for screening for lung cancer Smoker Tobacco use disorder [facility] Diagnosis Hypertension, essential- Primary Unspecified essential hypertension IFG (impaired fasting glucose) Impaired fasting glucose Hypertriglyceridemia Pure hyperglyceridemia Fatigue, unspecified type Stage 1 mild COPD by GOLD classification (HCC) Obesity, Class I, BMI 30-34.9 Obesity, unspecified [facility] Diagnosis Encounter for screening mammogram for breast cancer [facility]* Diagnosis Stage 1 mild COPD by GOLD classification ([facility])- Primary Chronic obstructive pulmonary disease with acute exacerbation (HCC) Obstructive chronic bronchitis with exacerbation documented in this encounter [facility] note* Diagnosis Primary osteoarthritis of right knee- Primary Primary localized osteoarthrosis, lower leg Need for influenza vaccination Need for prophylactic vaccination and inoculation against influenza Chronic pain of right knee IFG (impaired fasting glucose) Impaired fasting glucose Hypertriglyceridemia Pure hyperglyceridemia Stage 1 mild COPD by GOLD classification (HCC) Obesity, Class I, BMI 30-34.9 Obesity, unspecified Fatigue, unspecified type Tobacco use Tobacco use disorder Vitamin D deficiency Unspecified vitamin D deficiency [facility] Diagnosis Nipple discharge Other sign and symptom in breast [facility]* Diagnosis Nipple discharge Other sign and symptom in breast [facility] N[facility] No data available for this section [facility] Reason for referral (narrative)* Diagnostic Procedure Only (Routine) - Authorized Specialty Diagnoses / Procedures Referred By Charli tai Referred To Contact [facility] Diagnoses Nipple discharge Procedures US BREAST LTD LT BREAST UNI REAL TIME WITH IMAGE LIMITED Tali Rashid APRN.FRONT OFFICE HELP [address] [place] [address] [facility] [address] [place] [address] Referral ID Status Reason Start Date Expiration Date Visits Requested Visits Authorized [id number] Authorized Auto-Generat ed Referral 11/11/2021 12/11/2022 1 1 * Diagnostic Procedure Only (Routine) - Authorized Specialty Diagnoses / Procedures Referred By Charli tai Referred To Contact [facility] Diagnoses Nipple discharge Procedures NOÉ DIAGNOSTIC LT DIAGNOSTIC MAMMOGRAPHY COMPUTER-AIDED DETCJ UNI Tali Rashid APRN.FRONT OFFICE HELP [address] [place] [address] [facility] [address] [place] [address] Referral ID Status Reason Start Date Expiration Date Visits Requested Visits Authorized [id number] Authorized Auto-Generat ed Referral 11/11/2021 12/11/2022 1 1 [facility] for referral (narrative)* Diagnostic Procedure Only (Routine) - Pending Review Specialty Diagnoses / Procedures Referred By Charli t Referred To Contact [facility] Diagnoses Encounter for screening mammogram for breast cancer Procedures NOÉ SCREENING SCREENING MAMMOGRAPHY BI 2-VIEW BREAST INC CAD Mario Roberto DO [address] [place] [address] [facility] [address] [place] [address] Referral ID Status Reason Start Date Expiration Date Visits Requested Visits Authorized [id number] Pending Review Auto-Generat ed Referral 05/19/2022 06/18/2023 1 1 [facility] for referral (narrative)* Diagnostic Procedure Only (Routine) - Closed Specialty Diagnoses / Procedures Referred By Charli tai Referred To Contact [facility] Diagnoses Nipple discharge Procedures US BREAST LTD LT US BREAST UNI REAL TIME WITH IMAGE LIMITED Tali Reid APRN.FRONT OFFICE HELP [address] [place] [address] [facility] [address] [place] [address] Referral ID Status Reason Start Date Expiration Date V isits Requested Visits Authorized [id number] Closed Auto-Generate d Referral 11/11/2021 12/11/2022 1 1 [facility] for visit Narrative* Diagnostic Procedure Only (Routine) - Closed Specialty Diagnoses / Procedures [facility] Referred To Contact [facility] Diagnoses Nipple discharge Procedures NOÉ DIAGNOSTIC LT DIAGNOSTIC MAMMOGRAPHY COMPUTER-AIDED DETCJ UNI Tali Reid APRN.FRONT OFFICE HELP [address] [place] [address] [facility] [address] [place] [address] Referral ID Status Reason Start Date Expiration Date V isits Requested Visits Authorized [id number] Closed Auto-Generate d Referral 11/11/2021 12/11/2022 1 1 [facility] Advance Directives Documents on File Type Date Recorded 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 Advance 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(s) 03/06/2018 2:05 PM Health Concerns Problem Noted Date Diagnosed Date High Risk Chronic Disease Home Monitoring [place] 06/23/2022 Problem Noted Date Diagnosed Date High Risk Chronic Disease Home Monitoring [place] 06/23/2022 Problem Noted Date Diagnosed Date High Risk Chronic Disease Home Monitoring [place] 06/23/2022 Problem Noted Date Diagnosed Date High Risk Chronic Disease Home Monitoring Proble 06/23/2022 Problem Noted Date Diagnosed Date High Risk Chronic Disease Home Monitoring Proble 06/23/2022 Problem Noted Date Diagnosed Date High Risk Chronic Disease Home Monitoring Proble 06/23/2022 Problem Noted Date Diagnosed Date High Risk Chronic Disease Home Monitoring Proble 06/23/2022 Problem Noted Date Diagnosed Date High Risk Chronic Disease Home Monitoring [place] 06/23/2022 Problem Noted Date Diagnosed Date High Risk Chronic Disease Home Monitoring [place]ble 06/23/2022 Summary Purpose Family History No Family History Records Found Additional Source Comments Source Comments (unrecognize d section and content) In the event this informatio n is protected by the Federal Confidentiality of Alcohol and Drug Abuse Patient Records regulations: The Federal rules restrict any use of the information to criminally investigate or prosecute any alcohol or drug abuse patient.[facility] the event this information is protected by the Federal Confidentiality of Alcohol and Drug Abuse Patient Records regulations: The Federal rules restrict any use of the information to criminally investigate or prosecute any alcohol or drug abuse patient.[facility] the event this information is protected by the Federal Confidentiality of Alcohol and Drug Abuse Patient Records regulations: The Federal rules restrict any use of the information to criminally investigate or prosecute any alcohol or drug abuse patient.[facility] the event this information is protected by the Federal Confidentiality of Alcohol and Drug Abuse Patient Records regulations: The Federal rules restrict any use of the information to criminally investigate or prosecute any alcohol or drug abuse patient.[facility] the event this information is protected by the Federal Confidentiality of Alcohol and Drug Abuse Patient Records regulations: The Federal rules restrict any use of the information to criminally investigate or prosecute any alcohol or drug abuse patient.[facility] the event this information is protected by the Federal Confidentiality of Alcohol and Drug Abuse Patient Records regulations: The Federal rules restrict any use of the information to criminally investigate or prosecute any alcohol or drug abuse patient.[facility] Hospital[facility] the event this information is protected by the Federal Confidentiality of Alcohol and Drug Abuse Patient Records regulations: The Federal rules restrict any use of the information to criminally investigate or prosecute any alcohol or drug abuse patient.[facility] Hospital[facility] the event this information is protected by the Federal Confidentiality of Alcohol and Drug Abuse Patient Records regulations: The Federal rules restrict any use of the information to criminally investigate or prosecute any alcohol or drug abuse patient.[facility] Hospital[facility] the event this information is protected by the Federal Confidentiality of Alcohol and Drug Abuse Patient Records regulations: The Federal rules restrict any use of the information to criminally investigate or prosecute any alcohol or drug abuse patient.[facility] Hospital[facility] the event this information is protected by the Federal Confidentiality of Alcohol and Drug Abuse Patient Records regulations: The Federal rules restrict any use of the information to criminally investigate or prosecute any alcohol or drug abuse patient.[facility] Hospital[facility] the event this information is protected by the Federal Confidentiality of Alcohol and Drug Abuse Patient Records regulations: The Federal rules restrict any use of the information to criminally investigate or prosecute any alcohol or drug abuse patient.[facility] Hospital[facility] the event this information is protected by the Federal Confidentiality of Alcohol and Drug Abuse Patient Records regulations: The Federal rules restrict any use of the information to criminally investigate or prosecute any alcohol or drug abuse patient.[facility] HospitalIn the event this information is protected by the Federal Confidentiality of Alcohol and Drug Abuse Patient Records regulations: The Federal rules restrict any use of the information to criminally investigate or prosecute any alcohol or drug abuse patient.[facility] Hospital[facility] the event this information is protected by the Federal Confidentiality of Alcohol and Drug Abuse Patient Records regulations: The Federal rules restrict any use of the information to criminally investigate or prosecute any alcohol or drug abuse patient.[facility] HospitalIn the event this information is protected by the Federal Confidentiality of Alcohol and Drug Abuse Patient Records regulations: The Federal rules restrict any use of the information to criminally investigate or prosecute any alcohol or drug abuse patient.[facility] HospitalIn the event this information is protected by the Federal Confidentiality of Alcohol and Drug Abuse Patient Records regulations: The Federal rules restrict any use of the information to criminally investigate or prosecute any alcohol or drug abuse patient.[facility] HospitalIn the event this information is protected by the Federal Confidentiality of Alcohol and Drug Abuse Patient Records regulations: The Federal rules restrict any use of the information to criminally investigate or prosecute any alcohol or drug abuse patient.[facility] HospitalIn the event this information is protected by the Federal Confidentiality of Alcohol and Drug Abuse Patient Records regulations: The Federal rules restrict any use of the information to criminally investigate or prosecute any alcohol or drug abuse patient.[facility] HospitalIn the event this information is protected by the Federal Confidentiality of Alcohol and Drug Abuse Patient Records regulations: The Federal rules restrict any use of the information to criminally investigate or prosecute any alcohol or drug abuse patient.[facility] HospitalIn the event this information is protected by the Federal Confidentiality of Alcohol and Drug Abuse Patient Records regulations: The Federal rules restrict any use of the information to criminally investigate or prosecute any alcohol or drug abuse patient.[facility] HospitalIn the event this information is protected by the Federal Confidentiality of Alcohol and Drug Abuse Patient Records regulations: The Federal rules restrict any use of the information to criminally investigate or prosecute any alcohol or drug abuse patient.[facility] HospitalIn the event this information is protected by the Federal Confidentiality of Alcohol and Drug Abuse Patient Records regulations: The Federal rules restrict any use of the information to criminally investigate or prosecute any alcohol or drug abuse patient.[facility] HospitalIn the event this information is protected by the Federal Confidentiality of Alcohol and Drug Abuse Patient Records regulations: The Federal rules restrict any use of the information to criminally investigate or prosecute any alcohol or drug abuse patient.[facility] HospitalIn the event this information is protected by the Federal Confidentiality of Alcohol and Drug Abuse Patient Records regulations: The Federal rules restrict any use of the information to criminally investigate or prosecute any alcohol or drug abuse patient.[facility] HospitalIn the event this information is protected by the Federal Confidentiality of Alcohol and Drug Abuse Patient Records regulations: The Federal rules restrict any use of the information to criminally investigate or prosecute any alcohol or drug abuse patient.[facility] HospitalIn the event this information is protected by the Federal Confidentiality of Alcohol and Drug Abuse Patient Records regulations: The Federal rules restrict any use of the information to criminally investigate or prosecute any alcohol or drug abuse patient.[facility] HospitalIn the event this information is protected by the Federal Confidentiality of Alcohol and Drug Abuse Patient Records regulations: The Federal rules restrict any use of the information to criminally investigate or prosecute any alcohol or drug abuse patient.[facility] HospitalIn the event this information is protected by the Federal Confidentiality of Alcohol and Drug Abuse Patient Records regulations: The Federal rules restrict any use of the information to criminally investigate or prosecute any alcohol or drug abuse patient.[facility] HospitalIn the event this information is protected by the Federal Confidentiality of Alcohol and Drug Abuse Patient Records regulations: The Federal rules restrict any use of the information to criminally investigate or prosecute any alcohol or drug abuse patient.[facility] HospitalIn the event this information is protected by the Federal Confidentiality of Alcohol and Drug Abuse Patient Records regulations: The Federal rules restrict any use of the information to criminally investigate or prosecute any alcohol or drug abuse patient.[facility] HospitalIn the event this information is protected by the Federal Confidentiality of Alcohol and Drug Abuse Patient Records regulations: The Federal rules restrict any use of the information to criminally investigate or prosecute any alcohol or drug abuse patient.[facility] HospitalIn the event this information is protected by the Federal Confidentiality of Alcohol and Drug Abuse Patient Records regulations: The Federal rules restrict any use of the information to criminally investigate or prosecute any alcohol or drug abuse patient.[facility] HospitalIn the event this information is protected by the Federal Confidentiality of Alcohol and Drug Abuse Patient Records regulations: The Federal rules restrict any use of the information to criminally investigate or prosecute any alcohol or drug abuse patient.[facility] HospitalIn the event this information is protected by the Federal Confidentiality of Alcohol and Drug Abuse Patient Records regulations: The Federal rules restrict any use of the information to criminally investigate or prosecute any alcohol or drug abuse patient.[facility] HospitalIn the event this information is protected by the Federal Confidentiality of Alcohol and Drug Abuse Patient Records regulations: The Federal rules restrict any use of the information to criminally investigate or prosecute any alcohol or drug abuse patient.[facility] HospitalIn the event this information is protected by the Federal Confidentiality of Alcohol and Drug Abuse Patient Records regulations: The Federal rules restrict any use of the information to criminally investigate or prosecute any alcohol or drug abuse patient.[facility] Reason for Visit (unrecogniz ed section and content) Reason Onset Date Comments Community Monitoring Outreach 06/11/2021 Te lephonic Follow Up Reason Comments Derm Problem Mole removal Reason Onset Date Comments Community Monitoring Outreach 10/16/2021 CD M Reason Comments Patient Question Reason Comments Breast Problem Clear odorless disch arge from left breast for about past five days Reason Comments Results Reason Onset Date Comments Community Monitoring Outreach 12/01/2021 [facility] Disengaged Reason Onset Date Comments CDM escalation 04/13/2022 [facility] questio nnaire triggered escalation Reason Onset Date Comments CDM 04/14/2022 [facility] escalation Reason Onset Date Comments cdm 04/14/2022 [facility] escalation Reason Comments Follow Up Reason Onset Date Comments cd outreach 05/29/2022 Escalation Reason Comments Medication Question [facility] Ou treach Reason Onset Date Comments Community monitoring outreach 09/09/2022 CD M [facility] TRIGGERED ESCALATION Reason Comments Chest Congestion Reason Comments Medication Question MyChart Care Compani on follow up Reason Onset Date Comments Refill Request 10/20/2022 Reason Onset Date Comments Follow Up Immunizations 11/22/2022 Flu vaccination Reason Comments Chest Congestion productive cough Reason Comments Radiology US Specialty Diagnoses / Procedures Referred By Contac t Referred To Contact [facility] Diagnoses Nipple discharge Procedures US BREAST LTD LT US BREAST UNI REAL TIME WITH IMAGE LIMITED Tali Reid APRN.FRONT OFFICE HELP [address] [place] [address] [facility] [address] [place] [address] Referral ID Status Reason Start Date Expiration Date V isits Requested Visits Authorized [id number] Closed Auto-Generate d Referral 11/11/2021 12/11/2022 1 1 Reason Comments Long-Term Update. Care Teams (unrecognized sec tion and content) Overhead Crane Operator Relationship Specialty Start Date End Date Mario Roberto DO [address] [place], [place] [address] PCP - General Family Practice 07/04/15 Ariela Lees rfid engineerCoffee Brewer 10/09/20 Overhead Crane Operator Relationship Specialty Start Date End Date Mario Roberto DO [address] [place], [place] [id number] PCP - General Family Practice 07/04/15 Ariela Lees, RN [address] [place] [address] Coffee Brewer 10/09/20 Overhead Crane Operator Relationship Specialty Start Date End Date Mario Roberto DO [address] [place], [place] [id number] PCP - General Family Practice 07/04/15 Ariela Lees, RN [address] [place] [address] Coffee Brewer 10/09/20 Overhead Crane Operator Relationship Specialty Start Date End Date Mario Roberto, DO [address] [place] [address] PCP - General Family Practice 07/04/15 Ariela Lees, RN [address] [place] [address] Coffee Brewer 10/09/20 Overhead Crane Operator Relationship Specialty Start Date End Date Mario Roberto, DO [address] [place] [address] PCP - General Family Medicine 07/04/15 Ariela Lees, RN [address] [place] [address] Coffee Brewer 10/09/20 Overhead Crane Operator Relationship Specialty Start Date End Date Mario Roberto, DO [address] [place] [address] PCP - General Family Medicine 07/04/15 Ariela Lees, RN [address] [place] [address] Coffee Brewer 10/09/20 Overhead Crane Operator Relationship Specialty Start Date End Date Mario Roberto, DO [address] [place] [address] PCP - General Family Medicine 07/04/15 Ariela Lees, RN [address] [place] [address] Coffee Brewer 10/09/20 Overhead Crane Operator Relationship Specialty Start Date End Date Mario Roberto, DO [address] [facility] [place] [address] PCP - General Family Medicine 07/04/15 Ariela Lees, RN [address] [place] [address] Coffee Brewer 10/09/20 Overhead Crane Operator Relationship Specialty Start Date End Date Mario Roberto, DO [address] [place] [address] PCP - General Family Medicine 07/04/15 Ariela Lees RN [address] [place] [address] Coffee Brewer 10/09/20 Overhead Crane Operator Relationship Specialty Start Date End Date Mario Roberto, DO [address] [place] [address] PCP - General Family Medicine 07/04/15 Ariela Lees, RN [address] [place] [address] Coffee Brewer 10/09/20 Overhead Crane Operator Relationship Specialty Start Date End Date Mario Roberto, DO [address] [place] [address] PCP - General Family Medicine 07/04/15 Ariela Lees RN [address] [place] [address] Coffee Brewer 10/09/20 Overhead Crane Operator Relationship Specialty Start Date End Date Mario Roberto, DO [address] [place] [address] PCP - General Family Medicine 07/04/15 Ariela Lees, RN [address] [place] [address] Coffee Brewer 10/09/20 Overhead Crane Operator Relationship Specialty Start Date End Date Mario Roberto, DO [address] [place] [address] PCP - General Family Medicine 07/04/15 Corinna Vizcarra, JUN [address] [place] [address] Coffee Brewer 09/17/2010/08 Ariela Lees, JUN [address] [place], [place] [id number] Coffee Brewer 10/09/20 Overhead Crane Operator Relationship Specialty Start Date End Date Mario Roberto, DO [address] [place] [address] PCP - General Family Medicine 07/04/15 Galina Liang, rfid engineerCoffee Brewer 03/12/22 Overhead Crane Operator Relationship Specialty Start Date End Date Mario Roberto, DO [address] [place] [address] PCP - General Family Medicine 07/04/15 Galina Liang, rfid engineerCoffee Brewer 03/12/22 Overhead Crane Operator Relationship Specialty Start Date End Date Mario Roberto, DO [address] [place] [address] PCP - General Family Medicine 07/04/15 Galina Liang, rfid engineerCoffee Brewer 03/12/22 Overhead Crane Operator Relationship Specialty Start Date End Date Mario Roberto, DO [address] [place] [address] PCP - General Family Medicine 07/04/15 Galina Liang, rfid engineerCoffee Brewer 03/12/22 Overhead Crane Operator Relationship Specialty Start Date End Date Mario Roberto, DO [address] [place] [address] PCP - General Family Medicine 07/04/15 Galina Liang, rfid engineerCoffee Brewer 03/12/22 Overhead Crane Operator Relationship Specialty Start Date End Date aMrio Roberto, DO [address] [place] [address] PCP - General Family Medicine 07/04/15 Chayo Pérez, JUN [address] [place] [address] Coffee Brewer 07/12/22 Overhead Crane Operator Relationship Specialty Start Date End Date Mario Roberto, DO [address] [place] [address] PCP - General Family Medicine 07/04/15 Chayo Pérez, RN [address] [place] [address] Coffee Brewer 07/12/22 Overhead Crane Operator Relationship Specialty Start Date End Date Mario Roberto DO [address] [place] [address] PCP - General Family Medicine 07/04/15 Chayo Pérez, RN [address] [place] [address] Coffee Brewer 07/12/22 Overhead Crane Operator Relationship Specialty Start Date End Date Mario Roberto, [address] [place] [address] PCP - General Family Medicine 07/04/15 Chayo Pérez RN [address] [place] [address] Coffee Brewer 07/12/22 Overhead Crane Operator Relationship Specialty Start Date End Date Mario Roberto DO [address] [place] [address] PCP - General Family Medicine 07/04/15 Chayo Pérez RN [address] [place] [address] Coffee Brewer 07/12/22 Overhead Crane Operator Relationship Specialty Start Date End Date Mario Roberto, [address] [place] [address] PCP - General Family Medicine 07/04/15 Chayo Pérez RN [address] [place] [address] Coffee Brewer 07/12/22 Overhead Crane Operator Relationship Specialty Start Date End Date Mario Roberto DO [address] [place] [address] PCP - General Family Medicine 07/04/15 Chayo éPrez, JUN [address] [place] [address] Coffee Brewer 07/12/22 Overhead Crane Operator Relationship Specialty Start Date End Date Mario Roberto DO [address] [place] [address] PCP - General Family Medicine 07/04/15 Chayo Pérez, JUN [address] [facility] [place] [address] Coffee Brewer 07/12/22 Overhead Crane Operator Relationship Specialty Start Date End Date Mario Roberto DO [address] [place] [address] PCP - General Family Medicine 07/04/15 Ariela Lees RN [address] [place] [address] Coffee Brewer 10/09/2003/11 Overhead Crane Operator Relationship Specialty Start Date End Date Mario Roberto DO [address] [place] [address] PCP - General Family Medicine 07/04/15 Ariela Lees RN [address] [place] [address] Coffee Brewer 10/09/2003/11 Overhead Crane Operator Relationship Specialty Start Date End Date Mario Roberto DO [address] [place] [address] PCP - General Family Medicine 07/04/15 Moriah Tavares RN [address] [place] [address] Coffee Brewer 03/03/23 INFORMATION SOURCE (unrecogn ized section and content) DATE CREATED AUTHOR AUTHOR'S GORDON ATION 03/04/2023 [facility] nter DATE CREATED AUTHOR AUTHOR'S GORDON ATION 03/10/2023 [facility] FOR RECORDS PERTAINING TO PATIENTS WHO ARE OR HAVE BEEN ENROLLED IN A CHEMICAL DEPENDENCY/SUBSTANCEABUSE PROGRAM, SOME INFORMATION MAY BE OMITTED. This clinical summary was aggregated from multiple sources. Caution should be exercised in using it in the provision of clinical care. This summary normalizes information from multiple sources, and as a consequence, information in this document may materially change the coding, format and clinical context of patient data. In addition, data may be omitted in some cases. CLINICAL DECISIONS SHOULD BE BASED ON THE PRIMARY CLINICAL RECORDS. [employer] provides no warranty or guarantee of the accuracy or completeness of information in this document.
== END | disposition home or self-care (01) ==
LOC: LABSPEC 14:10
PROVIDERS: PCP Student in an Organized Health Care Education/Training Program; Referring Provider Internal Medicine Infectious Disease; Visit Provider Internal Medicine Infectious Disease
DX: M86.9 Osteomyelitis, unspecified (principal); Z79.2 Long term (current) use of antibiotics
CPT/HCPCS: 80053; 85025; 85652

== ENCOUNTER 2023-04-04 11:51 | Outpatient (RCR) | payer MEDICARE, SELFPAY ==
[2023-03-28 14:38] LABS: Absolute Lymphocyte Count 2.53 X10^3/uL (0.83-4.51); Absolute Neutrophil Count 5.1 X10^3/uL (2.0-7.7); Basophil# 0.08 X10^3/uL; Basophil% 0.9 % (0-1); Eosinophil# 0.17 X10^3/uL; Erythrocyte Sedimentation Rate 13 mm/hr (0-30); Hematocrit 38.5 % (37-47); Hemoglobin 12.1 g/dL (12.0-15.0); Lymphocyte # 2.53 X10^3/ul (0.83-4.51); Lymphocyte % 29.7 % (19-41); Mean Corp Hgb Conc 31.4 g/dL (32-36); Mean Corpuscular Hgb 28.8 pg (27.0-32.0); Mean Corpuscular Volume 91.7 fL (81-99); Mean Platelet Vol. 12.7 fl (6.2-12.0); Monocyte# 0.58 X10^3/uL; Monocyte% 6.8 % (0-10); NRBC Flagged by Analyzer 0 % (0-5); Neutrophil # 5.13 X10^3/uL (2.7-7.7); Neutrophil % 60.1 % (47-70); Platelet Count 227 K/mm3 (150-450); RBC Distribution Width CV 14.3 % (11.6-14.6); RBC Distribution Width SD 48.2 fl (35.1-43.9); White Blood Count 8.5 K/mm3 (4.4-11.0)
[2023-03-28 14:55] LABS: ALB/GLOB Ratio 1.1 RATIO (0.9-2.4); AST(SGOT) 17 U/L (15-37); Alanine Aminotransfer ALT/SGPT 23 U/L (13-56); Albumin, Serum 3.4 g/dL (3.2-5.0); Alkaline Phosphatase 110 U/L (45-117); Anion Gap 5 (5-15); BUN 12 mg/dL (7-18); BUN/Creat Ratio 15.2 RATIO (10-20); Calcium,Total 9.9 mg/dL (8.5-10.1); Chloride 107 mmol/L (98-107); Creatinine, Serum 0.79 mg/dL (0.55-1.02); EST Glomerular Filtration Rate 77 mL/min (>60); Est Glom Filt Rate - Afr Amer 93 mL/min (>60); Glucose 101 mg/dL (74-106); Potassium 4.3 mmol/L (3.5-5.1); Protein, Total 6.4 g/dL (6.4-8.2); Sodium Level 141 mmol/L (136-145)
[2023-04-04 12:07] LABS: Erythrocyte Sedimentation Rate 13 mm/hr (0-30)
[2023-04-04 12:10] LABS: Absolute Lymphocyte Count 2.37 X10^3/uL (0.83-4.51); Absolute Neutrophil Count 6.2 X10^3/uL (2.0-7.7); Basophil# 0.05 X10^3/uL; Basophil% 0.5 % (0-1); Eosinophil# 0.19 X10^3/uL; Hemoglobin 12.5 g/dL (12.0-15.0); Lymphocyte # 2.37 X10^3/ul (0.83-4.51); Lymphocyte % 24.7 % (19-41); Mean Corp Hgb Conc 32.9 g/dL (32-36); Mean Corpuscular Hgb 29.6 pg (27.0-32.0); Mean Platelet Vol. 12.5 fl (6.2-12.0); Monocyte# 0.71 X10^3/uL; Monocyte% 7.4 % (0-10); NRBC Flagged by Analyzer 0 % (0-5); Neutrophil # 6.23 X10^3/uL (2.7-7.7); Neutrophil % 64.8 % (47-70); Platelet Count 272 K/mm3 (150-450); RBC Distribution Width CV 14.1 % (11.6-14.6); RBC Distribution Width SD 46.8 fl (35.1-43.9); Red Blood Count 4.22 M/mm3 (4.2-5.4); White Blood Count 9.6 K/mm3 (4.4-11.0)
[2023-04-04 13:52] LABS: ALB/GLOB Ratio 1.1 RATIO (0.9-2.4); AST(SGOT) 17 U/L (15-37); Alanine Aminotransfer ALT/SGPT 18 U/L (13-56); Albumin, Serum 3.6 g/dL (3.2-5.0); Alkaline Phosphatase 110 U/L (45-117); Anion Gap 5 (5-15); BUN 19 mg/dL (7-18); BUN/Creat Ratio 21.4 RATIO (10-20); Calcium,Total 9.7 mg/dL (8.5-10.1); Chloride 105 mmol/L (98-107); Creatinine, Serum 0.89 mg/dL (0.55-1.02); EST Glomerular Filtration Rate 67 mL/min (>60); Est Glom Filt Rate - Afr Amer 81 mL/min (>60); Globulin 3.2 g/dL (2.2-4.2); Glucose 106 mg/dL (74-106); Potassium 4.1 mmol/L (3.5-5.1); Protein, Total 6.8 g/dL (6.4-8.2); Sodium Level 140 mmol/L (136-145)
== END 2023-04-07 18:00 | disposition home or self-care (01) ==
LOC: HHLAB 11:51
PROVIDERS: PCP Student in an Organized Health Care Education/Training Program; Visit Provider Internal Medicine Infectious Disease
DX: Z75.2 Other waiting period for investigation and treatment (principal); M86.9 Osteomyelitis, unspecified
CPT/HCPCS: 80053; 85025; 85652

== ENCOUNTER 2023-04-18 11:35 | Outpatient (RCR) | payer MEDICARE, SELFPAY ==
[2023-04-11 13:11] LABS: Erythrocyte Sedimentation Rate 15 mm/hr (0-30)
[2023-04-11 13:13] LABS: Hematocrit 40.1 % (37-47); Hemoglobin 13.1 g/dL (12.0-15.0); Mean Corp Hgb Conc 32.7 g/dL (32-36); Mean Corpuscular Hgb 29.6 pg (27.0-32.0); Mean Corpuscular Volume 90.5 fL (81-99); Mean Platelet Vol. 12.3 fl (6.2-12.0); Platelet Count 286 K/mm3 (150-450); RBC Distribution Width SD 46.5 fl (35.1-43.9); Red Blood Count 4.43 M/mm3 (4.2-5.4); White Blood Count 8.5 K/mm3 (4.4-11.0)
[2023-04-11 13:15] LABS: ALB/GLOB Ratio 1.1 RATIO (0.9-2.4); AST(SGOT) 21 U/L (15-37); Alanine Aminotransfer ALT/SGPT 21 U/L (13-56); Albumin, Serum 3.5 g/dL (3.2-5.0); Alkaline Phosphatase 130 U/L (45-117); Anion Gap 6 (5-15); BUN 15 mg/dL (7-18); Calcium,Total 9.8 mg/dL (8.5-10.1); Chloride 105 mmol/L (98-107); Creatinine, Serum 0.88 mg/dL (0.55-1.02); EST Glomerular Filtration Rate 68 mL/min (>60); Est Glom Filt Rate - Afr Amer 82 mL/min (>60); Globulin 3.2 g/dL (2.2-4.2); Glucose 108 mg/dL (74-106); Potassium 4.6 mmol/L (3.5-5.1); Protein, Total 6.7 g/dL (6.4-8.2); Sodium Level 140 mmol/L (136-145)
[2023-04-18 13:04] LABS: Absolute Lymphocyte Count 2.42 X10^3/uL (0.83-4.51); Absolute Neutrophil Count 5.9 X10^3/uL (2.0-7.7); Basophil# 0.06 X10^3/uL; Basophil% 0.7 % (0-1); Eosinophil# 0.16 X10^3/uL; Eosinophils% 1.7 % (0-5); Hematocrit 40.5 % (37-47); Hemoglobin 13.3 g/dL (12.0-15.0); Lymphocyte # 2.42 X10^3/ul (0.83-4.51); Lymphocyte % 26.4 % (19-41); Mean Corp Hgb Conc 32.8 g/dL (32-36); Mean Corpuscular Hgb 29.2 pg (27.0-32.0); Mean Platelet Vol. 11.8 fl (6.2-12.0); Monocyte# 0.57 X10^3/uL; Monocyte% 6.2 % (0-10); NRBC Flagged by Analyzer 0 % (0-5); Neutrophil # 5.93 X10^3/uL (2.7-7.7); Neutrophil % 64.7 % (47-70); Platelet Count 280 K/mm3 (150-450); RBC Distribution Width CV 14.2 % (11.6-14.6); RBC Distribution Width SD 45.6 fl (35.1-43.9); Red Blood Count 4.55 M/mm3 (4.2-5.4); White Blood Count 9.2 K/mm3 (4.4-11.0)
[2023-04-18 13:23] LABS: Erythrocyte Sedimentation Rate 17 mm/hr (0-30)
[2023-04-18 13:47] LABS: AST(SGOT) 21 U/L (15-37); Alanine Aminotransfer ALT/SGPT 23 U/L (13-56); Albumin, Serum 3.4 g/dL (3.2-5.0); Alkaline Phosphatase 126 U/L (45-117); Anion Gap 6 (5-15); BUN 14 mg/dL (7-18); Chloride 105 mmol/L (98-107); Creatinine, Serum 0.93 mg/dL (0.55-1.02); EST Glomerular Filtration Rate 63 mL/min (>60); Est Glom Filt Rate - Afr Amer 76 mL/min (>60); Globulin 3.4 g/dL (2.2-4.2); Glucose 99 mg/dL (74-106); Potassium 4.3 mmol/L (3.5-5.1); Protein, Total 6.8 g/dL (6.4-8.2); Sodium Level 140 mmol/L (136-145)
== END 2023-05-07 18:00 | disposition home or self-care (01) ==
LOC: HHLAB 11:35
PROVIDERS: PCP Student in an Organized Health Care Education/Training Program; Visit Provider Internal Medicine Infectious Disease
DX: M86.9 Osteomyelitis, unspecified; Z79.2 Long term (current) use of antibiotics
CPT/HCPCS: 80053; 85025; 85027; 85652

== ENCOUNTER → 2023-04-25 | Outpatient (CLI) | payer MEDICARE, SELFPAY ==
[2023-04-25 15:16] LABS: Hematocrit 40.9 % (37-47); Hemoglobin 13.2 g/dL (12.0-15.0); Mean Corp Hgb Conc 32.3 g/dL (32-36); Mean Corpuscular Hgb 28.9 pg (27.0-32.0); Mean Corpuscular Volume 89.7 fL (81-99); Mean Platelet Vol. 11.7 fl (6.2-12.0); Platelet Count 272 K/mm3 (150-450); RBC Distribution Width CV 14.6 % (11.6-14.6); RBC Distribution Width SD 46.9 fl (35.1-43.9); Red Blood Count 4.56 M/mm3 (4.2-5.4); White Blood Count 10.5 K/mm3 (4.4-11.0)
[2023-04-25 15:28] LABS: ALB/GLOB Ratio 1.1 RATIO (0.9-2.4); AST(SGOT) 35 U/L (15-37); Alanine Aminotransfer ALT/SGPT 36 U/L (13-56); Albumin, Serum 3.5 g/dL (3.2-5.0); Alkaline Phosphatase 142 U/L (45-117); Anion Gap 6 (5-15); BUN 16 mg/dL (7-18); BUN/Creat Ratio 15.1 RATIO (10-20); Calcium,Total 9.9 mg/dL (8.5-10.1); Chloride 104 mmol/L (98-107); Creatinine, Serum 1.06 mg/dL (0.55-1.02); EST Glomerular Filtration Rate 55 mL/min (>60); Est Glom Filt Rate - Afr Amer 66 mL/min (>60); Globulin 3.2 g/dL (2.2-4.2); Glucose 95 mg/dL (74-106); Potassium 4.6 mmol/L (3.5-5.1); Protein, Total 6.7 g/dL (6.4-8.2); Sodium Level 139 mmol/L (136-145)
[2023-04-25 15:35] LABS: Erythrocyte Sedimentation Rate 17 mm/hr (0-30)
== END | disposition home or self-care (01) ==
LOC: LABSPEC 15:00
PROVIDERS: PCP Student in an Organized Health Care Education/Training Program; Referring Provider Internal Medicine Infectious Disease; Visit Provider Internal Medicine Infectious Disease
DX: M86.9 Osteomyelitis, unspecified (principal); Z79.2 Long term (current) use of antibiotics
CPT/HCPCS: 80053; 85027; 85652

== ENCOUNTER 2023-05-23 11:58 | Emergency (ER) | payer MEDICARE, SELFPAY ==
[2023-05-23 11:58] VITALS: BP 135/76; PULSE 71; RESP 18; TEMP 36.3; O2SAT 99
--- NOTE | 2023-05-23 12:15 | EX.ED.DYSGE1 ---
HPI <SURENDRA Liu - Last Filed: 05/23/23 13:53> History of Present Illness Chief Complaint: Nausea/Vomiting Narrative Narrative: Patient presenting today with nausea and vomiting that started on Tuesday. She reports that she woke up Tuesday just did not feel well, she went to a lobster that day with friends and felt better in the evening. Tuesday morning, she began to feel nauseous and had a few episodes of vomiting that worsened Tuesday and early this morning. She denies having any abdominal pain or previous abdominal surgeries. She last had a normal bowel movement this morning. She denies fevers, chills, hematemesis, melena, diarrhea, hematochezia, and urinary symptoms. She reports a PMH of a right ankle fracture with fusion and subsequently developed osteomyelitis in March, she had her PICC line out around 3 weeks ago. PFSH <SURENDRA Liu - Last Filed: 05/23/23 13:53> PFSH Medical History COPD (chronic obstructive pulmonary disease) Depression Hypertension Home Medications aspirin 81 mg chewable tablet 81 mg PO DAILY ##30 07/05/19 [Rx Last Taken 08/24/19] citalopram 40 mg tablet 20 mg PO DAILY 07/05/19 [History Last Taken 08/24/19] rosuvastatin 5 mg tablet 5 mg PO QHS 08/24/19 [History Last Taken 08/23/19] losartan 100 mg tablet 100 mg PO DAILY 01/06/23 [History Last Taken Unknown] ondansetron 4 mg disintegrating tablet 4 mg PO Q8H PRN PRN Nausea #10 tabs 05/23/23 [Rx Last Taken Unknown] Allergy/AdvReac Type Severity Reaction Status Date / Time No Known Allergies Allergy Verified 05/23/23 11:58 Social History household members: none Smoking Status: Current every day smoker tobacco type: cigarettes ROS <SURENDRA Liu - Last Filed: 05/23/23 13:53> ROS ED Constitutional Constitutional ED: Denies chills or fever(s) Cardiovascular Cardiovascular: Denies chest pain Respiratory/Chest Respiratory/Chest: Denies cough or dyspnea Gastrointestinal Gastrointestinal: Reports nausea and vomiting; Denies abdominal pain, constipation, diarrhea, hematemesis, hematochezia or melena Genitourinary Genitourinary ED: Denies dysuria, hematuria or urinary urgency Musculoskeletal Musculoskeletal: Denies arthralgias or myalgias Integumentary Denies rash Neurologic Neurologic: Denies weakness EXAM <SURENDRA Liu - Last Filed: 05/23/23 13:53> Physical Exam Const Vital Signs: 05/23/23 11:58 05/23/23 13:58 Temperature 97.4 F L 98.2 F Temperature Source Temporal Pulse Rate 71 80 Respiratory Rate 18 16 Blood Pressure 135/76 H 133/64 H Blood Pressure Mean 95 87 Pulse Ox 99 98 Oxygen Delivery Method Room Air Positive well nourished, well developed and no apparent distress General Appearance ED: well developed HEENT Reports normocephalic and head/scalp atraumatic Mouth ED: Yes moist mucous membranes normal Eyes PERRL and EOMs intact bilaterally Neck full ROM and supple Chest Wall inspection of chest normal Resp normal respiratory effort and clear to auscultation bilaterally Cardio regular rate and regular rhythm GI soft to palpation, non-tender, non-distended and no masses GI Narrative: Negative Ahumada sign, negative McBurney's point tenderness, no rigidity or guarding Back/Spine normal ROM and normal to inspection Extremity normal to inspection and full ROM Neuro oriented x3, CN's II-XII intact bilaterally, moves all extremities, no focal motor deficits and no sensory deficits noted Sensorium / Orientation: awake and alert Psych mental status grossly normal and thought process normal Skin no rashes or lesions noted and no wounds <Dr. Soto Srivastava, - Last Filed: 05/23/23 14:31> Physical Exam Const Vital Signs: 05/23/23 11:58 05/23/23 13:58 Temperature 97.4 F L 98.2 F Temperature Source Temporal Pulse Rate 71 80 Respiratory Rate 18 16 Blood Pressure 135/76 H 133/64 H Blood Pressure Mean 95 87 Pulse Ox 99 98 Oxygen Delivery Method Room Air MDM <SURENDRA Liu - Last Filed: 05/23/23 13:53> [facility] MDM Narrative Medical decision making narrative: Patient presenting due to nausea and vomiting that started on Tuesday. She suspects that she could have a stomach virus, I suspect that this is likely viral. She denies having any abdominal pain, her abdomen is soft and nontender. She is nontoxic-appearing and in no acute distress, vitals are unremarkable. She reports feeling dehydrated, she will be given IV fluids and zofran. CBC unremarkable, CMP shows a creatinine of 1.07, BUN of 23, BUN slightly more elevated than previous labs. On reexamination she reports improvement of her symptoms, she is tolerating p.o. fluids. She will be given a prescription for Zofran and encouraged follow-up with her PCP in the next 3 to 5 days. Return instructions were given and she will be discharged home in stable condition. She is comfortable with plan. Lab Data Attestation: I reviewed the patient's lab results. Labs: Laboratory Results - last 24 hr 05/23/23 12:23 WBC 10.2 RBC 5.28 Hgb 15.6 H Hct 46.2 MCV 87.5 MCH 29.5 MCHC 33.8 RDW Std Deviation 47.8 H RDW Coeff of Madai 15.1 H Plt Count 310 MPV 11.0 Immature Gran % (Auto) 0.400 Neut % (Auto) 76.9 H Lymph % (Auto) 16.0 L Campbell % (Auto) 6.2 Eos % (Auto) 0.1 Baso % (Auto) 0.4 Absolute Neuts (auto) 7.8 H Absolute Lymphs (auto) 1.63 Nucleated RBC % 0 Sodium 138 Potassium 3.9 Chloride 100 Carbon Dioxide 31.0 Anion Gap 7 BUN 23 H Creatinine 1.07 H Est GFR (MDRD) Af Amer 65 Est GFR (MDRD) Non-Af 54 L BUN/Creatinine Ratio 21.5 H Glucose 152 H Calcium 9.9 Total Bilirubin 0.70 AST 22 ALT 26 Alkaline Phosphatase 125 H Total Protein 7.8 Albumin 3.8 Globulin 4.0 Albumin/Globulin Ratio 1.0 <Dr. Soto Srviastava, DO - Last Filed: 05/23/23 14:31> [facility] Lab Data Labs: Laboratory Results - last 24 hr 05/23/23 12:23 WBC 10.2 RBC 5.28 Hgb 15.6 H Hct 46.2 MCV 87.5 MCH 29.5 MCHC 33.8 RDW Std Deviation 47.8 H RDW Coeff of Madai 15.1 H Plt Count 310 MPV 11.0 Immature Gran % (Auto) 0.400 Neut % (Auto) 76.9 H Lymph % (Auto) 16.0 L Campbell % (Auto) 6.2 Eos % (Auto) 0.1 Baso % (Auto) 0.4 Absolute Neuts (auto) 7.8 H Absolute Lymphs (auto) 1.63 Nucleated RBC % 0 Sodium 138 Potassium 3.9 Chloride 100 Carbon Dioxide 31.0 Anion Gap 7 BUN 23 H Creatinine 1.07 H Est GFR (MDRD) Af Amer 65 Est GFR (MDRD) Non-Af 54 L BUN/Creatinine Ratio 21.5 H Glucose 152 H Calcium 9.9 Total Bilirubin 0.70 AST 22 ALT 26 Alkaline Phosphatase 125 H Total Protein 7.8 Albumin 3.8 Globulin 4.0 Albumin/Globulin Ratio 1.0 Treatment and Re-Evaluation :: I have personally performed a face to face assessment of the patient and have reviewed the SANYA Note. I performed a substantive portion of the visit including all aspects of the following. My stark findings include: History: Patient presents with nausea and vomiting that has been constant for the past 3 days. Patient states that she is vomiting up stomach contents. Patient states it is gradually gotten worse. Patient denies any hematemesis or coffee-ground emesis. Patient denies any diarrhea, melena, or hematochezia. Patient denies any urinary complaints. Patient denies any abdominal pain. Exam: Vital signs are stable. Patient is afebrile. Patient is in no acute distress. Oral mucosa is pink and moist. Neck is supple. Trachea is midline. There is no JVD. Heart was regular rate and rhythm. Lungs are clear and equal bilaterally. Abdomen is soft. Bowel sounds are normal. There is no tenderness. There is no rebound or guarding noted. Cranial nerves II through XII are intact. There are no focal motor or sensory deficit noted. Medical Decision Making: Differential diagnosis includes dehydration, anemia, gastroenteritis, and viral illness CBC will be obtained to assess for leukocytosis and anemia. Comprehensive metabolic profile will be obtained to assess for hepatic function, renal function, and electrolyte abnormality. Patient was given IV fluids and Zofran. CBC was reviewed and was essentially within normal limits. Comprehensive metabolic profile was reviewed. Glucose was slightly elevated at 152. Alkaline phosphatase was slightly elevated at 125. The remainder was within normal limits. Patient was feeling better on reevaluation. Patient was advised of her findings. Patient was instructed to follow-up with her primary care physician in 5 to 7 days. Patient understood and was agreeable with the plan. All questions were answered. Discharge Plan Triage Chief Complaint: Nausea/Vomiting ED Midlevel Provider: Jennifer Mendoza ED Provider: Soto Srivastava Dx/Rx/DC Orders Clinical Impression: Nausea & vomiting, Dehydration Instructions: ED Vomiting (Adult) Prescriptions: New ondansetron 4 mg tablet,disintegrating 4 mg PO Q8H PRN PRN (Reason: Nausea) Qty: 10 0RF No Action citalopram 40 mg tablet 20 mg PO DAILY Patient Comments: TAKE 1 2 (ONE HALF) TABLET BY MOUTH ONCE DAILY aspirin 81 MG tablet,chewable 81 mg PO DAILY Qty: 30 0RF rosuvastatin 5 MG tablet 5 mg PO QHS losartan 100 mg tablet 100 mg PO DAILY Primary Care Provider: Mario Roberto Referrals: Mario Roberto, [Primary Care Provider] - 3-5 Days Activity Restrictions/Additional Instructions: Follow-up with your PCP. Stay well-hydrated and return for any worsening of your symptoms. Disposition Disposition: Home, Self Care Discharge Date/Time: 05/23/23 14:02
[2023-05-23 12:46] LABS: Absolute Lymphocyte Count 1.63 X10^3/uL (0.83-4.51); Absolute Neutrophil Count 7.8 X10^3/uL (2.0-7.7); Basophil# 0.04 X10^3/uL; Basophil% 0.4 % (0-1); Eosinophil# 0.01 X10^3/uL; Eosinophils% 0.1 % (0-5); Hematocrit 46.2 % (37-47); Hemoglobin 15.6 g/dL (12.0-15.0); Lymphocyte # 1.63 X10^3/ul (0.83-4.51); Mean Corp Hgb Conc 33.8 g/dL (32-36); Mean Corpuscular Hgb 29.5 pg (27.0-32.0); Mean Corpuscular Volume 87.5 fL (81-99); Monocyte# 0.63 X10^3/uL; Monocyte% 6.2 % (0-10); NRBC Flagged by Analyzer 0 % (0-5); Neutrophil # 7.82 X10^3/uL (2.7-7.7); Neutrophil % 76.9 % (47-70); Platelet Count 310 K/mm3 (150-450); RBC Distribution Width CV 15.1 % (11.6-14.6); RBC Distribution Width SD 47.8 fl (35.1-43.9); Red Blood Count 5.28 M/mm3 (4.2-5.4); White Blood Count 10.2 K/mm3 (4.4-11.0)
[2023-05-23] MEDS: 0.9% Normal Saline (1000mL) 1,000 ML 1000 ML IV (12:47)
[2023-05-23] MEDS: Ondansetron 4 MG/2 ML Vial IV (12:47)
[2023-05-23 13:10] LABS: AST(SGOT) 22 U/L (15-37); Alanine Aminotransfer ALT/SGPT 26 U/L (13-56); Albumin, Serum 3.8 g/dL (3.2-5.0); Alkaline Phosphatase 125 U/L (45-117); Anion Gap 7 (5-15); BUN 23 mg/dL (7-18); BUN/Creat Ratio 21.5 RATIO (10-20); Calcium,Total 9.9 mg/dL (8.5-10.1); Chloride 100 mmol/L (98-107); Creatinine, Serum 1.07 mg/dL (0.55-1.02); EST Glomerular Filtration Rate 54 mL/min (>60); Est Glom Filt Rate - Afr Amer 65 mL/min (>60); Glucose 152 mg/dL (74-106); Potassium 3.9 mmol/L (3.5-5.1); Protein, Total 7.8 g/dL (6.4-8.2); Sodium Level 138 mmol/L (136-145)
[2023-05-23 13:58] VITALS: BP 133/64; PULSE 80; RESP 16; TEMP 36.8; O2SAT 98
== END 2023-05-23 14:02 | disposition home or self-care (01) ==
PROVIDERS: Physician Assistant; Emergency Provider Emergency Medicine; PCP Student in an Organized Health Care Education/Training Program; Visit Provider Emergency Medicine
DX: R11.2 Nausea with vomiting, unspecified (principal); J44.9 Chronic obstructive pulmonary disease, unspecified; E86.0 Dehydration; I10 Essential (primary) hypertension; F32.A Depression, unspecified; F17.210 Nicotine dependence, cigarettes, uncomplicated; Z79.82 Long term (current) use of aspirin; Z79.899 Other long term (current) drug therapy
CPT/HCPCS: 80053; 85025; 96361; 96374; 99283; J7030; J2405

== ENCOUNTER 2023-09-09 15:00 | Outpatient (RCR) | payer MEDICARE, SELFPAY ==
--- NOTE | 2023-08-24 15:58 | HP.PTEVAL ---
Patient's Visit Information Visit Information Visit Information: PAULY NOVAK is a 67 year old F referred to Physical Therapy by JEFF FAUST DO with a diagnosis of Displaced pilon fx right tibia, subs for clos fx with routine healing. Date of Evaluation: 08/24/23 Physical Therapist: Lena Bautista DPT Visit Plan Frequency: 2x /Week Duration: 4 Weeks Plan: Focus on LE and core strength/stabilization- gait, proprioception, functional mobility (recip stairs)- GAIT BELT Subjective Subjective: In December she fell off a ladder and her foot was between the rungs- shattered her right ankle. They did an ankle fusion February 11 a month later she was back in due to an infection- she then wore a wound vac and had an IV at home for a few weeks so its been a long road. She had home health and since the 27 of July she has been driving. 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 She has no pain in the ankle- its just very swollen and sensitive. She thinks she has a lot of nerve damage. She had an external fixator and where the two posts went into her mendoza is where she does have pain with ambulation. She does not use an AD at home- and a few days ago she decided that she does not need it. She carried a quad cane into the clinic today and does use it as needed. No stairs at home- she had a ramp put in- but that will be taken back out- she has 3 stairs under the ramp- and she is able to get up/down. She was at her sons and was able to get up/down the stairs. No falls since then. The PT stopped coming to the house about 3 weeks ago and she has continued the exercises. The surgeon told her that is she feels pain that she needs to stop. She feels that she is 70% back to her normal self. Sleep: not disturbed. 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 PMHx/Meds: see ED note- antibiotic is new Objective Objective: Posture: forward head, rounded shoulders- can correct but does not maintain Gait: antalgic- decreased step length- step to pattern with quad cane HR/TR: able with UE A- reports discomfort Stairs: non recip SLS: weight shift but unable to SLS and reports pain Observation: small open area on anterior ankle at mortise Edema: Figure 8: 60 cm, Mets: 26.5 cm Mals: 33 cm Strength: PF:18.9 DF: 6.8 Knee: Flexion: 12.8 Extn: 13.6 Hip: 4-/5 throughout Core: poor ROM: DF: neutral, PF: 30 degrees, Inv: 10 degrees, Ever: 5 degrees Flex: Gastroc: severe, HS: severe Balance/Special Test Scores Functional Gait Assessment Score: 11 % Disability: 63.3400 Lower Extremity Functional Score: 22 Goals Goal 1:: Patient will be I with HEP and progression Goal Time Frame: 4-6 Weeks Goal 2:: Patient will improve her FGA by 5 points Goal Time Frame: 4-6 Weeks Goal 3:: Patient will asc/desc 8 recip with 1 HR Goal Time Frame: 4-6 Weeks Goal 4:: Patient will ambulate >300 feet with a normalized gait pattern with LRD Goal Time Frame: 4-6 Weeks Goal 5:: Patient will report 80% improvement Goal Time Frame: 4-6 Weeks Rehabilitation Potential Physical Therapy Diagnosis: Patient presents with hypomobility- she has decreased LE and core strength/stabilization, ROM, proprioception, flex and muscular endurance leading to abnormal gait, balance and decreased ability to perform ADL's. Rehabilitation Potential: Good Anticipated Interventions Patient/Client Instruction: Educate patient on: Benefits of Fitness Program Therapeutic Exercise to Include: Strength training, Endurance training, Balance training, Coordination, Agility training, Body mechanics, Postural training, Flexibilty training, Gait and locomotor training, Neuromotor development, Passive ROM, Active ROM, Dynamic Lumbar Stabilization and Scapular Strength/Stabilization For the Purpose of:: To improve muscle performance and motor function Functional Training to Include: Gait training Thermo therapy (hot pack): Yes Ultrasound (thermal/non thermal): Yes Text: Thank you for the opportunity to evaluate your patient. For Medicare and Medicare HMO plans, please review the plan of care and approve it. It will need to be FAXED BACK to us at [phone] for Medicare purposes. For Medicare only, by signing this I certify the plan of care. Please let me know if there are questions or concerns regarding this plan of care. Physician Signature: Date:
--- NOTE | 2023-09-14 11:35 | HP.PT.NRP ---
Patient Information Patient Information: PAULY NOVAK was seen in my office for initial evaluation on 08/24/23. The following Plan of Care was established for this patient: POC Established Initial Frequency: 2x /Week Initial Duration: 4 Weeks Anticipated Interventions Patient/Client Instruction: Educate patient on: Benefits of Fitness Program Therapeutic Exercise to Include: Strength training, Endurance training, Balance training, Coordination, Agility training, Body mechanics, Postural training, Flexibilty training, Gait and locomotor training, Neuromotor development, Passive ROM, Active ROM, Dynamic Lumbar Stabilization and Scapular Strength/Stabilization For the Purpose of:: To improve muscle performance and motor function Functional Training to Include: Gait training Thermo therapy (hot pack): Yes Ultrasound (thermal/non thermal): Yes Last Seen Last Seen: This patient was last seen in our office 09/09/23. Pertinent comments regarding their Physical therapy will appear below: Pt. called in today and reports that she does not need PT any more. Pt. chart to be DC this date. At this point I will be discontinuing this patient from physical therapy. I would be happy to see this patient again in the future if found appropriate by the physician. Thank you! Isidro Santos DPT Balance/Gait/Functional tests Balance/Special Test Scores Functional Gait Assessment Score: 11 % Disability: 63.3400 Lower Extremity Functional Score: 22 Tug Test: 20-30sec.=variable mobility
== END 2023-09-09 19:00 | disposition home or self-care (01) ==
LOC: PT 15:00
PROVIDERS: PCP Student in an Organized Health Care Education/Training Program; Referring Provider Orthopaedic Surgery; Visit Provider Orthopaedic Surgery
DX: S82.871D Displaced pilon fracture of right tibia, subsequent encounter for closed fracture with routine healing (principal)
CPT/HCPCS: 97110; 97162

== ENCOUNTER 2023-11-28 05:54 | Day surgery (SDC) | payer MEDICARE, SELFPAY ==
[2023-11-24 14:59] LABS: Hematocrit 44.1 % (37-47); Hemoglobin 14.1 g/dL (12.0-15.0); Mean Corpuscular Hgb 30.2 pg (27.0-32.0); Mean Corpuscular Volume 94.4 fL (81-99); Mean Platelet Vol. 11.7 fl (6.2-12.0); Platelet Count 284 K/mm3 (150-450); RBC Distribution Width CV 13.3 % (11.6-14.6); RBC Distribution Width SD 46.2 fl (35.1-43.9); Red Blood Count 4.67 M/mm3 (4.2-5.4)
[2023-11-24 15:08] LABS: Anion Gap 5 (5-15); BUN 17 mg/dL (7-18); BUN/Creat Ratio 13.8 RATIO (10-20); Calcium,Total 9.3 mg/dL (8.5-10.1); Chloride 108 mmol/L (98-107); Creatinine, Serum 1.23 mg/dL (0.55-1.02); EST Glomerular Filtration Rate 46 mL/min (>60); Est Glom Filt Rate - Afr Amer 56 mL/min (>60); Glucose 122 mg/dL (74-106); Potassium 4.4 mmol/L (3.5-5.1); Sodium Level 139 mmol/L (136-145)
[2023-11-28] VITALS (8 sets, daily range): BP systolic 104–125; BP diastolic 52–62; PULSE 59–75; RESP 16–18; TEMP 36.1–36.9; O2SAT 89–96; BMI 35.5
--- NOTE | 2023-11-28 | MASS_PTH ---
PATIENT: PAULY NOVAK [place] [facility] [place][id number] AGE/SX: 68/F ROOM: RE11/28/[address]: Dr. Kian Jacobson MD : [id number] BED: DIS: 11/28/2023 SPEC #: [id number] RECD: 11/28/23 13:10 STATUS: KARTIK REAnnelise #: [id number] WENDY: 11/28/23 00:[address]: Kian Jacobson DEPT: SURGICAL PATHOLOGY RECD BY: Caleb Richardson ENTERED: 11/28/23 13:11 SP TYPE: Mass OTHR DR: Dr. Mario Roberto, DO Tissues: Ear, NOS Procedures: Surgery Specimen Level IV HEADER OPERATION: Excision mass, ear canal mass, possible graft PRE-OP DIAGNOSIS: Other benign neoplasm of skin, right ear TISSUE SUBMITTED: Right ear mass MICROSCOPIC DIAGNOSIS Right ear mass, excisional biopsy: Benign adnexal tumor, consistent with cylindroma. See comment. 11/29/2023 COMMENT The lesion appears to be completely excised and present less than 0.1 cm away from the deep resection margin. Please make reference to previous specimen [id number] right ear canal mass, biopsy with diagnosis of consistent with cylindroma. Case has been reviewed in consultation with Dr. Arthur who concurs with the above diagnosis. IDC:AM MICROSCOPIC DESCRIPTION Slides are reviewed. GROSS DESCRIPTION Received in fixative is one container labeled with the patient's name and designated Right ear mass. The specimen consists of a piece of white skin with underlying a solid nodule measuring 1.5 x 1.1 x 1.1cm. The specimen is inked, serially sectioned and submitted entirely in one cassette. 11/28/2023 TC:5 CPT:92153
--- NOTE | 2023-11-28 06:14 | PCM.PRE.AN2 ---
ASA Classification* ASA Classification ASA Classification: 2 Assessment & Plan Anesthesia* Anesthesia Assessment Anesthesia Assessment: Discussed sedation and/or anesthesia options, risks, benefits, and alternatives with patient/parents/legal guardian/POA. Questions invited. The patient/parents/legal guardian/POA seems to understand and agrees to proceed with anesthesia plan. Reviewed the physical assessment, medical history, allergy history and patient home medications list prior to surgery/procedure/anesthetic and documented any changes. Performed airway and anesthesia risk assessments. Anesthesia Type Anesthesia Type: General (see written pre anesthesia record for full assessment) Anesthesia Focused Assessment* Airway Assessment Mouth opens: >3 cm Mallampati Score: II Focused Labs Anesthesia Preop lab: CBC WBC 9.0 K/mm3 (4.4-11.0) 11/24/23 13:53 RBC 4.67 M/mm3 (4.2-5.4) 11/24/23 13:53 Hgb 14.1 g/dL (12.0-15.0) 11/24/23 13:53 Hct 44.1 % (37-47) 11/24/23 13:53 Plt Count 284 K/mm3 (150-450) 11/24/23 13:53 CHEMISTRY Potassium 4.4 mmol/L (3.5-5.1) 11/24/23 13:53 Sodium 139 mmol/L (136-145) 11/24/23 13:53 BUN 17 mg/dL (7-18) 11/24/23 13:53 Creatinine 1.23 mg/dL (0.55-1.02) H 11/24/23 13:53 Glucose 122 mg/dL (74-106) H 11/24/23 13:53 COAG PT 12.1 SECONDS (11.7-14.9) 07/05/19 14:55 Pre-Assessment Diagnosis/Proposed Procedure Planned Operative Procedure(s): EXCISION RIGHT EAR CANAL MASS POSS GRAFT FROZEN SECTION Anesthesia History 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 When Was Last Pacemaker Check QUESTION #4 FULL TEXT: You/Your Family Experience fever (hyperthermia) with Anesthesia Last Oral Intake Last Oral intake: Last Oral Intake NPO since Meds taken in AM with sips of water? Meds patient instructed to take am of surgery PONV PONV - graduate assistant athletic trainer: PONV - graduate assistant athletic trainer Female Yes 11/22/23 11:27 HX of Motion Sickness Yes 11/22/23 11:27 HX of N/V After Surgery No 11/22/23 11:27 Non-Smoker No 11/22/23 11:27 Duration of Surgery greater Yes 11/22/23 11:27 than 60 minutes Number of Risk Factors 3 11/22/23 11:27 PONV Score Moderate Risk 11/22/23 11:27 Height & Weight Height & Weight: Anesthesia: Height & Weight Height 5 ft 3 in 05/23/23 11:58 Respiratory Assessment Respiratory Assessment - graduate assistant athletic trainer: Respiratory Tract Infection Hx - graduate assistant athletic trainer Hx Respiratory Tract Infection No 11/22/23 11:27 STOP Sleep Apnea STOP Sleep Apnea - graduate assistant athletic trainer: STOP Sleep Apnea - graduate assistant athletic trainer Hx Hypertension Yes: CONTROLLED WITH MED 11/22/23 11:27 Hx Sleep Apnea No 11/22/23 11:27 CPAP BIPAP Do you snore loudly (louder No 11/22/23 11:27 than talking or can be heard Do you often feel tired/ Yes 11/22/23 11:27 fatigued/ sleepy during daytime? Has anyone observed you stop No 11/22/23 11:27 breathing during sleep? STOP Results Positive 11/22/23 11:27 QUESTION #5 FULL TEXT : Do you snore loudly (louder than talking or can be heard through closed doors)? Tobacco Use History Tobacco Use History - graduate assistant athletic trainer: Tobacco Use History - graduate assistant athletic trainer Tobacco Use Smoking Status Current every day smoker 11/22/23 11:27 Hx Tobacco Use Yes 11/22/23 11:27 Years Smoking Packs Smoked per Day Smoking Cessation Date was within the last 15 years Hx Smoking Cessation Date Hx Smoking Cessation Counseling Hematologic Medial History Hematologic Hx - graduate assistant athletic trainer: Hematologic Medical Hx - clinical documentation manager Hx of Blood Transfusion No 11/22/23 11:27 Hx of Transfusion in last 3 No 11/22/23 11:27 Months Date of Last Transfusion (if within last 3 months) Ever experience any problems No 11/22/23 11:27 with transfusion(s)? Specify any problems Hx of Preganancy in last 3 No 11/22/23 11:27 Months Nurse Filling Out Transfusion DSCHRIBER 11/22/23 11:27 & Questions: Date: 11/22/23 11/22/23 11:27 Time: 11:29 11/22/23 11:27 Patient unable to answer at this time (ie. confused, unrespo /Reproduction History /Reproductive History - graduate assistant athletic trainer: /Reproductive Hx- graduate assistant athletic trainer Hx Now No 11/22/23 11:27 Gestational Age (in weeks): EDC: Hx Hx Para Hx Section SAB No 11/22/23 11:27 PFSH Medical History Post-menopausal Thyroid disease Arthritis Pulmonary embolism Restless legs Essential tremor Shortness of breath on exertion Smoker History of pain when walking History of edema Hx of fracture of ankle Depression Hypertension COPD (chronic obstructive pulmonary disease) Home Medications ?Medication ?Instructions ?Recorded ?Last Taken ?Type citalopram 40 mg tablet 40 mg PO DAILY 07/05/19 08/24/19 History losartan 100 mg tablet 100 mg PO QHS 01/06/23 Unknown History apixaban 5 mg tablet (Eliquis) 5 mg PO BID 11/22/23 Unknown History furosemide 40 mg tablet 40 mg PO DAILY swelling 11/22/23 Unknown History levothyroxine 50 mcg tablet 50 mcg PO DAILY disorder of 11/22/23 Unknown History thyroid gland propranolol 60 mg tablet 60 mg PO QHS 11/22/23 Unknown History sulfamethoxazole 400 1 tab PO MOWEFR 11/22/23 Unknown History mg-trimethoprim 80 mg tablet Allergy/AdvReac Type Severity Reaction Status Date / Time No Known Allergies Allergy Verified 11/22/23 11:19 Surgical History Hx of colonoscopy History of incision and drainage Social History household members: none Smoking Status: Current every day smoker tobacco type: cigarettes Review of Systems (Anesthesia) ROS Narrative System reviewed and no additional complaints, except as documented.
--- NOTE | 2023-11-28 06:20 | EKG12_ITS ---
Test Reason : PRE-OP Blood Pressure : / mmHG Vent. Rate : 057 BPM Atrial Rate : 057 BPM P-R Int : 138 ms QRS Dur : 072 ms QT Int : 454 ms P-R-T Axes : 053 010 062 degrees QTc Int : 441 ms Sinus bradycardia Otherwise normal ECG When compared with ECG of 24-AUG-2019 09:49, No significant change was found Confirmed by CECILIA AUSTIN, SULTANA ([id number]), graphics editor TAMMY JOSE ([id number]) on 12/01/2023 9:32:37 AM Referred By: Kian Jacobson Confirmed By:SULTANA BROOKS MD
[2023-11-28] MEDS: Lactated Ringers 1,000 ML 15 ML IV (06:53)
--- NOTE | 2023-11-28 07:37 | PCM.DC.SUM ---
Providers Primary Care Physician: Dr. Mario Roberto DO Reason For Visit: Excision, Mass , ear canal mass, possible graft, f Medications at Discharge Home Medications citalopram 40 mg tablet 40 mg PO DAILY 07/05/19 losartan 100 mg tablet 100 mg PO DAILY 01/06/23 apixaban 5 mg tablet (Eliquis) 5 mg PO BID 11/22/23 furosemide 40 mg tablet 40 mg PO DAILY swelling 11/22/23 levothyroxine 50 mcg tablet 50 mcg PO DAILY disorder of thyroid gland 11/22/23 propranolol 60 mg tablet 60 mg PO QHS 11/22/23 sulfamethoxazole 400 mg-trimethoprim 80 mg tablet 1 tab PO MOWEFR 11/22/23 Weight / BMI Weight Weight: 91 kg Body Mass Index (BMI) 35.5 ABG / Lab / Microbiology Data 11/24/23 13:53 11/24/23 13:53 D/C Instructions Discharge Diet: No restrictions Additional Dressing/Incision Instructions: Remove dressing tomorrow morning and discard. You will see a cotton ball. Remove this and discard. You will then see a sponge in the ear canal. Keep this in place and apply drops to the sponge twice a day (5 drops to the sponge twice a day). Keep the ear dry while bathing. Please Follow Up With: Kian Jacobson MD When: end of next week Meaningful Use Info Meaningful Use Meaningful Use Diagnoses (Choose all that apply): None applicable Ischemic Stroke Statin Dosing Therapy Reference: STATIN DOSE THERAPY REFERENCE: * Patients > 75 years receive moderate or high dose statin therapy. * Patients 75 years or YOUNGER should receive HIGH intensity statin dose unless contraindicated. You will be required to document reason for non-treatment if statin daily dose does not meet guidelines. HIGH DOSE STATIN THERAPY DAILY Atorvastatin > than or = to 40 mg Rosuvastatin > than or = to 20 mg Amlodipine + Atorvastatin > than or = to 2.5/40 mg Ezetimibe + Simvastatin 10/80 mg Simvastatin 80mg Discharge Plan Admission Attending Provider: Kian Jacobson Primary Care Provider: Mario Roberto Instructions Print Language: Kyrgyz Discharge Orders/Prescriptions Prescriptions: No Action citalopram 40 mg tablet 40 mg PO DAILY Patient Comments: TAKE 1 2 (ONE HALF) TABLET BY MOUTH ONCE DAILY losartan 100 mg tablet 100 mg PO DAILY propranolol 60 mg tablet 60 mg PO QHS Eliquis 5 mg tablet 5 mg PO BID levothyroxine 50 mcg tablet 50 mcg PO DAILY furosemide 40 mg tablet 40 mg PO DAILY sulfamethoxazole-trimethoprim 400-80 mg tablet 1 tab PO MOWEFR Other Ambulatory Orders: 12 Lead EKG (Routine) Timeframe: 20231124 Facility: [facility] - Location: Cardiovascular Services Ordered By: Dr. Kian Jacobson Referrals / Follow Up: Mario Roberto DO [Primary Care Provider] - Disposition Disposition (needs filled in before D/C Order can be placed): Home, Self Care
--- NOTE | 2023-11-28 07:38 | PCM.OPRPT ---
Report of Operation Date of Procedure: 11/28/23 Pre-Operative Diagnosis: right ear cylindroma Post-Operative Diagnosis: same Surgery/Procedure Performed:: Excision right ear canal mass (cylindroma) Surgeon: Kian Jacobson Type of Anesthesia: General Anesthesiologist: Preston Vines Estimated Blood Loss (mL): minimal Description of Procedure: The patient was taken to the OR on 11/28/23. She was placed in the supine position on the operating room table. She was given sufficient general anesthesia. The table was turned 90 degrees in a counterclockwise fashion. The right ear was prepped and draped sterilely. 1% lidocaine with epinephrine was injected into the skin surrounding the mass. The operating microscope was used throughout the entire case. An incision was placed circumferentially around the mass. This included tragal cartilage. The mass was marked with suture for orientation. This was sent to pathology. Hemostasis was achieved with bipolar cautery.
[2023-11-28] MEDS: Lidocaine 1% /Epi 1:100 (50ml) 50 ML VIAL (07:58)
[2023-11-28] MEDS: BACITRACIN/POLYMYXIN B 15 GM Tube 1 APPLIC (08:16)
--- NOTE | 2023-11-28 08:52 | PCM.POST.ANE ---
Anesthesia: Postop Eval I Current Vital Signs Temperature: 97 F Pulse Rate: 75 Blood Pressure: 125/61 Respiratory Rate: 16 Pulse Ox: 93 Oxygen Delivery Method: Room Air Assessment Airway patent: Yes Spontaneous unlabored respirations: Yes Mental status: Awake and Calm nausea: No Vomiting: No Anesthesia Complication: No Fluid Hydration Crystalloid volume administer (ml): 800 Total IV fluid infused: 800 Progress Note Anesthesia document: Postop Eval 1 completed: Yes
--- NOTE | 2023-11-28 12:25 | PCM.POSTANE2 ---
Anesthesia Postop Eval I Sum Postop Eval Completion status Anesthesia document: Postop Eval 1 completed: Yes Anesthesia Postop Eval I Summary Anesthesia Postop Eval I Summary: Anesthesia Postop Eval I: Assessment Summary Airway patent Yes 11/28/23 08:53 Spontaneous unlabored Yes 11/28/23 08:53 respirations Mental status Awake,Calm 11/28/23 08:53 nausea No 11/28/23 08:53 Vomiting No 11/28/23 08:53 Anesthesia Postop Eval I: Fluid Summary Crystalloid volume administer 800 11/28/23 08:53 (ml) Colloids volume administered ( ml) Blood Product volume administered (ml) Total IV fluid infused 800 11/28/23 08:53 Anesthesia Postop Eval I: Summary Notes Anesthesia Complication No 11/28/23 08:53 Anesthesia Complication Comment: Post-operative progress note Anesthesia: Postop Eval II Evaluation Mental status: Awake Pain Level: 0 nausea: No Vomiting: No
== END 2023-11-28 10:03 | disposition home or self-care (01) ==
LOC: SDC 05:55 → AC 06:08
PROVIDERS: PCP Student in an Organized Health Care Education/Training Program; Referring Provider Otolaryngology; Visit Provider Otolaryngology
PROC: (CPT 14060; principal; 2023-11-28 07:00)
DX: D23.21 Other benign neoplasm of skin of right ear and external auricular canal (principal); J44.9 Chronic obstructive pulmonary disease, unspecified; Z79.01 Long term (current) use of anticoagulants; Z79.899 Other long term (current) drug therapy; Z79.890 Hormone replacement therapy; F32.A Depression, unspecified; I10 Essential (primary) hypertension; E07.9 Disorder of thyroid, unspecified
CPT/HCPCS: 14060; 00300; J7120; 36415; 80048; 85027; 88305; 93005; J2405

== ENCOUNTER 2024-08-03 09:12 | Day surgery (SDC) | payer MEDICARE, SELFPAY ==
--- NOTE | 2024-08-02 10:48 | HP.PCM_ITS ---
History and Physical Date of Admission: 08/03/24 HPI: The patient is a 68 year old female presenting for pre-operative visit. She is scheduled for Hysteroscopy D&C, polyp resection for PMB, thickened endometrium and polyp on 08/03/24. Procedure discussed along with risks, benefits and complications. Other alternatives discussed for management. Consent form signed? Yes. ? ? PAST MEDICAL HISTORY PAST MEDICAL HISTORYDiagnosisDate?COPD (chronic obstructive pulmonary disease) (HCC)??Depression??Essential tremor??HLD (hyperlipidemia)??HTN (hypertension)??Hypercholesteremia??Mental disorder??Pulmonary embolism (HCC)?? after accident on 01/06/23?Sebaceous cyst06/02/2005?cyst R middle toe 06/11?Stage 1 mild COPD by GOLD classification ([facility])11/2017?Syncope and [id number]/26/2006? near syncope 07/10?Tobacco use ydarxxdq08/26/2006 ? ? PAST SURGICAL HISTORY PAST SURGICAL HISTORYProcedureLateralityDate?CAUTERY CERVIX CRYOCAUTERY INITIAL/REPEAT?1991?COLONOSCOPY FLX DX W/COLLJ SPEC WHEN PFRMD?03/06/2018? Colonoscopy?EXCISION GANGLION WRIST DORSAL/VOLAR PRIMARY???right?OPEN RX ANKLE DISLOCATN+FIXATN???Pt reported 2022?PAST SURGICAL HISTORY OF???benign tumor Right breast removed?PILONIDAL CYST/SINUS EXCISION? CURRENT MEDICATIONS Current Outpatient MedicationsMedicationSigDispenseRefill?citalopram (CELEXA) 40 mg tabletTake 1 tablet by mouth once daily.90 tablet1?propranolol (INDERAL) 60 mg tabletTake 1 tablet by mouth once daily. For [id number] tablet0?ELIQUIS 5 mg tab(s)Take 1 tablet by mouth two times a day.180 tablet3?levothyroxine (LEVOXYL) 50 mcg tabletTake 1 tablet by mouth daily before breakfast. Take on empty stomach. For Qtrrwxl06 tablet1?losartan (COZAAR) 100 mg tabletTake 1 tablet by mouth every evening. For high blood tablet1?sulfamethoxazole- trimethoprim (BACTRIM) 400-80 mg per tabletTake 1 tablet by mouth. 1 daily 3 times a week???ascorbic acid, vitamin C, (VITAMIN C) 500 mg tabletTake 1 tablet by mouth two times a day.100 tablet0?No current facility-administered medications for this visit. ? ? ALLERGIES: Patient has no known allergies. ? PERSONAL HISTORY: SOCIAL HISTORY Social History?Tobacco Use?Smoking status:Every Day??Current packs/day:0.00??Average packs/day:1 pack/day for 33.0 years (33.0 ttl pk- yrs)??Types:Cigarettes??Start date:03/07/1990??Last attempt to quit:03/07/2023??Years since quittin.3?Smokeless tobacco:Never?Tobacco comments:??Just under a packVaping Use?Vaping status:Never UsedSubstance Use Topics?Alcohol use:Yes??Comment: very rarely?Drug use:No ? FAMILY HISTORY: FAMILY HISTORY FAMILY HISTORY ProblemRelationAge of Onset?HeartFather?other (lung cancer)Father??HeartBrother? ? ? REVIEW OF SYMPTOMS: GENERAL: denies fevers or chills ENDOCRINOLOGY: has not been on steroids Cardiology : denies palpitations or chest pain Respiratory: denies SOB or cough Hematology: denies history of prolonged bleeding or easy bruising or VTE Allergy: Denies history of personal or family history of allergy to anesthesia ? PHYSICAL EXAMINATION: ? VITALS: Blood pressure 134/82, weight 88.1 kg (194 lb 3.2 oz), last menstrual period 09/27/2012. ? GENERAL: The patient is well nourished, well hydrated in no acute distress. , The patient is oriented to time, place, and person. NECK: Supple. No lynphadenopathy, normal thyroid, no thyromegaly. LUNGS: Clear to auscultation bilaterally. no wheezes, rhonchi or rales HEART: Regular rate and rhythm, Normal heart sounds, and No murmurs or gallops ? pelvic US on 05/04/24 * * *Final Report* * * DATE OF EXAM: May 04 2024 ?2:23PM ? [facility] ? 1060 ?- ?US FEMALE PELVIS TRANSVAG ?/ PROCEDURE REASON: multiple diagnoses ?? ? * * * * Physician Interpretation * * * * ?EXAMINATION: ? TRANSVAGINAL AND LIMITED TRANSABDOMINAL FEMALE PELVIC ULTRASOUND CLINICAL HISTORY: ?Vaginal spotting, postmenopausal TECHNIQUE: Sonography of the pelvis was performed by transvaginal and transabdominal (limited) techniques. ?Images were obtained and stored in a permanent archive. MQ: ?[facility]_2021 COMPARISON: None RESULT: Uterus: -Size: 6.4 x 3.1 x 4.8 cm -Orientation: Retroverted -Endometrial echo complex: Evaluation of the endometrium was adequate. Cystic change. The endometrial echo complex measured 1.0 cm. -Cervix: Unremarkable. -Adenomyosis assessment: Heterogenous sh adowing, myometrial cysts. -Fibroids: Right-sided intramural leiomy сергей measuring 2.6 cm. ? IMPRESSION: PMB, thickened endometrium, endometrial polyp ? PLAN: The risks/benefits/alternatives and personal involved for the planned hysteroscopy D&C with polyp resection were reviewed with the patient. Her questions were answered to her satisfaction and she desires to proceed. Consent was signed. I reviewed with her postop instructions and expectations. ? ? I have reviewed and updated past medical and surgical history, medications and allergies Assessment & Plan Assessment/Plan (1) PMB (postmenopausal bleeding): (2) Endometrial polyp:
[2024-08-03] VITALS (12 sets, daily range): BP systolic 123–150; BP diastolic 59–78; PULSE 50–61; RESP 14–16; TEMP 36–37.1; O2SAT 88–97; BMI 34.7
[2024-08-03] MEDS: Lactated Ringers 1,000 ML 15 ML IV (09:56)
[2024-08-03] MEDS: Acetaminophen 500 MG Tablet 1000 MG PO (09:57)
--- NOTE | 2024-08-03 10:03 | PCM.PRE.AN2 ---
ASA Classification* ASA Classification ASA Classification: 2 Assessment & Plan Anesthesia* Anesthesia Assessment Anesthesia Assessment: Discussed sedation and/or anesthesia options, risks, benefits, and alternatives with patient/parents/legal guardian/POA. Questions invited. The patient/parents/legal guardian/POA seems to understand and agrees to proceed with anesthesia plan. Reviewed the physical assessment, medical history, allergy history and patient home medications list prior to surgery/procedure/anesthetic and documented any changes. Performed airway and anesthesia risk assessments. Anesthesia Type Anesthesia Type: MAC History Source History Obtained from:: Patient and Chart Anesthesia Focused Assessment* Temperature: 98.8 F Pulse Rate: 58 Blood Pressure: 123/59 Respiratory Rate: 16 Pulse Ox: 97 Oxygen Delivery Method: Room Air Airway Assessment Mouth opens: >3 cm Mallampati Score: IV Teeth Condition: Caps/Crowns (Patient has several crowns. They are all tight.) and Missing (Patient has several missing teeth. Rest are tight.) Neck Range of motion (ROM): Limited ROM (Slight decrease in extension) Labs Anesthesia Preop lab: CBC WBC 9.0 K/mm3 (4.4-11.0) 11/24/23 13:53 11/24/23 RBC 4.67 M/mm3 (4.2-5.4) 11/24/23 13:53 11/24/23 Hgb 14.1 g/dL (12.0-15.0) 11/24/23 13:53 11/24/23 Hct 44.1 % (37-47) 11/24/23 13:53 11/24/23 Plt Count 284 K/mm3 (150-450) 11/24/23 13:53 11/24/23 CHEMISTRY Potassium 4.4 mmol/L (3.5-5.1) 11/24/23 13:53 11/24/23 Sodium 139 mmol/L (136-145) 11/24/23 13:53 11/24/23 BUN 17 mg/dL (7-18) 11/24/23 13:53 11/24/23 Creatinine 1.23 mg/dL (0.55-1.02) H 11/24/23 13:53 11/24/23 Glucose 122 mg/dL (74-106) H 11/24/23 13:53 11/24/23 COAG PT 12.1 SECONDS (11.7-14.9) 07/05/19 14:55 07/05/19 Pre-Assessment Diagnosis/Proposed Procedure Planned Operative Procedure(s): hysteroscopy dilation and curettage and polyp resection Anesthesia History 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 When Was Last Pacemaker Check QUESTION #4 FULL TEXT: You/Your Family Experience fever (hyperthermia) with Anesthesia Last Oral Intake Last Oral intake: Last Oral Intake NPO since 08:00 08/03/24 09:47 Meds taken in AM with sips of Yes 08/03/24 09:47 water? Meds patient instructed to take am of surgery Any additional information?: Yes Meds taken in AM with sips of water?: Yes PONV PONV - monument installer: PONV - monument installer Female Yes 08/03/24 09:35 HX of Motion Sickness No 08/03/24 09:35 HX of N/V After Surgery No 08/03/24 09:35 Non-Smoker No 08/03/24 09:35 Duration of Surgery greater No 08/03/24 09:35 than 60 minutes Number of Risk Factors 1 08/03/24 09:35 PONV Score Low Risk 08/03/24 09:35 Height & Weight Height & Weight: Anesthesia: Height & Weight Height 5 ft 3 in 08/03/24 09:47 Weight: 89 kg 08/03/24 09:47 Body Mass Index (BMI) 34.7 08/03/24 09:47 Respiratory Assessment Respiratory Assessment - monument installer: Respiratory Tract Infection Hx - monument installer Hx Respiratory Tract Infection No 08/03/24 09:35 STOP Sleep Apnea STOP Sleep Apnea - monument installer: STOP Sleep Apnea - monument installer Hx Hypertension Yes 08/03/24 09:35 Hx Sleep Apnea No 08/03/24 09:35 CPAP BIPAP Do you snore loudly (louder No 08/03/24 09:35 than talking or can be heard Do you often feel tired/ No 08/03/24 09:35 fatigued/ sleepy during daytime? Has anyone observed you stop No 08/03/24 09:35 breathing during sleep? STOP Results Negative 08/03/24 09:35 QUESTION #5 FULL TEXT : Do you snore loudly (louder than talking or can be heard through closed doors)? Tobacco Use History Tobacco Use History - monument installer: Tobacco Use History - monument installer Tobacco Use Smoking Status Current every day smoker 08/03/24 09:35 Hx Tobacco Use Yes 08/03/24 09:35 Years Smoking Packs Smoked per Day Smoking Cessation Date was within the last 15 years Hx Smoking Cessation Date Hx Smoking Cessation Counseling Any additional information?: Yes Smoking Status: Current every day smoker (Patient smoked today.) Hematologic Medial History Hematologic Hx - monument installer: Hematologic Medical Hx - press tender incendiary grenade Hx of Blood Transfusion No 08/03/24 09:35 Hx of Transfusion in last 3 No 08/03/24 09:35 Months Date of Last Transfusion (if within last 3 months) Ever experience any problems No 08/03/24 09:35 with transfusion(s)? Specify any problems Hx of Preganancy in last 3 No 08/03/24 09:35 Months Nurse Filling Out Transfusion CPARSONS 08/03/24 09:35 & Questions: Date: 08/03/24 08/03/24 09:35 Time: 09:45 08/03/24 09:35 Patient unable to answer at this time (ie. confused, unrespo /Reproduction History /Reproductive History - monument installer: /Reproductive Hx- monument installer Hx Now No 08/03/24 09:35 Gestational Age (in weeks): EDC: Hx Hx Para Hx Section SAB No 08/03/24 09:35 Active Medications Active Medications: Current Medications Generic Name Dose Route Start Last Admin Trade Name Freq PRN Reason Stop Dose Admin Acetaminophen 1,000 mg 08/03/24 11:10 08/03/24 09:57 Acetaminophen 500 Mg Tablet PO 08/03/24 11:11 1,000 mg X1 ONE Administration Lactated Ringer's 1,000 mls @ 15 mls/hr 08/03/24 09:30 08/03/24 09:56 IV 15 mls/hr .Q48H BRIGITTE Administration PFSH Medical History Post-menopausal Thyroid disease Arthritis Pulmonary embolism Restless legs Essential tremor Shortness of breath on exertion Smoker History of pain when walking History of edema Hx of fracture of ankle Depression Hypertension COPD (chronic obstructive pulmonary disease) Home Medications ?Medication ?Instructions ?Recorded ?Last Taken ?Type citalopram 40 mg tablet 40 mg PO DAILY 07/05/19 08/24/19 History losartan 100 mg tablet 100 mg PO DAILY 01/06/23 08/03/24 History apixaban 5 mg tablet (Eliquis) 5 mg PO BID 11/22/23 07/30/24 History furosemide 40 mg tablet 40 mg PO DAILY swelling 11/22/23 Unknown History levothyroxine 50 mcg tablet 50 mcg PO DAILY disorder of 11/22/23 08/03/24 History thyroid gland propranolol 60 mg tablet 60 mg PO QHS 11/22/23 08/03/24 History sulfamethoxazole 400 1 tab PO MOWEFR 11/22/23 Unknown History mg-trimethoprim 80 mg tablet Allergy/AdvReac Type Severity Reaction Status Date / Time No Known Allergies Allergy Verified 11/28/23 06:21 Surgical History Hx of colonoscopy History of incision and drainage Social History household members: none Smoking Status: Current every day smoker tobacco type: cigarettes Review of Systems (Anesthesia) ROS Narrative System reviewed and no additional complaints, except as documented.
[2024-08-03 10:24] LABS: Hematocrit 41.4 % (37-47); Hemoglobin 14.5 g/dL (12.0-15.0); Mean Corpuscular Hgb 31.9 pg (27.0-32.0); Platelet Count 224 K/mm3 (150-450); RBC Distribution Width CV 13.3 % (11.6-14.6); RBC Distribution Width SD 45.1 fl (35.1-43.9); Red Blood Count 4.55 M/mm3 (4.2-5.4); White Blood Count 10.3 K/mm3 (4.4-11.0)
[2024-08-03 11:01] LABS: Anion Gap 12 (5-15); BUN 13 mg/dL (4-19); BUN/Creat Ratio 11.1 RATIO (10-20); Calcium,Total 9.2 mg/dL (7.6-11.0); Carbon Dioxide 22.7 mmol/L (21.0-32.0); Chloride 105 mmol/L (98-108); Creatinine, Serum 1.14 mg/dL (0.70-1.20); EST Glomerular Filtration Rate 52 (>60); Glucose 112 mg/dL (70-99); Potassium 3.7 mmol/L (3.3-5.1); Sodium Level 140 mmol/L (133-145)
--- NOTE | 2024-08-03 11:10 | EMB_PTH ---
PATIENT: PAULY NOVAK [place] [facility] [place][id number] AGE/SX: 68/F ROOM: RE08/03/[address]: Dr. Rachel Casillas MD : [id number] BED: DIS: 08/03/2024 SPEC #: [id number] RECD: 08/03/24 12:49 STATUS: KARTIK REAnnelise #: [id number] WENDY: 08/03/24 11:[address]: Rachel Casillas DEPT: SURGICAL PATHOLOGY RECD BY: Rigoberto Farley ENTERED: 08/03/24 13:44 SP TYPE: ENDOM BX/C OTHR DR: Dr. Mario Roberto, DO Tissues: A - Endometrium, NOS Procedures: Surgery Specimen Level IV HEADER OPERATION: Hysteroscopy, D&C, polyp resection PRE-OP DIAGNOSIS: Post menopausal bleeding, endometrial polyp TISSUE SUBMITTED: A- Endometrial polyp and endometrial curettings MICROSCOPIC DIAGNOSIS A. Endometrium, dilation and curettage: * Inactive endometrium with benign endometrial polyp(s) MICROSCOPIC DESCRIPTION Slides are reviewed. GROSS DESCRIPTION Received in formalin labeled with the patient's name and date of . Designated as endometrial polyp and curettings is a 2.4 x 2.4 x 0.6 cm aggregate of maria-pink soft tissue fragments and mucoid material. Entirely submitted in 2 cassettes. NC 08/03/2024 CPT:57436
[2024-08-03] MEDS: Vasopressin 20 UNITS/ML Vial (11:47)
--- NOTE | 2024-08-03 11:52 | PCM.DC ---
Discharge Instructions Diet Discharge Diet: No restrictions DC O2, CPAP, BIPAP needs Home O2 Discharge instructions: No Dressing / Incision May shower in (days): 1 May resume sexual activity in: 2 weeks Lifting Restrictions: none Dressing / Incision Call your doctor if your incision/area has: Sudden Increased Bleeding and Foul Smelling Discharge Call your doctor if you observe: Fever of 101 or Higher and Using more than 1 pad per hour (for 2 hrs in a row) Follow Up Care Please Follow Up With: Rachel Casillas MD When: You do not need a postop appointment. We will contact you with the pathology results in 1-2 weeks. Test Results: Test results from this visit will be discussed in further detail at your follow-up appointment, if applicable. Discharge Plan Admission Primary Reason for Your Visit: Hysteroscopy D&C with polyp resection Attending Provider: Rachel Casillas Primary Care Provider: Mario Roberto Instructions Print Language: Albanian Discharge Orders/Prescriptions Prescriptions: No Action citalopram 40 mg tablet 40 mg PO DAILY Patient Comments: TAKE 1 2 (ONE HALF) TABLET BY MOUTH ONCE DAILY losartan 100 mg tablet 100 mg PO DAILY propranolol 60 mg tablet 60 mg PO QHS Eliquis 5 mg tablet 5 mg PO BID levothyroxine 50 mcg tablet 50 mcg PO DAILY furosemide 40 mg tablet 20 mg PO DAILY sulfamethoxazole-trimethoprim 400-80 mg tablet 1 tab PO MOWEFR Referrals / Follow Up: Mario Roberto DO [Primary Care Provider] - Disposition Disposition (needs filled in before D/C Order can be placed): Home, Self Care
--- NOTE | 2024-08-03 12:13 | OP.PCM_ITS ---
Problems Associated Problem List Diagnoses (1) Endometrial polyp: (2) PMB (postmenopausal bleeding): Operative Report (Standard) Operative Information Date of Procedure: 08/03/24 Pre-Operative Diagnosis: PMB, endometrial polyp Post-Operative Diagnosis: same Surgery/Procedure Performed: Hysteroscopy D&C with polyp resection records analyst: Yes In Store Representative: Judy Tilley MD PGY4 Tasks completed by occupational therapist's assistant: Altering tissue and Retracting Additional department assistant?: No Type of Anesthesia: MAC/Supplemental/Local RN Documented Start/Stop Times: Operation Date: 08/03/24 11:10 Case Time Into Pre-Op 08/03/24 09:20 Out of Pre-Op 08/03/24 11:40 Procedure Start Time: 11:57 Procedure Stop Time: 12:08 Select all DRAINS/GRAFTS/IMPLANTS that apply: None Estimated Blood Loss: 5 Fluids Replaced: 800 Specimen collected: No Description of surgery: The patient was taken to the OR where she was prepped and draped in dorsal lithotomy position. The weighted speculum was placed in the vagina and the anterior lip of the cervix was grasped with a single-tooth tenaculum. A paracervical block was administered with 5 units of vasopressin diluted in injectable saline. The cervix was dilated serially with Hegar dilators. The Symphion hysteroscope was placed into the uterine cavity and the above findings were noted. Bilateral tubal ostia were identified. The resection device was inserted and the polyp was removed its in entirety and a visual D&C was done of the entire endometrial cavity. The instruments were removed from the vagina. The specimen was handed off and sent to pathology. All sponge and needle counts were correct. Vaginal sweep was performed by me. The patient was awakened and taken to the recovery room in stable condition. Hysteroscopic fluid deficit calculated to be 400 cc of normal saline Surgical Findings: normal cerivx and vagina, endoemtrial polyp at right fundus Complications Complications: No Admit VTE Documentation VTE Present on Admission: No VTE Mechan Device Prophylaxis: SCD's VTE Pharm Prophylaxis ordered?: No
--- NOTE | 2024-08-03 12:20 | PCM.POST.ANE ---
Anesthesia: Postop Eval I Current Vital Signs Temperature: 96.8 F Pulse Rate: 61 Blood Pressure: 134/66 Respiratory Rate: 14 Pulse Ox: 92 Assessment Airway patent: Yes Spontaneous unlabored respirations: Yes nausea: No Vomiting: No Anesthesia Complication: No Fluid Hydration Crystalloid volume administer (ml): 800 Total IV fluid infused: 800 Progress Note Anesthesia document: Postop Eval 1 completed: Yes
--- NOTE | 2024-08-06 09:47 | POSTOPAN2_ITS ---
Anesthesia Postop Eval I Sum Postop Eval Completion status Anesthesia document: Postop Eval 1 completed: Yes Anesthesia Postop Eval I Summary Anesthesia Postop Eval I Summary: Anesthesia Postop Eval I: Assessment Summary Airway patent Yes 08/03/24 12:20 PRODUCT SUPPORT [email or web address] Spontaneous unlabored Yes 08/03/24 12:20 PRODUCT SUPPORT [email or web address] respirations Mental status nausea No 08/03/24 12:20 PRODUCT SUPPORT [email or web address] Vomiting No 08/03/24 12:20 PRODUCT SUPPORT [email or web address] Anesthesia Postop Eval I: Fluid Summary Crystalloid volume administer 800 08/03/24 12:20 PRODUCT SUPPORT [email or web address] (ml) Colloids volume administered ( ml) Blood Product volume administered (ml) Total IV fluid infused 800 08/03/24 12:20 PRODUCT SUPPORT [email or web address] Anesthesia Postop Eval I: Summary Notes Anesthesia Complication No 08/03/24 12:20 PRODUCT SUPPORT [email or web address] Anesthesia Complication Comment: Post-operative progress note Anesthesia: Postop Eval II Evaluation Mental status: Awake and Calm Pain Level: 1 nausea: No Vomiting: No Complications Anesthesia Complication: No
--- NOTE | 2024-08-06 09:47 | PCM.POSTANE2 ---
Anesthesia Postop Eval I Sum Postop Eval Completion status Anesthesia document: Postop Eval 1 completed: Yes Anesthesia Postop Eval I Summary Anesthesia Postop Eval I Summary: Anesthesia Postop Eval I: Assessment Summary Airway patent Yes 08/03/24 12:20 PERINATAL [email or web address] Spontaneous unlabored Yes 08/03/24 12:20 PERINATAL [email or web address] respirations Mental status nausea No 08/03/24 12:20 PERINATAL [email or web address] Vomiting No 08/03/24 12:20 PERINATAL [email or web address] Anesthesia Postop Eval I: Fluid Summary Crystalloid volume administer 800 08/03/24 12:20 PERINATAL [email or web address] (ml) Colloids volume administered ( ml) Blood Product volume administered (ml) Total IV fluid infused 800 08/03/24 12:20 PERINATAL [email or web address] Anesthesia Postop Eval I: Summary Notes Anesthesia Complication No 08/03/24 12:20 PERINATAL [email or web address] Anesthesia Complication Comment: Post-operative progress note Anesthesia: Postop Eval II Evaluation Mental status: Awake and Calm Pain Level: 1 nausea: No Vomiting: No Complications Anesthesia Complication: No
--- NOTE | 2024-08-07 10:56 | EKG12_ITS ---
Test Reason : PRE OP Blood Pressure : */* mmHG Vent. Rate : 60 BPM Atrial Rate : 60 BPM P-R Int : 132 ms QRS Dur : 74 ms QT Int : 464 ms P-R-T Axes : 54 20 55 degrees QTcB Int : 464 ms Normal sinus rhythm Normal ECG When compared with ECG of 28-Nov-2023 06:34, No significant change was found Confirmed by CECILIA AUSTIN, SULTANA ([id number]), film editor supervisor TAMMY JOSE ([id number]) on 08/07/2024 11:01:46 AM Referred By: Rachel Casillas Confirmed By: SULTANA BROOKS MD
== END 2024-08-03 14:30 | disposition home or self-care (01) ==
LOC: SDC 09:14 → AC 09:15
PROVIDERS: PCP Student in an Organized Health Care Education/Training Program; Referring Provider Obstetrics & Gynecology; Visit Provider Obstetrics & Gynecology
PROC: 0UB98ZZ Excision of Uterus, Via Natural or Artificial Opening Endoscopic (ICD-10-PCS; CPT 58558; principal; 2024-08-03 10:55)
DX: N95.0 Postmenopausal bleeding (principal); J44.9 Chronic obstructive pulmonary disease, unspecified; N84.0 Polyp of corpus uteri; I10 Essential (primary) hypertension; F17.210 Nicotine dependence, cigarettes, uncomplicated; Z79.01 Long term (current) use of anticoagulants; Z79.899 Other long term (current) drug therapy; Z86.711 Personal history of pulmonary embolism
CPT/HCPCS: 58558; 00952; 80048; 85027; 88305; 93005; J2405